=== PATIENT | male | born 1935 | race Caucasian/White ===

== ENCOUNTER → 2020-03-15 10:28 | Outpatient (BNVA) | payer MEDICARE, SELFPAY | PROVIDERS: Visit Provider Nurse Practitioner | DX: I10 Essential (primary) hypertension (principal); N40.1 Benign prostatic hyperplasia with lower urinary tract symptoms; R39.15 Urgency of urination | CPT/HCPCS: 80053; 80061; 81000; 84443; 85025 ==

== ENCOUNTER → 2020-06-25 11:50 | Outpatient (BNVA) | payer MEDICARE, SELFPAY | PROVIDERS: PCP Nurse Practitioner; Visit Provider Nurse Practitioner | DX: R13.10 Dysphagia, unspecified (principal); Z86.79 Personal history of other diseases of the circulatory system; F41.1 Generalized anxiety disorder; N39.41 Urge incontinence; N40.1 Benign prostatic hyperplasia with lower urinary tract symptoms; I10 Essential (primary) hypertension; R53.83 Other fatigue | CPT/HCPCS: 80053; 82607; 84443; 85025 ==

== ENCOUNTER → 2020-06-26 13:27 | Outpatient (BNVA) | payer MEDICARE, SELFPAY | PROVIDERS: PCP Nurse Practitioner; Visit Provider Nurse Practitioner | DX: R53.83 Other fatigue (principal); R13.10 Dysphagia, unspecified | CPT/HCPCS: 81000 ==

== ENCOUNTER 2020-07-06 15:25 | Observation (INO) | payer MEDICARE, SELFPAY ==
[2020-07-06] VITALS (7 sets, daily range): BP systolic 158–183; BP diastolic 100–113; PULSE 98–115; RESP 12–18; TEMP 36.4–36.7; O2SAT 96–99; BMI 23.6
[2020-07-06 15:45] LABS: Glucose Point of Care 96 mg/dL (70-110)
--- NOTE | 2020-07-06 15:45 | CT_ITS ---
WS: [id number] CT HEAD NONCONTRAST HISTORY: STROKE ALERT TECHNIQUE: Contiguous axial imaging performed through the brain in 2.5 mm imaging. Bone and soft tiss ue windows. Sagittal and coronal reformats reviewed. All CT scans at [facility] use at ast one of these dose optimization techniques: automated exposure control; mA and/or kV adjustment pe r patient size (includes targeted exams where dose is matched to clinical indication); or iterative r econstruction. DLP: 1070.47 mGy-cm. COMPARISON: None available. No acute intracranial hemorrhage, midline shift or mass effect. Moderate atrophy with severe chronic microvascular ischemic changes throughout the white matter. 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 Ventricles: Normal size with no hydrocephalus. Paranasal sinuses: Mucoperiosteal thickening in the ethmoid air cells, greater on the LEFT. No air-fl uid levels. Mastoid air cells: Well pneumatized. Calvarium and scalp: Skull is intact with no soft tissue edema or swelling. Mild atherosclerotic calcification through the cavernous sinuses. CT/CT head wo con* [id number] IMPRESSION: 1. No acute intracranial hemorrhage or edema. 2. Moderate to severe chronic microvascular ischemic disease. Notified Kelvin Campbell DO at 07/06/2020 3:50 PM.
--- NOTE | 2020-07-06 15:51 | XR_ITS ---
WS: [id number] PORTABLE CHEST HISTORY: dyspnea/cough COMPARISON: None available. Prior CABG. Lungs are clear and well expanded. No pleural effusion or pneumothorax. Cardiac size: Mildly enlarged cardiac silhouette. Mediastinum/Aorta: Moderate atherosclerosis aorta and ectasia. Osteopenia. XR/XR chest 1V portable [id number] IMPRESSION: Prior CABG and partially calcified aorta.
--- NOTE | 2020-07-06 15:52 | ED_ITS ---
Documented by User: eKlvin Campbell DO 07/09/20 06:38 HPI - Neuro Symptoms/Deficit General: Chief Complaint: Neuro Symptoms/Deficit Stated Complaint: Stroke alert Time Seen by Provider: 07/06/20 15:28 History of Present Illness: HPI Narrative: 84-year-old male brought in by EMS. Stroke alert was called. Patient arrival is awake alert and oriented and has a stroke score of 1. He had last been seen normal Around 1230 today he had gone to town and he [place] out to his [place] he was sitting at a gait when he was found he had a thick tongue with a difficult time speaking difficult time walking. EMS reported right-sided facial droop however he was seen here he has some dysarthria but no other significant findings. Onset (ago): minute(s) Timing confirmed by: spouse Location: speech Severity: mild Quality: weak and numb Relieving factors: none Exacerbating factors: none Context: sudden onset Associated symptoms: Deny chest pain, cough, diaphoresis, fevers/chills, headache(s), anorexia, malaise, nausea, seizures, short of breath, syncope, tingling, vomiting or weakness Review of Systems Const: Denies: malaise or diaphoresis ENMT: Denies: throat pain, ear or mastoid pain, nasal discharge or nasal congestion Card: Denies: chest pain or syncope Resp: Denies: dyspnea, productive cough or non-productive cough GI: Denies: nausea or vomiting : Denies: flank pain, dysuria, urinary frequency or urinary urgency Skin/Breast: Denies: rash or pruritus Neuro: Denies: headache(s) PFSH ED PFSH: Medical History Alcohol abuse, daily use Alcohol use disorder Ambulates with cane Benign prostatic hyperplasia (BPH) with urinary urgency Chronic constipation Essential (primary) hypertension Generalized anxiety disorder History of coronary artery disease History of TB (tuberculosis) Urge incontinence Surgical History History of cataract left History of cervical spinal surgery History of heart bypass surgery x4 History of hernia repair Right Family History Other Cancer Stroke Denies family history of Diabetes Dementia Bleeding disorder Hypertension Social History Smoking and tobacco status: smoker, details unknown Second hand smoke exposure: No Smoking risk assessment/counseling performed?: No Alcohol intake: current Alcohol intake frequency: 3 or more drinks per day Alcohol type: beer and hard liquor Desire information about alcohol rehabilitation?: No Counseling given: Yes (Verbal) Desire information about substance/drug rehabilitation?: No Counseling given: No Adopted: No Caregiver/support person: Yes Lives independently: Yes Household members: spouse Housing: House Marital status: / Number of children: 2 service: No Current occupational status: retired History of recent travel: Yes ([place]) Out of state: Yes Out of country: No Current gender identity: Male NIH stroke score NIHSS: Level Of Consciousness - 1a: 0 Level Of Consciousness Questions - 1b: Both Correct Level Of Consciousness Commands - 1c: Both Correct Best Gaze - 2: Normal Visual Baker - 3: No Visual Loss Facial Palsy - 4: Normal Motor Arm Right - 5: No Drift Motor Arm Left - 5: No Drift Motor Leg Right - 6: No Drift Motor Leg Left - 6: No Drift Limb Ataxia - 7: Absent Sensory - 8: Normal Best Language - 9: No Aphasia Dysarthia - 10: Mild/Moderate Dysarthia Extinction And Inattention - 11: 0 Score: Total Score: 1 Physical Exam Const: COMMON NORMALS: no acute distress GENERAL APPEARANCE: cooperative and comfortable ORIENTATION/CONSCIOUSNESS: Yes awake, Yes oriented to person, Yes oriented to place and Yes oriented to time HENMT: COMMON NORMALS: normocephalic, atraumatic and hearing grossly normal bilaterally HEAD & SCALP: normocephalic and atraumatic Neck/C-Spine: COMMON NORMALS: no JVD Resp: COMMON NORMALS: normal respiratory effort, No retractions, No use of accessory muscles and clear to auscultation bilaterally AUSCULTATION: clear to auscultation bilaterally Cardio: COMMON NORMALS: no JVD, regular rate, regular rhythm and No murmurs present (Cardio) RATE: regular rate RHYTHM: regular rhythm GI: COMMON NORMALS: Soft to palpation and No hepatosplenomegaly present AUSCULTATION: Yes normoactive bowel sounds PALPATION: Yes Soft to palpation, No Tenderness to palpation present (GI), No Guarding due to palpation present (GI) and Yes No hepatosplenomegaly present Extremity: COMMON NORMALS: normal to inspection, capillary refill normal, no clubbing, cyanosis or edema, no calf tenderness and no pedal edema Neuro: SENSORIUM/ORIENTATION: Yes oriented to person, Yes oriented to place and Yes oriented to time Skin: COMMON NORMALS: no rashes or lesions noted GENERAL SKIN EXAM: no rashes or lesions noted Course Vital Signs: Vital signs: Vital Signs Temperature 98.3 F 07/07/20 13:15 Pulse Rate 60 07/07/20 13:15 Respiratory Rate 18 07/07/20 13:15 Blood Pressure 108/66 07/07/20 13:15 Pulse Oximetry 98 07/07/20 13:15 MDM - Neuro Symptoms/Deficit MDM Narrative: Medical decision making narrative: Concerning for TIA versus CVA. At this point he is nearly completely resolved his stroke score is very low on the only [address] care turned over to Dr[address] Johns at change of shift see his note for final diagnosis and disposition Lab Data: Labs: Lab Results 07/06/20 07/06/20 07/06/20 Range/Units 15:41 15:45 15:45 WBC 6.1 (4.0-10.0) 10^3/ uL RBC 4.02 L (4.1-5.3) 10^6/u L Hgb 12.2 (11.7-16.6) g/dL Hct 38.2 L (42.0-52.0) % MCV 95.0 H (80-94) fL MCH 30.3 (28.0-34.0) pg MCHC 31.9 (30.0-36.0) g/dL RDW 13.1 (12.1-15.1) % Plt Count 182 (130-400) 10^3/c mm MPV 10.7 H (7.4-10.4) fL Neut % (Auto) 66.8 % Lymph % (Auto) 18.4 % [place] % (Auto) 8.6 % Eos % (Auto) 5.3 % Baso % (Auto) 0.7 % Neut # (Auto) 4.07 (1.8-7.7) 10^3/u L Lymph # (Auto) 1.1 (0.8-4.8) 10^3/u L [place] # (Auto) 0.5 (0.2-0.9) 10^3/u L Eos # (Auto) 0.3 (0.0-0.8) 10^3/u L Baso # (Auto) 0.0 (0.0-0.1) 10^3/u L Nucleated RBC % (a uto) 0 % Nucleated RBCs # 0.0 /100WBC Specimen Type Sample Site ABG pH (7.35-7.45) ABG pCO2 (35-45) mmHg ABG pO2 (80.0-100.0) mmH g ABG HCO3 (22-26) mmol/L ABG O2 Saturation ABG Base Excess (-2.0-2.0) mmol/ L Matheus Test A-a O2 Gradient (5-10) mmHg Hematocrit (42-52) % Hgb O2 Saturation (95-100) % Carboxyhemoglobin (0.4-20.1) %THgb Methemoglobin (0.4-1.5) % Total Hemoglobin (14-18) g/dL Ionized Calcium (1.1-1.4) mmol/L O2 Delivery Device Gas Station Supervisor ID Sodium 139 (136-145) mmol/L Potassium 4.1 (3.5-5.1) mmol/L Chloride 102 (98-107) mmol/L Carbon Dioxide 25 (22-29) mmol/L Anion Gap 16.1 (5-19) BUN 22 (8-23) mg/dL Creatinine 0.8 (0.7-1.2) mg/dL GFR Calculation Not Reportable Glucose 121 H (65-115) mg/dL POC Glucose 96 (70-110) mg/dL Calculated Osmolal ity 293 (285-295) mOsm/k g Lactic Acid (0.5-2.2) mmol/L Calcium 9.2 (8.5-10.5) mg/dL Total Bilirubin 0.4 (0.15-1.2) mg/dL AST 28 (0-40) U/L ALT 27 (0-41) U/L Alkaline Phosphata se 68 (40-130) IU/L Ammonia (16-60) umol/L Total Protein 7.1 (6.6-8.7) g/dL Albumin 4.4 (3.5-5.2) g/dL Globulin 2.7 (1.3-4.6) g/dL Urine Color (Yellow) Urine Appearance (CLEAR) Urine pH (5-7) Ur Specific Gravit y (1.005-1.030) Urine Protein (Negative) Urine Glucose (UA) (Normal) Urine Ketones (Negative) Urine Blood (Negative) Urine Nitrate (Negative) Urine Bilirubin (Negative) Urine Urobilinogen (Negative) mg/dL Ur Leukocyte Jena ase (Negative) Serum Ketones Negative (Negative) 07/06/20 07/06/20 07/06/20 Range/Units 16:05 16:05 16:15 WBC (4.0-10.0) 10^3/ uL RBC (4.1-5.3) 10^6/u L Hgb (11.7-16.6) g/dL Hct (42.0-52.0) % MCV (80-94) fL MCH (28.0-34.0) pg MCHC (30.0-36.0) g/dL RDW (12.1-15.1) % Plt Count (130-400) 10^3/c mm MPV (7.4-10.4) fL Neut % (Auto) % Lymph % (Auto) % Stonewall % (Auto) % Eos % (Auto) % Baso % (Auto) % Neut # (Auto) (1.8-7.7) 10^3/u L Lymph # (Auto) (0.8-4.8) 10^3/u L [place] # (Auto) (0.2-0.9) 10^3/u L Eos # (Auto) (0.0-0.8) 10^3/u L Baso # (Auto) (0.0-0.1) 10^3/u L Nucleated RBC % (a uto) % Nucleated RBCs # /100WBC Specimen Type Arterial Sample Site Radial, left ABG pH 7.39 (7.35-7.45) ABG pCO2 44.5 (35-45) mmHg ABG pO2 72.5 L (80.0-100.0) mmH g ABG HCO3 27.1 H (22-26) mmol/L ABG O2 Saturation 93.8 ABG Base Excess 1.7 (-2.0-2.0) mmol/ L Matheus Test Pos A-a O2 Gradient 3.1 L (5-10) mmHg Hematocrit 40.3 L (42-52) % Hgb O2 Saturation 92.2 L (95-100) % Carboxyhemoglobin 0.9 (0.4-20.1) %THgb Methemoglobin 0.7 (0.4-1.5) % Total Hemoglobin 13.2 L (14-18) g/dL Ionized Calcium 1.2 (1.1-1.4) mmol/L O2 Delivery Device Room air [employer] Supervisor ID [id number] Sodium 140.0 (136-145) mmol/L Potassium 4.1 (3.5-5.1) mmol/L Chloride (98-107) mmol/L Carbon Dioxide (22-29) mmol/L Anion Gap (5-19) BUN (8-23) mg/dL Creatinine (0.7-1.2) mg/dL GFR Calculation Glucose 103.0 (65-115) mg/dL POC Glucose (70-110) mg/dL Calculated Osmolal ity (285-295) mOsm/k g Lactic Acid 0.8 (0.5-2.2) mmol/L Calcium (8.5-10.5) mg/dL Total Bilirubin (0.15-1.2) mg/dL AST (0-40) U/L ALT (0-41) U/L Alkaline Phosphata se (40-130) IU/L Ammonia 20 (16-60) umol/L Total Protein (6.6-8.7) g/dL Albumin (3.5-5.2) g/dL Globulin (1.3-4.6) g/dL Urine Color (Yellow) Urine Appearance (CLEAR) Urine pH (5-7) Ur Specific Gravit y (1.005-1.030) Urine Protein (Negative) Urine Glucose (UA) (Normal) Urine Ketones (Negative) Urine Blood (Negative) Urine Nitrate (Negative) Urine Bilirubin (Negative) Urine Urobilinogen (Negative) mg/dL Ur Leukocyte Jena ase (Negative) Serum Ketones (Negative) 07/06/20 Range/Units 17:07 WBC (4.0-10.0) 10^3/ uL RBC (4.1-5.3) 10^6/u L Hgb (11.7-16.6) g/dL Hct (42.0-52.0) % MCV (80-94) fL MCH (28.0-34.0) pg MCHC (30.0-36.0) g/dL RDW (12.1-15.1) % Plt Count (130-400) 10^3/c mm MPV (7.4-10.4) fL Neut % (Auto) % Lymph % (Auto) % Stonewall % (Auto) % Eos % (Auto) % Baso % (Auto) % Neut # (Auto) (1.8-7.7) 10^3/u L Lymph # (Auto) (0.8-4.8) 10^3/u L [place] # (Auto) (0.2-0.9) 10^3/u L Eos # (Auto) (0.0-0.8) 10^3/u L Baso # (Auto) (0.0-0.1) 10^3/u L Nucleated RBC % (a uto) % Nucleated RBCs # /100WBC Specimen Type Sample Site ABG pH (7.35-7.45) ABG pCO2 (35-45) mmHg ABG pO2 (80.0-100.0) mmH g ABG HCO3 (22-26) mmol/L ABG O2 Saturation ABG Base Excess (-2.0-2.0) mmol/ L Matheus Test A-a O2 Gradient (5-10) mmHg Hematocrit (42-52) % Hgb O2 Saturation (95-100) % Carboxyhemoglobin (0.4-20.1) %THgb Methemoglobin (0.4-1.5) % Total Hemoglobin (14-18) g/dL Ionized Calcium (1.1-1.4) mmol/L O2 Delivery Device [employer] Station Supervisor ID Sodium (136-145) mmol/L Potassium (3.5-5.1) mmol/L Chloride (98-107) mmol/L Carbon Dioxide (22-29) mmol/L Anion Gap (5-19) BUN (8-23) mg/dL Creatinine (0.7-1.2) mg/dL GFR Calculation Glucose (65-115) mg/dL POC Glucose (70-110) mg/dL Calculated Osmolal ity (285-295) mOsm/k g Lactic Acid (0.5-2.2) mmol/L Calcium (8.5-10.5) mg/dL Total Bilirubin (0.15-1.2) mg/dL AST (0-40) U/L ALT (0-41) U/L Alkaline Phosphata se (40-130) IU/L Ammonia (16-60) umol/L Total Protein (6.6-8.7) g/dL Albumin (3.5-5.2) g/dL Globulin (1.3-4.6) g/dL Urine Color Yellow (Yellow) Urine Appearance Clear (CLEAR) Urine pH 6 (5-7) Ur Specific Gravit y 1.010 (1.005-1.030) Urine Protein Neg (Negative) Urine Glucose (UA) Norm (Normal) Urine Ketones Negative (Negative) Urine Blood Neg (Negative) Urine Nitrate Negative (Negative) Urine Bilirubin Neg (Negative) Urine Urobilinogen Neg (Negative) mg/dL Ur Leukocyte Jena ase Negative (Negative) Serum Ketones (Negative) Discharge Plan Discharge Patient Disposition: Placed in Observation Admit Provider: Mario Collins Clinical Impression: Transient cerebral ischemia Condition: Stable Referrals: Michelle Nguyen FNP-C [Primary Care Provider] - 4-7 days (Michelle Nguyen's office will call you Thursday with an appointment to follow up in 4-7 days. If you don't hear from them please call [phone]) Discharge Diet: Advance as tolerated Discharge Activity: Resume usual activity Patient Instructions: Alcohol Abuse, Pantoprazole (By mouth), TIA Additional Instructions: Please call your doctor or present to emergency department if your condition worsens or you develop diarrhea. Please stop oxybutynin as it is likely the cause of your urinary incontinence, constipation and severe dry mouth. Please discuss with your doctor if you require help to quit drinking. For now please decrease amount of alcohol you are drinking and make sure you drink plenty of fluids for self hydration. Discharge Date/Time: 07/06/20 18:53 Coding Level of Care Code ED Composite Worker for Chg Fwd Documented by User: Braulio Johns DO 07/06/20 17:33 HPI - Neuro Symptoms/Deficit General: Chief Complaint: Neuro Symptoms/Deficit Stated Complaint: Stroke alert Time Seen by Provider: 07/06/20 15:28 PFSH ED PFSH: Medical History Alcohol abuse, daily use Alcohol use disorder Ambulates with cane Benign prostatic hyperplasia (BPH) with urinary urgency Chronic constipation Essential (primary) hypertension Generalized anxiety disorder History of coronary artery disease History of TB (tuberculosis) Urge incontinence Surgical History History of cataract left History of cervical spinal surgery History of heart bypass surgery x4 History of hernia repair Right Family History Other Cancer Stroke Denies family history of Diabetes Dementia Bleeding disorder Hypertension Social History Smoking and tobacco status: smoker, details unknown Second hand smoke exposure: No Smoking risk assessment/counseling performed?: No Alcohol intake: current Alcohol intake frequency: 3 or more drinks per day Alcohol type: beer and hard liquor Desire information about alcohol rehabilitation?: No Counseling given: Yes (Verbal) Desire information about substance/drug rehabilitation?: No Counseling given: No Adopted: No Caregiver/support person: Yes Lives independently: Yes Household members: spouse Housing: House Marital status: / Number of children: 2 service: No Current occupational status: retired History of recent travel: Yes ([place]) Out of state: Yes Out of country: No Current gender identity: Male Course Consultations: Consultation #1: evelin Time: 17:32 Vital Signs: Vital signs: Vital Signs Temperature 98.3 F 07/07/20 13:15 Pulse Rate 60 07/07/20 13:15 Respiratory Rate 18 07/07/20 13:15 Blood Pressure 108/66 07/07/20 13:15 Pulse Oximetry 98 07/07/20 13:15 MDM - Neuro Symptoms/Deficit MDM Narrative: Medical decision making narrative: 84-year-old male brought to the hospital by EMS today. He was checked out to me at shift change by Dr. Bhakta. This cedric presented with symptoms of thickness feeling of the tongue, weakness to one side, and some amnesia. The amnesia persists, the other per symptoms are essentially resolved. He had a CABG in the distant past. He has not seen a senior internet sales consultant in several years. His symptoms are concerning for a TIA. His CT was negative, for anything acute, however, he does have some chronic microvascular ischemic changes. He will come in for carotids, ultrasound echo, etc. Lab Data: Labs: Lab Results 07/06/20 07/06/20 07/06/20 Range/Units 15:41 15:45 15:45 WBC 6.1 (4.0-10.0) 10^3/ uL RBC 4.02 L (4.1-5.3) 10^6/u L Hgb 12.2 (11.7-16.6) g/dL Hct 38.2 L (42.0-52.0) % MCV 95.0 H (80-94) fL MCH 30.3 (28.0-34.0) pg MCHC 31.9 (30.0-36.0) g/dL RDW 13.1 (12.1-15.1) % Plt Count 182 (130-400) 10^3/c mm MPV 10.7 H (7.4-10.4) fL Neut % (Auto) 66.8 % Lymph % (Auto) 18.4 % [place]wall % (Auto) 8.6 % Eos % (Auto) 5.3 % Baso % (Auto) 0.7 % Neut # (Auto) 4.07 (1.8-7.7) 10^3/u L Lymph # (Auto) 1.1 (0.8-4.8) 10^3/u L [place] # (Auto) 0.5 (0.2-0.9) 10^3/u L Eos # (Auto) 0.3 (0.0-0.8) 10^3/u L Baso # (Auto) 0.0 (0.0-0.1) 10^3/u L Nucleated RBC % (a uto) 0 % Nucleated RBCs # 0.0 /100WBC Specimen Type Sample Site ABG pH (7.35-7.45) ABG pCO2 (35-45) mmHg ABG pO2 (80.0-100.0) mmH g ABG HCO3 (22-26) mmol/L ABG O2 Saturation ABG Base Excess (-2.0-2.0) mmol/ L Matheus Test A-a O2 Gradient (5-10) mmHg Hematocrit (42-52) % Hgb O2 Saturation (95-100) % Carboxyhemoglobin (0.4-20.1) %THgb Methemoglobin (0.4-1.5) % Total Hemoglobin (14-18) g/dL Ionized Calcium (1.1-1.4) mmol/L O2 Delivery Device Gas Station Supervisor ID Sodium 139 (136-145) mmol/L Potassium 4.1 (3.5-5.1) mmol/L Chloride 102 (98-107) mmol/L Carbon Dioxide 25 (22-29) mmol/L Anion Gap 16.1 (5-19) BUN 22 (8-23) mg/dL Creatinine 0.8 (0.7-1.2) mg/dL GFR Calculation Not Reportable Glucose 121 H (65-115) mg/dL POC Glucose 96 (70-110) mg/dL Calculated Osmolal ity 293 (285-295) mOsm/k g Lactic Acid (0.5-2.2) mmol/L Calcium 9.2 (8.5-10.5) mg/dL Total Bilirubin 0.4 (0.15-1.2) mg/dL AST 28 (0-40) U/L ALT 27 (0-41) U/L Alkaline Phosphata se 68 (40-130) IU/L Ammonia (16-60) umol/L Total Protein 7.1 (6.6-8.7) g/dL Albumin 4.4 (3.5-5.2) g/dL Globulin 2.7 (1.3-4.6) g/dL Urine Color (Yellow) Urine Appearance (CLEAR) Urine pH (5-7) Ur Specific Gravit y (1.005-1.030) Urine Protein (Negative) Urine Glucose (UA) (Normal) Urine Ketones (Negative) Urine Blood (Negative) Urine Nitrate (Negative) Urine Bilirubin (Negative) Urine Urobilinogen (Negative) mg/dL Ur Leukocyte Jena ase (Negative) Serum Ketones Negative (Negative) 07/06/20 07/06/20 07/06/20 Range/Units 16:05 16:05 16:15 WBC (4.0-10.0) 10^3/ uL RBC (4.1-5.3) 10^6/u L Hgb (11.7-16.6) g/dL Hct (42.0-52.0) % MCV (80-94) fL MCH (28.0-34.0) pg MCHC (30.0-36.0) g/dL RDW (12.1-15.1) % Plt Count (130-400) 10^3/c mm MPV (7.4-10.4) fL Neut % (Auto) % Lymph % (Auto) % [place] % (Auto) % Eos % (Auto) % Baso % (Auto) % Neut # (Auto) (1.8-7.7) 10^3/u L Lymph # (Auto) (0.8-4.8) 10^3/u L [place] # (Auto) (0.2-0.9) 10^3/u L Eos # (Auto) (0.0-0.8) 10^3/u L Baso # (Auto) (0.0-0.1) 10^3/u L Nucleated RBC % (a uto) % Nucleated RBCs # /100WBC Specimen Type Arterial Sample Site Radial, left ABG pH 7.39 (7.35-7.45) ABG pCO2 44.5 (35-45) mmHg ABG pO2 72.5 L (80.0-100.0) mmH g ABG HCO3 27.1 H (22-26) mmol/L ABG O2 Saturation 93.8 ABG Base Excess 1.7 (-2.0-2.0) mmol/ L Matheus Test Pos A-a O2 Gradient 3.1 L (5-10) mmHg Hematocrit 40.3 L (42-52) % Hgb O2 Saturation 92.2 L (95-100) % Carboxyhemoglobin 0.9 (0.4-20.1) %THgb Methemoglobin 0.7 (0.4-1.5) % Total Hemoglobin 13.2 L (14-18) g/dL Ionized Calcium 1.2 (1.1-1.4) mmol/L O2 Delivery Device Room air [employer] Supervisor ID [id number] Sodium 140.0 (136-145) mmol/L Potassium 4.1 (3.5-5.1) mmol/L Chloride (98-107) mmol/L Carbon Dioxide (22-29) mmol/L Anion Gap (5-19) BUN (8-23) mg/dL Creatinine (0.7-1.2) mg/dL GFR Calculation Glucose 103.0 (65-115) mg/dL POC Glucose (70-110) mg/dL Calculated Osmolal ity (285-295) mOsm/k g Lactic Acid 0.8 (0.5-2.2) mmol/L Calcium (8.5-10.5) mg/dL Total Bilirubin (0.15-1.2) mg/dL AST (0-40) U/L ALT (0-41) U/L Alkaline Phosphata se (40-130) IU/L Ammonia 20 (16-60) umol/L Total Protein (6.6-8.7) g/dL Albumin (3.5-5.2) g/dL Globulin (1.3-4.6) g/dL Urine Color (Yellow) Urine Appearance (CLEAR) Urine pH (5-7) Ur Specific Gravit y (1.005-1.030) Urine Protein (Negative) Urine Glucose (UA) (Normal) Urine Ketones (Negative) Urine Blood (Negative) Urine Nitrate (Negative) Urine Bilirubin (Negative) Urine Urobilinogen (Negative) mg/dL Ur Leukocyte Jena ase (Negative) Serum Ketones (Negative) 07/06/20 Range/Units 17:07 WBC (4.0-10.0) 10^3/ uL RBC (4.1-5.3) 10^6/u L Hgb (11.7-16.6) g/dL Hct (42.0-52.0) % MCV (80-94) fL MCH (28.0-34.0) pg MCHC (30.0-36.0) g/dL RDW (12.1-15.1) % Plt Count (130-400) 10^3/c mm MPV (7.4-10.4) fL Neut % (Auto) % Lymph % (Auto) % [place] % (Auto) % Eos % (Auto) % Baso % (Auto) % Neut # (Auto) (1.8-7.7) 10^3/u L Lymph # (Auto) (0.8-4.8) 10^3/u L [place] # (Auto) (0.2-0.9) 10^3/u L Eos # (Auto) (0.0-0.8) 10^3/u L Baso # (Auto) (0.0-0.1) 10^3/u L Nucleated RBC % (a uto) % Nucleated RBCs # /100WBC Specimen Type Sample Site ABG pH (7.35-7.45) ABG pCO2 (35-45) mmHg ABG pO2 (80.0-100.0) mmH g ABG HCO3 (22-26) mmol/L ABG O2 Saturation ABG Base Excess (-2.0-2.0) mmol/ L Matheus Test A-a O2 Gradient (5-10) mmHg Hematocrit (42-52) % Hgb O2 Saturation (95-100) % Carboxyhemoglobin (0.4-20.1) %THgb Methemoglobin (0.4-1.5) % Total Hemoglobin (14-18) g/dL Ionized Calcium (1.1-1.4) mmol/L O2 Delivery Device Gas Station Supervisor ID Sodium (136-145) mmol/L Potassium (3.5-5.1) mmol/L Chloride (98-107) mmol/L Carbon Dioxide (22-29) mmol/L Anion Gap (5-19) BUN (8-23) mg/dL Creatinine (0.7-1.2) mg/dL GFR Calculation Glucose (65-115) mg/dL POC Glucose (70-110) mg/dL Calculated Osmolal ity (285-295) mOsm/k g Lactic Acid (0.5-2.2) mmol/L Calcium (8.5-10.5) mg/dL Total Bilirubin (0.15-1.2) mg/dL AST (0-40) U/L ALT (0-41) U/L Alkaline Phosphata se (40-130) IU/L Ammonia (16-60) umol/L Total Protein (6.6-8.7) g/dL Albumin (3.5-5.2) g/dL Globulin (1.3-4.6) g/dL Urine Color Yellow (Yellow) Urine Appearance Clear (CLEAR) Urine pH 6 (5-7) Ur Specific Gravit y 1.010 (1.005-1.030) Urine Protein Neg (Negative) Urine Glucose (UA) Norm (Normal) Urine Ketones Negative (Negative) Urine Blood Neg (Negative) Urine Nitrate Negative (Negative) Urine Bilirubin Neg (Negative) Urine Urobilinogen Neg (Negative) mg/dL Ur Leukocyte Jena ase Negative (Negative) Serum Ketones (Negative) Discharge Plan Discharge Patient Disposition: Placed in Observation Admit Provider: Mario Collins Clinical Impression: Transient cerebral ischemia Condition: Stable Referrals: Michelle Nguyen FNP-C [Primary Care Provider] - 4-7 days (Michelle Nguyen's office will call you Thursday with an appointment to follow up in 4-7 days. If you don't hear from them please call [phone]) Discharge Diet: Advance as tolerated Discharge Activity: Resume usual activity Patient Instructions: Alcohol Abuse, Pantoprazole (By mouth), TIA Additional Instructions: Please call your doctor or present to emergency department if your condition worsens or you develop diarrhea. Please stop oxybutynin as it is likely the cause of your urinary incontinence, constipation and severe dry mouth. Please discuss with your doctor if you require help to quit drinking. For now please decrease amount of alcohol you are drinking and make sure you drink plenty of fluids for self hydration. Discharge Date/Time: 07/06/20 18:53 Coding Level of Care Code ED Composite Worker for [place] Romero
[2020-07-06 16:06] LABS: Basophils % 0.7 %; Eosinophils # 0.3 10^3/uL (0.0-0.8); Eosinophils % 5.3 %; Hematocrit 38.2 % (42.0-52.0); Hemoglobin 12.2 g/dL (11.7-16.6); Lymphocytes # 1.1 10^3/uL (0.8-4.8); Lymphocytes % 18.4 %; Mean Corpuscular HGB Conc 31.9 g/dL (30.0-36.0); Mean Corpuscular Hemoglobin 30.3 pg (28.0-34.0); Mean Platelet Volume 10.7 fL (7.4-10.4); Monocytes # 0.5 10^3/uL (0.2-0.9); Monocytes % 8.6 %; Neutrophils # 4.07 10^3/uL (1.8-7.7); Neutrophils % 66.8 %; Nucleated Red Blood Cells % 0 %; Platelet Count 182 10^3/cmm (130-400); Red Blood Count 4.02 10^6/uL (4.1-5.3); Red Cell Distribution Width 13.1 % (12.1-15.1); White Blood Count 6.1 10^3/uL (4.0-10.0)
[2020-07-06 16:21] LABS: Ketone (Acetest) Serum Negative (Negative)
[2020-07-06 16:27] LABS: ABG PCO2 44.5 mmHg (35-45); ABG PH Result 7.39 (7.35-7.45); Alveolar-Arterial Oxygen Gradi 3.1 mmHg (5-10); Arterial Blood Gas Hematocrit 40.3 % (42-52); Base Excess ABG 1.7 mmol/L (-2.0-2.0); Blood Gas Allen Test Pos; Blood Gas Sample Site Radial, left; Blood Gas Sample Type Arterial; Carboxyhemoglobin 0.9 %THgb (0.4-20.1); HCO3 ABG 27.1 mmol/L (22-26); HGB O2 Sat 92.2 % (95-100); Ionized Calcium Level - ABG 1.2 mmol/L (1.1-1.4); Methemoglobin 0.7 % (0.4-1.5); Oxygen Device ROOM AIR; Oxygen Saturation ABG 93.8; PO2 ABG 72.5 mmHg (80.0-100.0); Potassium Level - ABG 4.1 mmol/L (3.5-5.0); Total Hemoglobin 13.2 g/dL (14-18)
[2020-07-06 16:31] LABS: Alanine Aminotransferase 27 U/L (0-41); Albumin Level 4.4 g/dL (3.5-5.2); Alkaline Phosphatase 68 IU/L (40-130); Aspartate Amino Transferase 28 U/L (0-40); Blood Urea Nitrogen 22 mg/dL (8-23); Calcium 9.2 mg/dL (8.5-10.5); Carbon Dioxide 25 mmol/L (22-29); Chloride 102 mmol/L (98-107); Globulin 2.7 g/dL (1.3-4.6); Glucose 121 mg/dL (65-115); Osmolality Calculated 293 mOsm/kg (285-295); Sodium 139 mmol/L (136-145); Total Bilirubin 0.4 mg/dL (0.15-1.2); Total Protein 7.1 g/dL (6.6-8.7)
[2020-07-06 16:48] LABS: Anion Gap 16.1 (5-19); Potassium 4.1 mmol/L (3.5-5.1)
[2020-07-06 16:56] LABS: Ammonia 20 umol/L (16-60); Lactic Sepsis W/Reflex 0.8 mmol/L (0.5-2.2)
[2020-07-06 17:21] LABS: Add Urine Microscopic? NO
[2020-07-06] MEDS: metoprolol tartrate 1 mg/1 mL SDV 5 mL 5 MG IV (17:35)
[2020-07-06 17:37] LABS: Blood Urine Neg (Negative); Glucose Urine UA Norm (Normal); Ketones Urine Negative (Negative); Nitrate Urine Negative (Negative); Protein Urine Neg (Negative); Urine Appearance Clear (CLEAR); Urine Color Yellow (Yellow); pH Urine 6 (5-7)
[2020-07-06 17:38] LABS: Bilirubin Urine Neg (Negative); Leukocyte Esterase Urine Negative (Negative); Urobilinogen Urine Neg (Negative)
--- NOTE | 2020-07-06 18:18 | P.HP_ITS ---
Providers/Chief Complaint Admitting Physician: Mario Collins MD Primary Care Provider: Michelle Nguyen, FILM SOUND COORDINATOR-C Chief Complaint: Stroke alert History of Present Illness Raúl Centeno is a 84 year old male presents to emergency department with altered mental status. Patient woke up this morning in his normal state of health. 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 He pressed an alert button on his wrist and EMS was summoned. EMS called home and notified patient's [id number] who was able to find patient not far from the gait who was sitting in the running car in the emergency detail driver's position with head extended back and mouth open. She was found him to have very slurred speech and he was confused. He was eventually ab le to follow her instructions and put car in the parking mode and get out of the car. When EMS arrived they appreciated right-sided facial droop and dysarthria. Patient did not lose consciousness and reports that he remembers everything that happened. Patient usually drinks beer ever since COVID-19 started but [id number] noticed large bottle of whiskey in his house with significant amount of drink missing. Patient admits drinking alcohol but denies previous history of withdrawal symptoms as I never stopped . He has been struggling with urinary incontinence but denies painful urination. Daughter in law reports that in the last 1 month she noticed him getting extremely tired with very minimal exertion which is not him as he is usually very active physically. EMS also noted patient being slightly hypoxic. Approximately 1 week ago patient was seen by primary care provider and [facility] [id number] reports that there was a concern for patient having urinary tract infection. Patient's UA checked in ER was not suggestive of UTI. Patient clinically appeared extremely dry. Patient reports that lately he has been having very dry mouth. Reports having constipation with bowel movements at times being once a week despite taking large amount of multiple laxative and prokinetic medications daily. Patient denies cough or shortness of breath. He denies abdominal pain or chest pain otherwise. Reports that his taste buds working normally and he denies any fever or chills. Patient's history is significant for four-vessel CABG approximately 15 years ago and he has been doing well since then. He denies any chest pain or shortness of breath even with exertion. He quit smoking in 1974. Review of Systems Const: Denies: fever(s) or chills Eyes: Denies: change in vision (Patient does report retinal detachment in the right eye) ENMT: Denies: throat pain or change in hearing Card: Denies: chest pain, edema or lightheadedness Resp: Denies: dyspnea or productive cough GI: Reports: nausea and constipation; Denies: abdominal pain, vomiting, dysphagia, diarrhea, hematochezia or melena : Reports: urinary frequency, urinary urgency and urinary incontinence Musc: Reports: joint pain (Chronic in his hands.); Denies: joint swelling Skin/Breast: Denies: rash or erythema Neuro: Denies: headache(s) or weakness in extremities Psych: Denies: depression or suicidal ideation Endo: Denies: excessive sweating [place]/Lymph: Denies: easy bleeding or tender lymph nodes All/Imm: Denies: throat swelling Medications/Allergies Home Medications Medication Instructions Recorded Confirmed Last Taken Type aspirin 81 mg tablet,delayed 81 mg PO DAILY 03/15/20 06/25/20 Unknown History release cholecalciferol (vitamin D3) 25 25 mcg PO DAILY 03/15/20 06/25/20 Unknown History mcg (1,000 unit) capsule docusate sodium 100 mg capsule 100 mg PO TID cap 03/15/20 06/25/20 Unknown History sennosides 8.6 mg capsule 8.6 mg PO BID PRN 03/15/20 06/25/20 Unknown History diphenhydramine HCl 50 mg tablet 50 mg PO DAILY PRN tab 04/17/20 06/25/20 Unkn own History atorvastatin 10 mg tablet 10 mg PO DAILY #90 tab 06/25/20 06/25/20 Unknown Rx duloxetine 60 mg capsule,delayed 60 mg PO DAILY #90 cap 06/25/20 06/25/20 Unknown Rx release oxybutynin chloride 15 mg 15 mg PO DAILY #90 tab 06/25/20 06/25/20 Unknown Rx tablet,extended release 24 hr sucralfate 100 mg/mL oral 10 ml PO BID #420 ml 06/25/20 06/25/20 Unknown Rx suspension tamsulosin 0.4 mg capsule 0.4 mg PO DAILY #90 cap 06/25/20 06/25/20 Unknown Rx Allergies Allergy/AdvReac Type Severity Reaction Status Date / Time No Known Allergies Allergy Unverified 04/02/20 16:02 PFSH Acute PFSH: Medical History Alcohol abuse, daily use Ambulates with cane Benign prostatic hyperplasia (BPH) with urinary urgency Chronic constipation Essential (primary) hypertension Generalized anxiety disorder History of coronary artery disease History of TB (tuberculosis) Urge incontinence Surgical History History of cataract left History of cervical spinal surgery History of heart bypass surgery x4 History of hernia repair Right Family History Other Cancer Stroke Denies family history of Diabetes Dementia Bleeding disorder Hypertension Social History Smoking and tobacco status: smoker, details unknown Second hand smoke exposure: No Smoking risk assessment/counseling performed?: No Alcohol intake: current Alcohol intake frequency: 3 or more drinks per day A lcohol type: beer and hard liquor Desire information about alcohol rehabilitation?: No Counseling given: Yes (Verbal) Desire information about substance/drug rehabilitation?: No Counseling given: No Adopted: No Caregiver/support person: Yes Lives independently: Yes Household members: spouse Housing: House Marital status: / Number of children: 2 service: No Current occupational status: retired History of recent travel: Yes ([place]) Out of state: Yes Out of country: No Current gender identity: Male Vitals/I&O/Wt Last Vital Signs Temp 98.1 F 07/06/20 15:27 Pulse 99 07/06/20 17:35 Resp 17 07/06/20 17:35 BP 158/110 07/06/20 17:35 Pulse Ox 97 07/06/20 17:35 Weight last 48 hrs Weight 78.97 kg Physical Exam Narrative: EXAM NARRATIVE: Mucous membranes are very dry. Skin is extremely dry and flaky. Const: COMMON NORMALS: no acute distress, patient oriented x3 and alert HENMT: COMMON NORMALS: normocephalic and atraumatic HEAD & SCALP: normocephalic and atraumatic Eye: COMMON NORMALS: EOMs intact bilaterally, conjunctivae normal and no scleral icterus CONJUNCTIVA: Yes conjunctivae normal Neck/C-Spine: COMMON NORMALS: no lymphadenopathy and no meningeal signs Lymph: LYMPHATIC: no lymphadenopathy noted Chest: COMMONS NORMALS: normal palpation of entire chest wall Resp: COMMON NORMALS: No use of accessory muscles and clear to auscultation bilaterally AUSCULTATION: clear to auscultation bilaterally Cardio: COMMON NORMALS: regular rate, regular rhythm and No murmurs present (Cardio) RATE: regular rate RHYTHM: regular rhythm OTHER: No lower extremity edema GI: COMMON NORMALS: Soft to palpation and non-tender PALPATION: Yes Soft to palpation RECTAL EXAM: Yes deferred : COMMON NORMALS: Yes no CVA tenderness BLADDER/KIDNEY EXAM: Yes no CVA tenderness Back/Pelvis: COMMON NORMALS: no CVA tenderness and thoracic and lumbar spine normal to inspection Extremity: COMMON NORMALS: normal to inspection and capillary refill normal Neuro: COMMON NORMALS: patient oriented x3 and no focal motor deficits SENSORIUM/ORIENTATION: Yes alert MENINGEAL SIGNS: Yes no meningeal signs OTHER: Mild bilateral tremors noted which patient reports being familial. He had normal [id number] test. He had normal peripheral vision. Normal shoulder shrug and no pronator drift. All of his muscles throughout were 5 out of 5. Face is symmetrical. Psych: COMMON NORMALS: mental status grossly normal, Normal thought process present and cooperative THOUGHT PROCESS: Normal thought process present Skin: COMMON NORMALS: no rashes or lesions noted GENERAL SKIN EXAM: no rashes or lesions noted Data : 07/06/20 15:45 07/06/20 15:45 A&P Assessment and plan (1) Stroke-like symptoms: I suspect that this is likely related to severe dehydration. Status: Acute (2) Benign prostatic hyperplasia (BPH) with urinary urgency: Status: Chronic (3) Severe dehydration: Status: Acute (4) Alcohol use disorder: Status: Acute (5) Essential (primary) hypertension: Status: Chronic (6) History of coronary artery disease: Status: Chronic Additional A&P Information PLAN: We will treat patient with IV hydration with LR at 100 mL/h for now. Place patient for observation and evaluate with carotid artery ultrasound and echocardiogram. Patient's B12 although in normal range but at the lower side therefore will give couple of doses of IM injections while he is hospitalized. Discontinue oxybutynin which is likely the main cause of patient's urinary incontinence, constipation and dry mouth. Start patient on senna and Colace. Monitor blood pressure and consider increasing Flomax to twice daily. Monitor for signs of withdrawal. PT/OT Patient reports dysphagia and related to severe dry mouth. Reports that he is swallowing well when his mouth is not dry. Discussed with patient regarding importance to decrease amount of alcohol he consumes. Patient voiced understanding. Attestations Medical Necessity Statement*: Patient with severe dehydration and strokelike symptoms requires observation for close monitoring, treatment and evaluation. I expect patient will require less than two midnights. Time Spent in Patient Care: Greater than 35 minutes Coding Level of Care Code Acute Women'S Activities Adviser for Chg Fwd Diagnoses Stroke-like symptoms R29.90 Benign prostatic hyperplasia (BPH) with urinary urgency N40.1; R39.15 Severe dehydration E86.0 Alcohol use disorder Essential (primary) hypertension I10 History of coronary artery disease Z86.79
[2020-07-06] MEDS: enoxaparin 40 mg/0.4 mL Syringe SUBCUT (22:05)
[2020-07-06] MEDS: lactated ringers 1,000 ML 100 ML IV (22:06)
[2020-07-07] VITALS: BP 151/83; PULSE 80; RESP 12; TEMP 36.5; O2SAT 95
[2020-07-07 00:29] VITALS: BP 120/82; BP 128/78; BP 151/83; PULSE 80; PULSE 96; PULSE 98
[2020-07-07 03:48] VITALS: BP 132/83; PULSE 113; RESP 20; TEMP 36.5; O2SAT 97
--- NOTE | 2020-07-07 07:00 | ECG_ITS ---
[facility] Test Date: 2020-07-07 Pat Name: Raúl Centeno Department: Room: 278 Gender: Male Reel Winder: : 1935 Requested By: Mario Collins Order Number: [id number] Ayden MD: Wilbert Doherty M.D. Measurements Intervals [place] Rate: 65 P: [place]: -1 QRS: 0 QRSD: 101 T: 52 QT: 435 QTc: 452 Interpretive Statements ATRIAL FLUTTER/TACHYCARDIA MODERATE ST DEPRESSION [0.05+ mV ST DEPRESSION] No previous ECG available for comparison Electronically Signed On 07-07-2020 18:35:20 CDT by Wilbert Doherty M.D. [id number]
[2020-07-07 07:01] LABS: Estmated Average Glucose 114; Hemoglobin A1C 5.6 % (4.0-6.0)
[2020-07-07] MEDS: lactated ringers 1,000 ML 100 ML IV (07:49)
[2020-07-07 07:56] VITALS: BP 121/64; PULSE 70; RESP 18; TEMP 36.6; O2SAT 95
[2020-07-07] MEDS: pantoprazole DR 40 mg Tablet PO (09:20)
[2020-07-07] MEDS: sennosides-docusate Tablet 2 TAB PO (09:20)
[2020-07-07] MEDS: duloxetine 60 mg Capsule PO (09:21)
[2020-07-07] MEDS: cyanocobalamin 1,000 mcg/mL SDV 1000 MCG IM (09:21)
[2020-07-07] MEDS: cholecalciferol (vitamin D3) 1,000 unit Tablet 1000 UNIT PO (09:21)
[2020-07-07] MEDS: tamsulosin 0.4 mg Capsule PO (09:21)
[2020-07-07] MEDS: aspirin 81 mg EC Tablet PO (09:21)
[2020-07-07] MEDS: atorvastatin 40 mg Tablet 20 MG PO (09:21)
--- NOTE | 2020-07-07 10:25 | P.DS_ITS ---
Discharge Providers Date of Admission: 07/06/20 17:34 Date of Discharge: July 07, 2020 Attending Provider at Admission: Mario Collins MD Attending Provider at Discharge: Mario Collins MD Primary Care Provider: EDD Jones Diagnoses at Discharge Discharge Diagnosis (1) Stroke-like symptoms: Status: Acute Problem details: Stroke/TIA felt unlikely. Patient symptoms appear to be related to severe dehydration (2) Benign prostatic hyperplasia (BPH) with urinary urgency: Status: Chronic (3) Severe dehydration: Status: Acute (4) Alcohol use disorder: Status: Acute (5) Essential (primary) hypertension: Status: Chronic (6) History of coronary artery disease: Status: Chronic Reason for Visit Reason for Visit: Stroke alert Hospital Course Discharge Summary: Patient presented with strokelike symptoms which felt to be secondary to severe dehydration. He was placed for an observation and hydrated with IV fluids. We are currently waiting for echocardiogram and carotid artery ultrasound to be performed and if shows no significant findings patient will be dismissed home. This morning patient reports feeling much better and strong enough to be dismissed home. He has adequate oral intake. He is ambulating with a walker in the hallway. Oxybutynin will be discontinued as it is likely the cause of patient's dry mouth, constipation and urinary incontinence. I will increase Flomax to twice daily as patient's blood pressure permits. Patient was told to slow down on drinking and discussed with his doctor If he needs help to completely quit. Patient was told to drink large amount of fluids to make sure he is well- hydrated. Physical Exam Const: COMMON NORMALS: no acute distress and patient oriented x3 Resp: COMMON NORMALS: normal respiratory effort and clear to auscultation bilaterally AUSCULTATION: clear to auscultation bilaterally Cardio: COMMON NORMALS: regular rate, regular rhythm and S2 normal heart sound present RATE: regular rate RHYTHM: regular rhythm HEART SOUNDS: S2 normal heart sound present OTHER: No lower extremity edema GI: COMMON NORMALS: Normal to inspection, nondistended, normoactive bowel s ounds present, Soft to palpation and non-tender PALPATION: Yes Soft to palpation Neuro: COMMON NORMALS: patient oriented x3 and no focal motor deficits Discharge Data Data Completed and Pending: Completed Studies During Hospitalization Category Date Time Status CT head wo con* [id number] Urgent Cat Scan 07/06/20 15:45 Completed XR chest 1V massimo ble [id number] Stat Exams 07/06/20 15:51 Completed Pending at discharge Category Date Time Status CV carotid duplex BI* [id number] Routine Ultrasound 07/07/20 18:33 Taken CV echo complete* [id number] Routine Ultrasound 07/07/20 18:33 Taken Labs from last 24 hours 07/07/20 07/06/20 07/06/20 05:42 17:07 16:15 WBC RBC Hgb Hct MCV MCH MCHC RDW Plt Count MPV Neut % (Auto) Lymph % (Auto) [place] % (Auto) Eos % (Auto) Baso % (Auto) Neut # (Auto) Lymph # (Auto) [place] # (Auto) Eos # (Auto) Baso # (Auto) Nucleated RBC % (a uto) Nucleated RBCs # Specimen Type Arterial Sample Site Radial, left ABG pH 7.39 ABG pCO2 44.5 ABG pO2 72.5 L ABG HCO3 27.1 H ABG O2 Saturation 93.8 ABG Base Excess 1.7 Matheus Test Pos A-a O2 Gradient 3.1 L Hematocrit 40.3 L Hgb O2 Saturation 92.2 L Carboxyhemoglobin 0.9 Methemoglobin 0.7 Total Hemoglobin 13.2 L Ionized Calcium 1.2 O2 Delivery Device Room air Chute Tapper ID jmn Sodium 140.0 Potassium 4.1 Chloride Carbon Dioxide Anion Gap BUN Creatinine GFR Calculation Glucose 103.0 POC Glucose Estimat Average Gl ucose 114 Hemoglobin A1c 5.6 Calculated Osmolal ity Lactic Acid Calcium Total Bilirubin AST ALT Alkaline Phosphata se Ammonia Total Protein Albumin Globulin Urine Color Yellow Urine Appearance Clear Urine pH 6 Ur Specific Gravit y 1.010 Urine Protein Neg Urine Glucose (UA) Norm Urine Ketones Negative Urine Blood Neg Urine Nitrate Negative Urine Bilirubin Neg Urine Urobilinogen Neg Ur Leukocyte Jena ase Negative Serum Ketones 07/06/20 07/06/20 07/06/20 16:05 16:05 15:45 WBC RBC Hgb Hct MCV MCH MCHC RDW Plt Count MPV Neut % (Auto) Lymph % (Auto) [place] % (Auto) Eos % (Auto) Baso % (Auto) Neut # (Auto) Lymph # (Auto) [place] # (Auto) Eos # (Auto) Baso # (Auto) Nucleated RBC % (a uto) Nucleated RBCs # Specimen Type Sample Site ABG pH ABG pCO2 ABG pO2 ABG HCO3 ABG O2 Saturation ABG Base Excess Matheus Test A-a O2 Gradient Hematocrit Hgb O2 Saturation Carboxyhemoglobin Methemoglobin Total Hemoglobin Ionized Calcium O2 Delivery Device Chute Tapper ID Sodium 139 Potassium 4.1 Chloride 102 Carbon Dioxide 25 Anion Gap 16.1 BUN 22 Creatinine 0.8 GFR Calculation Not Reportable Glucose 121 H POC Glucose Estimat Average Gl ucose Hemoglobin A1c Calculated Osmolal ity 293 Lactic Acid 0.8 Calcium 9.2 Total Bilirubin 0.4 AST 28 ALT 27 Alkaline Phosphata se 68 Ammonia 20 Total Protein 7.1 Albumin 4.4 Globulin 2.7 Urine Color Urine Appearance Urine pH Ur Specific Gravit y Urine Protein Urine Glucose (UA) Urine Ketones Urine Blood Urine Nitrate Urine Bilirubin Urine Urobilinogen Ur Leukocyte Jena ase Serum Ketones Negative 07/06/20 07/06/20 15:45 15:41 WBC 6.1 RBC 4.02 L Hgb 12.2 Hct 38.2 L MCV 95.0 H MCH 30.3 MCHC 31.9 RDW 13.1 Plt Count 182 MPV 10.7 H Neut % (Auto) 66.8 Lymph % (Auto) 18.4 [place] % (Auto) 8.6 Eos % (Auto) 5.3 Baso % (Auto) 0.7 Neut # (Auto) 4.07 Lymph # (Auto) 1.1 [place] # (Auto) 0.5 Eos # (Auto) 0.3 Baso # (Auto) 0.0 Nucleated RBC % (a uto) 0 Nucleated RBCs # 0.0 Specimen Type Sample Site ABG pH ABG pCO2 ABG pO2 ABG HCO3 ABG O2 Saturation ABG Base Excess Matheus Test A-a O2 Gradient Hematocrit Hgb O2 Saturation Carboxyhemoglobin Methemoglobin Total Hemoglobin Ionized Calcium O2 Delivery Device Chute Tapper ID Sodium Potassium Chloride Carbon Dioxide Anion Gap BUN Creatinine GFR Calculation Glucose POC Glucose 96 Estimat Average Gl ucose Hemoglobin A1c Calculated Osmolal ity Lactic Acid Calcium Total Bilirubin AST ALT Alkaline Phosphata se Ammonia Total Protein Albumin Globulin Urine Color Urine Appearance Urine pH Ur Specific Gravit y Urine Protein Urine Glucose (UA) Urine Ketones Urine Blood Urine Nitrate Urine Bilirubin Urine Urobilinogen Ur Leukocyte Jena ase Serum Ketones Vitals: Last Vital Signs Temp 97.9 F 07/07/20 07:56 Pulse 70 07/07/20 07:56 Resp 18 07/07/20 07:56 BP 121/64 07/07/20 07:56 Pulse Ox 95 07/07/20 07:56 Discharge Plan Discharge Patient Disposition: Home Condition: Stable Prescriptions: New pantoprazole 40 mg Tablet,Delayed Release (Dr/Ec) 40 mg PO DAILY Qty: 30 RF: 0 Continued senna 8.6 mg capsule 8.6 mg PO BID PRNRF: 0 docusate sodium [Stool Softener] 100 mg capsule 100 mg PO TID RF: 0 cholecalciferol (vitamin D3) 25 mcg (1,000 unit) capsule 25 mcg PO DAILY RF: 0 aspirin 81 mg tablet,delayed release (DR/EC) 81 mg PO DAILY RF: 0 atorvastatin 10 mg tablet 10 mg PO DAILY Qty: 90 RF: 1 duloxetine 60 mg capsule,delayed release(DR/EC) 60 mg PO DAILY Qty: 90 RF: 1 Changed tamsulosin 0.4 mg capsule 0.4 mg PO BID Qty: 90 RF: 1 Discontinued diphenhydramine HCl 50 mg tablet 50 mg PO DAILY PRNRF: 0 oxybutynin chloride 15 mg tablet extended release 24hr 15 mg PO DAILY Qty: 90 RF: 1 sucralfate [Carafate] 100 mg/mL suspension 10 ml PO BID Qty: 420 RF: 0 Discharge Orders: Discharge Order (Routine); Ordered 07/07/20 Ordered By: Mario Collins Referrals: Michelle Nguyen, DIANNEC [Primary Care Provider] - 4-7 days Discharge Diet: Advance as tolerated Discharge Activity: Resume usual activity Activity Restrictions/Additional Instructions: Please call your doctor or present to emergency department if your condition worsens or you develop diarrhea. Please stop oxybutynin as it is likely the cause of your urinary incontinence, constipation and severe dry mouth. Please discuss with your doctor if you require help to quit drinking. For now please decrease amount of alcohol you are drinking and make sure you drink plenty of fluids for self hydration. Discharge Attestations Time Spent in Discharge Care*: greater than 30 min Quality Metrics Clinical Quality Measures During this hospital stay, did patient experience: None Coding Level of Care Code Acute Professor Of Sociology for g Fwd Diagnoses Stroke-like symptoms R29.90 Benign prostatic hyperplasia (BPH) with urinary urgency N40.1; R39.15 Severe dehydration E86.0 Alcohol use disorder Essential (primary) hypertension I10 History of coronary artery disease Z86.79
[2020-07-07 11:40] VITALS: BP 108/66; PULSE 60; RESP 18; TEMP 36.8; O2SAT 98
[2020-07-07 13:15] VITALS: BP 108/66; PULSE 60; RESP 18; TEMP 36.8; O2SAT 98
--- NOTE | 2020-07-07 13:18 | PC.NURSE ---
DC instructions given, IV dc'd cath intact bleeding controlled with 2x2's and coban, patient to main entrance via wheelchair to personal vehicle with zero difficulties
--- NOTE | 2020-07-07 18:33 | USCV_ITS ---
Jacobo Raúl Age: 84 Gender: M : 1935 Exam Date: 07/07/2020 09:18 Ordering Phys: Mario Collins MD Technologist: Diane Gonzales Exam Location: [facility] [place] Indication: Strokelike symptoms BP: 121 / 64 HR: 72 Rhythm: Sinus Technical Quality: Technically difficult study MEASUREMENTS (Male / Female) Normal Values 2D ECHO LV Diastolic Diameter PLAX 3.8 cm 4.2 - 5.9 / 3.9 - 5.3 cm LV Systolic Diameter PLAX 3.2 cm LV Chamber Size 4.2 cm IVS Diastolic Thickness 1.9 cm 0.6 - 1.0 / 0.6 - 0.9 cm IVS Systolic Thickness 1.9 cm LVPW Diastolic Thickness 1.8 cm 0.6 - 1.0 / 0.6 - 0.9 cm LVPW Systolic Thickness 1.8 cm RV Chamber Size 2.7 cm LVOT Diameter 2.2 cm LV Ejection Fraction 2D Teich 36.7 % LV Ejection Fraction MOD 2C 51.7 % LV Ejection Fraction 2C AL 55.1 % LA Diameter 4.1 cm LA Width 3.0 cm LA Height 6.0 cm RA Width 2.8 cm RA Height 6.3 cm Aorta at Sinotubular Diameter 3.1 cm M-MODE LV Diastolic Diameter MM 4.6 cm 4.2 - 5.9 / 3.9 - 5.3 cm LV Systolic Diameter MM 3.0 cm LV Ejection Fraction MM Teich 62.1 % IVS Diastolic Thickness MM 1.6 cm 0.6 - 1.0 / 0.6 - 0.9 cm IVS Systolic Thickness MM 2.1 cm LVPW Diastolic Thickness MM 1.7 cm 0.6 - 1.0 / 0.6 - 0.9 cm LVPW Systolic Thickness MM 1.9 cm Aortic Annulus Diameter 3.3 cm LA Ao Ratio MM 1.4 MV E Point Septal Separation 0.6 cm DOPPLER AV Peak Velocity 132.3 cm/s LVOT Peak Velocity 59.0 cm/s AV Area Cont Eq vti 1.6 cm squared AV Area Cont Eq pk 1.7 cm squared MV Area PHT 5.0 cm squared Mitral E to A Ratio 1.9 MV E' Velocity 45.5 cm/s Mitral E to MV E' Ratio 6.6 Mitral E to LV E' Lateral Ratio 5.5 Mitral E to LV E' Septal Ratio 8.1 TR Peak Velocity 258.0 cm/s TR Peak Gradient 26.6 mmHg TV Peak E Velocity 55.0 cm/s Right Atrial Pressure 8.0 mmHg Pulmonary Artery Systolic Pressu 34.6 mmHg PV Peak Velocity 54.0 cm/s RV Acceleration Time 0.1 s RV Ejection Time 0.3 s RV AcT/ET 0.3 FINDINGS Left Ventricle Normal left ventricular size and systolic function, EF 50%. Moderate hypokinesia of the basal in the mid septum. Moderate constantly lifting with hypertrophy.Grade III/IV diastolic dysfunction (restrictive filling pattern), severely elevated filling pressures. Right Ventricle Normal right ventricular size and systolic function. Right Atrium Normal right atrial size. Left Atrium Mildly increased left atrial size. Mitral Valve Moderate mitral annular calcification. Aortic Valve Minimally thickened aortic valve Tricuspid Valve Mild tricuspid valve regurgitation. Pulmonic Valve Mild pulmonary valve regurgitation. Pericardium No pericardial effusion. Aorta Minimal dense in the ascending aorta CONCLUSIONS Normal left ventricular size and systolic function, EF 50% Moderate hypokinesia of the basal in the mid septum. Moderate concentric left ventricular hypertrophy. Grade III/IV diastolic dysfunction (restrictive filling pattern), severely elevated filling pressures. Mildly increased left atrial size. Moderate mitral annular calcification. Minimally thickened aortic valve. Mild tricuspid valve regurgitation. Mild pulmonary valve regurgitation. Estimated pulmonary artery peak systolic pressure 35 mmHg There is no pericardial effusion. There are no intracardiac masses. No previous study is available for comparison. Dr Wilbert Doherty MD FAC (Electronically Signed) Final Date: 07 July 2020 14:28 S
--- NOTE | 2020-07-07 18:33 | USCV_ITS ---
Raúl Centeno Age: 84 Gender: M : 1935 Exam Date: 07/07/2020 08:47 Ordering Phys: Mario Clolins MD Technologist: Diane Gonzales [place] [facility] [place]ication: Strokelike symptoms Risk Factors: Unknown Previous Vascular Surgery: None Right Brachial BP: / Left Brachial BP: / Right Left Velocity (cm/s) Spectral Plaque Velocity (cm/s) Spectral Plaque Syst/Diast Broadening Syst/Diast Broadening 44.90/ 8.60 Prox CCA 77.20 / 11.00 Hetro 55.50/ 12.80 Mid CCA 61.50 / 10.30 49.60/ 12.00 Hetro Distal CCA 59.00 / 11.10 Nas 53.60/ 14.80 Prox ICA 40.80 / 8.50 Nas 41.20/ 15.50 Mid ICA 46.00 / 13.80 55.20/ 20.20 Distal ICA 49.70 / 14.80 42.70 ECA 63.20 1.11 ICA/CCA 0.84 Vertebral Antegrade / cm/s 48.20/ 21.00 cm/s Tri Subclavian Tri 92.60 115.1 0 FINDINGS Comparison: none available. See measurements listed above. Mild to moderate heterogeneous plaques at the left bifurcation Minimal scattered plaques at the right bifurcation and proximal ICA Intimal thickening in the common carotid arteries bilaterally Antegrade flow in the left vertebral artery. Right vertebral artery was not visualized. Normal Doppler flow velocities in the external carotid arteries bilaterally CONCLUSIONS Mild to moderate heterogeneous plaques at the left bifurcation. Minimal scattered plaques at the right bifurcation and proximal internal carotid artery. Intimal thickening in the common carotid arteries bilaterally. Right vertebral artery was not visualized. Consider CTA, to better evaluate the right vertebral artery, if clinically indicated Dr Wilbert Doherty MD [facility] (Electronically Signed) Final Date: 08 July 2020 13:34 S
== END 2020-07-07 13:18 | disposition home or self-care (01) ==
LOC: ER 17:33 → MEDSURG 18:02
PROVIDERS: Family Medicine; Admitting Provider Internal Medicine; PCP Nurse Practitioner; Visit Provider Internal Medicine
DX: R41.82 Altered mental status, unspecified (principal); R47.81 Slurred speech; R41.0 Disorientation, unspecified; R29.810 Facial weakness; R29.90 Unspecified symptoms and signs involving the nervous system; N40.1 Benign prostatic hyperplasia with lower urinary tract symptoms; R39.15 Urgency of urination; E86.0 Dehydration; I10 Essential (primary) hypertension; Z86.79 Personal history of other diseases of the circulatory system; Z95.1 Presence of aortocoronary bypass graft; Z79.82 Long term (current) use of aspirin; F41.9 Anxiety disorder, unspecified; F17.210 Nicotine dependence, cigarettes, uncomplicated; I25.10 Atherosclerotic heart disease of native coronary artery without angina pectoris; F10.20 Alcohol dependence, uncomplicated; Y90.9 Presence of alcohol in blood, level not specified
CPT/HCPCS: 12345; 36415; 36416; 36600; 51798; 70450; 71045; 80051; 80053; 81003; 82009; 82140; 82810; 82962; 83036; 83605; 83986; 85025; 93005; 93306; 93880; 96360; 96361; 96372; 96374; 97116; 97161; 97165; 99283; 99285; G0378; J1650; J3420; J3490

== ENCOUNTER → 2020-07-31 16:11 | Outpatient (BNVA) | payer MEDICARE, SELFPAY | PROVIDERS: PCP Nurse Practitioner; Visit Provider Urology | DX: N39.41 Urge incontinence (principal); N40.1 Benign prostatic hyperplasia with lower urinary tract symptoms; R39.15 Urgency of urination; R97.20 Elevated prostate specific antigen [PSA]; Z12.5 Encounter for screening for malignant neoplasm of prostate | CPT/HCPCS: 81003; G0103 ==

== ENCOUNTER → 2020-08-10 13:58 | Outpatient (BNVA) | payer MEDICARE, SELFPAY | PROVIDERS: PCP Nurse Practitioner; Referring Provider Internal Medicine; Visit Provider Specialist | DX: R56.9 Unspecified convulsions (principal); I99.8 Other disorder of circulatory system; I48.91 Unspecified atrial fibrillation; I65.01 Occlusion and stenosis of right vertebral artery; F10.20 Alcohol dependence, uncomplicated; G31.2 Degeneration of nervous system due to alcohol | CPT/HCPCS: 99204 ==

== ENCOUNTER → 2020-08-24 12:51 | Outpatient (BNVA) | payer MEDICARE, SELFPAY | PROVIDERS: PCP Nurse Practitioner; Visit Provider Urology | DX: Z20.828 Contact with and (suspected) exposure to other viral communicable diseases (principal); N21.0 Calculus in bladder | CPT/HCPCS: 81003; 87635 ==

== ENCOUNTER 2020-08-30 19:40 | Observation (INO) | payer MEDICARE, SELFPAY ==
[2020-08-27 11:29] VITALS: BMI 24.4
--- NOTE | 2020-08-27 11:37 | ECG_ITS ---
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 Measurements Intervals [place] Rate: 93 P: [place]: QRS: 12 QRSD: 107 T: 74 QT: 376 QTc: 470 Interpretive Statements ATRIAL FLUTTER NONSPECIFIC T-WAVE ABNORMALITY Compared to ECG 07/07/2020 08:43:12 T-wave abnormality now present ST (T wave) deviation no longer present Electronically Signed On 08-28-2020 17:17:01 BEAD CUTTER by Iwona Garcia M.D. [id number]
--- NOTE | 2020-08-27 12:01 | ANES.PREANE2 ---
Pre-Anesthetic Assessment Pre-Anesthetic Assessment: Height/Weight: Height 1.83 m Weight 81.647 kg Preop Diagnosis: stones Proposed Procedure: Operation Date: 08/30/20 15:10 Proposed Procedures p Cystolitholapaxy 60102 N21.0(Not Applicable) - Jonah Gaytan MD s Cystoscopy(Not Applicable) - Jonah Gaytan MD Familial anesthetic complications: none Social: Social History: Alcohol (3 shots of whiskey a day (denies any hx of seizures)) and No tobacco Exam: Pre-Anes Outpt Exam: alert, oriented x 3, clear to auscultation bilaterally and regular rate & rhythm Airway: Cervical ROM: WNL MP: 4 Dentition: Other (no teeth) CV/HEM: CV/HEM: Afib, CAD and HTN Comments: CABG 10-15 years ago GI: Comments: dysphagia Metabolic: Metabolic: Hyperlipidemia Neuropsych: Neuropsych: Anxiety Comments: alcholic cerebellar degeneration Anesthetic Plan: ASA status: 3 Anesthesia: General Risk of > 500 ml blood loss (7ml/kg in children): No PFSH Anesthesia PFSH: Medical History (Updated 08/24/20 @ 13:51 by Jonah Gaytan MD) Alcohol abuse, daily use Alcohol use disorder Ambulates with cane Benign prostatic hyperplasia (BPH) with urinary urgency Bladder stone BPH loc w urin obs/LUTS Chronic constipation Elevated PSA Essential (primary) hypertension Generalized anxiety disorder History of coronary artery disease History of TB (tuberculosis) Urge incontinence Surgical History History of cataract left History of cervical spinal surgery History of heart bypass surgery x4 History of hernia repair Right Family History Other Cancer Stroke Denies family history of Diabetes Dementia Bleeding disorder Hypertension Social History Smoking and tobacco status: never smoked Household members: none Marital status: / Number of children: 2 service: No Current occupational status: retired History of recent travel: Yes ([place]) Out of state: Yes Out of country: No Current gender identity: Male Data Anesthesia Cardiac Studies: No Data to Display
[2020-08-30] VITALS (26 sets, daily range): BP systolic 131–181; BP diastolic 76–126; PULSE 97–125; RESP 16–20; TEMP 36.3–37; O2SAT 90–99
--- NOTE | 2020-08-30 13:46 | XR_ITS ---
WS: [id number] XR KUB [id number] REASON FOR EXAM: Cystolithiasis FINDINGS: Large amount of fecal material throughout the right and transverse colon. Moderate gaseous distention of redundant colon in the left abdomen. Large amount of fecal material within the rectal vault. There is a very well-defined ovoid density in the right mid pelvis which measures 2.5 cm in maximum d iameter. Presumably this is the bladder calculus referred to in the history. No other urinary tract calculi are identified. There is a calcification in the right upper quadrant w hich would appear to be within the gallbladder/biliary tract. XR/XR KUB [id number] IMPRESSION: Extensive fecal material in the colon. Bladder calculus as above.
[2020-08-30] MEDS: sodium chloride 0.9% 1,000 ML 30 ML IV ×2 (14:29→23:20)
--- NOTE | 2020-08-30 15:14 | P.ANESUD_ITS ---
Pre-Anesthetic Update Pre-Anesthetic Assessment: Date of Surgery/Procedure: 08/30/20 Preop Elissa gnosis: Cystolithiasis Proposed Procedure: Operation Date: 08/30/20 15:10 Proposed Procedures p Cystolitholapaxy 34757 N21.0(Not Applicable) - Jonah Gaytan MD s Cystoscopy(Not Applicable) - Jonah Gaytan MD Any changes to Pre-Anesthetic Assessment?: No Last Intake: Intake Last Liquid Date 08/30/20 Last Liquid Time 04:30 Last Solid Date 08/29/20 Last Solid Time 18:00 Vitals: Temperature 97.4 F L 08/30/20 14:23 Temperature Source Temporal Artery S can 08/30/20 14:23 Pulse Rate 101 H 08/30/20 14:23 Respiratory Rate 16 08/30/20 14:23 Blood Pressure 161/108 08/30/20 14:23 Blood Pressure Tamara n 125 08/30/20 14:23 Pulse Oximetry 96 08/30/20 14:23 Oxygen Delivery Me thod 08/30/20 14:23 Exam: Pre-Anes Outpt Exam: alert, oriented x 3 and clear to auscultation bilaterally Additional Exam Findings (including area of procedure): Irregular Cardiac Studies: No Data to Display
--- NOTE | 2020-08-30 17:17 | P.HPUD_ITS ---
Surgery/Procedure H&P Update DATE OF PROCEDURE: August 30, 2020 DATE H&P PERFORMED: 08/24/20 H&P UPDATE INFORMATION: I have reviewed H&P completed within last 30 days, I have examined patient prior to procedure, No changes to prior documentation and H&P is in [facility] [place]MR on date indicated PREOP DIAGNOSIS: Cystolithiasis >2.5 cm PLANNED PROCEDURE: Operation Date: 08/30/20 15:10 Proposed Procedures p Cystolitholapaxy 55955 N21.0(Not Applicable) - Jonah Gaytan MD s Cystoscopy(Not Applicable) - Jonah Gaytan MD
--- NOTE | 2020-08-30 17:18 | PM.OP ---
Operative Report Date of procedure: August 30, 2020 Pre-op Diagnosis: Cystolithiasis >2.5 cm Post-op diagnosis: same Procedure Done: 1. Cystolitholapaxy >2.5 cm Specimens removed/disposition: Bladder stone fragments Pathology: Bladder stone fragments Surgeon: Lukas Anesthesia: General Estimated blood loss: Minimal Urine output: Not measured Complications: None Findings: 3 stones identified and fragmented completely with laser. Fragments removed without difficulty Condition: stable Disposition: PACU Brief History: Mr. Centeno is a very pleasant 84-year-old white male with a progressive history of irritative voiding symptoms including urgency frequency urgency incontinence. He had a good flow rate and emptied his bladder well. Cystoscopy revealed multiple bladder stones and he was admitted today for outpatient cystolitholapaxy. Procedure: After routine preoperative evaluation examination and obtaining of informed consent he was taken to the operating suite on 08/30/2020 where general anesthesia was administered without difficulty after appropriate timeout was performed, SCDs confirmed to be functioning, preoperative antibiotics administered, beta-sangita protocol confirmed. Prepped and draped in usual sterile fashion in dorsal lithotomy position paying careful attention to avoiding pressure points. 21 Guamanian cystoscope with 30 degree lens was introduced into the urethral meatus and advanced into the bladder to videoscopy. Bladder was systematically examined with 30 and 70 degree lenses in the preoperative cystoscopy findings in clinic were confirmed. A 21 Guamanian cystoscope was utilized throughout the procedure until the very end where a 23 Guamanian scope sheath was utilized to remove the final fragments. A 365 ?m thulium laser fiber was utilized and the stones were sequentially fragmented into small enough pieces that were flushed through the resectoscope with an Ellik evacuator. On final inspection all the stones were removed and the mucosa of the bladder was in good shape. The stone diameter was greater than 5 cm total. There was some oozing that was felt to be a little bit too much to not leave a catheter in with CBI. For that reason a CBI was initiated and with rate running at moderate pace it cleared appropriately. Tolerated procedure well without complications and was awakened in the operating room and returned to the recovery room in stable condition. Plans: 1. Admit to observation status 2. CBI overnight 3. Voiding trial in the morning and hopefully discharge 4. Reviewed all the above with the patient's [id number] who is his primary caregiver.
--- NOTE | 2020-08-30 19:40 | ANE.PACU2 ---
Inpatient post-anesthesia follow up: Airway intact: Yes Vital signs: Temperature 97.4 F Pulse Rate 101 Respiratory Rate 16 Blood Pressure 161/108 Pulse Oximetry 96 Oxygen Delivery Me thod Room Air Oxygen Flow Rate Fraction of Inspir ed Oxygen Hydration adequate: Yes Nausea and vomiting: No Pain level: 2 Additional Comments: Sedated, but responds.
--- NOTE | 2020-08-30 19:53 | P.CONIM_ITS ---
Providers/Reason For Consult Consulting Physican/Specialty*: Hospitalist service Reason for Consult*: Autonomic dysfunction EtOH abuse Attending Physician: Jonah Gaytan MD Primary Care Provider: EDD Jones History of Present Illness History of Present Illness Raúl Centeno is a 84 year old male who carries significant past medical history of coronary disease status post CABG x3, alcohol abuse, suffered from slurred speech and was worked up for TIA, EKG showed atrial flutter considering high chads vascular score he was put on Eliquis 5 mg twice a day in June and was asked to follow-up with neurology, today hospitalist service is consulted for management of comorbid conditions after cystolitholapaxy. 5 cm stone was fragmented and retracted successfully, as per operative note bladder mucosa was in good shape. He will get CBI overnight. Postoperatively patient is doing well he is complaining of right shoulder pain which is not new. In the PACU he received 10 mg of hydralazine, 50 mg of labetalol for hypertensive urgency at the time of my evaluation blood pressure 150s/92, tachycardic heart rate 105. Patient is awake alert not complaining of acute distress. Blood-tinged urine noticed in the urine bag. Review of Systems Const: Denies: body aches or fatigue Eyes: Denies: change in vision ENMT: Denies: throat pain Card: Denies: chest pain Resp: Denies: dyspnea GI: Reports: constipation; Denies: abdominal pain : Denies: flank pain Musc: Reports: joint pain; Denies: neck pain Skin/Breast: Denies: rash Neuro: Denies: headache(s) Psych: Denies: anxiety Endo: Denies: polyuria Francisco/Lymph: Denies: easy bruising All/Imm: Denies: urticaria Meds/Allergies Home Medications and Allergies Home Medications Medication Instructions Recorded Confirmed Last Taken Type aspirin 81 mg tablet,delayed 81 mg PO DAILY 03/15/20 08/30/20 08/27/20 History release atorvastatin 10 mg tablet 10 mg PO DAILY #90 tab 06/25/20 08/30/20 08/29/20 Rx duloxetine 60 mg capsule,delayed 60 mg PO DAILY #90 cap 06/25/20 08/30/20 08/29/20 Rx release apixaban 5 mg tablet 5 mg PO BID #60 tab 1008/30/20 08/23/20 Rx cholecalciferol (vitamin D3) 25 50 mcg PO DAILY cap 07/12/20 08/30/20 08/29/20 History mcg (1,000 unit) capsule docusate sodium 100 mg capsule 300 mg PO DAILY cap 07/12/20 08/30/20 08/29/20 History sennosides 8.6 mg capsule 17.2 mg PO DAILY PRN cap 07/12/20 08/30/20 08/29/20 History diphenhydramine HCl 50 mg tablet 50 mg PO DAILY PRN tab 08/10/20 08/30/20 08/29/20 History tamsulosin 0.4 mg capsule 0.4 mg PO BID #180 cap 08/24/20 08/30/20 08/29/20 Rx Allergies Allergy/AdvReac Type Severity Reaction Status Date / Time No Known Allergies Allergy Verified 08/10/20 14:08 Current Medications Current Medications Generic Name Dose Route Start Last Admin Trade Name Freq PRN Reason Stop Dose Admin Sodium Chloride 1,000 mls @ 30 mls/hr 08/30/20 08:15 08/30/20 14:29 Sodium Chloride 0.9% IV 08/31/20 08:14 30 mls/hr .Q24H JOSE JUAN Administration PFSH Acute PFSH: Medical History Alcohol abuse, daily use Alcohol use disorder Ambulates with cane Benign prostatic hyperplasia (BPH) with urinary urgency Bladder stone BPH loc w urin obs/LUTS Chronic constipation Elevated PSA Essential (primary) hypertension Generalized anxiety disorder History of coronary artery disease History of TB (tuberculosis) Urge incontinence Surgical History History of cataract left History of cervical spinal surgery History of heart bypass surgery x4 History of hernia repair Right Family History Other Cancer Stroke Denies family history of Diabetes Dementia Bleeding disorder Hypertension Social History Smoking and tobacco status: never smoked Household members: none Marital status: / Number of children: 2 service: No Current occupational status: retired History of recent travel: Yes ([place]) Out of state: Yes Out of country: No Current gender identity: Male Vitals/I&O/Wt Last Vital Signs Temp 97.4 F L 08/30/20 14:23 Pulse 101 H 08/30/20 14:23 Resp 16 08/30/20 14:23 BP 161/108 08/30/20 14:23 Pulse Ox 96 08/30/20 14:23 08/30/20 08/30/20 08/30/20 06:59 14:59 22:59 Intake Total 30 / 30 Output Total 820 / 820 Balance -790 / -790 Physical Exam Narrative: EXAM NARRATIVE: Elderly male Clinically looks mildly dehydrated Tachycardic and hypertensive No visible signs of alcohol withdrawal Awake alert oriented x3 GCS 15 No active tremors S1, S2 sinus tachycardia systolic murmur grade 2/6 noted left second intercostal space No acute respiratory distress bilateral breath sounds without active rhonchi or crackles Abdomen soft, distended bowel sound present No STEMI no edema gangrene ulcer, he has SCDs Appropriate mood and affect No skin ulcers or gangrene Blood-tinged urine noticed in urine bag, CBI bag hanging at the bedside Urinary Catheter Management^: 3-way Urethral CBI: Cath Placed During This Visit: yes Urinary Catheter Date of Insertion: 08/30/20 Urinary Catheter Time of Insertion: 19:21 A&P Assessment and plan (1) BPH loc w urin obs/LUTS: Status: Acute (2) Bladder stone: Status: Acute (3) Alcohol abuse, daily use: Status: Acute (4) Hypertension: Status: Acute (5) Constipation: Status: Acute Additional A&P Information Tachycardia and hypertension Most likely secondary to alcohol related autonomic dysfunction Closely monitor for now use Ativan, I would prefer beta-sangita for his symptoms control if needed overnight Avoid hydralazine Would add thiamine and folic acid along CIWA protocol Check EtOH level along magnesium level in the morning Alcohol abuse: Patient drinks a pint of whiskey a day, last drink was yesterday night no active withdrawal however autonomic dysfunction noticed Constipation: Would add MiraLAX, glycerin suppository and senna S BPH with obstructive symptoms status post bladder stone removal cystolitholapaxy Blood-tinged urine noted in the urine bag CBI overnight Established coronary artery disease history: No acute decompensation not complain of active chest pain Patient did suffer from slurred speech few months ago for which he was referred to neurology, TIA was not entertained at that time however atrial flutter was detected on EKG for which he was put on Eliquis, I will keep Eliquis on hold until cleared by urology, at the time my evaluation I have not noticed any neurological deficit Full code DVT prophylaxis SCDs Regular diet Consult Attestations Medical Necessity Statement: As per urology Time Spent in Patient Care: 40mins Coding Level of Care Code Acute Fleet Administrative Assistant for g Fwd Diagnoses BPH loc w urin obs/LUTS N40.1 Bladder stone N21.0 Alcohol abuse, daily use F10.10 Hypertension I10 Constipation K59.00
[2020-08-30] MEDS: labetalol 5 mg/mL SDV 20mL IVP ×3 (20:00→20:18)
[2020-08-30] MEDS: fentaNYL 50 mcg/mL INJ 2mL IVP (20:05)
[2020-08-30] MEDS: morphine 4 mg/mL SDV 1 mL 2 MG IVP (20:23)
[2020-08-30] MEDS: hyDRALAzine 20 mg/mL INJ 1 mL 10 MG IVP (20:39)
[2020-08-30] MEDS: metoprolol tartrate 1 mg/1 mL SDV 5 mL 5 MG IV (20:45)
--- NOTE | 2020-08-30 21:32 | SUR.PHASEI ---
2004 PT REMAINS AWAKE RESTLESS, C/O OF BURNING TO PENIS AND NEEDS TO VOICE PT REORIENTED TO ANG AND CBI INFUSING URINE LT PINK NO CLOTS, CBI AT MOD RATE SEE PAIN MEDS GIVEN 2038 PT AWAKE ALERT
[2020-08-30 22:41] LABS: Alcohol Level < 10 mg/dL (0-10)
[2020-08-31] VITALS (8 sets, daily range): BP systolic 108–132; BP diastolic 67–78; PULSE 70–102; RESP 16–18; TEMP 36.8–37.2; O2SAT 95–100
[2020-08-31] MEDS: diphenhydrAMINE 25 mg Capsule PO (02:13)
[2020-08-31 04:06] LABS: Basophils % 0.5 %; Eosinophils # 0.2 10^3/uL (0.0-0.8); Hematocrit 35.7 % (42.0-52.0); Hemoglobin 11.5 g/dL (11.7-16.6); Lymphocytes # 1.3 10^3/uL (0.8-4.8); Lymphocytes % 16.7 %; Mean Corpuscular HGB Conc 32.2 g/dL (30.0-36.0); Mean Corpuscular Hemoglobin 30.4 pg (28.0-34.0); Mean Corpuscular Volume 94.4 fL (80-94); Mean Platelet Volume 10.9 fL (7.4-10.4); Monocytes # 0.6 10^3/uL (0.2-0.9); Monocytes % 8.1 %; Neutrophils # 5.46 10^3/uL (1.8-7.7); Neutrophils % 71.4 %; Nucleated Red Blood Cells % 0 %; Platelet Count 215 10^3/cmm (130-400); Red Blood Count 3.78 10^6/uL (4.1-5.3); Red Cell Distribution Width 14.2 % (12.1-15.1); White Blood Count 7.7 10^3/uL (4.0-10.0)
[2020-08-31 04:40] LABS: Anion Gap 12.6 (5-19); Blood Urea Nitrogen 15 mg/dL (8-23); Calcium 8.8 mg/dL (8.5-10.5); Carbon Dioxide 28 mmol/L (22-29); Chloride 102 mmol/L (98-107); Creatinine Clr Calc Pharmacy 79.7689; Glucose 97 mg/dL (65-115); Magnesium 1.8 mg/dL (1.7-2.3); Osmolality Calculated 289 mOsm/kg (285-295); Potassium 3.6 mmol/L (3.5-5.1); Sodium 139 mmol/L (136-145)
[2020-08-31] MEDS: docusate sodium 100 mg Capsule 300 MG PO (09:12)
[2020-08-31] MEDS: multivitamin therapeutic Tablet 1 TAB PO (09:13)
[2020-08-31] MEDS: folic acid 1 mg Tablet PO (09:13)
[2020-08-31] MEDS: polyethylene glycol 3350 Pkt 17 gm PO (09:14)
[2020-08-31] MEDS: thiamine 100 mg Tablet PO (09:14)
[2020-08-31] MEDS: sennosides-docusate Tablet 1 TAB PO (09:14)
--- NOTE | 2020-08-31 09:57 | P.PN_ITS ---
Subjective Subjective: Interval history: Patient admitted yesterday for cystolitholapaxy of more than 2.5 cm stone. Overnight patient was on CBI and Padilla catheter was removed earlier in the day after which patient has passed urine. Has remained hemodynamically stable and afebrile. Currently on my examination blood pressure is 116/70 with heart rate of 96 Vitals/I&O/Wt Last Vital Signs Temp 98.9 F 08/31/20 07:40 Pulse 90 08/31/20 09:22 Resp 18 08/31/20 07:40 BP 114/75 08/31/20 07:40 Pulse Ox 97 08/31/20 09:22 08/30/20 08/31/20 08/31/20 22:59 06:59 14:59 Intake Total 830 / 830 120 / 950 120 / 120 Output Total 1270 / 1270 2200 / 2200 Balance -440 / -440 120 / -320 -2080 / -2080 Physical Exam Narrative: EXAM NARRATIVE: Elderly male No visible signs of alcohol withdrawal Awake alert oriented x3 GCS 15 No active tremors S1, S2 sinus no tachycardia, systolic murmur grade 2/6 noted left second intercostal space No acute respiratory distress bilateral breath sounds without active rhonchi or crackles Abdomen soft, distended bowel sound present Appropriate mood and affect No skin ulcers or gangrene Urinary Catheter Management^: 3-way Urethral CBI: Cath Placed During This Visit: yes, but has since been removed by the nurse Reason for Continuing Indwelling Catheter: Decision to DC Catheter Urinary Catheter Date of Insertion: 08/30/20 Urinary Catheter Time of Insertion: 19:21 Date Urinary Catheter Removed: 08/31/20 Time Urinary Catheter Discontinued: 09:41 Data : 08/31/20 03:22 08/31/20 03:22 A&P Assessment and plan (1) BPH loc w urin obs/LUTS: Status: Acute (2) Bladder stone: Status: Acute (3) Alcohol abuse, daily use: Status: Acute (4) Hypertension: Status: Acute (5) Constipation: Status: Acute Additional A&P Information Post cystolitholopaxy: Padilla catheter removed earlier in the day. Continue to monitor for hematuria. Hemoglobin stable for now. 11.5. Hold off Eliquis for next 2 weeks. Hypertension: Goal blood pressure less than 140/90 mmHg. Blood pressure at goal. Continue to monitor. Atrial fibrillation: Heart rate under control. If required can start on low- dose beta-sangita. For now continue holding Eliquis because of recent procedure. Can restart as per Dr. Gaytan. Alcohol abuse: Patient drinks a pint of whiskey a day, last drink was yesterday night no active withdrawal however autonomic dysfunction noticed If needed can start patient on CIWA protocol. Constipation: Would add MiraLAX, glycerin suppository and senna S Established coronary artery disease history: No acute decompensation not complain of active chest pain Continue home dose of statin and aspirin. Full code DVT prophylaxis SCDs Regular diet Patient is stable to be discharged from medical point of view once cleared by Dr. Gaytan. Patient to continue to hold Eliquis for next 2 weeks. From medicine point of view he can continue the aspirin and statin along with other chronic medications including Flomax and Cymbalta. Patient should be discharged on bowel regimen. We will advise to follow-up with his primary care provider within next 2 weeks to monitor CBC. Attestations Medical Necessity Statement*: As per primary team. Time Spent in Patient Care: Greater than 35 minutes (>than 50% of time spent in counselling and/or direct pt care on unit) . Coding Level of Care Code Acute Assembler Clip On Sunglasses for Chg Fwd Diagnoses BPH loc w urin obs/LUTS N40.1 Bladder stone N21.0 Alcohol abuse, daily use F10.10 Hypertension I10 Constipation K59.00
--- NOTE | 2020-08-31 12:08 | PC.CHAP ---
Pastoral Care Encounter/Spiritual Assessment Type of Contact [] Declined exchange teller visit [] Patient/Family/Request visit [] Outpatient visit [] Follow-up visit [] Physician referral [] Code/Alert [xx] Routine visit [] Staff referral [] Actively dying [] Patient sleeping [] Family support [] [] Out of room [] Palliative care [] [] Receiving care in room [] Pre-surgical visit [] Trauma [] Long length of stay [] ICU visit [] Other: Relational/Emotional Strength [xx] Patient feels connected with others/family/visitors/staff [] Distress [] Loneliness/isolation [] Abandonment Spirituality of Patient [xx] Person of Rachel [xx] Attends Evangelical of their Rachel [xx] Believes in Prayer [xx] Reads Bible or Judaism materials [] There are Spiritual issues to be addressed Shell Shop Supervisor Interventions [xx] Prayer [xx] Active listening [xx] Non-anxious presence [] Spiritual/emotional support [] Crisis/trauma care [] Spiritual counseling [] Bereavement support [] Provided bereavement packet [] Provided Bible/devotional materials [] Provided toy/stuffed animal, coloring book to patient or family member [] Provided Communion [] Anointing/[place] [] Salvation [xx] Completed spiritual assessment [] Other: Impact on Illness or Injury [] Angry [] Fearful [] Anxious [] Often cries [] Exhaustion [] Unable to work [] Unable to attend anabaptism [] Unable to walk/stand [] Unable to read [] Unable to drive [] Unable to eat/drink [] Unable to sleep [xx] Unable to be with family [] Patient intubated [] Other: Summary Patient's summer 2018 in [place]. He just moved to this area to be near younger generations of his family. 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 Time spent with patient 7 minutes
--- NOTE | 2020-08-31 15:57 | PM.DCS ---
Discharge Providers Date of Admission: 08/30/20 19:40 Date of Discharge: August 31, 2020 Attending Provider at Admission: Jonah Gaytan MD Attending Provider at Discharge: Jonah Gaytan MD Primary Care Provider: EDD Jones Diagnoses at Discharge Discharge Diagnosis (1) BPH loc w urin obs/LUTS: Status: Acute Permanent problem details: Chronic bladder outlet obstructive symptoms. (2) Bladder stone: Status: Acute Permanent problem details: 3 large bladder stones treated with cystolitholapaxy 08/30/2020 (3) Alcohol abuse, daily use: Status: Acute (4) Hypertension: Status: Acute (5) Constipation: Status: Acute Reason for Visit Reason for Visit: Calculus in bladder Hospital Course Hospital Course Patient was originally evaluated for persistent frequency urgency urgency incontinence and cystoscopy revealed 3 large bladder stones and he was admitted for treatment of those. On 08/30/2020 he underwent cystolitholapaxy with laser lithotripsy. All stone fragments were removed. He did have some minor oozing post cystolitholapaxy and was decided to maintain catheter overnight and admit to observation status. Because of his multiple medical problems as well as a history of ongoing alcohol abuse it was decided to consult hospitalist for medical management overnight. Hospital course was otherwise unremarkable. His urine cleared overnight and the Padilla catheter was removed and he voided spontaneously with clearing urine. Discharge from the afternoon of postoperative day #1 in stable condition with plans for follow-up in roughly 4 to 6 weeks. Physical Exam Const: COMMON NORMALS: no acute distress, alert and well nourished GENERAL APPEARANCE: well kempt and well developed ORIENTATION/CONSCIOUSNESS: not confused HENMT: COMMON NORMALS: normocephalic and atraumatic HEAD & SCALP: normocephalic and atraumatic Eye: COMMON NORMALS: no scleral icterus Neck/C-Spine: COMMON NORMALS: full ROM GENERAL: Yes normal visual inspection Resp: COMMON NORMALS: normal respiratory effort EFFORT & INSPECTION: No labored and No Actively coughing Neuro: SENSORIUM/ORIENTATION: Yes alert Psych: COMMON NORMALS: mental status grossly normal APPEARANCE: Yes grossly normal and Yes well kempt ATTITUDE: Yes calm and Yes engaged Skin: COMMON NORMALS: no rashes or lesions noted and no jaundice GENERAL SKIN EXAM: no rashes or lesions noted Urinary Catheter Management^: 3-way Urethral CBI: Cath Placed During This Visit: yes, but has since been removed by the nurse Reason for Continuing Indwelling Catheter: Decision to DC Catheter Urinary Catheter Date of Insertion: 08/30/20 Urinary Catheter Time of Insertion: 19:21 Date Urinary Catheter Removed: 08/31/20 Time Urinary Catheter Discontinued: 09:41 Discharge Data Data Completed and Pending: Completed Studies During Hospitalization Category Date Time Status XR KUB [id number] Rout ine Exams 08/30/20 13:46 Completed Pending at discharge Category Date Time Status Stone Analysis Ro utine Lab 08/31/20 14:37 Received Pathology: Surgic al [PTH] Routine Pth 08/30/20 19:35 Received Labs from last 24 hours 08/31/20 08/31/20 08/31/20 14:37 03:22 03:22 WBC 7.7 RBC 3.78 L Hgb 11.5 L Hct 35.7 L MCV 94.4 H MCH 30.4 MCHC 32.2 RDW 14.2 Plt Count 215 MPV 10.9 H Neut % (Auto) 71.4 Lymph % (Auto) 16.7 [place] % (Auto) 8.1 Eos % (Auto) 3.0 Baso % (Auto) 0.5 Neut # (Auto) 5.46 Lymph # (Auto) 1.3 [place] # (Auto) 0.6 Eos # (Auto) 0.2 Baso # (Auto) 0.0 Nucleated RBC % (a uto) 0 Nucleated RBCs # 0.0 Sodium 139 Potassium 3.6 Chloride 102 Carbon Dioxide 28 Anion Gap 12.6 BUN 15 Creatinine 0.8 GFR Calculation Not Reportable Glucose 97 Calculated Osmolal ity 289 Calcium 8.8 Magnesium 1.8 Stone Source Pending Stone Weight Pending Stone Nidus Pending Ethyl Alcohol 08/30/20 21:48 WBC RBC Hgb Hct MCV MCH MCHC RDW Plt Count MPV Neut % (Auto) Lymph % (Auto) [place] % (Auto) Eos % (Auto) Baso % (Auto) Neut # (Auto) Lymph # (Auto) [place] # (Auto) Eos # (Auto) Baso # (Auto) Nucleated RBC % (a uto) Nucleated RBCs # Sodium Potassium Chloride Carbon Dioxide Anion Gap BUN Creatinine GFR Calculation Glucose Calculated Osmolal ity Calcium Magnesium Stone Source Stone Weight Stone Nidus Ethyl Alcohol < 10 Vitals: Last Vital Signs Temp 98.2 F 08/31/20 15:42 Pulse 102 H 08/31/20 15:42 Resp 18 08/31/20 15:42 BP 108/70 08/31/20 15:42 Pulse Ox 95 08/31/20 15:42 Discharge Plan Discharge Patient Disposition: Home Condition: Stable Prescriptions: Continued aspirin 81 mg tablet,delayed release (DR/EC) 81 mg PO DAILY RF: 0 cholecalciferol (vitamin D3) 25 mcg (1,000 unit) capsule 50 mcg PO DAILY RF: 0 docusate sodium [Stool Softener] 100 mg capsule 300 mg PO DAILY RF: 0 senna 8.6 mg capsule 17.2 mg PO DAILY PRN (Reason: Constipation) RF: 0 atorvastatin 10 mg tablet 10 mg PO DAILY Qty: 90 RF: 1 duloxetine 60 mg capsule,delayed release(DR/EC) 60 mg PO DAILY Qty: 90 RF: 1 diphenhydramine HCl 50 mg tablet 50 mg PO DAILY PRN (Reason: Insomnia) RF: 0 tamsulosin 0.4 mg capsule 0.4 mg PO BID Qty: 180 RF: 0 Held Eliquis 5 mg tablet 5 mg PO BID Qty: 60 RF: 3 Hold Instructions: Resume on 09/03/20. Discharge Orders: Discharge Order (Routine); Ordered 08/31/20 Ordered By: Jonah Gaytan Referrals: Michelle Nguyen FNP-C [Primary Care Provider] - 1 month Jonah Gaytan MD [Physician] - 10/03/20 11:00 am (Flow rate, PVR, AUA symptom score.) Discharge Diet: Advance as tolerated Discharge Activity: Increase activity as tolerated Patient Instructions: Alcohol Withdrawal, Constipation - Adult, Hypertension, Lithotripsy for Removal of Kidney Stones (DC), At-Risk Alcohol Use (DC), Post Anesthesia Care Activity Restrictions/Additional Instructions: Avoid heavy lifting and straining. Recheck in 4 to 6 weeks with flow rate, PVR, AUA symptom score. 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 Please follow-up with your primary care provider within next 2 to 3 weeks and repeat a CBC. Discharge Attestations Time Spent in Discharge Care*: less than 30 min Quality Metrics Clinical Quality Measures During this hospital stay, did patient experience: None Coding Level of Care Code Acute Hole Digger for Chg Fwd Exam Detailed Diagnoses BPH loc w urin obs/LUTS N40.1 Bladder stone N21.0 Alcohol abuse, daily use F10.10 Hypertension I10 Constipation K59.00
[2020-09-06 03:23] LABS: Stone Source BLADDER STONE
== END 2020-08-31 15:40 | disposition home or self-care (01) ==
LOC: MEDSURG 19:41
PROVIDERS: Internal Medicine; Admitting Provider Urology; PCP Nurse Practitioner; Visit Provider Urology
PROC: 0TCB8ZZ Extirpation of Matter from Bladder, Via Natural or Artificial Opening Endoscopic (ICD-10-PCS; CPT 52318; principal; 2020-08-30 15:10)
PROC: 0TJB8ZZ Inspection of Bladder, Via Natural or Artificial Opening Endoscopic (ICD-10-PCS; CPT 52000; 2020-08-30 15:10)
DX: N21.0 Calculus in bladder (principal); Z79.82 Long term (current) use of aspirin; F10.10 Alcohol abuse, uncomplicated; N40.1 Benign prostatic hyperplasia with lower urinary tract symptoms; N39.498 Other specified urinary incontinence; R35.1 Nocturia; R39.15 Urgency of urination; R35.0 Frequency of micturition; K59.09 Other constipation; R97.20 Elevated prostate specific antigen [PSA]; I10 Essential (primary) hypertension; Z95.1 Presence of aortocoronary bypass graft; Z80.9 Family history of malignant neoplasm, unspecified; Z82.3 Family history of stroke; I25.810 Atherosclerosis of coronary artery bypass graft(s) without angina pectoris; I48.91 Unspecified atrial fibrillation; Z79.01 Long term (current) use of anticoagulants; Z86.11 Personal history of tuberculosis; I16.0 Hypertensive urgency
CPT/HCPCS: 52318; 12345; 36415; 74018; 80048; 80307; 82365; 83735; 85025; 88300; 93005; 96372; G0378; J0360; J2270; J2405; J2704; J3010; J3411; J3490; J7030

== ENCOUNTER → 2020-10-03 11:28 | Outpatient (BNVA) | payer MEDICARE, SELFPAY | PROVIDERS: PCP Nurse Practitioner; Visit Provider Urology | DX: N40.1 Benign prostatic hyperplasia with lower urinary tract symptoms (principal); N39.41 Urge incontinence | CPT/HCPCS: 81003; 87077; 87086; 87184 ==

== ENCOUNTER → 2020-10-22 14:56 | Outpatient (BNVA) | payer MEDICARE, SELFPAY | PROVIDERS: PCP Nurse Practitioner; Visit Provider Urology | DX: N40.1 Benign prostatic hyperplasia with lower urinary tract symptoms (principal) | CPT/HCPCS: 87086 ==

== ENCOUNTER 2020-11-12 13:44 | Outpatient (CLI) | payer MEDICARE, SELFPAY ==
--- NOTE | 2020-11-12 12:30 | USCV_ITS ---
Centeno Raúl Age: 85 Gender: M : 1935 Exam Date: 11/12/2020 14:00 Ordering Phys: Michelle Nguyen Technologist: Vitor Liriano Exam Location: [facility] Indication: RT LEG PAIN AND EDEMA HISTORY: Lower extremity swelling. PROCEDURES: Venous duplex imaging was performed in only the right lower extremity. The following venous structures were evaluated: common femoral vein, profunda vein, proximal portion of the greater saphenous vein, superficial femoral vein, and the popliteal vein. In addition, the posterior tibial and peroneal trunk were evaluated. FINDINGS: Normal 2-D Doppler and augmentation and compressibility throughout the lower extremity venous structures. Additional imaging through the proximal calf veins also reveals no thrombus. Limited evaluation of the greater saphenous vein is patent with no thrombus.. CONCLUSIONS No evidence of right lower extremity DVT. Popliteal cyst measuring 3.1 x 2.9cm Ji Jones MD (Electronically Signed) Final Date: 12 November 2020 16:48 S
== END 2020-11-12 13:45 | disposition home or self-care (01) ==
LOC: RAD 13:47
PROVIDERS: PCP Nurse Practitioner; Visit Provider Nurse Practitioner
DX: R60.0 Localized edema (principal); M79.604 Pain in right leg; M71.21 Synovial cyst of popliteal space [Baker], right knee
CPT/HCPCS: 93971

== ENCOUNTER 2020-11-13 14:38 | Outpatient (CLI) | payer MEDICARE, SELFPAY ==
--- NOTE | 2020-11-13 15:00 | USCV_ITS ---
Raúl Centeno Age: 85 Gender: M : 1935 Exam Date: 11/13/2020 14:59 Ordering Phys: Michelle Nguyen Technologist: Vitor Liriano [place] [facility] [place]: OTHER SPECIFIED SIGNS AND SYMPTOMS INVOLVING THE CI Risk Factors: Previous Vascular Surgery: RIGHT LEFT BP: 130.0 / 65.00 BP: 135.0/ 70.00 0 0 Waveform Velocity (cm/s) Velocity (cm/s) Waveform Triphasic 73.2 Iliac Prox Triphasic 83.0 Iliac Mid Triphasic 72.0 Iliac Distal Triphasic 72.1 INSECTICIDE MAKER Triphasic 78.6 SFA Prox Triphasic 59.0 SFA Mid Triphasic 75.4 SFA Dist Triphasic 53.5 POP Triphasic 52.4 [employer] Triphasic 45.2 DPA 1.0 CADEN FINDINGS Normal resting CADEN on the right side. Normal arterial Doppler waveforms on the right side. CONCLUSIONS No significant arterial obstruction, based on the above findings Dr Wilbert Doherty MD [facility] (Electronically Signed) Final Date: 13 November 2020 19:18 S
== END 2020-11-13 14:39 | disposition home or self-care (01) ==
PROVIDERS: PCP Nurse Practitioner; Visit Provider Nurse Practitioner
DX: R09.89 Other specified symptoms and signs involving the circulatory and respiratory systems (principal)
CPT/HCPCS: 93926

== ENCOUNTER 2021-01-18 16:45 | Emergency (ER) | payer MEDICARE, SELFPAY ==
[2021-01-18] VITALS (8 sets, daily range): BP systolic 105–162; BP diastolic 67–107; PULSE 81–115; RESP 15–20; TEMP 37; O2SAT 92–97; BMI 25.7
--- NOTE | 2021-01-18 17:52 | XRR_ITS ---
PROCEDURE INFORMATION: Exam: XR Chest Exam date and time: 01/18/2021 5:59 PM Age: 85 years old Clinical indication: Shortness of breath; Prior surgery; Surgery type: Open heart; Additional info: Tachycardia, SOB, dizzy TECHNIQUE: Imaging protocol: XR of the chest. Views: 1 view. COMPARISON: CR XR chest 1V portable [id number] 07/06/2020 3:51 PM FINDINGS: Lungs: Mild chronic increased interstitial lung markings. No consolidative pulmonary infiltrates. Pleural spaces: Unremarkable. No pleural effusion. No pneumothorax. 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 Mild cardiomegaly is noted. Vasculature: Thoracic aorta is atherosclerotic and ectatic. Bones/joints: Median sternotomy noted. Postop change of the lower cervical spine noted. XR/XR chest 1V portable [id number] IMPRESSION: 1. Mild cardiomegaly is noted. 2. No acute abnormality demonstrated. 3. There is no interval change from the prior examination.
--- NOTE | 2021-01-18 17:57 | ECG_ITS ---
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 Measurements Intervals [place] Rate: 106 P: [place]: QRS: 11 QRSD: 101 T: 233 QT: 334 QTc: 444 Interpretive Statements ATRIAL FLUTTER/TACHYCARDIA WITH RAPID VENTRICULAR RESPONSE ST DEVIATION AND MODERATE T-WAVE ABNORMALITY, CONSIDER LATERAL ISCHEMIA [-0.1+ mV T WAVE IN I/aVL/V5/V6] Compared to ECG 08/27/2020 11:57:08 Possible ischemia now present T-wave abnormality still present Electronically Signed On 01-18-2021 19:13:14 CDT by Wilton Fry M.D. [email or web address]
--- NOTE | 2021-01-18 18:29 | USR_ITS ---
PROCEDURE INFORMATION: Exam: US Duplex Right Lower Extremity Veins, Limited Exam date and time: 01/18/2021 7:20 PM Age: 85 years old Clinical indication: Edema, localized; Lower extremity, right; Additional info: Rle swelling TECHNIQUE: Imaging protocol: Real-time Duplex ultrasound of the Right Lower Extremity with 2-D alcantara scale, color Doppler flow and spectral waveform analysis with image documentation. Limited exam was focused on the right lower extremity veins. COMPARISON: No relevant prior studies available. FINDINGS: Right deep veins: Unremarkable. The common femoral, femoral, proximal profunda femoral and popliteal veins are patent without thrombus. Normal Doppler waveforms. Normal compressibility and/or augmentation response. Right superficial veins: Unremarkable. Saphenofemoral junction is patent without thrombus. Soft tissues: Unremarkable. US/[place] [id number] IMPRESSION: No evidence of deep vein thrombosis, right lower extremity.
--- NOTE | 2021-01-18 18:32 | CTR_ITS ---
PROCEDURE INFORMATION: Exam: CTA Chest With Contrast Exam date and time: 01/18/2021 7:05 PM Age: 85 years old Clinical indication: Shortness of breath; Prior surgery; Surgery date: 6+ months; Surgery type: Cabg, c-sp; Patient HX: C/O a-fib w rle swelling and SOB; Additional info: Dyspnea. H/o a fib. Rle swelling TECHNIQUE: Imaging protocol: Computed tomographic angiography of the chest with contrast. 3D rendering (Not supervised by radiologist): MIP and/or 3D reconstructed images were created by the technologist. Radiation optimization: All CT scans at this facility use at least one of these dose optimization techniques: automated exposure control; mA and/or kV adjustment per patient size (includes targeted exams where dose is matched to clinical indication); or iterative reconstruction. Contrast material: OMNI 350; Contrast volume: 81 ml; Contrast route: INTRAVENOUS (IV); COMPARISON: CR XR chest 1V portable [id number] 01/18/2021 6:17 PM RADIATION DOSE METRICS: Total DLP (mGy-cm): 603.29 FINDINGS: Tubes, catheters and devices: Permanent pacemaker/AICD noted. Pulmonary arteries: Pulmonary arteries are well opacified. Pulmonary arteries are normal in caliber. No filling defects are demonstrated. No evidence of pulmonary embolism. Aorta: Aorta is unopacified. Atherosclerotic calcifications are noted throughout the aorta. 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 Lungs: Mild fibrosis at the lung apices. Subsolid nodules at the right lung base measuring up to 13 mm. Pleural spaces: No pleural effusion or pneumothorax noted. Heart: Cardiomegaly is present. There is no significant pericardial effusion present. Lymph nodes: Unremarkable. No enlarged lymph nodes. Bones/joints: Median sternotomy noted. Degenerative thoracic spine changes. No acute osseous abnormality. Soft tissues: Unremarkable. CT/CT angio chest PE protcl [id number] IMPRESSION: 1. No evidence of pulmonary embolism. 2. Aorta is unopacified. Atherosclerotic calcifications are noted throughout the aorta. 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 Recommend clinical assessment and follow-up. 3. Subsolid nodules at the right lung base measuring up to [address] Chest at 3-6 months. Subsequent management based on the most suspicious nodule(s). (Reference: Afia) 4. Cardiomegaly is present. REFERENCES: Afia Loyd, et al. Guidelines for Management of Incidental Pulmonary Nodules Detected on CT Images: From the Fleischner Society 2017. Radiology. 2017;284(1):228-243. Radiation Dose CTDIVOL = (mGy): DLP = 603.29 (mGy-cm)
--- NOTE | 2021-01-18 18:59 | PC.NURSE ---
ultrasound in room
--- NOTE | 2021-01-18 19:03 | PC.NURSE ---
report received from ELIAS Ruelas and care transferred to ELIAS Vora
[2021-01-18 19:05] LABS: Lactate (Lactic Acid level) 1.5 mmol/L (0.5-2.2)
[2021-01-18 19:07] LABS: Troponin(5th) Baseline 20 ng/L (0-15)
[2021-01-18] MEDS: sodium chloride 0.9% 1,000 ML 999 ML IV (19:09)
[2021-01-18 19:15] LABS: Alanine Aminotransferase 27 U/L (0-41); Albumin Level 4.2 g/dL (3.5-5.2); Alcohol Level < 10 mg/dL (0-10); Alkaline Phosphatase 92 IU/L (40-130); Anion Gap 12.1 (5-19); Aspartate Amino Transferase 20 U/L (0-40); Blood Urea Nitrogen 22 mg/dL (8-23); Carbon Dioxide 27 mmol/L (22-29); Chloride 104 mmol/L (98-107); Globulin 2.9 g/dL (1.3-4.6); Glucose 106 mg/dL (65-115); Lipase 32 U/L (13-60); NT Pro B Type Natriuretic Pept 873 pg/mL (0-450); Osmolality Calculated 292 mOsm/kg (285-295); Potassium 4.1 mmol/L (3.5-5.1); Sodium 139 mmol/L (136-145); Total Bilirubin 0.3 mg/dL (0.15-1.2); Total Protein 7.1 g/dL (6.6-8.7)
--- NOTE | 2021-01-18 19:21 | PC.NURSE ---
patient to CT
[2021-01-18] MEDS: iohexol 350 mg/mL 100 mL Btl IV (19:33)
[2021-01-18 19:49] LABS: Basophils # 0.1 10^3/uL (0.0-0.1); Basophils % 1.1 %; Eosinophils # 0.4 10^3/uL (0.0-0.8); Eosinophils % 6.5 %; Hematocrit 43.1 % (42.0-52.0); Hemoglobin 13.1 g/dL (11.7-16.6); Lymphocytes # 1.5 10^3/uL (0.8-4.8); Lymphocytes % 25.2 %; Mean Corpuscular HGB Conc 30.4 g/dL (30.0-36.0); Mean Corpuscular Hemoglobin 30.6 pg (28.0-34.0); Mean Corpuscular Volume 100.7 fL (80-94); Mean Platelet Volume 10.7 fL (7.4-10.4); Monocytes # 0.7 10^3/uL (0.2-0.9); Monocytes % 11.4 %; Neutrophils % 55.6 %; Nucleated Red Blood Cells % 0 %; Platelet Count 186 10^3/cmm (130-400); Red Blood Count 4.28 10^6/uL (4.1-5.3); Red Cell Distribution Width 13.1 % (12.1-15.1); White Blood Count 6.1 10^3/uL (4.0-10.0)
--- NOTE | 2021-01-18 19:57 | ECG_ITS ---
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
[2021-01-18] MEDS: metoprolol tartrate 1 mg/1 mL SDV 5 mL 5 MG IV (20:53)
[2021-01-18 21:27] LABS: Troponin 5 2HR 23.33 ng/L (0-15); Troponin 5 2HR Delta 3.33 ABS# (0-10)
--- NOTE | 2021-01-18 22:00 | ED_ITS ---
HPI - General Adult General: Chief complaint: General Medical Stated complaint: Dizziness, SOB, high Heart Rate Time Seen by Provider: 01/18/21 18:03 History of Present Illness: HPI narrative: Patient is an 85-year-old male with past medical history atrial fibrillation on baby aspirin, coronary artery disease, CABG, alcoholism. He comes to the ER wearing a Holter monitor and he is asymptomatic but he was told his heart is beating fast. In triage it was be ating in the 120s with A. fib. After he arrived in the room it went down to the upper 80s and low 90s. He has been asymptomatic of this during his time in the ER as well. He offers no complaints. 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 Earlier in the week he had been giving a prescription for metoprolol 25 mg twice daily but was told not to take it because his heart rate bottomed out. Without further description. Associated symptoms: Deny chest pain, confusion, dyspnea, headache(s), rash or palpitations Review of Systems General: Reports: 10 or more systems reviewed and unremarkable except in HPI and below Const: Denies: fatigue Eyes: Denies: change in vision, blurry vision or eye redness ENMT: Denies: throat pain, swelling of lips/tongue, ear or mastoid pain or nasal congestion Card: Denies: chest pain, palpitations, irregular heart rhythm, edema, dyspnea on exertion or orthopnea Resp: Denies: dyspnea, productive cough or non-productive cough GI: Denies: abdominal pain, diarrhea or GI cramping : Denies: flank pain, urinary frequency or urinary urgency Musc: Denies: neck pain, back pain, extremity pain, joint pain, joint redness, limited range of motion or muscle weakness Skin/Breast: Denies: rash, pruritus, erythema, skin pain or skin tenderness Neuro: Denies: headache(s), numbness in extremities, weakness in extremities, sensory changes, difficulty walking, dizziness, confusion or Slurred speech present Psych: Denies: anxiety or depression Endo: Denies: polyuria All/Imm: Denies: urticaria, throat swelling or tongue swelling PFSH ED PFSH: Medical History Alcohol abuse, daily use Alcohol use disorder Ambulates with cane Benign prostatic hyperplasia (BPH) with urinary urgency Bladder stone 3 large bladder stones treated with cystolitholapaxy 08/30/2020 BPH loc w urin obs/LUTS Chronic bladder outlet obstructive symptoms. Chronic constipation Elevated PSA Essential (primary) hypertension Generalized anxiety disorder History of coronary artery disease History of TB (tuberculosis) Urge incontinence Surgical History History of cataract left History of cervical spinal surgery History of heart bypass surgery x4 History of hernia repair Right Family History Other Cancer Stroke Denies family history of Diabetes Dementia Bleeding disorder Hypertension Social History Smoking and tobacco status: never smoked Household members: none Marital status: / Number of children: 2 service: No Current occupational status: retired History of recent travel: Yes ([place]) Out of state: Yes Out of country: No Current gender identity: Male Physical Exam Const: COMMON NORMALS: no acute distress, average body habitus, patient oriented x3, no limitations, healthy appearing, alert and well nourished GENERAL APPEARANCE: cooperative, comfortable, well kempt and well developed ORIENTATION/CONSCIOUSNESS: Yes awake, Yes oriented to person, Yes oriented to place and Yes oriented to time HENMT: COMMON NORMALS: normocephalic, external ears normal and Normal external nose present HEAD & SCALP: normal to inspection and normocephalic NOSE: Normal external nose present EXTERNAL EAR: Yes external ears normal MOUTH: Normal oral and palatal mucosa present THROAT: posterior oropharynx normal Eye: COMMON NORMALS: Equal, round and reactive pupils present and EOMs intact bilaterally GENERAL EYE: appearance normal, both eyes and all related structures PUPIL: Yes Equal, round and reactive pupils present Neck/C-Spine: COMMON NORMALS: full ROM, no lymphadenopathy, no meningeal signs and no JVD GENERAL: Yes normal visual inspection Lymph: LYMPHATIC: no lymphadenopathy noted Chest: COMMONS NORMALS: normal inspection of the chest and normal palpation of entire chest wall Resp: COMMON NORMALS: normal respiratory effort, No retractions, No use of accessory muscles, clear to auscultation bilaterally and percussion normal EFFORT & INSPECTION: Yes able to speak in complete sentences AUSCULTATION: clear to auscultation bilaterally PERCUSSION: percussion normal Cardio: COMMON NORMALS: no JVD, regular rate, S1 normal heart sound present, S2 normal heart sound present and Peripheral pulses 2+ throughout RATE: regular rate RHYTHM: abnormal rhythm irregularly irregular HEART SOUNDS: S1 normal heart sound present and S2 normal heart sound present PERIPHERAL PULSES: Peripheral pulses 2+ throughout GI: COMMON NORMALS: Normal to inspection, nondistended, normoactive bowel sounds present, Soft to palpation, non-tender and no masses INSPECTION: Yes normal to inspection PALPATION: Yes Soft to palpation : COMMON NORMALS: Yes no CVA tenderness BLADDER/KIDNEY EXAM: Yes no CVA tenderness Back/Pelvis: COMMON NORMALS: no CVA tenderness, thoracic and lumbar spine normal to inspection, no thoracic nor lumbar tenderness and thoraco-lumbar ROM normal Extremity: COMMON NORMALS: normal to inspection, full ROM, capillary refill normal, no joint enlargement and no pedal edema NARRATIVE EXTREMITY EXAM: Mild right lower extremity edema. GENERAL: Yes normal exam except as noted Neuro: COMMON NORMALS: patient oriented x3, CN's II-XII intact bilaterally, moves all extremities, no focal motor deficits, no sensory deficits noted and gait normal SENSORIUM/ORIENTATION: Yes alert, Yes oriented to person, Yes oriented to place and Yes oriented to time MENINGEAL SIGNS: Yes no meningeal signs Psych: COMMON NORMALS: mental status grossly normal, Normal thought process present, cooperative, normal affect and speech normal APPEARANCE: Yes well kempt ATTITUDE: Yes calm SPEECH: Yes normal speech THOUGHT PROCESS: Normal thought process present Skin: COMMON NORMALS: no rashes or lesions noted GENERAL SKIN EXAM: no rashes or lesions noted Course Vital Signs: Vital signs: Vital Signs Temperature 98.6 F 01/18/21 17:39 Pulse Rate 81 01/18/21 21:16 Respiratory Rate 16 01/18/21 21:16 Blood Pressure 137/97 01/18/21 21:16 Pulse Oximetry 94 01/18/21 21:16 MDM - General Adult MDM Narrative: Medical decision making narrative: The patient came to the ER with no symptoms but he was having tachycardia noted on his Holter monitor and told to come to the ER with rates in the 120s. When he got in the bed his rate was in the upper 80s low 90s and noted A. fib. After a few hours it did increase to 110, 220 A. fib rate and he was again asymptomatic. I gave him 5 mg of metoprolol with conversion back down to his apparent baseline in the upper 80s to low 90s. I discussed with Dr. Mota who recommended increasing his aspiri n to 325 mg a day and taking the metoprolol 25 mg twice daily as scheduled. I however recommended he take it as needed and check his heart rate frequently because he was told not to take it earlier in the week. They will take it with heart rates above 110 or with any symptoms and come to the ER with any symptoms of palpitations, chest pain, shortness of breath. They have an appointment with Dr. Fry Thursday and will follow up. ER with worsening symptoms at any time Lab Data: Labs: Lab Results 01/18/21 01/18/21 01/18/21 Range/Units 18:22 18:22 18:22 WBC Cancelled Corrected WBC Cancelled RBC Cancelled Hgb Cancelled Hct Cancelled MCV Cancelled MCH Cancelled MCHC Cancelled RDW Cancelled Plt Count Cancelled MPV Cancelled Gran % Cancelled Neut % (Auto) Cancelled Lymph % (Auto) Cancelled [place] % (Auto) Cancelled Eos % (Auto) Cancelled Baso % (Auto) Cancelled Neut # (Auto) Cancelled Lymph # (Auto) Cancelled [place] # (Auto) Cancelled Eos # (Auto) Cancelled Baso # (Auto) Cancelled Absolute Gran (aut o) Cancelled Nucleated RBC % (a uto) Cancelled Nucleated RBCs # Cancelled Sodium 139 (136-145) mmol/L Potassium 4.1 (3.5-5.1) mmol/L Chloride 104 (98-107) mmol/L Carbon Dioxide 27 (22-29) mmol/L Anion Gap 12.1 (5-19) BUN 22 (8-23) mg/dL Creatinine 0.8 (0.7-1.2) mg/dL GFR Calculation Not Reportable Glucose 106 (65-115) mg/dL Calculated Osmolal ity 292 (285-295) mOsm/k g Lactate 1.5 (0.5-2.2) mmol/L Calcium 9.0 (8.5-10.5) mg/dL Total Bilirubin 0.3 (0.15-1.2) mg/dL AST 20 (0-40) U/L ALT 27 (0-41) U/L Alkaline Phosphata se 92 (40-130) IU/L Troponin T Baselin e (0-15) ng/L Troponin T 120 Min [place] (0-15) ng/L Delta Troponin T (0-10) ABS# NT-Pro-B Natriuret Pep 873 H (0-450) pg/mL Total Protein 7.1 (6.6-8.7) g/dL Albumin 4.2 (3.5-5.2) g/dL Globulin 2.9 (1.3-4.6) g/dL Lipase 32 (13-60) U/L Ethyl Alcohol < 10 (0-10) mg/dL 01/18/21 01/18/21 01/18/21 Range/Units 18:22 19:45 20:38 WBC 6.1 Corrected WBC RBC 4.28 Hgb 13.1 Hct 43.1 MCV 100.7 H MCH 30.6 MCHC 30.4 RDW 13.1 Plt Count 186 MPV 10.7 H Gran % Neut % (Auto) 55.6 Lymph % (Auto) 25.2 [place] % (Auto) 11.4 Eos % (Auto) 6.5 Baso % (Auto) 1.1 Neut # (Auto) 3.40 Lymph # (Auto) 1.5 [place] # (Auto) 0.7 Eos # (Auto) 0.4 Baso # (Auto) 0.1 Absolute Gran (aut o) Nucleated RBC % (a uto) 0 Nucleated RBCs # 0.0 Sodium (136-145) mmol/L Potassium (3.5-5.1) mmol/L Chloride (98-107) mmol/L Carbon Dioxide (22-29) mmol/L Anion Gap (5-19) BUN (8-23) mg/dL Creatinine (0.7-1.2) mg/dL GFR Calculation Glucose (65-115) mg/dL Calculated Osmolal ity (285-295) mOsm/k g Lactate (0.5-2.2) mmol/L Calcium (8.5-10.5) mg/dL Total Bilirubin (0.15-1.2) mg/dL AST (0-40) U/L ALT (0-41) U/L Alkaline Phosphata se (40-130) IU/L Troponin T Baselin e 20 H (0-15) ng/L Troponin T 120 Min [place] 23.33 H (0-15) ng/L Delta Troponin T 3.33 (0-10) ABS# NT-Pro-B Natriuret Pep (0-450) pg/mL Total Protein (6.6-8.7) g/dL Albumin (3.5-5.2) g/dL Globulin (1.3-4.6) g/dL Lipase (13-60) U/L Ethyl Alcohol (0-10) mg/dL Discharge Plan Discharge Patient Disposition: Home Clinical Impression: Atrial fibrillation, Aortic aneurysm, Incidental pulmonary nodule Condition: Stable Prescriptions: New aspirin 325 mg tablet,delayed release (DR/EC) 325 mg PO DAILY Qty: 30 RF: 0 Discontinued aspirin 81 mg tablet,delayed release (DR/EC) 81 mg PO DAILY@0700 RF: 0 No Action cholecalciferol (vitamin D3) 25 mcg (1,000 unit) capsule 50 mcg PO DAILY@0700 RF: 0 docusate sodium [Stool Softener] 100 mg capsule 300 mg PO DAILY RF: 0 senna 8.6 mg capsule 17.2 mg PO DAILY PRN (Reason: Constipation) RF: 0 Benadryl 50 mg Capsule 50 mg PO DAILY PRN (Reason: Sleep) RF: 0 atorvastatin 10 mg tablet 10 mg PO DAILY@2000 RF: 0 tamsulosin 0.4 mg capsule 0.4 mg PO BID@0700,1900 RF: 0 duloxetine 60 mg capsule,delayed release(DR/EC) 60 mg PO DAILY@0700 RF: 0 Discharge Orders: Discharge ED (Routine); Ordered 01/18/21 Ordered By: Orlando Sanz Referrals: Michelle Nguyen, TACO MAKER-C [Primary Care Provider] - Discharge Diet: Advance as tolerated Discharge Activity: Resume usual activity Patient Instructions: Atrial Fibrillation (ED), Opioid Safety Activity Restrictions/Additional Instructions: 1. Atrial fibrillation. It appears he has some tachycardia that he is asymptomatic of. Please use the pulse oximeter or blood pressure cuff to tell his heart rate and if it is around 100 or greater please give him a 25 mg tablet of metoprolol tartrate. After 1 hour recheck his heart rate. If it is greater than 120 or he is symptomatic with chest pain, shortness of breath, or palpitations please come to the ER immediately. Also I have discussed with Dr. Mota our other radio repair teacher who recommended that because he cannot be started on a blood thinner that he increase his aspirin dose to 325 mg daily. I have provi ded a prescription for this and you have the metoprolol at home. 2. Incidentally we have found an aortic aneurysm measuring 4.1 cm in diameter. There is no immediate cause for concern but I have placed a case management referral to help you get an appointment with a vascular surgeon here in town. If he has chest pain that is radiating down to his back or a tearing sensation please come to the ER immediately. 3. Incidentally we have also found lung nodules. It is recommended that he get a repeat CAT scan of his chest in 3 to 6 months to check on the size of them and make sure they are not growing. Rarely these can grow into a cancer however they do not appear this way at the moment. Follow-up with Dr. Fry Thursday as you have already scheduled and bring this paperwork to him to discuss further. Also write down and keep a log of your blood pressure and heart rates when you check it and bring that to him. Return to the ER with worsening symptoms at any time Coding Level of Care Code ED Fire Officer for [place] Romero
--- NOTE | 2021-01-19 17:03 | P.PN_ITS ---
Subjective Subjective: Interval history: Spoke to patient's daughter Archana at [phone] as I was informed by event nuclear monitoring technician regarding episodes of sustained ventricular tachycardia for 45 minutes. Called patient's house he is doing fine but was dizzy advised to come to the ER and he will be get admitted for further investigation and treatment. Patient [id number] Archana says that they will be coming to the ER. Vitals/I&O/Wt Last Vital Signs Temp 98.6 F 01/18/21 17:39 Pulse 88 01/18/21 22:24 Resp 16 01/18/21 22:24 BP 135/86 01/18/21 22:24 Pulse Ox 96 01/18/21 22:24 Weight last 48 hrs Weight 190 lb Data : 01/18/21 19:45 01/18/21 18:22 Attestations Medical Necessity Statement*: Patient will be coming to the ER Coding Level of Care Code Acute Chrome Polisher for [place] Romero
--- NOTE | 2021-01-21 15:02 | DCPLANNER ---
network contract manager had message to schedule a follow up appointment for patient with heart care. network contract manager called heart care, spoke with Maricel, gave clinic patients information. Patient had been admitted to the hospital. network contract manager was told that was consulted to see patient while he was in the hospital.
== END 2021-01-18 22:25 | disposition home or self-care (01) ==
PROVIDERS: Emergency Provider Family Medicine; PCP Nurse Practitioner
DX: I48.91 Unspecified atrial fibrillation (principal); I71.9 Aortic aneurysm of unspecified site, without rupture; R91.1 Solitary pulmonary nodule; I10 Essential (primary) hypertension; I25.10 Atherosclerotic heart disease of native coronary artery without angina pectoris; Z95.1 Presence of aortocoronary bypass graft
CPT/HCPCS: 36415; 71045; 71275; 80053; 80307; 83605; 83690; 83880; 84484; 85025; 93005; 93971; 96361; 96374; 99284; J3490; J7030; Q9967

== ENCOUNTER 2021-01-19 18:18 | Inpatient (IN) | payer MEDICARE, SELFPAY ==
[2021-01-19 18:31] VITALS: BP 117/75; PULSE 111; RESP 18; TEMP 36.3; O2SAT 95; BMI 25.7
[2021-01-19 18:50] VITALS: BP 132/91; PULSE 79; RESP 25; O2SAT 93
--- NOTE | 2021-01-19 19:09 | ECG_ITS ---
[facility] Test Date: 2021-01-19 Pat Name: Raúl Centeno Department: Room: Gender: Male Quality Worker: : 1935 Requested By: Braulio Cohen Order Number: [id number] Reading MD: ELOY JOHANSEN Measurements Intervals [place] Rate: 75 P: NE: QRS: -19 QRSD: 111 T: 93 QT: 400 QTc: 449 Interpretive Statements ATRIAL FLUTTER/TACHYCARDIA MODERATE INTRAVENTRICULAR CONDUCTION DELAY [110+ ms QRS DURATION] NONSPECIFIC ST & T-WAVE ABNORMALITY Compared to ECG 01/18/2021 20:34:08 Intraventricular conduction delay now present T-wave abnormality still present Electronically Signed On 01-20-2021 22:24:32 CDT by ELOY JOHANSEN [id number]
[2021-01-19 19:32] LABS: Basophils # 0.1 10^3/uL (0.0-0.1); Basophils % 1.1 %; Eosinophils # 0.3 10^3/uL (0.0-0.8); Eosinophils % 5.4 %; Hematocrit 37.2 % (42.0-52.0); Hemoglobin 12.1 g/dL (11.7-16.6); Lymphocytes # 1.5 10^3/uL (0.8-4.8); Lymphocytes % 23.7 %; Mean Corpuscular HGB Conc 32.5 g/dL (30.0-36.0); Mean Corpuscular Hemoglobin 30.5 pg (28.0-34.0); Mean Corpuscular Volume 93.7 fL (80-94); Mean Platelet Volume 10.7 fL (7.4-10.4); Monocytes # 0.7 10^3/uL (0.2-0.9); Monocytes % 10.6 %; Neutrophils # 3.63 10^3/uL (1.8-7.7); Nucleated Red Blood Cells % 0 %; Platelet Count 197 10^3/cmm (130-400); Red Blood Count 3.97 10^6/uL (4.1-5.3); White Blood Count 6.2 10^3/uL (4.0-10.0)
[2021-01-19 19:53] LABS: Troponin(5th) Baseline 25 ng/L (0-15)
--- NOTE | 2021-01-19 19:56 | PC.NURSE ---
EKG taken and given to Dr. Johns
[2021-01-19 20:01] LABS: Alanine Aminotransferase 32 U/L (0-41); Albumin Level 4.3 g/dL (3.5-5.2); Alkaline Phosphatase 89 IU/L (40-130); Anion Gap 12.2 (5-19); Aspartate Amino Transferase 24 U/L (0-40); Blood Urea Nitrogen 22 mg/dL (8-23); Calcium 9.1 mg/dL (8.5-10.5); Carbon Dioxide 27 mmol/L (22-29); Chloride 106 mmol/L (98-107); Creatine Phosphokinase 143 U/L (39-308); Globulin 2.8 g/dL (1.3-4.6); Glucose 111 mg/dL (65-115); NT Pro B Type Natriuretic Pept 1070 pg/mL (0-450); Osmolality Calculated 296 mOsm/kg (285-295); Potassium 4.2 mmol/L (3.5-5.1); Sodium 141 mmol/L (136-145); Total Bilirubin 0.3 mg/dL (0.15-1.2); Total Protein 7.1 g/dL (6.6-8.7)
--- NOTE | 2021-01-19 20:12 | W.ED.GENADLT ---
HPI - General Adult General: Chief complaint: General Medical Stated complaint: phy ref/heart issues Time Seen by Provider: 01/19/21 18:43 History of Present Illness: HPI narrative: 85-year-old male with a history of atrial fibrillation. He was seen last night. The patient's been wearing a Holter monitor, and had some tacky?bradycardia type episodes that have been symptomatic. He was placed on metoprolol after consultation with a consolidation accountant. Today he had an episode that woke sounds presyncopal while he was outside. He did not fall or injure himself. He denies any chest pain. Currently he feels decently well. He states he can walk short distances without getting too short of breath currently. He was called by the consolidation accountant pharmacy technician infusion and asked to come to the hospital due to a critical finding of the Holter monitor that had been transmitted. Onset (ago): hour(s) Radiation: non-radiation Pain Consistency: other Relieving factors: other Exacerbating factors: other (Exertion) Associated symptoms: Reports diaphoresis, dyspnea, short of breath and syncope (More of a near syncope); Deny chest pain, headache(s), nausea or vomiting Review of Systems Const: Reports: diaphoresis; Denies: fever(s) Card: Reports: syncope (More of a near syncope); Denies: chest pain Resp: Reports: dyspnea; Denies: productive cough or non-productive cough GI: Denies: nausea or vomiting Neuro: Reports: weakness in extremities (Both, deconditioned) and dizziness; Denies: headache(s) [facility] ED PFSH: Medical History Alcohol abuse, daily use Alcohol use disorder Ambulates with cane Benign prostatic hyperplasia (BPH) with urinary urgency Bladder stone 3 large bladder stones treated with cystolitholapaxy 08/30/2020 BPH loc w urin obs/LUTS Chronic bladder outlet obstructive symptoms. Chronic constipation Elevated PSA Essential (primary) hypertension Generalized anxiety disorder History of coronary artery disease History of TB (tuberculosis) Urge incontinence Surgical History History of cataract left History of cervical spinal surgery History of heart bypass surgery x4 History of hernia repair Right Family History Other Cancer Stroke Denies family history of Diabetes Dementia Bleeding disorder Hypertension Social History Smoking and tobacco status: never smoked Household members: none Marital status: / Number of children: 2 service: No Current occupational status: retired History of recent travel: Yes ([place]) Out of state: Yes Out of country: No Current gender identity: Male Physical Exam Const: GENERAL APPEARANCE: well developed ORIENTATION/CONSCIOUSNESS: Yes oriented to person, Yes oriented to place and Yes oriented to time HENMT: COMMON NORMALS: normocephalic HEAD & SCALP: normocephalic Eye: COMMON NORMALS: Equal, round and reactive pupils present, EOMs intact bilaterally and conjunctivae normal EYELID: eyelids normal CONJUNCTIVA: Yes conjunctivae normal PUPIL: Yes Equal, round and reactive pupils present Neck/C-Spine: GENERAL: No tracheal deviation Chest: COMMONS NORMALS: normal inspection of the chest CHEST: No tenderness Resp: COMMON NORMALS: clear to auscultation bilaterally EFFORT & INSPECTION: No tachypneic, No respiratory distress, No retractions, No uses accessory muscles and No tracheal deviation AUSCULTATION: clear to auscultation bilaterally, no rhonchi, no wheezes and lung sounds not diminished Cardio: COMMON NORMALS: regular rate RATE: regular rate RHYTHM: abnormal rhythm irregularly irregular HEART SOUNDS: no murmurs PERIPHERAL PULSES: radial pulses present GI: INSPECTION: No abdominal distension AUSCULTATION: No Hyperactive bowel sounds present and No Hypoactive bowel sounds present PALPATION: No Guarding due to palpation present (GI) and No Rigid due to palpation PERCUSSION: no dullness to percussion and no tympanic to percussion Neuro: SENSORIUM/ORIENTATION: Yes oriented to person, Yes oriented to place and Yes oriented to time Psych: COMMON NORMALS: mental status grossly normal Skin: COMMON NORMALS: no rashes or lesions noted GENERAL SKIN EXAM: no rashes or lesions noted Course Consultations: Consultation #1: ranulfo, cardiology Consultation #2: eleno Vital Signs: Vital signs: Vital Signs Temperature 98.1 F 01/20/21 04:00 Pulse Rate 77 01/20/21 04:00 Respiratory Rate 16 01/20/21 04:00 Blood Pressure 115/81 01/20/21 04:00 Pulse Oximetry 97 01/20/21 04:00 MDM - General Adult MDM Narrative: Medical decision making narrative: 85-year-old male who had what appears to be a 45 beat run of V. tach on the Holter monitor, and was sent in by cardiology. Laboratory is benign. He will go to the [facility] for monitoring. Cardiology will consult. Hospitalist is aware and will admit. Lab Data: Labs: Lab Results 01/19/21 01/19/21 01/19/21 Range/Units 19:30 19:30 19:30 WBC 6.2 (4.0-10.0) 10^3/ uL RBC 3.97 L (4.1-5.3) 10^6/u L Hgb 12.1 (11.7-16.6) g/dL Hct 37.2 L (42.0-52.0) % MCV 93.7 D (80-94) fL MCH 30.5 (28.0-34.0) pg MCHC 32.5 D (30.0-36.0) g/dL RDW 13.0 (12.1-15.1) % Plt Count 197 (130-400) 10^3/c mm MPV 10.7 H (7.4-10.4) fL Neut % (Auto) 59.0 % Lymph % (Auto) 23.7 % [place] % (Auto) 10.6 % Eos % (Auto) 5.4 % Baso % (Auto) 1.1 % Neut # (Auto) 3.63 (1.8-7.7) 10^3/u L Lymph # (Auto) 1.5 (0.8-4.8) 10^3/u L [place] # (Auto) 0.7 (0.2-0.9) 10^3/u L Eos # (Auto) 0.3 (0.0-0.8) 10^3/u L Baso # (Auto) 0.1 (0.0-0.1) 10^3/u L Nucleated RBC % (a uto) 0 % Nucleated RBCs # 0.0 /100WBC Sodium 141 (136-145) mmol/L Potassium 4.2 (3.5-5.1) mmol/L Chloride 106 (98-107) mmol/L Carbon Dioxide 27 (22-29) mmol/L Anion Gap 12.2 (5-19) BUN 22 (8-23) mg/dL Creatinine 0.7 (0.7-1.2) mg/dL GFR Calculation Not Reportable Glucose 111 (65-115) mg/dL Calculated Osmolal ity 296 H (285-295) mOsm/k g Calcium 9.1 (8.5-10.5) mg/dL Total Bilirubin 0.3 (0.15-1.2) mg/dL AST 24 (0-40) U/L ALT 32 (0-41) U/L Alkaline Phosphata se 89 (40-130) IU/L Creatine Kinase 143 (39-308) U/L Troponin T Baselin e 25 H (0-15) ng/L NT-Pro-B Natriuret Pep 1070 H (0-450) pg/mL Total Protein 7.1 (6.6-8.7) g/dL Albumin 4.3 (3.5-5.2) g/dL Globulin 2.8 (1.3-4.6) g/dL Discharge Plan Discharge Patient Disposition: Admitted As Inpatient Admit Provider: Abdiel Alvarez Clinical Impression: Sick sinus syndrome with tachycardia, Wide QRS ventricular tachycardia Condition: Stable Coding Level of Care Code ED Bullet Assembly Press Operator for Chg 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
--- NOTE | 2021-01-19 20:26 | P.HP_ITS ---
Providers/Chief Complaint Primary Care Provider: DIANNE JonesC Chief Complaint: phy ref/heart issues History of Present Illness Raúl Centeno is a 85 year old male Who has established history of grade 2 diastolic dysfunction preserved ejection fraction, coronary disease status post CABG x3, alcohol abuse, ascending aortic aneurysm 4.1 cm,, right lung base nodule, TIA in the past, atrial flutter (metoprolol was held secondary to bradycardia, Eliquis was stopped due to heavy alcohol abuse and one syncopal event), was called by Dr. Mota today after 45 mins of wide QRS complexes seen on Holter monitoring. Patient was seen in the ER yesterday for atrial flutter/A. fib RVR in 120s, he was given 5 mg of IV metoprolol which converted him to sinus rhythm, Dr. Mota recommended increasing aspirin to 325 mg daily , PE was ruled out no electrolyte abnormality. Patient is stating that he has been feeling dizzy for last few weeks and he has figured out a way to avoid falling which is describing as laying on the ground and counting up to 30. He stating that today he was holding onto the fence to avoid falling on the ground as his dizziness was worse today he did not experience any chest pain, fever, vomiting, diaphoresis but endorsing shortness of breath with presyncopal event. His last alcoholic drink was yesterday he drinks 3 beers every day. Today energy crop farmer Dr. Guillen was notified about Holter monitoring readings of 45 minutes of wide QRS rhythm, [id number] was called and patient was sent to the ER for further evaluation. At the time my evaluation he is not complaining of any active chest pain shortness of breath or pain. Hypertensive pulse 82 EKG showing incomplete right bundle branch block with atrial flutter 2-1 rhythm heart rate 80s he is afebrile TSH is normal I requested magnesium level and alcohol level. Review of Systems Const: Denies: fever(s) Eyes: Denies: change in vision ENMT: Denies: throat pain Card: Reports: palpitations, irregular heart rhythm, pre-syncope and dyspnea on exertion Resp: Reports: dyspnea and non-productive cough GI: Denies: abdominal pain : Denies: flank pain Musc: Denies: neck pain Skin/Breast: Denies: rash Neuro: Denies: headache(s) Psych: Denies: anxiety Endo: Denies: polyuria Francisco/Lymph: Denies: easy bruising All/Imm: Denies: urticaria Medications/Allergies Home Medications Medication Instructions Recorded Confirmed Last Taken Type cholecalciferol (vitamin D3) 25 50 mcg PO DAILY@0700 cap 07/12/20 01/18/21 01/18/21 History mcg (1,000 unit) capsule docusate sodium 100 mg capsule 300 mg PO DAILY cap 07/12/20 01/18/21 08/29/20 History sennosides 8.6 mg capsule 17.2 mg PO DAILY PRN cap 07/12/20 01/18/21 08/29/20 History aspirin 325 mg PO DAILY #30 tab 01/18/21 Unknown Rx atorvastatin 10 mg PO DAILY@199901/18/21 01/18/21 01/17/21 History diphenhydramine HCl [Benadryl] 50 mg PO DAILY PRN 01/18/21 01/18/21 01/17/21 History duloxetine 60 mg PO DAILY@0700 01/18/21 01/18/21 01/18/21 History tamsulosin 0.4 mg PO BID@0700,1900 01/18/21 01/18/21 01/18/21 History Allergies Allergy/AdvReac Type Severity Reaction Status Date / Time No Known Allergies Allergy Verified 01/08/21 16:12 PFSH Acute PFSH: Medical History Alcohol abuse, daily use Alcohol use disorder Ambulates with cane Benign prostatic hyperplasia (BPH) with urinary urgency Bladder stone 3 large bladder stones treated with cystolitholapaxy 08/30/2020 BPH loc w urin obs/LUTS Chronic bladder outlet obstructive symptoms. Chronic constipation Elevated PSA Essential (primary) hypertension Generalized anxiety disorder History of coronary artery disease History of TB (tuberculosis) Urge incontinence Surgical History History of cataract left History of cervical spinal surgery History of heart bypass surgery x4 History of hernia repair Right Family History Other Cancer Stroke Denies family history of Diabetes Dementia Bleeding disorder Hypertension Social History Smoking and tobacco status: never smoked Household members: none Marital status: / Number of children: 2 service: No Current occupational status: retired History of recent travel: Yes ([place]) Out of state: Yes Out of country: No Current gender identity: Male Vitals/I&O/Wt Last Vital Signs Temp 97.4 F L 01/19/21 18:31 Pulse 79 01/19/21 18:50 Resp 25 H 01/19/21 18:50 BP 132/91 01/19/21 18:50 Pulse Ox 93 01/19/21 18:50 Weight last 48 hrs Weight 86.183 kg Physical Exam Narrative: EXAM NARRATIVE: elderly male pleasant and cooperative during my evaluation Was laying supine without any shortness of breath chest pain or abdominal pain Variable S1-S2 hypertensive no active sign of heart failure Soft systolic right second intercostal space murmur appreciated Abdomen soft nontender bowel sound present Lower extremity no edema gangrene ulcer EOMI, PERRLA Awake alert oriented x3 GCS 15 No neurological deficit No joint swelling No skin changes of gangrene or ulcer Appropriate mood and affect Data : 01/19/21 19:30 01/19/21 19:30 A&P Assessment and plan (1) Wide QRS ventricular tachycardia: Status: Acute (2) Aortic aneurysm: Status: Acute (3) Incidental pulmonary nodule: Status: Acute (4) Alcohol abuse, daily use: Status: Acute (5) BPH loc w urin obs/LUTS: Status: Acute Additional A&P Information Wide QRS rhythm Cardiology was notified for 45 minutes of wide QRS rhythm, concern for V. 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 Regalado, in case of recurrence of symptoms or hemodynamic instability overnight, will start amiodarone and update Dr. Mota who is on-call over the weekend Atrial flutter/fibrillation Not a candidate for anticoagulation secondary to high risk of fall due to heavy alcohol abuse improving neuropathy, would use high-dose aspirin, his Suleiman Vascor is 4, Metoprolol was recently held secondary to bradycardic episodes and pauses on Holter monitoring, monitor on cardiac stepdown unit overnight Ascending aortic aneurysm: 4 cm, continue metoprolol at a lower dose 12.5 mg twice a day, statin Alcohol abuse: Patient is currently drinking beer 2 to 3 cans a day Start CIMA protocol check alcohol level Full code Cardiac diet DVT prophylaxis Lovenox Attestations Medical Necessity Statement*: Anticipating discharge in less than 48 hours currently need monitoring because of wide-complex rhythm atrial flutter aberrant conduction Time Spent in Patient Care: (>than 50% of time spent in counselling and/or direct pt care on unit) . 35mins Coding Level of Care Code Acute Sheriffs Detective for g Fwd Diagnoses Wide QRS ventricular tachycardia I47.2 Aortic aneurysm I71.9 Incidental pulmonary nodule R91.1 Alcohol abuse, daily use F10.10 BPH loc w urin obs/LUTS N40.1
[2021-01-19 20:48] VITALS: BP 131/92; PULSE 83; RESP 14; O2SAT 97
[2021-01-19 20:56] VITALS: BP 131/92; PULSE 83; RESP 14; O2SAT 97
[2021-01-19 21:04] VITALS: BP 142/106; PULSE 82; RESP 14; TEMP 36.4; O2SAT 97
--- NOTE | 2021-01-19 21:09 | ECG_ITS ---
[facility] Test Date: 2021-01-19 Pat Name: Raúl Centeno Department: Room: 112 Gender: Male Wiener Packer: radha WHITTEN: 1935 Requested By: Braulio Cohen Order Number: [id number] Reading MD: ELOY JOHANSEN Measurements Intervals [place] Rate: 78 P: [place]: QRS: -5 QRSD: 114 T: 75 QT: 426 QTc: 488 Interpretive Statements ATRIAL FLUTTER/TACHYCARDIA MODERATE INTRAVENTRICULAR CONDUCTION DELAY [110+ ms QRS DURATION] NONSPECIFIC ST & T-WAVE ABNORMALITY ABNORMAL RHYTHM ECG Compared to ECG 01/19/2021 19:45:20 No significant changes Electronically Signed On 01-20-2021 22:27:08 CDT by ELOY JOHANSEN [id number]
[2021-01-19 21:25] LABS: Troponin 5 2HR 23.26 ng/L (0-15)
[2021-01-19 21:27] LABS: Troponin 5 2HR Delta -1.74 ABS# (0-10)
[2021-01-19] MEDS: metoprolol tartrate 25 mg Tablet PO (21:28)
[2021-01-19 22:00] VITALS: PULSE 81
[2021-01-19 22:05] LABS: Alcohol Level < 10 mg/dL (0-10)
--- NOTE | 2021-01-19 22:11 | P.CONIM_ITS ---
Providers/Reason For Consult Consulting Physican/Specialty*: Cardiology Reason for Consult*: Tachybradycardia syndrome, wide-complex tachycardia Attending Physician: Abdiel Alvarez MD Primary Care Provider: EDD Jones History of Present Illness History of Present Illness Raúl Centeno is a 85 year old male who himself is not a good historian and patient of Dr. Castanon, for tachy bradycardia syndrome underwent event monitor. Due to underlying rhythm of atrial fibrillation and multiple long more than 5-second pauses metoprolol was discontinued patient did fine for a while after that patient started having episodes of short bursts of rapid ventricle response. Last night I was informed by event monitoring company that patient may had episodes of sustained and nonsustained VT. I personally examined the strips it appeared to me that patient has episode of possible ventricular tachycardia as it is wide-complex with interpolated beat. Patient was feeling lightheaded with chest pressure therefore decided to observe him on the telemetry. I spoke to patient's [id number] Archana she told me that she is recently complaining of chest pressure and shortness of breath upon walking. Occasionally feel dizzy upon exerting and can keep up with us. Review of Systems Const: Reports: diaphoresis; Denies: fever(s) Eyes: Denies: change in vision or photophobia ENMT: Denies: throat pain or enlarged tonsils Card: Reports: palpitations, irregular heart rhythm, syncope (More of a near syncope), pre-syncope and dyspnea on exertion; Denies: chest pain Resp: Reports: dyspnea and non-productive cough; Denies: productive cough GI: Denies: abdominal pain, nausea or vomiting : Denies: flank pain Musc: Denies: neck pain Skin/Breast: Denies: rash Neuro: Reports: weakness in extremities (Both, deconditioned) and dizziness; Denies: headache(s) Psych: Denies: anxiety Endo: Denies: polyuria Francisco/Lymph: Denies: easy bruising All/Imm: Denies: urticaria or acute wheezing Meds/Allergies Home Medications and Allergies Home Medications Medication Instructions Recorded Confirmed Last Taken Type cholecalciferol (vitamin D3) 25 50 mcg PO DAILY@0700 cap 07/12/20 01/20/21 01/19/21 History mcg (1,000 unit) capsule docusate sodium 100 mg capsule 300 mg PO DAILY cap 07/12/20 01/20/21 01/19/21 History sennosides 8.6 mg capsule 17.2 mg PO DAILY PRN cap 07/12/20 01/20/21 08/29/20 History atorvastatin 10 mg PO DAILY@199901/18/21 01/20/21 01/18/21 History diphenhydramine HCl [Benadryl] 50 mg PO DAILY PRN 01/18/21 01/20/21 01/18/21 History duloxetine 60 mg PO DAILY@0700 01/18/21 01/20/21 01/19/21 History tamsulosin 0.4 mg PO BID@0700,1900 01/18/21 01/20/21 01/19/21 History aspirin 325 mg PO DAILY 01/20/21 01/20/21 01/19/21 History Allergies Allergy/AdvReac Type Severity Reaction Status Date / Time No Known Allergies Allergy Verified 01/08/21 16:12 PFSH Acute PFSH: Medical History Alcohol abuse, daily use Alcohol use disorder Ambulates with cane Benign prostatic hyperplasia (BPH) with urinary urgency Bladder stone 3 large bladder stones treated with cystolitholapaxy 08/30/2020 BPH loc w urin obs/LUTS Chronic bladder outlet obstructive symptoms. Chronic constipation Elevated PSA Essential (primary) hypertension Generalized anxiety disorder History of coronary artery disease History of TB (tuberculosis) Urge incontinence Surgical History History of cataract left History of cervical spinal surgery History of heart bypass surgery x4 History of hernia repair Right Family History Other Cancer Stroke Denies family history of Diabetes Dementia Bleeding disorder Hypertension Social History Smoking and tobacco status: never smoked Household members: none Marital status: / Number of children: 2 service: No Current occupational status: retired History of recent travel: Yes ([place]) Out of state: Yes Out of country: No Current gender identity: Male Dietary Habits: Current diet type/program: regular Caffeine: Yes Safety: Seatbelt use: always Helmet use: No Drive intoxicated or ride with intoxicated carrier driver?: never Vitals/I&O/Wt Last Vital Signs Temp 97.5 F L 01/19/21 21:04 Pulse 82 01/19/21 21:04 Resp 14 01/19/21 21:04 BP 142/106 01/19/21 21:04 Pulse Ox 97 01/19/21 21:04 Weight last 48 hrs Weight 190 lb Physical Exam Narrative: EXAM NARRATIVE: GENERAL: Patient is alert, awake and oriented x3. NECK: No jugular vein distension. HEENT: No cyanosis. No icterus. No pallor. HEART: Regular S1 and S2. No murmur, rub or gallop. LUNGS: Clear to auscultate bilaterally. ABDOMEN: Soft, nontender and nondistended. Positive bowel sounds. No guarding, rebound or tenderness. CENTRAL NERVOUS SYSTEM: Grossly nonfocal. EXTREMITIES: Lower extremities without edema bilaterally. A&P Assessment and plan (1) Atrial fibrillation: Patient has underlying rhythm of atrial fibrillation with possible tachybradycardia syndrome may need a permanent pacemaker placement for therapeutic purposes. Status: Acute Qualifiers: Atrial fibrillation type: persistent (not longstanding) Qualified Code(s): I48.19 - Other persistent atrial fibrillation (2) Coronary artery disease: Patient denies any complaint but wide-complex tachycardia in a patient with history of CABG May need to be ruled out for ischemia I will leave it to Dr. Fry to decide between stress test versus left heart cath Status: Chronic Qualifiers: Associated angina: without angina Coronary Disease-Associated Artery/Lesion type: bypass graft [place] vs. transplanted heart: [place] heart Qualified Code(s): I25.810 - Atherosclerosis of coronary artery bypass graft(s) without angina pectoris (3) Wide-complex tachycardia: We will monitor him on the telemetry tonight. Status: Acute (4) Hypertension: Well-controlled continue medicine Status: Acute Qualifiers: Hypertension type: essential hypertension Qualified Code(s): I10 - Essential (primary) hypertension Consult Attestations Medical Necessity Statement: Require continuation hospitalization for above defined care. I am expecting his stay to cross more than 2 midnights. Coding Level of Care Code New Pt Acute Sole Edge Inker Machine for [place] Romero Patient Type New History Detailed Exam Detailed Medical Decision Making Moderate Complexity Diagnoses Atrial fibrillation I48.19 Atrial fibrillation type: persistent (not longstanding) Coronary artery disease I25.810 Associated angina: without angina Coronary Disease-Associated Artery/Lesion type: bypass graft [place] vs. transplanted heart: [place] heart Wide-complex tachycardia I47.2 Hypertension I10 Hypertension type: essential hypertension
[2021-01-19] MEDS: enoxaparin 40 mg/0.4 mL Syringe SUBCUT (22:14)
[2021-01-20] VITALS (9 sets, daily range): BP systolic 115–140; BP diastolic 69–89; PULSE 61–86; RESP 10–19; TEMP 36.6–36.7; O2SAT 95–99
--- NOTE | 2021-01-20 01:09 | ECG_ITS ---
[facility] Test Date: 2021-01-20 Pat Name: Raúl Centeno Department: Room: 112 Gender: Male Pathology Laboratory Director: : 1935 Requested By: Braulio Cohen Order Number: [id number] Reading MD: ELOY JOHANSEN Measurements Intervals [place] Rate: 75 P: [place]: QRS: 17 QRSD: 124 T: 110 QT: 395 QTc: 443 Interpretive Statements ATRIAL FLUTTER/TACHYCARDIA MODERATE INTRAVENTRICULAR CONDUCTION DELAY [110+ ms QRS DURATION] NONSPECIFIC T-WAVE ABNORMALITY Compared to ECG 01/19/2021 21:38:37 No significant changes Electronically Signed On 01-20-2021 22:27:02 CDT by ELOY JOHANSEN [id number]
[2021-01-20 05:52] LABS: Troponin 5 6HR 24.14 ng/L (0-15)
[2021-01-20] MEDS: duloxetine 60 mg Capsule PO (06:05)
[2021-01-20] MEDS: tamsulosin 0.4 mg Capsule PO ×2 (06:05→19:02)
[2021-01-20] MEDS: multivitamin therapeutic Tablet 1 TAB PO (08:07)
[2021-01-20] MEDS: folic acid 1 mg Tablet PO (08:07)
[2021-01-20] MEDS: aspirin 325 mg EC Tablet PO (08:07)
[2021-01-20] MEDS: thiamine 100 mg Tablet PO (08:07)
[2021-01-20] MEDS: metoprolol tartrate 25 mg Tablet 12.5 MG PO ×2 (08:07→20:27)
--- NOTE | 2021-01-20 11:27 | PM.PN ---
Subjective Subjective: Interval history: no acute interim events, telemetry monitoring with A flutter, HR ranging between 50-70 after morning dose of metoprolol. 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 Telemetry with one episode of non sustained Vtach Metoprolol currently at 12.5mg po BID , next due at 9pm , monitoring closely on tele Wide complex tachycardia noted on holter monitor report- given past h/o CABG and CAD, need to exclude ischemia- planned for cardiac cath tomorrow followed likely by PPM placement. Appreciate cardiology recommendations Atrial flutter/fibrillation Not a candidate for anticoagulation secondary to high risk of fall due to heavy alcohol abuse improving neuropathy, would use high-dose aspirin, his Suleiman Vasc score is 4, Alcohol abuse: Patient is currently drinking beer 2 to 3 cans a day [place] CIWA protocol to monitor for alcohol withdrawal Full code Cardiac diet DVT prophylaxis Lovenox Attestations Medical Necessity Statement*: planned for LHC and PPM placement, needs close monitoring on telemetry with resumption of beta blockers, change to inapatient, above defined care expected to cross 2 midnights Coding Level of Care Code Acute Abseiling Instructor for Chg Fwd Diagnoses Wide QRS ventricular tachycardia I47.2 Aortic aneurysm I71.9 Incidental pulmonary nodule R91.1 Alcohol abuse, daily use F10.10 BPH loc w urin obs/LUTS N40.1
--- NOTE | 2021-01-20 18:32 | PM.PN ---
Subjective Subjective: Interval history: Patient had been dropping his heart rate into 30s to 40s occasionally otherwise no wide-complex tachycardia seen denies any chest pain PND orthopnea Medications: Reviewed: Yes Vitals/I&O/Wt Last Vital Signs Temp 98.0 F 01/20/21 12:00 Pulse 77 01/20/21 16:00 Resp 18 01/20/21 16:00 BP 129/82 01/20/21 16:00 Pulse Ox 95 01/20/21 16:00 01/20/21 01/20/21 01/20/21 06:59 14:59 22:59 Intake Total 360 / 360 240 / 600 Balance 360 / 360 240 / 600 Weight last 48 hrs Weight 190 lb Physical Exam Narrative: EXAM NARRATIVE: GENERAL: Patient is alert, awake and oriented x3. NECK: No jugular vein distension. HEENT: No cyanosis. No icterus. No pallor. HEART: Regular S1 and S2. No murmur, rub or gallop. LUNGS: Clear to auscultate bilaterally. ABDOMEN: Soft, nontender and nondistended. Positive bowel sounds. No guarding, rebound or tenderness. CENTRAL NERVOUS SYSTEM: Grossly nonfocal. EXTREMITIES: Lower extremities without edema bilaterally. Data : 01/19/21 19:30 01/19/21 19:30 A&P Assessment and plan (1) Atrial fibrillation: Patient has tachybradycardia syndrome cannot take medicine for rapid ventricle response controlled as in the past metoprolol was initiated resulted in multiple long 5 to 6-second pauses and he was symptomatic. We therefore recommend permanent pacemaker for therapeutic use Status: Acute Qualifiers: Atrial fibrillation type: persistent (not longstanding) Qualified Code(s): I48.19 - Other persistent atrial fibrillation (2) Coronary artery disease: History of wide-complex tachycardia occasional chest pressure in a patient with history of CABG need to be ruled out for ischemia we will be scheduling him for left heart cath with Dr. Watts tomorrow morning at 830. Status: Chronic Qualifiers: Coronary Disease-Associated Artery/Lesion type: bypass graft [place] vs. transplanted heart: [place] heart Associated angina: without angina Qualified Code(s): I25.810 - Atherosclerosis of coronary artery bypass graft(s) without angina pectoris (3) Wide-complex tachycardia: No more tachycardia has been seen he is being monitored on telemetry Status: Acute (4) Hypertension: Well-controlled continue medicine Status: Acute Qualifiers: Hypertension type: essential hypertension Qualified Code(s): I10 - Essential (primary) hypertension Attestations Medical Necessity Statement*: Patient require continuation of hospitalization for above defined care Coding Level of Care Code Established Pt Acute Sawyer Helper for Chg Fwd Patient Type Established History Detailed Exam Detailed Medical Decision Making Moderate Complexity Diagnoses Atrial fibrillation I48.19 Atrial fibrillation type: persistent (not longstanding) Coronary artery disease I25.810 Coronary Disease-Associated Artery/Lesion type: bypass graft [place] vs. transplanted heart: [place] heart Associated angina: without angina Wide-complex tachycardia I47.2 Hypertension I10 Hypertension type: essential hypertension
--- NOTE | 2021-01-20 18:57 | PC.NURSE ---
Per Dr. Mota, please hold this evening's dose of lovenox.
[2021-01-20] MEDS: atorvastatin 40 mg Tablet 10 MG PO (20:32)
[2021-01-20] MEDS: zolpidem 5 mg Tablet PO (20:32)
[2021-01-21] VITALS (55 sets, daily range): BP systolic 120–164; BP diastolic 62–117; PULSE 65–120; RESP 7–26; TEMP 36.6; O2SAT 94–100
[2021-01-21 03:53] LABS: Basophils # 0.1 10^3/uL (0.0-0.1); Basophils % 1.2 %; Eosinophils # 0.4 10^3/uL (0.0-0.8); Eosinophils % 5.9 %; Hematocrit 40.1 % (42.0-52.0); Hemoglobin 12.5 g/dL (11.7-16.6); Lymphocytes # 2.1 10^3/uL (0.8-4.8); Lymphocytes % 36.1 %; Mean Corpuscular HGB Conc 31.2 g/dL (30.0-36.0); Mean Corpuscular Hemoglobin 29.8 pg (28.0-34.0); Mean Corpuscular Volume 95.7 fL (80-94); Mean Platelet Volume 10.9 fL (7.4-10.4); Monocytes # 0.6 10^3/uL (0.2-0.9); Monocytes % 10.8 %; Neutrophils # 2.72 10^3/uL (1.8-7.7); Neutrophils % 45.8 %; Nucleated Red Blood Cells % 0 %; Platelet Count 194 10^3/cmm (130-400); Red Blood Count 4.19 10^6/uL (4.1-5.3); Red Cell Distribution Width 12.8 % (12.1-15.1); White Blood Count 5.9 10^3/uL (4.0-10.0)
[2021-01-21 04:25] LABS: Alanine Aminotransferase 25 U/L (0-41); Albumin Level 3.8 g/dL (3.5-5.2); Alkaline Phosphatase 81 IU/L (40-130); Anion Gap 13.1 (5-19); Blood Urea Nitrogen 22 mg/dL (8-23); Carbon Dioxide 26 mmol/L (22-29); Chloride 105 mmol/L (98-107); Glucose 116 mg/dL (65-115); Osmolality Calculated 294 mOsm/kg (285-295); Potassium 4.1 mmol/L (3.5-5.1); Sodium 140 mmol/L (136-145); Thyroid Stimulating Hormone 2.98 uIU/mL (0.27-4.20); Total Bilirubin 0.4 mg/dL (0.15-1.2); Total Protein 6.8 g/dL (6.6-8.7)
[2021-01-21 04:45] LABS: Aspartate Amino Transferase 18 U/L (0-40)
[2021-01-21] MEDS: sodium chloride 0.9% 1,000 ML 50 ML IV (06:41)
[2021-01-21] MEDS: diphenhydrAMINE 50 mg Capsule PO (06:45)
[2021-01-21] MEDS: duloxetine 60 mg Capsule PO (06:46)
[2021-01-21] MEDS: tamsulosin 0.4 mg Capsule PO (06:46)
--- NOTE | 2021-01-21 07:50 | W.PM.OPSUD ---
Surgery/Procedure H&P Update DATE OF PROCEDURE: January 21, 2021 DATE H&P PERFORMED: 01/19/21 H&P UPDATE INFORMATION: I have reviewed H&P completed within last 30 days, I have examined patient prior to procedure and No changes to prior documentation CHANGES TO PREVIOUS DOCUMENTATION: Patient seen by Dr Mota on consult service. He had ventricular tachycardia runs and has recent episodes of chest pain/shortness of breath. He has an underlying rhythm of afib and has developed tachy-cl syndrome. Patient is planned to undergo left heart cath with possible percutaneous coronary intervention. PREOP DIAGNOSIS: Ventricular tachycardia/chest pain PRIMARY INDICATION FOR PROCEDURE: Ventricular tachycardia/chest pain PATIENT REASSESSED PRIOR TO SEDATION, WITH NO CHANGE NOTED: Yes PHYSICAL EXAM: alert, oriented x 3 and clear to auscultation bilaterally AIRWAY EVAL/ANESTHESIA PLAN: ASA III, Monitored Anesthesia, Local Anesthesia, Risks, benefits & alternatives of sedation and/or procedure discussed and Patient agrees to continue as planned
--- NOTE | 2021-01-21 08:30 | XACV_ITS ---
Exam Room: [facility] Ht: 183 cm Wt: 86 kg BSA: 2.10 m2 Gender: Male : 1935 Exam Priority: Routine Procedure(s): Procedure Description: Diagnostic procedure Procedure Description: Left Heart Catheterization Procedure Description: Left ventriculography Procedure Description: Venous Graft Catheterization Procedure Description: CADE Graft Catheterization Procedure Description: Coronary Angiography Diagnostic Cath Status: Urgent Diagnostic Findings * Left Main has no disease. * Proximal Left Anterior Descending: severe 90% stenosis, TRINIDAD: 3 flow. * Left Internal Mammary Artery to Distal Left Anterior Descending graft: patent. * Mid Right Coronary Artery: significant 80% stenosis, [place]: 3 flow. * Proximal Circumflex: obstructive 70% stenosis, [place]: 3 flow. * Ascending Aorta to Posterior Descending Right graft: patent. * Ascending Aorta to Lateral First Obtuse Marginal Branch Segment graft: patent. * Three grafts visualized. * Coronary angiography shows right dominance. Conclusions 1. Tachy-cl syndrome. 2. There is severe coronary artery disease with three vessel disease. 3. Three coronary grafts visualized: all grafts patent. 4. Patient has prior CABG. 5. Mild left ventricular systolic dysfunction. Ejection fraction of 40%. Recommendations * Will consult Dr Herrera for placement of permanent pacemaker. Diagnostic RX Recommendation: medical therapy and/or counseling Ventriculography Ejection Fraction: 40.0 % Pressures Phase:Rest AO : 244 / 164 ( 176 ) @ 7:31:00 AM 205 / 136 ( 156 ) @ 7:48:00 AM LV : 130 / 3 / 8 @ 7:52:00 AM 192 / 77 / 154 @ 7:53:00 AM Clinical Evaluation EBL: 5mL-10mL Procedural Details Pre-Procedure Time Out. Identified patient by full name and date of as verbalized by the patient/guarantor. Does the consent match the physician's order: No. Accurate & Complete Informed Consent: Yes. Inpatient/Outpatient History & Physical on Chart: Yes. If H&P is completed, is and addenduem needed: Yes; If yes, is the addendum complete: N/A. Visualize and Verify Site with Patient/Guarantor: N/A. Relevant Radiology Images available: Yes. Pre-op teaching completed and patient verbalized understanding. The risks, benefits, and alternatives of sedation and/or procedure were discussed by physician. The patient agrees to continue. Procedure started. [facility] Clinical Fraility Score: 4: Vulnerable. Technical Sourcing Recruiter Indications: Cardiac Arrhythmia. Chest Pain Symptom Assessment: Atypical Angina. Cardiovascular Instability: No,. Correct patient, site and procedure confirmed by cath team. Current diagnosis: VT. PERRLA. Strong, equal hand housing relocation bilaterally. Lungs clear x 5 lobes. IV Site on Arrival: 20 gauge in the right forearm. IV Fluids: 0.9% NaCl at KVO. 0 mL infused prior to research laboratory manager. Pre Procedural Pulses: bilateral dorsalis pedis was 3+. Pre Procedural Pulses: bilateral posterior tibial was 3+. Pre Procedural Pulses: right radial was 3+. Oxygen started at 2liters/min via nasal canula. right groin was prepped with chloroprep then draped in the usual sterile fashion. right radial was prepped with chloroprep then draped in the usual sterile fashion. Physician notified. Baseline sample Acquired. HR: 113 BPM. Equipment: 6F - Femoral. Physician arrived. Physician scrubbed in. Immediate Pre-Procedure Time Out. Correct Patient: Yes; Correct Procedure: Yes; Correct Site: Yes; Correct Patient Position: Yes; Correct Supplies: Yes; Dried Flammable Prep: Yes; Blood Products Available: No;. Lidocaine 1% infiltrated to the right groin. Arterial access obtained with micropuncture set. Cardiac Cath Pack. ACIST Manifold Kit Model BT 2000. Heparinized Saline (2 units/mL), 1000 mL bag. Kit, Micropuncture. A 5 bahamian JL4 catheter in over wire. catheter and wire out. A 5 bahamian JR4 catheter in over wire. hand injection. glidewire inserted. Inventory is TR Glidewire Angled Stiff Shaft .035 260cm. Multiple views taken of right coronary artery. SVG's to RCA visualized and patent. SVG's to OM visualized and patent. exchange wire inserted. A 5 bahamian IM catheter in over wire. Catheter out. A 5 bahamian JR4 catheter in over wire. CADE to LAD visualized. Catheter removed over the exchange wire. A 5 bahamian JL4 catheter in over wire. Multiple views taken of left coronary artery. Catheter out. A 5 bahamian Angled Pig catheter in over wire. EDP Sample taken: LV 130/3,8; HR: 91 BPM; SpO2: Off%. LV gram performed in DAUGHERTY @ 10 mL/second for a total of 30 mL. EDP Sample taken: LV 192/77,154; HR: 80 BPM; SpO2: Off%. Pullback taken: LV Off; AO Off; Mean: , Peak to Peak: , SEP: ; HR: 84 BPM; SpO2: Off%. Catheter out. A Manual Compression was successful obtaining hemostatsis at the Right Femoral artery insertion site. Post Procedure: Pulses reassessed and unchanged. PERRLA. Strong, equal hand housing relocation bilaterally. No VTE prophylaxis required. Medication's Wasted: Heparin = 4000 units. Total IV fluids: 100 mL. Fluoro: 13:20. Contrast type used: Omnipaque 300 mgI/mL, 500 mL bottle. [id number]. Post-op diagnosis: severe multivessel CAD patient graph. Complications: none. Estimated blood loss: 5mL-10mL. Procedure completed. Patient transferred by bed to 1st floor. Vital chart was stopped. Access Site Site: Right Femoral artery Sheath Size: 6 Fr Hemostasis Method: Manual Compression Hemostasis Success: Successful Procedure Medications Start: 8:22 AM Stop: 8:22 AM Medication: Fentanyl Amount: 50 mcg Route: I.V. Start: 8:30 AM Stop: 8:30 AM Medication: Versed Amount: 1 mg Route: I.V. Start: 8:30 AM Stop: 8:30 AM Medication: Fentanyl Amount: 50 mcg Route: I.V. Start: 8:37 AM Stop: 8:37 AM Medication: Heparin Amount: 2000 units Route: I.V. I, the attending physician, have reviewed and verified all procedure medications. Yes, all medications given per verbal order History/Risk Factors Hypertension: Yes Dyslipidemia: Yes Prior Interventions CABG: Yes Report Signatures Finalized by Wilton Fry MD on 02/02/2021 09:59 AM
--- NOTE | 2021-01-21 11:28 | PM.CONSULT ---
Providers/Reason For Consult Consulting Physican/Specialty*: Dr. Herrera/cardiothoracic surgery Reason for Consult*: Tachybradycardia syndrome Requesting Physcian: Dr. Fry Attending Physician: Lina Beach MD Primary Care Provider: AVA Jones-Rubin History of Present Illness History of Present Illness Raúl Centeno is an 85 year old male whom I been consulted on by Dr. Fry to consider pacemaker implantation due to tachybradycardia syndrome and the need to increase beta-sangita in order for better control of his tachycardia. Was presented to the emergency room with what was felt to be atrial flutter/A. fib with RVR with a heart rate in the 120s. He was initiated with metoprolol converted back to sinus rhythm. Patient reports intermittent episodes of dizziness and presyncope with heart rates being quite low below 60. Substantial history of alcohol use and currently drinks around 3 beers per day. He has had a prior CABG approximate 15 years ago. Cardiac catheterization was completed earlier by Dr. Fry and report reveals patent grafts. He has had heart rate drops into the 30s during this hospitalization. Heart rate is currently 80 during my exam. I have reviewed the most recent chest CTA during this hospitalization which was negative for pulmonary embolism and notes up to a 13 mm pulmonary nodules, most prominent in the right lower lobe posteriorly. Venous duplex of the right lower extremity was negative for DVT. Review of Systems Const: Denies: fever(s), chills or malaise Eyes: Denies: change in vision ENMT: Denies: throat pain Card: Reports: palpitations, irregular heart rhythm, lightheadedness, pre-syncope and dyspnea on exertion; Denies: leg pain with exertion Resp: Denies: productive cough or hemoptysis GI: Denies: abdominal pain, nausea or vomiting Skin/Breast: Denies: rash Neuro: Reports: numbness in extremities, frequent falls and dizziness Meds/Allergies Home Medications and Allergies Home Medications Medication Instructions Recorded Confirmed Last Taken Type cholecalciferol (vitamin D3) 25 50 mcg PO DAILY@0700 cap 07/12/20 01/20/21 01/19/21 History mcg (1,000 unit) capsule docusate sodium 100 mg capsule 300 mg PO DAILY cap 07/12/20 01/20/21 01/19/21 History sennosides 8.6 mg capsule 17.2 mg PO DAILY PRN cap 07/12/20 01/20/21 08/29/20 History atorvastatin 10 mg PO DAILY@199901/18/21 01/20/21 01/18/21 History diphenhydramine HCl [Benadryl] 50 mg PO DAILY PRN 01/18/21 01/20/21 01/18/21 History duloxetine 60 mg PO DAILY@0700 01/18/21 01/20/21 01/19/21 History tamsulosin 0.4 mg PO BID@0700,1900 01/18/21 01/20/21 01/19/21 History aspirin 325 mg PO DAILY 01/20/21 01/20/21 01/19/21 History Allergies Allergy/AdvReac Type Severity Reaction Status Date / Time No Known Allergies Allergy Verified 01/08/21 16:12 Current Medications Current Medications Generic Name Dose Route Start Last Admin Trade Name Freq PRN Reason Stop Dose Admin Aspirin 325 mg 01/20/21 09:00 01/20/21 08:07 Aspirin 325 Mg Ec Tablet PO 325 mg DAILY JOSE JUAN Administration Atorvastatin Calcium 10 mg 01/20/21 20:00 01/20/21 20:32 Atorvastatin 40 Mg Tablet PO 10 mg DAILY@1999 JOSE JUAN Administration Docusate Sodium 300 mg 01/20/21 09:00 01/20/21 08:07 Docusate Sodium 100 Mg Capsule PO Not Given DAILY JOSE JUAN Duloxetine HCl 60 mg 01/20/21 07:00 01/21/21 06:46 Duloxetine 60 Mg Capsule PO 60 mg DAILY@0700 JOSE JUAN Administration Enoxaparin Sodium 40 mg 01/19/21 21:15 01/20/21 18:56 Enoxaparin 40 Mg/0.4 Ml Syringe SUBCUT Not Given Q24H JOSE JUAN Folic Acid 1 mg 01/20/21 09:00 01/20/21 08:07 Folic Acid 1 Mg Tablet PO 1 mg DAILY JOSE JUAN Administration Sodium Chloride 1,000 mls @ 50 mls/hr 01/21/21 07:30 01/21/21 06:41 Sodium Chloride 0.9% IV 50 mls/hr .Q20H JOSE JUAN Administration Metoprolol Tartrate 12.5 mg 01/20/21 09:00 01/20/21 20:27 Metoprolol Tartrate 25 Mg Tablet PO 12.5 mg BID@0900,2100 JOSE JUAN Administration Multivitamins Therapeutic 1 tab 01/20/21 09:00 01/20/21 08:07 Multivitamin Therapeutic Tablet PO 1 tab DAILY JOSE JUAN Administration Tamsulosin HCl 0.4 mg 01/20/21 07:00 01/21/21 06:46 Tamsulosin 0.4 Mg Capsule PO 0.4 mg BID@0700,1900 JOSE JUAN Administration Thiamine Mononitrate 100 mg 01/20/21 09:00 01/20/21 08:07 Thiamine 100 Mg Tablet PO 100 mg DAILY JOSE JUAN Administration PFSH Acute PFSH: Medical History Alcohol abuse, daily use Alcohol use disorder Ambulates with cane Benign prostatic hyperplasia (BPH) with urinary urgency Bladder stone 3 large bladder stones treated with cystolitholapaxy 08/30/2020 BPH loc w urin obs/LUTS Chronic bladder outlet obstructive symptoms. Chronic constipation Elevated PSA Essential (primary) hypertension Generalized anxiety disorder History of coronary artery disease History of TB (tuberculosis) Urge incontinence Surgical History History of cataract left History of cervical spinal surgery History of heart bypass surgery x4 History of hernia repair Right Family History Other Cancer Stroke Denies family history of Diabetes Dementia Bleeding disorder Hypertension Social History Smoking and tobacco status: never smoked Household members: none Marital status: / Number of children: 2 service: No Current occupational status: retired History of recent travel: Yes ([place]) Out of state: Yes Out of country: No Current gender identity: Male Vitals/I&O/Wt Last Vital Signs Temp 98 F 01/21/21 04:00 Pulse 65 01/21/21 05:54 Resp 15 01/21/21 04:00 BP 120/62 01/21/21 04:00 Pulse Ox 94 01/21/21 04:00 01/20/21 01/21/21 01/21/21 22:59 06:59 14:59 Intake Total 240 / 600 150 / 750 Output Total 200 / 200 Balance 240 / 600 150 / 750 -200 / -200 Weight last 48 hrs Weight 190 lb Physical Exam Const: COMMON NORMALS: patient oriented x3 HENMT: COMMON NORMALS: normocephalic, atraumatic and external ears normal HEAD & SCALP: normocephalic and atraumatic EXTERNAL EAR: Yes external ears normal Neck/C-Spine: COMMON NORMALS: no lymphadenopathy, no JVD and No carotid bruits; negative for full ROM Chest: COMMONS NORMALS: normal inspection of the chest and normal palpation of entire chest wall Resp: COMMON NORMALS: normal respiratory effort, No use of accessory muscles, clear to auscultation bilaterally and percussion normal EFFORT & INSPECTION: Yes able to speak in complete sentences and Yes symmetric chest movement AUSCULTATION: clear to auscultation bilaterally PERCUSSION: percussion normal Cardio: COMMON NORMALS: no JVD, regular rate, regular rhythm, S1 normal heart sound present and No rub (Cardio) PALPATION: normal PMI RATE: regular rate RHYTHM: regular rhythm HEART SOUNDS: S1 normal heart sound present BRUITS: no abdominal aortic bruits and no carotid bruits PERIPHERAL PULSES: radial pulses present positive bilateral 2+ Extremity: COMMON NORMALS: no clubbing, cyanosis or edema Neuro: COMMON NORMALS: patient oriented x3, moves all extremities, no focal motor deficits and no sensory deficits noted A&P Assessment and plan (1) Sick sinus syndrome with tachycardia: I reviewed the recommendation to consider pacemaker implantation to allow for more aggressive medical management of his tachycardia. His daughter was present during my interview and exam. All questions were answered. They are eager to proceed with plans for pacemaker implantation. Details and risks of the procedure were carefully and frankly discussed. Risks reviewed include the possibility of , stroke, heart attack, major bleeding, injury to the heart lung or major vascular structures, infection, pneumonia, pneumothorax requiring chest tube, organ failure, failure to benefit, prolonged hospital stay, pain after the procedure, need for further procedures, inability to complete the procedure, and possible need for long-term followup. All questions were answered. Appropriate consents will be provided for review and signature. With coordination of our surgical department, and [employer] sales representative public utilities, we will tentatively plan for pacemaker implantation tomorrow, 05/25/2021, at 1 PM. Status: Acute Consult Attestations Medical Necessity Statement: Tachybradycardia syndrome Time Spent in Patient Care: Greater than 35 minutes Coding Level of Care Code Acute National Sales Director for Chg Fwd Diagnoses Sick sinus syndrome with tachycardia I49.5
--- NOTE | 2021-01-21 14:35 | PM.PN ---
Subjective Subjective: Interval history: Patient underwent coronary angiogram this AM that showed patent CADE to LAD, SVG to RCA and SVG to OM. LVEF is around 40%. His heart rate has dropped down into the 30s at times. Vitals/I&O/Wt Last Vital Signs Temp 98 F 01/21/21 04:00 Pulse 65 01/21/21 05:54 Resp 15 01/21/21 04:00 BP 120/62 01/21/21 04:00 Pulse Ox 94 01/21/21 04:00 01/20/21 01/21/21 01/21/21 22:59 06:59 14:59 Intake Total 240 / 600 150 / 750 Output Total 200 / 200 Balance 240 / 600 150 / 750 -200 / -200 Weight last 48 hrs Weight 190 lb Physical Exam Narrative: EXAM NARRATIVE: GENERAL: Patient is alert, awake and oriented x3. NECK: No jugular vein distension. HEENT: No cyanosis. No icterus. No pallor. HEART: Regular S1 and S2. No murmur, rub or gallop. LUNGS: Clear to auscultate bilaterally. ABDOMEN: Soft, nontender and nondistended. Positive bowel sounds. No guarding, rebound or tenderness. CENTRAL NERVOUS SYSTEM: Grossly nonfocal. EXTREMITIES: Lower extremities without edema bilaterally. Data : 01/21/21 03:00 01/21/21 03:00 A&P Assessment and plan (1) Atrial fibrillation: Patient has tachybradycardia syndrome, does not tolerate rate lowering medications for rapid ventriclar response. In the past metoprolol was initiated resulted in multiple long pauses (longest pause of about 10 seconds)and he was symptomatic with presyncopal episode. We therefore recommend permanent pacemaker. Dr Herrera consulted and plan for placement of permanent pacemaker tomorrow at 1 PM Status: Acute Qualifiers: Atrial fibrillation type: persistent (not longstanding) Qualified Code(s): I48.19 - Other persistent atrial fibrillation (2) Coronary artery disease: History of wide-complex tachycardia occasional chest pressure in a patient with history of CABG. left heart cath performed today showed patent grafts including CADE to LAD, SVG to OM and SVG to RCA. Status: Chronic Qualifiers: Coronary Disease-Associated Artery/Lesion type: bypass graft [place] vs. transplanted heart: [place] heart Associated angina: without angina Qualified Code(s): I25.810 - Atherosclerosis of coronary artery bypass graft(s) without angina pectoris (3) Wide-complex tachycardia: No more tachycardia has been seen he is being monitored on telemetry Status: Acute (4) Hypertension: Well-controlled continue medicine Status: Acute Qualifiers: Hypertension type: essential hypertension Qualified Code(s): I10 - Essential (primary) hypertension Attestations Medical Necessity Statement*: Care expected to cross 2 midnights. Coding Level of Care Code Acute Valuation Consultant for [place] [employer] Diagnoses Atrial fibrillation I48.19 Atrial fibrillation type: persistent (not longstanding) Coronary artery disease I25.810 Coronary Disease-Associated Artery/Lesion type: bypass graft [place] vs. transplanted heart: [place] heart Associated angina: without angina Wide-complex tachycardia I47.2 Hypertension I10 Hypertension type: essential hypertension
--- NOTE | 2021-01-21 15:45 | P.PN_ITS ---
Subjective Subjective: Interval history: underwent cardiac cath this morning which revealed patent grafts from previous CABG. Plan for pacemaker implantation tomorrow. Tolerated procedure well, no immediate complications Medications: Reviewed: Yes Vitals/I&O/Wt Last Vital Signs Temp 98 F 01/21/21 04:00 Pulse 65 01/21/21 05:54 Resp 15 01/21/21 04:00 BP 120/62 01/21/21 04:00 Pulse Ox 94 01/21/21 04:00 01/21/21 01/21/21 01/21/21 06:59 14:59 22:59 Intake Total 150 / 750 Output Total 200 / 200 Balance 150 / 750 -200 / -200 Weight last 48 hrs Weight 86.183 kg Physical Exam Narrative: EXAM NARRATIVE: GEN: Awake, alert and oriented, no acute distress CVS: S1S2 N RS: CTA B/L Abd: Soft, nt/nd , bs+ MANAGER PROGRAMS: no focal neuro deficits ext: no edema, cyanosis or clubbing Data : 01/21/21 03:00 01/21/21 03:00 A&P Assessment and plan (1) Wide QRS ventricular tachycardia: Status: Acute (2) Aortic aneurysm: Status: Acute (3) Incidental pulmonary nodule: Status: Acute (4) Alcohol abuse, daily use: Status: Acute (5) BPH loc w urin obs/LUTS: Status: Acute Additional A&P Information telemetry monitoring with A flutter , rate better controlled after metoprolol however intermittent bradycardia with HR 50s. Telemetry with one episode of non sustained Vtach Metoprolol currently at 12.5mg po BID , next due at 9pm , monitoring closely on tele Wide complex tachycardia noted on holter monitor report- given past h/o CABG and CAD, need to exclude ischemia- s/p cardiac cath today, clean grafts, PPM tomorrow Appreciate cardiology recommendations Atrial flutter/fibrillation Not a candidate for anticoagulation secondary to high risk of fall due to heavy alcohol abuse improving neuropathy, would use high-dose aspirin, his Suleiman Vasc score is 4, Alcohol abuse: Patient is currently drinking beer 2 to 3 cans a day Conitnue CIWA protocol to monitor for alcohol withdrawal Full code Cardiac diet DVT prophylaxis Lovenox Attestations Medical Necessity Statement*: s/p cardiac cath, PPM placement tomorrow Coding Level of Care Code Acute Property Management Specialist for Chg Fwd Diagnoses Wide QRS ventricular tachycardia I47.2 Aortic aneurysm I71.9 Incidental pulmonary nodule R91.1 Alcohol abuse, daily use F10.10 BPH loc w urin obs/LUTS N40.1
[2021-01-21] MEDS: chlorhexidine gluconate 4% Btl 118 mL 1 APPLIC TOPICAL (16:09)
[2021-01-21] MEDS: temazepam 15 mg Capsule PO (21:18)
[2021-01-22] VITALS (65 sets, daily range): BP systolic 122–161; BP diastolic 76–110; PULSE 71–113; RESP 8–25; TEMP 36.2–36.8; O2SAT 94–100
--- NOTE | 2021-01-22 | SCC_ITS ---
Procedure Done: Dual-chamber pacemaker implantation 95.9 seconds of fluoroscopic guidance, for a cumulative dose of 22.32 mGy, was provided to Dr. Herrera by the radiology department. C-arm images of the chest were saved for the patient's permanent record. [facility]
--- NOTE | 2021-01-22 06:49 | P.PN_ITS ---
Subjective Subjective: Interval history: No events reported by nursing service last night. Vital signs are stable. Sleeping on rounds this morning. Still with intermittent episodes of heart rate dropping to the 30s and 40s. Vitals/I&O/Wt Last Vital Signs Temp 98.2 F 01/22/21 06:05 Pulse 80 01/22/21 06:05 Resp 12 01/22/21 06:05 BP 123/82 01/22/21 06:05 Pulse Ox 97 01/22/21 06:05 01/21/21 01/21/21 01/22/21 14:59 22:59 06:59 Intake Total 250 / 250 342 / 592 Output Total 300 / 300 Balance -300 / -300 250 / -50 342 / 292 Physical Exam Resp: COMMON NORMALS: normal respiratory effort, No retractions, No use of accessory muscles and clear to auscultation bilaterally EFFORT & INSPECTION: Yes symmetric chest movement AUSCULTATION: clear to auscultation bilaterally Cardio: COMMON NORMALS: regular rate, regular rhythm and S1 normal heart sound present RATE: regular rate RHYTHM: regular rhythm HEART SOUNDS: S1 normal heart sound present Extremity: COMMON NORMALS: no clubbing, cyanosis or edema Data : 01/21/21 03:00 01/21/21 03:00 A&P Assessment and plan (1) Sick sinus syndrome with tachycardia: 85-year-old gentleman with him and episodes of tachycardia requiring further beta-blockade though there are episodes of sick sinus syndrome with heart rates into the 30s. We will plan for pacemaker implantation today at approximately 1 PM. Mr. Centeno and his daughter are in agreement with our current plans. Details risks of procedure have been carefully reviewed with him yesterday. Status: Acute Attestations Medical Necessity Statement*: Tachybradycardia syndrome Time Spent in Patient Care: less than 15 minutes Coding Level of Care Code Acute Environmental Studies Professor for [facility] Nick Diagnoses Sick sinus syndrome with tachycardia I49.5
--- NOTE | 2021-01-22 07:22 | PC.NURSE ---
Pt presents lying in bed resting and talking to staff. Pt resp even and non-labored no distress noted. Pt had no c/o pain or discomfort at the present time. No needs voiced. Call light in reach.
[2021-01-22] MEDS: mupirocin oint 22 gm 1 APPLIC NOSTRIL-B (09:54)
[2021-01-22] MEDS: chlorhexidine gluconate 4% Btl 118 mL 1 APPLIC TOPICAL (10:15)
--- NOTE | 2021-01-22 12:27 | P.PN_ITS ---
Subjective Subjective: Interval history: Patient is doing well. He did have afib with slow heart rate during the last 24 hours. He becomes symptomatic with these bradycardic episodes. Plan for permanent pacemaker placement today at [address] Herrera Vitals/I&O/Wt Last Vital Signs Temp 97.8 F 01/22/21 10:34 Pulse 78 01/22/21 10:34 Resp 11 L 01/22/21 10:34 BP 126/96 01/22/21 10:34 Pulse Ox 98 01/22/21 10:34 01/21/21 01/22/21 01/22/21 22:59 06:59 14:59 Intake Total 250 / 250 342 / 592 Balance 250 / -50 342 / 292 Physical Exam Narrative: EXAM NARRATIVE: GENERAL: Patient is alert, awake and oriented x3. NECK: No jugular vein distension. HEENT: No cyanosis. No icterus. No pallor. HEART: Regular S1 and S2. No murmur, rub or gallop. LUNGS: Clear to auscultate bilaterally. ABDOMEN: Soft, nontender and nondistended. Positive bowel sounds. No guarding, rebound or tenderness. CENTRAL NERVOUS SYSTEM: Grossly nonfocal. EXTREMITIES: Lower extremities without edema bilaterally. Data : 01/21/21 03:00 01/21/21 03:00 A&P Assessment and plan (1) Atrial fibrillation: Patient has tachybradycardia syndrome, does not tolerate rate lowering medications for rapid ventriclar response. In the past metoprolol was initiated resulted in multiple long pauses (longest pause of about 10 seconds)and he was symptomatic with presyncopal episode. We therefore recommend permanent pacemaker. Dr Herrera consulted and plan for placement of permanent pacemaker today at 1 PM Status: Acute Qualifiers: Atrial fibrillation type: persistent (not longstanding) Qualified Code(s): I48.19 - Other persistent atrial fibrillation (2) Coronary artery disease: History of wide-complex tachycardia occasional chest pressure in a patient with history of CABG. left heart cath performed today showed patent grafts including CADE to LAD, SVG to OM and SVG to RCA. Medical therapy for that Status: Chronic Qualifiers: Coronary Disease-Associated Artery/Lesion type: bypass graft [place] vs. transplanted heart: [place] heart Associated angina: without angina Qualified Code(s): I25.810 - Atherosclerosis of coronary artery bypass graft(s) without angina pectoris (3) Wide-complex tachycardia: No more wide complex tachycardia Status: Acute (4) Hypertension: Well-controlled continue medicine Status: Acute Qualifiers: Hypertension type: essential hypertension Qualified Code(s): I10 - Essential (primary) hypertension Attestations Medical Necessity Statement*: Care expected to cross 2 midnights. 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 transplanted heart: [place] heart Associated angina: without angina Wide-complex tachycardia I47.2 Hypertension I10 Hypertension type: essential hypertension
--- NOTE | 2021-01-22 12:28 | SC_ITS ---
WS: [id number] INTRAOPERATIVE TECHNIQUE: 2 Spot fluoroscopic images for intraoperative purposes. FLUOROSCOPY TIME: 95.9 seconds CLINICAL INFORMATION: PACEMAKER COMPARISON: None. FINDINGS: Dual-lead cardiac pacer SC/C-arm FL for Pacemaker IMPRESSION: Images obtained for intraoperative purposes.
[2021-01-22] MEDS: sodium chloride 0.9% 1,000 ML 30 ML IV (12:54)
--- NOTE | 2021-01-22 13:08 | P.ANESASSM_ITS ---
Pre-Anesthetic Assessment Pre-Anesthetic Assessment: Height/Weight: Height 1.83 m Weight 86.183 kg Temp Pulse Resp BP Pulse Ox 97.8 F 78 11 L 126/96 98 01/22/21 10:34 01/22/21 10:34 01/22/21 10:34 01/22/21 10:34 01/22/21 10:34 Preop Diagnosis: Ventricular tachycardia/chest pain Proposed Procedure: Operation Date: 01/21/21 08:00 Proposed Procedures p Cardiac Catheterization(Not Applicable) - Wilton Fry M.D Operation Date: 01/22/21 13:00 Proposed Procedures p Pacemaker Insertion(Not Applicable) - Freedom Herrera MD Operation Date: 01/22/21 13:00 Proposed Procedures p Pacemaker Insertion(Not Applicable) - Freedom Herrera MD Was Beta Lynette taken within 24 hours: N/A Was Clonidine taken within 24 hours: N/A Last intake: Intake Last Liquid Date 01/21/21 Last Solid Date 01/21/21 Social: Social History: Alcohol and No tobacco Exam: Pre-Anes Outpt Exam: alert, oriented x 3, clear to auscultation bilaterally and regular rate & rhythm Airway: Submandibular: WNL Cervical ROM: WNL MP: 2 Dentition: False CV/HEM: CV/HEM: Arrythmia, CAD, HTN and PVD (Aop aneurysm) Neuropsych: Neuropsych: Anxiety Anesthetic Plan: ASA status: 3 Anesthesia: MAC Risk of > 500 ml blood loss (7ml/kg in children): No Meds/Allergies Current Medications: Current Medications Generic Name Dose Route Start Last Admin Trade Name Fernandoq PRN Reason Stop Dose Admin Aspirin 325 mg 01/20/21 09:00 01/20/21 08:07 Aspirin 325 Mg E c Tablet PO 325 mg DAILY JOSE JUAN Administration Atorvastatin Calci um 10 mg 01/20/21 20:00 01/20/21 20:32 Atorvastatin 40 Mg Tablet PO 10 mg DAILY@1999 JOSE JUAN Administration Chlorhexidine Gluc jose 1 applic 01/21/21 11:15 01/22/21 10:15 Chlorhexidine Gl uconate 4% Btl 118 Ml TOPICAL 1 applic DAILY JOSE JUAN Administration Docusate Sodium 300 mg 01/20/21 09:00 01/20/21 08:07 Docusate Sodium 100 Mg Capsule PO Not Given DAILY JOSE JUAN Duloxetine HCl 60 mg 01/20/21 07:00 01/21/21 06:46 Duloxetine 60 Mg Capsule PO 60 mg DAILY@0700 JOSE JUAN Administration Enoxaparin Sodium 40 mg 01/19/21 21:15 01/20/21 18:56 Enoxaparin 40 Mg /0.4 Ml Syringe SUBCUT Not Given Q24H JOSE JUAN Folic Acid 1 mg 01/20/21 09:00 01/20/21 08:07 Folic Acid 1 Mg Tablet PO 1 mg DAILY JOSE JUAN Administration Sodium Chloride 1,000 mls @ 50 ml s/hr 01/21/21 07:30 01/21/21 06:41 Sodium Chloride 0.9% IV 50 mls/hr .Q20H JOSE JUAN Administration Sodium Chloride 1,000 mls @ 30 ml s/hr 01/22/21 12:45 01/22/21 12:54 Sodium Chloride 0.9% IV 01/23/21 12:44 30 mls/hr .Q24H JOSE JUAN Administration Metoprolol Tartrat e 12.5 mg 01/20/21 09:00 01/20/21 20:27 Metoprolol Tartr ate 25 Mg Tablet PO 12.5 mg BID@0900,2100 JOSE JUAN Administration Multivitamins Ther apeutic 1 tab 01/20/21 09:00 01/20/21 08:07 Multivitamin The rapeutic Tablet PO 1 tab DAILY JOSE JUAN Administration Tamsulosin HCl 0.4 mg 01/20/21 07:00 01/21/21 06:46 Tamsulosin 0.4 M g Capsule PO 0.4 mg BID@0700,1900 JOSE JUAN Administration Temazepam 15 mg 01/21/21 10:12 01/21/21 21:18 Temazepam 15 Mg Capsule PO 15 mg BEDTIME PRN Administration INSOMNIA Thiamine Mononitra te 100 mg 01/20/21 09:00 01/20/21 08:07 Thiamine 100 Mg Tablet PO 100 mg DAILY JOSE JUAN Administration PFSH Anesthesia PFSH: Medical History Alcohol abuse, daily use Alcohol use disorder Ambulates with cane Benign prostatic hyperplasia (BPH) with urinary urgency Bladder stone 3 large bladder stones treated with cystolitholapaxy 08/30/2020 BPH loc w urin obs/LUTS Chronic bladder outlet obstructive symptoms. Chronic constipation Elevated PSA Essential (primary) hypertension Generalized anxiety disorder History of coronary artery disease History of TB (tuberculosis) Urge incontinence Surgical History History of cataract left History of cervical spinal surgery History of heart bypass surgery x4 History of hernia repair Right Family History Other Cancer Stroke Denies family history of Diabetes Dementia Bleeding disorder Hypertension Social History Smoking and tobacco status: never smoked Household members: none Marital status: / Number of children: 2 service: No Current occupational status: retired History of recent travel: Yes ([place]) Out of state: Yes Out of country: No Current gender identity: Male Data Anesthesia CBC & Chem 7: 01/21/21 03:00 01/21/21 03:00 Other Labs: Laboratory Results - last 48 hr 01/21/21 01/21/21 03:00 03:00 WBC 5.9 RBC 4.19 Hgb 12.5 Hct 40.1 L MCV 95.7 H MCH 29.8 MCHC 31.2 RDW 12.8 Plt Count 194 MPV 10.9 H Neut % (Auto) 45.8 Lymph % (Auto) 36.1 [place] % (Auto) 10.8 Eos % (Auto) 5.9 Baso % (Auto) 1.2 Neut # (Auto) 2.72 Lymph # (Auto) 2.1 [place] # (Auto) 0.6 Eos # (Auto) 0.4 Baso # (Auto) 0.1 Nucleated RBC % (auto) 0 Nucleated RBCs # 0.0 Sodium 140 Potassium 4.1 Chloride 105 Carbon Dioxide 26 Anion Gap 13.1 BUN 22 Creatinine 0.8 GFR Calculation Not Reportable Glucose 116 H Calculated Osmolality 294 Calcium 8.0 L Total Bilirubin 0.4 AST 18 ALT 25 Alkaline Phosphatase 81 Total Protein 6.8 Albumin 3.8 Globulin 3.0 TSH 2.98 Cardiac Studies: No Data to Display
[2021-01-22] MEDS: ceFAZolin 1,000 mg SDV 1000 MG IRRIGATION (13:29)
[2021-01-22] MEDS: lidocaine 1% INJ 20 mL SUBCUT (13:29)
--- NOTE | 2021-01-22 14:46 | XRR_ITS ---
PROCEDURE INFORMATION: Exam: XR Chest Exam date and time: 01/22/2021 2:52 PM Age: 85 years old Clinical indication: Device placement; Cardiac pacemaker placement or adjustment; Prior surgery; Surgery date: Post-operative (0-2 days); Additional info: Post pace maker insertion TECHNIQUE: Imaging protocol: XR of the chest. Views: 1 view. COMPARISON: CR XR chest 1V portable [id number] 01/18/2021 6:17 PM FINDINGS: Tubes, catheters and devices: Placement of left chest ICD. Position grossly unremarkable. Lungs: Unremarkable. No consolidation. Pleural spaces: Unremarkable. No pleural effusion. No pneumothorax. Heart/Mediastinum: Mild cardiac enlargement. Prior CABG. Bones/joints: Unremarkable. XR/XR chest 1V portable [id number] IMPRESSION: Status post left chest ICD without acute pulmonary complication.
--- NOTE | 2021-01-22 14:56 | ANE.PACU2 ---
Inpatient post-anesthesia follow up: Airway intact: Yes Vital signs: Temperature 97.8 F Pulse Rate [Monito r] 111 Pulse Rate 78 Respiratory Rate 11 Blood Pressure [Ri ght Arm] 117/75 Blood Pressure 126/96 Pulse Oximetry 98 Oxygen Delivery Me thod Room Air Oxygen Flow Rate Fraction of Inspir ed Oxygen Hydration adequate: Yes Nausea and vomiting: No Pain level: 1 Mental status: Baseline
--- NOTE | 2021-01-22 15:01 | PM.OP ---
Operative Report Date of procedure: January 22, 2021 Pre-op Diagnosis: Ventricular tachycardia/chest pain Post-op diagnosis: other Post-op Diagnosis: Tachybradycardia syndrome Procedure Done: Dual-chamber pacemaker implantation Implants: Atrial lead, ventricular lead, pacing generator Pathology: none sent Surgeon: Freedom Herrera Anesthesia: MAC and Local Complications: None Findings: Atrial flutter at time of implantation did not allow for any threshold of atrial lead capture Condition: stable Disposition: floor Brief History: Mr. Centeno is an 85-year-old gentleman who presented with a history of near syncope and after evaluation was determined to have tachybradycardia syndrome with heart rates dipping down into the 30s acutely. To allow for appropriate beta-blockade to control his intermittent tachycardia pacemaker implantation is been recommended by our cardiology colleagues. Details the risk of the procedure were carefully and frankly discussed. Proper consents have been reviewed and signed. Patient rhythm and was atrial flutter with approximate 4:1 conduction at the time of implantation. Echocardiogram has not been performed this admission therefore we did not attempt to rapidly pace back to sinus rhythm. Atrial flutter did not allow for appropriate determination of right atrial lead threshold. Procedure: Procedure: Mr. Centeno was taken to the OR suite and placed in the supine position over a shoulder roll. He received conscious sedation with continuous anesthesia monitoring by. His entire chest was sterilely prepped and draped. 1% lidocaine was infiltrated in the left subclavicular region. While in Trendelenburg position, utilizing modified seldinger technique, 2 guidewires were placed in the left subclavian vein. This was confirmed in position by fluoroscopy. Next, after infiltration with lidocaine, a subcutaneous pocket was created beginning from the exit point of the guidewire and extending laterally and inferiorly. Cautery was utilized to create the pocket just above the pectoralis musculature. Hemostasis was confirmed. An antibiotic-soaked sponge was placed in the wound. A dilator and tear-away sheath was placed over the first guidewire and advanced under fluoroscopy. Guidewire and dilator were removed. Next using a combination of curved and straight stylettes, the right ventricular lead was placed in position by fluoroscopy. The distal screw was extended. Interrogation was then performed confirming appropriate parameters. The tear-away sheath was then removed and the ventricular lead was sewn to the floor of the subcutaneous pocket. In a similar fashion dilator and tear-away sheath was placed over the 2nd guide wire and advanced under fluoroscopy. Guidewire and dilator were removed. Straight and curved stylettes were used to position the right atrial lead with fluoroscopy. Distal screw was extended. Interrogation was then performed. Tear-away sheath was then removed. Atrial lead was secured to the floor of the subcutaneous pocket. Pocket was irrigated with antibiotic solution and hemostasis again confirmed. Pacing generator was brought into the field, and after confirmation of hemostasis in the subcutaneous pocket, the leads were connected to the generator with appropriate capture. The entire system was interrogated by fluoroscopy. Leads and generator were secured in the pocket. Sponge and needle count was correct. The wound was then closed in 2 layers of 3-0 Vicryl suture. Skin was reapproximated in a subcuticular manner with 4-0 Monocryl suture. A pressure dressing was applied. The left arm was placed in a sling. Mr. Centeno had equal breath sounds bilaterally. He was then transferred to the PACU, where chest x-ray is currently pending. Family was notified of completion of the procedure. Following are the specifics of this system: Right ventricular lead is 58 cm and model 5076. Serial number [id number] Right atrial lead is 52 cm and is model 5076. Serial number [id number]. Ventricular lead had sensing of 14 mV with an impedance of 716 ohms. Threshold was 0.7 V Atrial lead had sensing of 1.1 mV with an impedance of 568 ohms. Threshold was not obtained due to atrial flutter at time of implantation. myinfoQ generator: Model # [id number] Serial # [id number]
--- NOTE | 2021-01-22 16:23 | PM.PN ---
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 Telemetry with one episode of non sustained Vtach Metoprolol currently at 12.5mg po BID , next due at 9pm , monitoring closely on tele Wide complex tachycardia noted on holter monitor report- given past h/o CABG and CAD, planned for PPM implantation today Appreciate cardiology recommendations Atrial flutter/fibrillation Not a candidate for anticoagulation secondary to high risk of fall due to heavy alcohol abuse improving neuropathy, would use high-dose aspirin, his Suleiman Vasc score is 4, Alcohol abuse: Patient is currently drinking beer 2 to 3 cans a day Conitnue CIWA protocol to monitor for alcohol withdrawal Full code Cardiac diet DVT prophylaxis Lovenox Attestations Medical Necessity Statement*: PPM placement today Coding Level of Care Code Acute 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
--- NOTE | 2021-01-22 19:43 | PC.NURSE ---
Pt returned to room 112-2 from surgery at approximately 1530. Pt drsg to left chest dry and intact. Pt had left arm in sling. Pt education was given on keeping left arm stabilized in sling. Pt verbalized understanding. Pt had no c/o pain or discomfort at the present time. No needs voiced. Call light in reach.
[2021-01-22] MEDS: tamsulosin 0.4 mg Capsule PO (20:21)
[2021-01-22] MEDS: atorvastatin 40 mg Tablet 10 MG PO (20:21)
[2021-01-22] MEDS: temazepam 15 mg Capsule PO (20:22)
[2021-01-22] MEDS: ceFAZolin 1,000 MG in sodium chloride 0.9% (plus) 50 ML 100 MG IV (20:23)
[2021-01-22] MEDS: metoprolol tartrate 25 mg Tablet 75 MG PO (20:54)
[2021-01-22] MEDS: diphenhydrAMINE 25 mg Capsule PO (23:56)
[2021-01-22] MEDS: ALPRAZolam 0.25 mg Tablet PO (23:56)
[2021-01-23] VITALS (10 sets, daily range): BP systolic 97–165; BP diastolic 63–92; PULSE 70–95; RESP 13–24; TEMP 36.4–36.8; O2SAT 95–97
--- NOTE | 2021-01-23 00:45 | PC.NURSE ---
pt very restless tonight. pt continued to remove pulse oximeter and telemetry wires. this nurse continued to educate pt that it is important that pt stays connected to his monitor. pt was argumentative that he wanted to go outside, stating, It is time for me to get up. I normally get up about this time, 6:00-6:30 at home. pt was educated that it was 12:45 in the morning and pt reminded that pt had surgery, a pacemaker placed, today and was in the hospital. the pt was looking out the window and kept saying he was see people outside and seeing a dog run by. this nurse looked out the window and reassured pt that no one was outside and there was not a dog out there currently. pt stated, You're just trying to make me think I'm crazy. pt scored a 12 on CIWA protocol.
[2021-01-23] MEDS: ceFAZolin 1,000 MG in sodium chloride 0.9% (plus) 50 ML 100 MG IV (05:53)
[2021-01-23] MEDS: duloxetine 60 mg Capsule PO (06:01)
[2021-01-23] MEDS: tamsulosin 0.4 mg Capsule PO (06:01)
--- NOTE | 2021-01-23 06:37 | P.PN_ITS ---
Subjective Subjective: Interval history: POD #1 status post dual-chamber pacemaker implantation yesterday afternoon. No concerns reported by nursing service overnight. Mr. Centeno is up on the side of the bed this morning speaking with his nurse. Outer compressive dressing removed. Mild ecchymosis but no evidence for fluid collection. I did remove his shoulder immobilizer. Postop chest x-ray yesterday is clear without evidence for pneumothorax Vitals/I&O/Wt Last Vital Signs Temp 98.3 F 01/23/21 04:00 Pulse 72 01/23/21 05:29 Resp 24 H 01/23/21 04:00 BP 165/92 01/23/21 04:00 Pulse Ox 96 01/23/21 04:00 01/22/21 01/22/21 01/23/21 14:59 22:59 06:59 Intake Total 0 / 0 1620 / 1620 100 / 1720 Output Total 10 / 10 Balance -10 / -10 1620 / 1610 100 / 1710 Physical Exam Chest: OTHER: Mild ecchymosis at pacemaker insertion site. No evidence for fluid collection. Outer, compressive dressing removed. Shoulder immobilizer re moved. Resp: COMMON NORMALS: normal respiratory effort, No retractions, No use of accessory muscles and clear to auscultation bilaterally EFFORT & INSPECTION: Yes able to speak in complete sentences and Yes symmetric chest movement AUSCULTATION: clear to auscultation bilaterally Cardio: COMMON NORMALS: regular rate, regular rhythm, S1 normal heart sound present and No murmurs present (Cardio) RATE: regular rate RHYTHM: regular rhythm HEART SOUNDS: S1 normal heart sound present Extremity: COMMON NORMALS: no clubbing, cyanosis or edema Data : 01/21/21 03:00 01/21/21 03:00 A&P Assessment and plan (1) Status post cardiac pacemaker procedure: POD #1 status post dual-chamber pacemaker implantation Plan: Limit weightbearing or extension of left arm above head for 1 week. Leave the current dressing in place for two more days and then may remove. May begin showers in 2 days. No swimming or tub baths x2 weeks. 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
--- NOTE | 2021-01-23 09:38 | P.PN_ITS ---
Subjective Subjective: Interval history: Patient underwent successful placement of permanent pacemaker yesterday with Dr Herrera. He is overall feeling well. Says could not sleep well overnight. Vitals/I&O/Wt Last Vital Signs Temp 97.6 F 01/23/21 07:58 Pulse 79 01/23/21 09:34 Resp 17 01/23/21 09:34 BP 126/84 01/23/21 07:58 Pulse Ox 95 01/23/21 09:34 01/22/21 01/23/21 01/23/21 22:59 06:59 14:59 Intake Total 1620 / 1620 150 / 1770 240 / 240 Balance 1620 / 1610 150 / 1760 240 / 240 Physical Exam Narrative: EXAM NARRATIVE: GENERAL: Patient is alert, awake and oriented x3. NECK: No jugular vein distension. HEENT: No cyanosis. No icterus. No pallor. HEART: Regular S1 and S2. No murmur, rub or gallop. LUNGS: Clear to auscultate bilaterally. ABDOMEN: Soft, nontender and nondistended. Positive bowel sounds. No guarding, rebound or tenderness. CENTRAL NERVOUS SYSTEM: Grossly nonfocal. EXTREMITIES: Lower extremities without edema bilaterally. Data : 01/21/21 03:00 01/21/21 03:00 A&P Assessment and plan (1) Atrial fibrillation: Patient has tachybradycardia syndrome and had successful placement of permanent pacemaker yesterday. His Metoprolol has been uptitrated to 100mg BID. Patient will need long-term anticoagulation. He can be put on Eliquis 5 mg twice daily starting tomorrow. Patient is stable to be discharged from cardiol ogy standpoint with outpatient follow up Status: Acute Qualifiers: Atrial fibrillation type: persistent (not longstanding) Qualified Code(s): I48.19 - Other persistent atrial fibrillation (2) Coronary artery disease: History of wide-complex tachycardia occasional chest pressure in a patient with history of CABG. left heart cath performed on 01/21 showed patent grafts including CADE to LAD, SVG to OM and SVG to RCA. Medical therapy for that Status: Chronic Qualifiers: Coronary Disease-Associated Artery/Lesion type: bypass graft [place] vs. transplanted heart: [place] heart Associated angina: without angina Qualified Code(s): I25.810 - Atherosclerosis of coronary artery bypass graft(s) without angina pectoris (3) Wide-complex tachycardia: No more wide complex tachycardia Status: Acute (4) Hypertension: Well-controlled continue medicine Status: Acute Qualifiers: Hypertension type: essential hypertension Qualified Code(s): I10 - Essential (primary) hypertension Attestations Medical Necessity Statement*: Care expected to cross 2 midnights. Coding Level of Care Code Acute Drug Abuse Program Coordinator for [facility] Fwd Diagnoses Atrial fibrillation I48.19 Atrial fibrillation type: persistent (not longstanding) Coronary artery disease I25.810 Coronary Disease-Associated Artery/Lesion type: bypass graft [place] vs. transplanted heart: [place] heart Associated angina: without angina Wide-complex tachycardia I47.2 Hypertension I10 Hypertension type: essential hypertension
--- NOTE | 2021-01-23 09:48 | PC.SOCIAL ---
Pg 2 IMM Explained to pt Pg 2 IMM. No questions voiced. Provided pt a copy. Signed, dated, & timed a copy & placed in chart.
[2021-01-23] MEDS: metoprolol tartrate 50 mg Tablet 100 MG PO (10:13)
[2021-01-23] MEDS: folic acid 1 mg Tablet PO (10:14)
[2021-01-23] MEDS: pantoprazole DR 40 mg Tablet PO (10:14)
[2021-01-23] MEDS: thiamine 100 mg Tablet PO (10:14)
[2021-01-23] MEDS: aspirin 325 mg EC Tablet PO (10:15)
[2021-01-23] MEDS: docusate sodium 100 mg Capsule 300 MG PO (10:15)
[2021-01-23] MEDS: multivitamin therapeutic Tablet 1 TAB PO (10:16)
--- NOTE | 2021-01-23 12:04 | P.DS_ITS ---
Discharge Providers Date of Admission: 01/20/21 11:57 Date of Discharge: January 23, 2021 Attending Provider at Admission: Abdiel Alvarez MD Attending Provider at Discharge: Lina Beach MD Primary Care Provider: EDD Jones Diagnoses at Discharge Discharge Diagnosis (1) Atrial fibrillation: Status: Acute Qualifiers: Atrial fibrillation type: persistent (not longstanding) Qualified Code(s): I48.19 - Other persistent atrial fibrillation (2) Coronary artery disease: Status: Chronic Qualifiers: Coronary Disease-Associated Artery/Lesion type: bypass graft [place] vs. transplanted heart: [place] heart Associated angina: without angina Qualified Code(s): I25.810 - Atherosclerosis of coronary artery bypass graft(s) without angina pectoris (3) Wide-complex tachycardia: Status: Acute (4) Hypertension: Status: Acute Qualifiers: Hypertension type: essential hypertension Qualified Code(s): I10 - Essential (primary) hypertension Reason for Visit Reason for Visit: phy ref/heart issues Hospital Course Hospital Course Raúl Centeno is a 85 year old male, follows with Dr. 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 On 01/19, event monitoring identified episode of possible ventricular tachycardia as it is wide- complex with interpolated beat. Patient was feeling lightheaded with chest pressure so was admitted for further evaluation. tropnin series without significant delta .History of wide-complex tachycardia occasional chest pressure in a patient with history of CABG. left heart cath performed on 01/21 showed patent grafts including CADE to LAD, SVG to OM and SVG to RCA. Currently on Medical therapy for this. Therefater on 01/22 he underwent successful placement of permanent pacemaker. His Metoprolol has been uptitrated to 100mg BID. Patient will need long-term anticoagulation. He can be put on Eliquis 5 mg twice daily starting tomorrow. Patient is stable to be discharged in stable condition today. He in instructed to Limit weightbearing or extension of left arm above head for 1 week. Leave the current dressing in place for two more days and then may remove. May begin showers in 2 days. No swimming or tub baths x2 weeks. Follow up with [facility] in one week. 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 deficits Discharge Data Data Completed and Pending: Completed Studies During Hospitalization Category Date Time Status CXRP [XR chest 1V portable 83900] R outine Exams 01/22/21 14:46 Completed Pending at discharge Category Date Time Status DRIVER TRAINER request for service Routin e Exams 01/21/21 08:30 Taken Vitals: Last Vital Signs Temp 97.6 F 01/23/21 07:58 Pulse 79 01/23/21 09:34 Resp 17 01/23/21 09:34 BP 126/84 01/23/21 07:58 Pulse Ox 95 01/23/21 09:34 Discharge Plan Discharge Patient Disposition: Home Condition: Stable Prescriptions: New aspirin 81 mg tablet,delayed release (DR/EC) 81 mg PO DAILY 30 Days Qty: 30 RF: 0 hydrocodone-acetaminophen 5-325 mg Tablet 1 tab PO Q8H PRN (Reason: Moderate Pain) 5 Days Qty: 15 RF: 0 pantoprazole 40 mg Tablet,Delayed Release (Dr/Ec) 40 mg PO DAILY 30 Days Qty: 30 RF: 0 metoprolol tartrate 50 mg Tablet 100 mg PO BID@0900,2100 30 Days Qty: 60 RF: 0 Eliquis 5 mg tablet 5 mg PO BID 30 Days Qty: 60 RF: 0 multivitamin with folic acid [Thera] 400 mcg Tablet 1 tab PO DAILY Qty: 0 RF: 0 Continued cholecalciferol (vitamin D3) 25 mcg (1,000 unit) capsule 50 mcg PO DAILY@0700 RF: 0 docusate sodium [Stool Softener] 100 mg capsule 300 mg PO DAILY RF: 0 senna 8.6 mg capsule 17.2 mg PO DAILY PRN (Reason: Constipation) RF: 0 diphenhydramine HCl [Benadryl] 50 mg Capsule 50 mg PO DAILY PRN (Reason: Sleep) RF: 0 atorvastatin 10 mg tablet 10 mg PO DAILY@2000 RF: 0 tamsulosin 0.4 mg capsule 0.4 mg PO BID@0700,1900 RF: 0 duloxetine 60 mg capsule,delayed release(DR/EC) 60 mg PO DAILY@0700 RF: 0 Discontinued aspirin 325 mg Tablet 325 mg PO DAILY RF: 0 Discharge Orders: Discharge Order (Routine); Ordered 01/23/21 Ordered By: Lina Beach Referrals: Michelle Nguyen, AVA-C [Primary Care Provider] - 2 weeks (follow up pulmonary nodule ) Wilton Fry M.D [Physician] - 1 week Freedom Herrera MD [Physician] - 1 week Discharge Diet: Cardiac Discharge Activity: Resume usual activity Patient Instructions: Opioid Safety Activity Restrictions/Additional Instructions: Limit weightbearing or extension of left arm above head for 1 week. Leave the current dressing in place for two more days and then may remove. May begin showers in 2 days. No swimming or tub baths x2 weeks. Discharge Attestations Time Spent in Discharge Care*: greater than 30 min Quality Metrics Clinical Quality Measures During this hospital stay, did patient experience: None Coding Level of Care Code Acute g FW [place] note Diagnoses Atrial fibrillation I48.19 Atrial fibrillation type: persistent (not longstanding) Coronary artery disease I25.810 Coronary Disease-Associated Artery/Lesion type: bypass graft [place] vs. transplanted heart: [place] heart Associated angina: without angina Wide-complex tachycardia I47.2 Hypertension I10 Hypertension type: essential hypertension
--- NOTE | 2021-01-23 15:06 | CT_ITS ---
WS: [id number] CT scan of the head, 01/23/2021 Clinical Data: sudden onset of confusion Comparison: CT head, 07/06/2020. DLP: 1110.[address] scans at [facility] use at least one of these dose optimization techniques: automat ed exposure control; mA and/or kV adjustment per patient size (includes targeted exams where dose is matched to clinical indication); or iterative reconstruction. Findings: The ventricular system is modestly dilated without shift. No recent infarct or hemorrhage is seen. Th ere are no abnormal intracerebral masses. The cerebellum and brainstem are not remarkable. Bony windows of the skull and skull base show no fractures or erosions. The mastoid air cells, athletic training internship al auditory canals, sella turcica, intraorbital contents, and paranasal sinuses are unremarkable. CT/CT head wo con* [id number] Impression: 1. Negative for acute intracranial change. 2. Moderate cerebral atrophy.
[2021-01-23 15:51] LABS: ABG PCO2 39.5 mmHg (35-45); ABG PH Result 7.42 (7.35-7.45); Alveolar-Arterial Oxygen Gradi 3.3 mmHg (5-10); Arterial Blood Gas Hematocrit 39.6 % (42-52); Base Excess ABG 1.4 mmol/L (-2.0-2.0); Blood Gas Allen Test Pos; Blood Gas Operator Identificat MONRO; Blood Gas Sample Site Radial, left; Blood Gas Sample Type Arterial; Carboxyhemoglobin 0.9 %THgb (0.4-20.1); HCO3 ABG 25.8 mmol/L (22-26); HGB O2 Sat 94.3 % (95-100); Ionized Calcium Level - ABG 1.2 mmol/L (1.1-1.4); Methemoglobin 0.8 % (0.4-1.5); Oxygen Device ROOM AIR; PO2 ABG 76.1 mmHg (80.0-100.0); Total Hemoglobin 12.9 g/dL (14-18)
--- NOTE | 2021-01-23 18:03 | PC.NURSE ---
As this nurse was completing Pts discharge Pts daughter in law came to desk and said Dad is very confused. I cant take him home like this. Pt assessment was performed. Pt could not answer assessment questions appropriately. Pt was confused of place and time. When pt was ask what state he was in Pt stated I am in a state of confusion. MD was notified and orders were given to stop discharge and stat CT of the head was ordered, along with stat abg, cbc, and cmp. Pt transferred to CT via wheelchair. ABGs were jb. Pt then refused to get labs drawn. Pt stated This is a joke i am not letting you people draw anymore damn labs and I am going home right now. Attempted to redirect Pt. Pt teaching was given on the importance of completing labs and continuing care in hospital. Pt refused redirection and refused to stay and continue care. Pt was ask to sign AMA paper. Pt refused to sign AMA paper and continue to walk out of hospital. Attempted to redirect pt multiple times Pt continued to refused redirection. Attempted to assist pt safely in family vehicle Pt refused to get in vehicle. Pt stated I am not getting in the vehicle with her she drives crazy. I will call a bus or a cab. Attempted to continually redirect pt. Pt continually refused redirection. Pt stated This was just one big damn joke that went bad. Pt signed AMA paper and allow staff to assist pt in family vehicle.
== END 2021-01-23 21:43 | disposition home or self-care (01) | DRG 243 ==
LOC: ER 19:22 → CSU 20:43
PROVIDERS: Internal Medicine; Thoracic Surgery (Cardiothoracic Vascular Surgery); Admitting Provider Internal Medicine; Emergency Provider Emergency Medicine; PCP Nurse Practitioner; Visit Provider Student in an Organized Health Care Education/Training Program
PROC: B2151ZZ Fluoroscopy of Left Heart using Low Osmolar Contrast (ICD-10-PCS; principal; 2021-01-21 08:00)
PROC: 0JH606Z Insertion of Pacemaker, Dual Chamber into Chest Subcutaneous Tissue and Fascia, Open Approach (ICD-10-PCS; principal; 2021-01-22 13:00)
DX: I49.5 Sick sinus syndrome (principal); I48.19 Other persistent atrial fibrillation; I25.10 Atherosclerotic heart disease of native coronary artery without angina pectoris; I10 Essential (primary) hypertension; Z95.1 Presence of aortocoronary bypass graft; F10.10 Alcohol abuse, uncomplicated; I71.4 Abdominal aortic aneurysm, without rupture; R91.8 Other nonspecific abnormal finding of lung field; Z86.73 Personal history of transient ischemic attack (TIA), and cerebral infarction without residual deficits; N40.1 Benign prostatic hyperplasia with lower urinary tract symptoms; R39.15 Urgency of urination; Z87.442 Personal history of urinary calculi; K59.09 Other constipation; R97.20 Elevated prostate specific antigen [PSA]; F41.1 Generalized anxiety disorder; Z86.11 Personal history of tuberculosis
CPT/HCPCS: 36415; 36600; 70450; 71045; 71275; 76000; 80051; 80053; 80307; 82330; 82550; 82805; 83605; 83690; 83735; 83880; 84443; 84484; 85025; 93005; 93459; 93971; 96361; 96374; 99284; 99291; C1769; C1779; C1786; C1887; C1894; C1898; G0378; J0690; J1644; J1650; J2250; J2704; J3010; J3490; J7030; J7050; Q0163; Q9967

== ENCOUNTER → 2021-04-02 10:30 | Outpatient (BNVA) | payer MEDICARE, SELFPAY | PROVIDERS: PCP Nurse Practitioner; Visit Provider Nurse Practitioner | DX: E78.5 Hyperlipidemia, unspecified (principal); F41.1 Generalized anxiety disorder; I10 Essential (primary) hypertension | CPT/HCPCS: 80053; 80061; 82607; 85025 ==

== ENCOUNTER 2021-04-03 08:51 | Outpatient (CLI) | payer MEDICARE, SELFPAY ==
--- NOTE | 2021-04-03 09:06 | XR_ITS ---
WS: [id number] Right femur and thigh, AP and lateral views, 04/03/2021 Clinical Data: I10 - Essential (primary) hypertension Comparison: None. Findings: No fractures or dislocations are seen. The soft tissues are normal. The visualized knee shows no abno rmalities. There are vascular calcifications present. XR/XR femur RT min 2V* [id number] Impression: Negative right femur and thigh.
--- NOTE | 2021-04-03 09:06 | XR_ITS ---
WS: [id number] Lumbar spine, 3 views, 04/03/2021 Clinical Data: I10 - Essential (primary) hypertension Comparison: None. Findings: No compression fractures or subluxation is seen. There is degenerative disease narrowing at L2-L3, L3 -L4 and L5-S1. Osteoarthritic spurring is present at all lumbar levels. The transverse processes and SI joints are normal. There is a minimal dextroscoliosis of the upper lumbar spine. There is a large amount of air and fecal material in the colon. XR/XR lumbar spine 2-3V* [id number] Impression: 1. Multiple level degenerative disc narrowing. 2. Osteoarthritis of all lumbar vertebral bodies.
--- NOTE | 2021-04-03 09:06 | XR_ITS ---
WS: [id number] Left hip, AP and frog-leg views, 04/03/2021 Clinical Data: I10 - Essential (primary) hypertension Comparison: None. Findings: No fractures or dislocations are seen. There is acetabular lipping. No erosion, sclerosis or narrowin g of the left hip joint is seen. There is minimal vascular calcification. The adjacent pelvis is norm al. There are small surgical clips inferior to the left ischiopubic ramus.
--- NOTE | 2021-04-03 09:06 | XR_ITS ---
WS: [id number] Right knee, 3 views, 04/03/2021 Clinical Data: I10 - Essential (primary) hypertension Comparison: None. Findings: No fractures or dislocations are seen. The joint spaces are normal. The patella is intact. The soft t issues are unremarkable. There is vascular calcification. XR/XR knee RT 3V* 53500 Impression: Negative right knee. Kellgren-Martin Classification: grade 0 (none): definite absence of x-ray garrett nges of osteoarthritis
--- NOTE | 2021-04-03 09:06 | XR_ITS ---
WS: [id number] Right leg including the tibia and fibula, AP and lateral views, 04/03/2021 Clinical Data: I10 - Essential (primary) hypertension Comparison: None. Findings: No fractures or dislocations are seen. The tibia and fibula are intact. The soft tissues are normal. Vascular calcification is present. XR/XR tibia fibula RT 2V [id number] Impression: Negative right leg.
--- NOTE | 2021-04-03 09:06 | XR_ITS ---
NOTE: Report was unsigned for reason: Order was edited. Original Signature date and time was: 04/03/21 @ 0941 WS: [id number] Right hip, AP and frog leg views, 04/03/2021 Clinical Data: I10 - Essential (primary) hypertension Comparison: None. Findings: No fractures or dislocations are seen. There is right acetabular lip.. The soft tissues are not remarkable. The adjacent pelvis is normal. Left hip, AP and frog-leg views, 04/03/2021 Clinical Data: I10 - Essential (primary) hypertension Comparison: None. Findings: No fractures or dislocations are seen. There is acetabular lipping. No erosion, sclerosis or narrowing of the left hip joint is seen. There is minimal vascular calcification. The adjacent pelvis is normal. There are small surgical clips inferior to the left ischiopubic ramus. Dictated By: Joi Nieto MD Signed By: Signed Date/Time: MTDD XR/XR hip RT 2-3V wo/w pel* [id number] Impression: Mild osteoarthritis of the right hip. Tonnis classification: grade 1: sclerosis of femoral head and acetabulum or sli ght joint space narrowing or slight lipping at joint margins
--- NOTE | 2021-04-03 09:30 | XR_ITS ---
WS: [id number] KUB, AP view, 04/03/2021 Clinical Data: BLADDER STONE Comparison: None. Findings: No abnormal intraabdominal masses are seen. Vascular calcifications are present. There is no dilatat ed small bowel or evidence of obstruction. The colon is moderately dilated with a large amount of fecal material in the descending colon. There are clips in the medial proximal left thigh from surgery. XR/XR KUB [id number] Impression: Colonic ileus.
== END 2021-04-03 08:52 | disposition home or self-care (01) ==
PROVIDERS: PCP Nurse Practitioner; Visit Provider Urology
DX: N21.0 Calculus in bladder (principal); I10 Essential (primary) hypertension; M47.816 Spondylosis without myelopathy or radiculopathy, lumbar region; M16.11 Unilateral primary osteoarthritis, right hip
CPT/HCPCS: 72100; 73502; 73522; 73552; 73562; 73590; 74018; 81003

== ENCOUNTER → 2021-04-23 11:24 | Outpatient (BNVA) | payer MEDICARE, SELFPAY | PROVIDERS: PCP Nurse Practitioner; Referring Provider Nurse Practitioner; Visit Provider Orthopaedic Surgery | DX: M54.5 Low back pain (principal); M48.062 Spinal stenosis, lumbar region with neurogenic claudication | CPT/HCPCS: 72120 ==

== ENCOUNTER 2021-05-02 06:00 | Outpatient (RCR) | payer MEDICARE, SELFPAY | END 2021-05-21 23:59 | disposition home or self-care (01) | LOC: TPT 06:00 | PROVIDERS: PCP Nurse Practitioner; Referring Provider Orthopaedic Surgery; Visit Provider Orthopaedic Surgery | DX: M54.5 Low back pain (principal) | CPT/HCPCS: 97110; 97162 ==

== ENCOUNTER 2021-05-22 06:00 | Outpatient (RCR) | payer MEDICARE, SELFPAY | END 2021-06-20 23:59 | disposition home or self-care (01) | LOC: TPT 06:00 | PROVIDERS: PCP Nurse Practitioner; Referring Provider Orthopaedic Surgery; Visit Provider Orthopaedic Surgery | DX: M54.5 Low back pain (principal) | CPT/HCPCS: 97110; 97164 ==

== ENCOUNTER 2021-06-18 04:04 | Emergency (ER) | payer MEDICARE, SELFPAY ==
[2021-06-18 04:06] VITALS: BP 170/100; PULSE 89; RESP 18; TEMP 36.7; O2SAT 97; BMI 24.9
--- NOTE | 2021-06-18 04:14 | ED_ITS ---
HPI - General Adult General: Chief complaint: Head Injury Stated complaint: FALL Time Seen by Provider: 06/18/21 04:05 History of Present Illness: HPI narrative: Patient is an 85-year-old male on Eliquis who presents the emergency room after mechanical fall with bleeding from the scalp. Patient tells me that he was walking today when he tripped over his dinner table. Since then, patient has no significant bleeding from the scalp. Patient denies LOC, associated chest pain, shortness breath, palpitation, focal weakness, abdominal complaints or complaints. No other focal area of pain. Onset:30 minutes ago Duration:30 minutes Location:home Severity:severe Review of Systems Narrative: Constitutional: No fever, no chills. HEENT: No vision changes CV: No chest pain, no palpitations PULM: no cough, no dyspnea. GI: No abdominal pain, no N/V/D. : No dysuria MSKEL: No muscle pain SKIN: No new rashes, no lesions. NEURO: No headache, no focal weakness. +scalp bleeding HEME: No visible bruises PSYCH: Normal mood PFSH ED PFSH: Medical History Alcohol abuse, daily use Alcohol use disorder Ambulates with cane Benign prostatic hyperplasia (BPH) with urinary urgency Bladder stone 3 large bladder stones treated with cystolitholapaxy 08/30/2020 BPH loc w urin obs/LUTS Chronic bladder outlet obstructive symptoms. Chronic constipation Elevated PSA Essential (primary) hypertension Generalized anxiety disorder History of coronary artery disease History of TB (tuberculosis) Urge incontinence Urolithiasis Surgical History History of cataract left History of cervical spinal surgery History of heart bypass surgery x4 History of hernia repair Right Family History Other Cancer Stroke Denies family history of Diabetes Dementia Bleeding disorder Hypertension Social History Alcohol intake: current Alcohol intake frequency: 0-2 Drinks per Day Adopted: No Marital status: / Number of children: 2 Current occupational status: retired History of recent travel: Yes ([place]) Out of state: Yes Out of country: No Physical Exam Narrative: EXAM NARRATIVE: Head: +bruise and hematoma over the parietal scalp midline Eyes: PERRL, conjunctiva withoutinjection, no anosocoria. ENT: Mucous membrane moist NECK: Supple, ROM intact LUNGS: LCTAB, no crackles/rhonchi CV: RRR ABDOMEN: Soft, nontender in all quadrants EXTREMITY: Normal ROM SKIN: No rash or erythema NEURO: Awake and alert, no focal motor deficits. GCS 15, AAOx3 PSYCH: Normal mood and affect Course Vital Signs: Vital signs: Vital Signs Temperature 98.1 F 06/18/21 04:06 Pulse Rate 66 06/18/21 06:39 Respiratory Rate 20 H 06/18/21 05:59 Blood Pressure 163/91 06/18/21 06:39 Pulse Oximetry 95 06/18/21 06:39 MDM - General Adult MDM Narrative: Medical decision making narrative: 85-year-old male presents emergency room after an episode of fall. Patient is noted to have dried blood over the parietal scalp. No other areas of focal tenderness. Workup: CT brain and basic blood work Intervention: TDAP and pain control On reassessment the patient did not have any signs of brain bleed on CT scan. Scalp bruise and dried blood was cleaned and irrigated. Patient does not appear to have any visible laceration. S/p Tdap. Concerns for recurrent falls and high HASBLED score, decision was made to withhold the apixaban. Have discussed this with patient who agrees with plan to withhold medine. Patient is AAO x3, GCS 15 Padilla conversant. I have offered patient long term and/or home health however at this time, patient declined both options. Patient reassures me that he has physical therapy appointment in 4 days and will follow up. Disposition: Discharge. I have given patient follow up with our rehabilitation caseworker to be seen by our outpatient PT/OT. Patient aware of a call from our rehabilitation caseworker to schedule for appointment(s) and verbalizes understanding of the importance of following up. Patient is aware to come back to the emergency room should he have any new or concerning issues. Lab Data: Labs: Lab Results 06/18/21 06/18/21 06/18/21 04:16 04:16 04:16 WBC 5.8 10^3/uL 10^3/ uL (4.0-10.0) RBC 3.44 10^6/uL L 10 ^6/uL (4.1-5.3) Hgb 10.8 g/dL L g/dL (11.7-16.6) Hct 33.3 % L % (42.0-52.0) MCV 96.8 fl H fl (80-94) MCH 31.4 pg pg (28.0-34.0) MCHC 32.4 g/dL g/dL (30.0-36.0) RDW 14.6 % % (12.1-15.1) Plt Count 123 10^3/cmm L 10 ^3/cmm (130-400) MPV 11.8 fL H fL (7.4-10.4) Neut % (Auto) 49.9 % % Lymph % (Auto) 28.1 % % [place] % (Auto) 12.7 % % Eos % (Auto) 8.4 % % Baso % (Auto) 0.7 % % Neut # (Auto) 2.91 10^3/uL 10^3 /uL (1.8-7.7) Lymph # (Auto) 1.6 10^3/uL 10^3/ uL (0.8-4.8) [place] # (Auto) 0.7 10^3/uL 10^3/ uL (0.2-0.9) Eos # (Auto) 0.5 10^3/uL 10^3/ uL (0.0-0.8) Baso # (Auto) 0.0 10^3/uL 10^3/ uL (0.0-0.1) Nucleated RBC % (a uto) 0 % % Nucleated RBCs # 0.0 /100WBC /100W BC PT 16.60 SECONDS H S ECONDS (12.1-14.9) INR 1.30 H (0.8-1.2) APTT 38.8 SECONDS H SE CONDS (23.9-36.7) Sodium 138 mmol/L mmol/L (136-145) Potassium 3.5 mmol/L mmol/L (3.5-5.1) Chloride 101 mmol/L mmol/L (98-107) Carbon Dioxide 25 mmol/L mmol/L (22-29) Anion Gap 15.5 (5-19) BUN 23 mg/dL mg/dL (8-23) Creatinine 0.6 mg/dL L mg/dL (0.7-1.2) GFR Calculation Not Reportable Glucose 89 mg/dL mg/dL (65-115) Calculated Osmolal ity 289 mOsm/kg mOsm/ kg (285-295) Calcium 9.1 mg/dL mg/dL (8.5-10.5) Imaging Data^: Other Imaging: Radiologist's impression: [place] [id number] Scan ReportSigned Patient: Jossy Centeno #: [id number]: 1935cct#:[id number]/Sex: 85 / MADM Date: 06/18/21Loc: ERRoom/Bed:Attending Dr: Ordering Provider/Ordering MD: Basia Turner MD Date of Service: 06/18/21 Procedure(s): CT cervical spin wo con* [id number] Accession Number(s): [id number] Report Number: [id number] PROCEDURE INFORMATION: Exam: CT Cervical Spine Without Contrast Exam date and time: 06/18/2021 4:15 AM Age: 85 years old Clinical indication: Injury or trauma; Blunt trauma; Prior surgery; Surgery date: 6+ months; Patient HX: Fall CO neck pain TECHNIQUE: Imaging protocol: Computed tomography images of the cervical spine without contrast. Radiation optimization: All CT scans at this facility use at least one of these dose optimization techniques: automated exposure control; mA and/or kV adjustment per patient size (includes targeted exams where dose is matched to clinical indication); or iterative reconstruction. COMPARISON: CT head wo con* [id number] 06/18/2021 4:23 AM RADIATION DOSE METRICS: Total DLP (mGy-cm): 950.6 FINDINGS: Tubes, catheters and devices: Left bipolar pacemaker. Bones/joints: Fixation structures related to prior anterior fusion at C5-C6; slightly angular mildly increased kyphosis and mild spondylolisthesis at this level. No apparent acute fracture. Slight spondylolisthesis at C4-C5. Discs/Spinal canal/Neural foramina: Fusion of the C6-C7 disc and gas in the at least mildly narrowed C7-T1 disc. Prominent degeneration of numerous facet joints and the midline atlantoaxial joint. Ankylosis of the right C4-C5 facet joint and developing ankylosis of other joints. Shallow central focal disc protrusion at C2-C3. Posterior spurring along the C5-C6 disc causing mild canal stenosis. Oropharynx: Calcifications in the nonenlarged tonsils. Thyroid: Small area of calcification in the left lobe of the thyroid. Lungs: At least 1 calcified granuloma in part of the slight stranding suggestive of scar in the left lung apex. Soft tissues: No acute finding. CT/CT cervical spin wo con* [id number] IMPRESSION: No acute fracture. Anterior fusion at C5-C6. Posterior spurring along this disc causing mild canal stenosis. Other degenerative disease and other findings detailed above. Radiation Dose CTDIVOL = (mGy): DLP = 950.6 (mGy-cm) Dictated By:Leticia Fitch MDSigned By:Leticia Fitch MDSigned Date/Time:06/18/21625DD/ [address] [id number] Scan ReportSigned Patient: Jossy Centeno #: [id number]: 1935cct#:[id number]/Sex: 85 / MADM Date: 06/18/21Loc: ERRoom/Bed:Attending Dr: Ordering Provider/Ordering MD: Basia Turner MD Date of Service: 06/18/21 Procedure(s): CT head wo con* [id number] Accession Number(s): [id number] Report Number: [id number] PROCEDURE INFORMATION: Exam: CT Head Without Contrast Exam date and time: 06/18/2021 4:12 AM Age: 85 years old Clinical indication: Injury or trauma; Blunt trauma (contusions or hematomas); Without loss of consciousness; Patient HX: Fall, laceration to back of head, on blood thinners; Additional info: Rule out brain bleed TECHNIQUE: Imaging protocol: Computed tomography of the head without contrast. Radiation optimization: All CT scans at this facility use at least one of these dose optimization techniques: automated exposure control; mA and/or kV adjustment per patient size (includes targeted exams where dose is matched to clinical indication); or iterative reconstruction. COMPARISON: CT head wo con* [id number] 01/23/2021 3:43 PM RADIATION DOSE METRICS: Total DLP (mGy-cm): 1129.84 FINDINGS: Limitations: Slight motion on multiple images. Brain: Continued extensive patchy low density in the cerebral white matter bilaterally consistent with chronic ischemic changes. No interval large area of edema in the brain. Possible interval old lacunar infarct in or near the body of the left caudate nucleus. Still no intracranial hemorrhage. Cerebral ventricles: Third and 4th ventricles still within normal limits for age. Lateral ventricles still slightly prominent. Paranasal sinuses: Continued prominent mucosal thickening in the left frontoethmoidal recess and chronic disease in the adjacent sinuses. Interval minimal mucosal thickening in a few other paranasal sinuses. Still no air-fluid levels. Mastoid air cells: Slight left posterior mastoid disease again evident. No interval right mastoid disease. Orbital cavity: Interval appearance of the synthetic lens in the left eye. Continued synthetic lens in the right eye. Vasculature: Continued arterial calcifications. Bones/joints: Unremarkable. No acute fracture. Soft tissues: Interval left superior parietal scalp hematoma and a few small gas bubbles. Continued slight haziness and a possible minimal hematoma in the right parietal scalp. CT/CT head wo con* [id number] IMPRESSION: 1. No acute intracranial findings. Interval scalp injury detailed above. 2. Chronic ischemic changes and other findings detailed above. Radiation Dose CTDIVOL = (mGy): DLP = 1129.84 (mGy-cm) Dictated By:Leticia Fitch MDSigned By:Leticia Fitch MDSigned Date/Time:06/18/21612DD/ 06 Discharge Plan Discharge Patient Disposition: Home Clinical Impression: Fall Condition: Stable Prescriptions: No Action cholecalciferol (vitamin D3) 25 mcg (1,000 unit) capsule 50 mcg PO DAILY@0700 RF: 0 docusate sodium [Stool Softener] 100 mg capsule 300 mg PO DAILY RF: 0 senna 8.6 mg capsule 17.2 mg PO DAILY PRN (Reason: Constipation) RF: 0 atorvastatin 10 mg tablet 10 mg PO DAILY@1999 Qty: 90 RF: 1 duloxetine 60 mg capsule,delayed release(DR/EC) 60 mg PO DAILY@0700 Qty: 90 RF: 0 metoprolol tartrate 100 mg tablet 100 mg PO BID@0900,2100 Qty: 60 RF: 3 pantoprazole 40 mg tablet,delayed release (DR/EC) 40 mg PO DAILY Qty: 30 RF: 3 Eliquis 5 mg tablet 5 mg PO BID Qty: 180 RF: 3 tamsulosin 0.4 mg capsule 0.4 mg PO BID@0700,1900 Qty: 180 RF: 1 diphenhydramine HCl [Benadryl] 50 mg Capsule 50 mg PO DAILY PRN (Reason: Sleep) RF: 0 Discharge Orders: Discharge ED (Routine); Ordered 06/18/21 Ordered By: Basia Turner Referrals: Michelle Nguyen, RN [facility] [Primary Care Provider] - Discharge Diet: Advance as tolerated Discharge Activity: Resume usual activity Patient Instructions: Fall Prevention (ED) Activity Restrictions/Additional Instructions: Our rehabilitation caseworker will have you follow-up with physical therapy and occupational therapy in the next few days. You would be expected to have a phone call with our rehabilitation caseworker who will put you on the schedule. Come back to the ED if you have any new or concerning issues. Coding Level of Care Code ED Special Education Classroom Aide for [place]
[2021-06-18 04:23] LABS: Basophils % 0.7 %; Eosinophils # 0.5 10^3/uL (0.0-0.8); Eosinophils % 8.4 %; Hematocrit 33.3 % (42.0-52.0); Hemoglobin 10.8 g/dL (11.7-16.6); Lymphocytes # 1.6 10^3/uL (0.8-4.8); Lymphocytes % 28.1 %; Mean Corpuscular HGB Conc 32.4 g/dL (30.0-36.0); Mean Corpuscular Hemoglobin 31.4 pg (28.0-34.0); Mean Corpuscular Volume 96.8 fl (80-94); Mean Platelet Volume 11.8 fL (7.4-10.4); Monocytes # 0.7 10^3/uL (0.2-0.9); Monocytes % 12.7 %; Neutrophils # 2.91 10^3/uL (1.8-7.7); Neutrophils % 49.9 %; Nucleated Red Blood Cells % 0 %; Platelet Count 123 10^3/cmm (130-400); Red Blood Count 3.44 10^6/uL (4.1-5.3); Red Cell Distribution Width 14.6 % (12.1-15.1); White Blood Count 5.8 10^3/uL (4.0-10.0)
[2021-06-18 04:35] LABS: Partial Thromboplastin Time 38.8 SECONDS (23.9-36.7)
[2021-06-18 04:43] LABS: Anion Gap 15.5 (5-19); Blood Urea Nitrogen 23 mg/dL (8-23); Calcium 9.1 mg/dL (8.5-10.5); Carbon Dioxide 25 mmol/L (22-29); Chloride 101 mmol/L (98-107); Glucose 89 mg/dL (65-115); Osmolality Calculated 289 mOsm/kg (285-295); Potassium 3.5 mmol/L (3.5-5.1); Sodium 138 mmol/L (136-145)
[2021-06-18] MEDS: acetaminophen 500 mg Tablet PO (04:47)
[2021-06-18] MEDS: tetanus-dipt-pertussis 0.5 mL SDV IM (04:48)
--- NOTE | 2021-06-18 05:53 | PC.NURSE ---
Head wound cleaned to assess for lacerations; no laceration visualized after blood cleaned away; abrasions noted. Abd pad placed over the wounds and head wrapped with Kerlix. Pt tolerated well.
[2021-06-18 05:59] VITALS: BP 177/102; PULSE 69; RESP 20; O2SAT 95
--- NOTE | 2021-06-18 06:36 | PC.NURSE ---
0615 Spoke to CRUZ Centeno for transport home. She states she can be here in approx 1 hour.
[2021-06-18 06:39] VITALS: BP 163/91; PULSE 66; O2SAT 95
--- NOTE | 2021-06-19 12:45 | DCPLANNER ---
meat and seafood manager had message to order some PT and OT for patient. meat and seafood manager spoke with a family member of patient, who informed case monitor that patient has been going to PT, and that patient has 4 more sessions approved by insurance. When patient has completed these sessions that family will speak with primary care or ortho for more sessions.
== END 2021-06-18 07:42 | disposition home or self-care (01) ==
PROVIDERS: Emergency Provider Emergency Medicine; PCP Nurse Practitioner
DX: S00.03XA Contusion of scalp, initial encounter (principal); Z79.01 Long term (current) use of anticoagulants; W19.XXXA Unspecified fall, initial encounter; I10 Essential (primary) hypertension; I25.10 Atherosclerotic heart disease of native coronary artery without angina pectoris; Z23 Encounter for immunization
CPT/HCPCS: 70450; 72125; 80048; 85025; 85610; 85730; 90471; 90715; 99283

== ENCOUNTER 2021-06-21 06:00 | Outpatient (RCR) | payer MEDICARE, SELFPAY | END 2021-07-21 23:59 | disposition home or self-care (01) | LOC: TPT 06:00 | PROVIDERS: PCP Nurse Practitioner; Referring Provider Orthopaedic Surgery; Visit Provider Orthopaedic Surgery | DX: M54.50 Low back pain, unspecified (principal) | CPT/HCPCS: 97110 ==

== ENCOUNTER 2021-07-22 06:00 | Outpatient (RCR) | payer MEDICARE, SELFPAY | END 2021-08-20 23:59 | disposition home or self-care (01) | LOC: TPT 06:00 | PROVIDERS: PCP Nurse Practitioner; Referring Provider Orthopaedic Surgery; Visit Provider Orthopaedic Surgery | DX: M54.50 Low back pain, unspecified (principal) | CPT/HCPCS: 97110 ==

== ENCOUNTER 2021-08-20 10:06 | Outpatient (CLI) | payer MEDICARE, SELFPAY ==
--- NOTE | 2021-08-20 10:15 | XR_ITS ---
WS: [id number] K[facility], AP view, 08/20/2021 Clinical Data: UROLITHIASIS Comparison: KUB, 04/03/2021. Findings: No abnormal intraabdominal masses or calcifications are seen. There is no dilatated small bowel or ev idence of obstruction. Bladder is filled. There are vascular calcifications. There is degenerative change of the lumbar vert ebral bodies. Pacemaker wires are seen in the heart. There is a large amount of air in the small danae l and colon. XR/XR KUB [id number] Impression: Generalized ileus.
== END 2021-08-20 10:07 | disposition home or self-care (01) ==
LOC: RAD 10:11
PROVIDERS: PCP Nurse Practitioner; Visit Provider Nurse Practitioner Family
DX: N20.9 Urinary calculus, unspecified (principal); K56.7 Ileus, unspecified
CPT/HCPCS: 74018; 81003

== ENCOUNTER → 2021-09-04 14:26 | Outpatient (BNVA) | payer MEDICARE, SELFPAY | PROVIDERS: PCP Nurse Practitioner; Visit Provider Urology | DX: R33.9 Retention of urine, unspecified (principal) | CPT/HCPCS: 87077; 87086; 87184 ==

== ENCOUNTER 2021-10-31 23:41 | Emergency (ER) | payer MEDICARE, SELFPAY ==
[2021-10-31 23:42] VITALS: BP 169/100; PULSE 114; RESP 18; TEMP 36.8; O2SAT 95; BMI 26.3
--- NOTE | 2021-10-31 23:44 | W.ED.ABDPA2 ---
HPI - Abdominal Pain General: Chief Complaint: Urogenital-Male Stated Complaint: adb pain Time Seen by Provider: 10/31/21 23:43 Source: patient and EMS Mode of arrival: EMS Limitations: no limitations History of Present Illness: 86-year-old male who has had a Padilla for the last 2 months has been following Dr. Gaytan. He states that he has not been able to void over the last 4 to 5 hours and feels like his bladder is distended and he is having lower abdominal pain. He states he has had this Padilla in for 2 months has not had it changed. Denies any bleeding denies any fever denies any worsening improving factors. Associated Symptoms: Denies chills, dysuria and fever(s) Review of Systems Const: Denies: fever(s), chills, body aches or change in appetite Eyes: Denies: blurry vision or eye discomfort ENMT: Denies: throat pain or dental pain Card: Denies: chest pain Resp: Denies: dyspnea GI: Reports: abdominal pain : Denies: dysuria Musc: Denies: neck pain or back pain Skin/Breast: Denies: rash Neuro: Denies: headache(s) Psych: Denies: depression Francisco/Lymph: Denies: easy bruising All/Imm: Denies: urticaria PFSH ED PFSH: Medical History Alcohol abuse, daily use Alcohol use disorder Ambulates with cane Atrial fibrillation Benign prostatic hyperplasia (BPH) with urinary urgency Bladder stone 3 large bladder stones treated with cystolitholapaxy 08/30/2020 BPH loc w urin obs/LUTS Chronic bladder outlet obstructive symptoms. Chronic constipation Elevated PSA Essential (primary) hypertension Generalized anxiety disorder History of coronary artery disease History of TB (tuberculosis) Insomnia Urge incontinence Urinary retention Urolithiasis Surgical History History of cataract left History of cervical spinal surgery History of heart bypass surgery x4 History of hernia repair Right Family History Mother , at age 84 Bleeding disorder Father , at age 94 Stroke Other Cancer Denies family history of Diabetes Dementia Hypertension Social History Second hand smoke exposure: No Smoking risk assessment/counseling performed?: No Alcohol intake: current Desire information about alcohol rehabilitation?: No Counseling given: Yes Desire information about substance/drug rehabilitation?: No Counseling given: No Adopted: No Caregiver/support person: Yes Lives independently: No Household members: family Housing: House Marital status: / Number of children: 2 Current occupational status: retired History of recent travel: No ([place]) Current gender identity: Male Physical Exam Const: COMMON NORMALS: no acute distress, patient oriented x3 and healthy appearing HENMT: COMMON NORMALS: normocephalic and atraumatic HEAD & SCALP: normocephalic and atraumatic Eye: COMMON NORMALS: Equal, round and reactive pupils present and EOMs intact bilaterally PUPIL: Yes Equal, round and reactive pupils present Neck/C-Spine: COMMON NORMALS: full ROM and supple Chest: COMMONS NORMALS: normal inspection of the chest and normal palpation of entire chest wall Resp: COMMON NORMALS: normal respiratory effort, No retractions, No use of accessory muscles and clear to auscultation bilaterally AUSCULTATION: clear to auscultation bilaterally Cardio: COMMON NORMALS: regular rate, regular rhythm and No murmurs present (Cardio) RATE: regular rate RHYTHM: regular rhythm GI: COMMON NORMALS: Soft to palpation and no masses PALPATION: Yes Soft to palpation OTHER: Tenderness over bladder with distention Extremity: COMMON NORMALS: normal to inspection and full ROM Neuro: COMMON NORMALS: patient oriented x3, moves all extremities and no focal motor deficits Psych: COMMON NORMALS: mental status grossly normal, Normal thought process present and cooperative THOUGHT PROCESS: Normal thought process present Skin: COMMON NORMALS: no rashes or lesions noted and no wounds GENERAL SKIN EXAM: no rashes or lesions noted Course Vital Signs: Vital signs: Vital Signs Temperature 98.3 F 10/31/21 23:42 Pulse Rate 114 H 10/31/21 23:42 Respiratory Rate 18 10/31/21 23:42 Blood Pressure 169/100 10/31/21 23:42 Pulse Oximetry 95 10/31/21 23:42 MDM - Abdominal Pain Medical Decision Making Patient presents here with clogged Padilla causing urinary retention and new Padilla was placed large amount of urine out urinalysis does show a possible UTI will start on antibiotics he is to follow-up with Dr. Gaytan later today and is to follow-up as scheduled Lab Data Labs/Radiology: Laboratory Results Urine Color Brown (Yellow) 11/01/21 00:36 Urine Appearance Cloudy (CLEAR) 11/01/21 00:36 Urine pH 8 (5-7) H 11/01/21 00:36 Ur Specific [place] 1.010 (1.005-1.030) 11/01/21 00:36 Urine Protein 2+ (Negative) H 11/01/21 00:36 Urine Glucose (UA) Norm (Normal) 11/01/21 00:36 Urine Ketones Negative (Negative) 11/01/21 00:36 Urine Blood 3+ (Negative) H 11/01/21 00:36 Urine Nitrate Negative (Negative) 11/01/21 00:36 Urine Bilirubin Neg (Negative) 11/01/21 00:36 Prot Sulfosalicylic Acd Positive (Negative) 11/01/21 00:36 Urine Urobilinogen Norm mg/dL (Negative) 11/01/21 00:36 Ur Leukocyte Esterase 2+ (Negative) H 11/01/21 00:36 Urine RBC >100 /hpf (0-2) H 11/01/21 00:36 Urine WBC >100 /hpf (0-5) H 11/01/21 00:36 Ur Squamous Epith Cells 0-4 /hpf (0-5) H 11/01/21 00:36 Amorphous Sediment Not Reportable 11/01/21 00:36 Urine Bacteria 4+ /hpf (NONE) H 11/01/21 00:36 Discharge Plan Discharge Patient Disposition: Home Clinical Impression: Urinary retention, Complication, blocked Padilla catheter Condition: Stable Prescriptions: No Action aspirin [Adult Aspirin Regimen] 81 mg tablet,delayed release (DR/EC) 81 mg PO DAILY 0RF metoprolol tartrate 50 mg tablet 50 mg PO BID@0900,2100 Qty: 180 2RF methenamine hippurate 1 gram tablet 1 g PO BID Qty: 60 12RF Rx Instructions: 1 pill twice a day with 500 mg vitamin C each dose ascorbic acid (vitamin C) 1,000 mg tablet 1 g PO BID 0RF cholecalciferol (vitamin D3) 25 mcg (1,000 unit) capsule 50 mcg PO DAILY@0700 0RF senna 8.6 mg capsule 17.2 mg PO DAILY PRN (Reason: Constipation) 0RF docusate sodium [Stool Softener] 100 mg capsule 300 mg PO DAILY PRN0RF hydrochlorothiazide 25 mg tablet 25 mg PO QAM Qty: 90 3RF diltiazem HCl 240 mg capsule,extended release 24 hr 240 mg PO DAILY Qty: 90 3RF atorvastatin 10 mg tablet 10 mg PO DAILY@2000 Qty: 90 1RF duloxetine 60 mg capsule,delayed release(DR/EC) 60 mg PO DAILY@0700 Qty: 90 1RF tamsulosin 0.4 mg capsule 0.4 mg PO BID@0700,1900 Qty: 180 1RF trazodone 50 mg tablet 50 mg PO .at bedtime Qty: 90 1RF nystatin-triamcinolone 100,000-0.1 unit/g-% cream 1 applic topical BID Qty: 60 1RF Rx Instructions: wash and dry area before applying cream Eliquis 5 mg tablet 5 mg PO BID Qty: 180 3RF pantoprazole 40 mg tablet,delayed release (DR/EC) 40 mg PO DAILY Qty: 90 3RF Discharge Orders: Discharge ED (Routine); Ordered 11/01/21 Ordered By: Jigar Sumner Referrals: Michelle Nguyen, DISTRIBUTION OPERATIONS MANAGER-C [Primary Care Provider] - Discharge Diet: Advance as tolerated Discharge Activity: Resume usual activity Patient Instructions: Urinary Retention in Men (ED) Coding Level of Care Code ED Press Setup Operator for [place] Fwstephany Exam Comprehensive
--- NOTE | 2021-11-01 00:15 | PC.NURSE ---
Tried to flush morales with normal saline but it would not flush. The order to replace morales was given. Morales placed using aseptic technique. 900ml of dark urine was returned. Pt tolerated well.
[2021-11-01 00:54] LABS: Add Urine Culture? Yes; Add Urine Microscopic? YES; Bacteria Urine 4+ /hpf; Bilirubin Urine Neg (Negative); Blood Urine 3+ (Negative); Glucose Urine UA Norm (Normal); Ketones Urine Negative (Negative); Leukocyte Esterase Urine 2+ (Negative); Nitrate Urine Negative (Negative); Protein Urine 2+ (Negative); RBC Urine >100 /hpf (0-2); Squamous Epithelial Cell Urine 0-4 /hpf (0-5); Sulfosalicylic Acid Urine Positive (Negative); Urine Appearance Cloudy (CLEAR); Urine Color Brown (Yellow); Urobilinogen Urine Norm (Negative); WBC Urine >100 /hpf (0-5); pH Urine 8 (5-7)
[2021-11-01] MEDS: cefTRIAXone 1,000 MG in lidocaine 1% 2.1 ML 2.1 MG IM (01:22)
[2021-11-01 01:36] VITALS: BP 133/70; PULSE 97; RESP 18; TEMP 36.8; O2SAT 95
== END 2021-11-01 03:27 | disposition home or self-care (01) ==
PROVIDERS: Emergency Provider Emergency Medicine; PCP Nurse Practitioner
DX: T83.098A Other mechanical complication of other urinary catheter, initial encounter (principal); R33.9 Retention of urine, unspecified; Z79.01 Long term (current) use of anticoagulants; Z79.82 Long term (current) use of aspirin; I10 Essential (primary) hypertension; I25.10 Atherosclerotic heart disease of native coronary artery without angina pectoris
CPT/HCPCS: 81001; 87077; 87086; 87186; 96372; 99283; J0696

== ENCOUNTER 2021-12-06 23:04 | Emergency (ER) | payer MEDICARE, SELFPAY ==
[2021-12-06 23:05] VITALS: BP 131/81; PULSE 105; RESP 20; TEMP 36.6; O2SAT 94; BMI 26.7
--- NOTE | 2021-12-06 23:11 | ECG_ITS ---
[facility] Test Date: 2021-12-06 Pat Name: Raúl Centeno Department: Room: Gender: Male Senior Systems Programmer: : 1935 Requested By: Jigar Sumner Order Number: [id number] Ayden MD: Wilbert Doherty M.D. Measurements Intervals [place] Rate: 107 P: 267 AK: 105 QRS: -7 QRSD: 112 T: 204 QT: 352 QTc: 471 Interpretive Statements Possible atrial flutter with 2-1 block MODERATE INTRAVENTRICULAR CONDUCTION DELAY [110+ ms QRS DURATION] ST DEVIATION AND MODERATE T-WAVE ABNORMALITY, CONSIDER LATERAL ISCHEMIA [-0.1+ mV T-WAVE IN I/aVL/V5/V6] Compared to ECG 01/20/2021 01:06:21 Possible ischemia now present T-wave abnormality still present Electronically Signed On 12-08-2021 17:19:01 CDT by Wilbert Doherty M.D. [id number]
--- NOTE | 2021-12-06 23:11 | XRR_ITS ---
PROCEDURE INFORMATION: Exam: XR Chest Exam date and time: 12/06/2021 10:16 PM Age: 86 years old Clinical indication: Chest pressure; Prior surgery; Surgery type: Cabg; Patient HX: C/O chest pain. ; Additional info: Cp TECHNIQUE: Imaging protocol: XR of the chest. Views: 1 view. COMPARISON: CR XR chest 1V portable [id number] 01/22/2021 2:51 PM FINDINGS: Tubes, catheters and devices: Chronic left chest multi lead pacemaker. Lungs: The lungs are clear. Pleural spaces: Unremarkable. No pleural effusion. No pneumothorax. Heart/Mediastinum: Chronic mediastinal postop changes. Bones/joints: Unremarkable. XR/XR chest 1V portable [id number] IMPRESSION: No acute findings
--- NOTE | 2021-12-06 23:14 | ED_ITS ---
HPI - Chest Pain General: Chief Complaint: Weakness Stated Complaint: NECK/JAW PAIN WEAKNESS Time Seen by Provider: 12/06/21 23:06 Source: patient and EMS Mode of arrival: EMS Limitations: no limitations History of Present Illness: 86-year-old male who states that he was sent in his couch roughly at 8 PM had an episode of left-sided neck and jaw pain that lasted a few minutes and then resolved. 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 States his pain was sharp pain lasted only minutes at worst was a 4-10 denies any radiation of his pain denies any dyspnea denies any nausea denies any worsening improving factors he is completely pain-free here. No complaints at this time. Associated symptoms: Deny abdominal pain, dyspnea, fever(s), nausea or vomiting Review of Systems Const: Denies: fever(s), chills, body aches or change in appetite Eyes: Denies: blurry vision or eye discomfort ENMT: Denies: throat pain or dental pain Card: Reports: chest pain Resp: Denies: dyspnea GI: Denies: abdominal pain, nausea, vomiting or diarrhea : Denies: dysuria Musc: Denies: neck pain or back pain Skin/Breast: Denies: rash Neuro: Denies: headache(s) Psych: Denies: depression Francisco/Lymph: Denies: easy bruising All/Imm: Denies: urticaria PFSH ED PFSH: Medical History Alcohol abuse, daily use Alcohol use disorder Ambulates with cane Atrial fibrillation Benign prostatic hyperplasia (BPH) with urinary urgency Bladder stone 3 large bladder stones treated with cystolitholapaxy 08/30/2020 BPH loc w urin obs/LUTS Chronic bladder outlet obstructive symptoms. Chronic constipation Elevated PSA Essential (primary) hypertension Generalized anxiety disorder History of coronary artery disease History of TB (tuberculosis) Insomnia Urge incontinence Urinary retention Urolithiasis Surgical History History of cataract left History of cervical spinal surgery History of heart bypass surgery x4 History of hernia repair Right Family History Mother , at age 84 Bleeding disorder Father , at age 94 Stroke Other Cancer Denies family history of Diabetes Dementia Hypertension Social History Second hand smoke exposure: No Smoking risk assessment/counseling performed?: No Alcohol intake: current Desire information about alcohol rehabilitation?: No Counseling given: Yes Desire information about substance/drug rehabilitation?: No Counseling given: No Adopted: No Caregiver/support person: Yes Lives independently: No Household members: family Housing: House Marital status: / Number of children: 2 Current occupational status: retired History of recent travel: No ([place]) Current gender identity: Male Physical Exam Const: COMMON NORMALS: no acute distress, patient oriented x3 and healthy appearing HENMT: COMMON NORMALS: normocephalic and atraumatic HEAD & SCALP: normocephalic and atraumatic Eye: COMMON NORMALS: Equal, round and reactive pupils present and EOMs intact bilaterally PUPIL: Yes Equal, round and reactive pupils present Neck/C-Spine: COMMON NORMALS: full ROM and supple Chest: COMMONS NORMALS: normal inspection of the chest and normal palpation of entire chest wall Resp: COMMON NORMALS: normal respiratory effort, No retractions, No use of accessory muscles and clear to auscultation bilaterally AUSCULTATION: clear to auscultation bilaterally Cardio: COMMON NORMALS: regular rate, regular rhythm and No murmurs present (Cardio) RATE: regular rate RHYTHM: regular rhythm GI: COMMON NORMALS: Normal to inspection, nondistended, normoactive bowel sounds present, Soft to palpation, non-tender and no masses PALPATION: Yes Soft to palpation Extremity: COMMON NORMALS: normal to inspection and full ROM Neuro: COMMON NORMALS: patient oriented x3, moves all extremities and no focal motor deficits Psych: COMMON NORMALS: mental status grossly normal, Normal thought process present and cooperative THOUGHT PROCESS: Normal thought process present Skin: COMMON NORMALS: no rashes or lesions noted and no wounds GENERAL SKIN EXAM: no rashes or lesions noted Course Vital Signs: Vital signs: Vital Signs Temperature 97.8 F 12/06/21 23:05 Pulse Rate 111 H 12/07/21 02:02 Respiratory Rate 20 H 12/07/21 02:02 Blood Pressure 160/89 12/07/21 02:02 Pulse Oximetry 99 12/07/21 02:02 MDM - Chest Pain Medical Decision Making Patient presents here with jaw pain initial repeat troponin here normal he has no signs of acute coronary syndrome. He is requesting discharge here after labs. EKG shows no changes from previous. He is stable for discharge he is to follow-up his telecommunication operator return if worsening. Lab Data : 12/06/21 23:15 12/06/21 23:15 Radiology Impressions Chest X-Ray 12/06/21 23:11 IMPRESSION: No acute findings Laboratory Results WBC 9.2 10^3/uL (4.0-10.0) 12/06/21 23:15 RBC 3.51 10^6/uL (4.1-5.3) L 12/06/21 23:15 Hgb 10.4 g/dL (11.7-16.6) L 12/06/21 23:15 Hct 32.0 % (42.0-52.0) L 12/06/21 23:15 MCV 91.2 fl (80-94) 12/06/21 23:15 MCH 29.6 pg (28.0-34.0) 12/06/21 23:15 MCHC 32.5 g/dL (30.0-36.0) 12/06/21 23:15 RDW 15.4 % (12.1-15.1) H 12/06/21 23:15 Plt Count 210 10^3/cmm (130-400) 12/06/21 23:15 MPV 10.9 fL (7.4-10.4) H 12/06/21 23:15 Neut % (Auto) 64.2 % 12/06/21 23:15 Lymph % (Auto) 18.3 % 12/06/21 23:15 [place] % (Auto) 12.5 % 12/06/21 23:15 Eos % (Auto) 3.9 % 12/06/21 23:15 Baso % (Auto) 0.8 % 12/06/21 23:15 Neut # (Auto) 5.91 10^3/uL (1.8-7.7) 12/06/21 23:15 Lymph # (Auto) 1.7 10^3/uL (0.8-4.8) 12/06/21 23:15 [place] # (Auto) 1.2 10^3/uL (0.2-0.9) H 12/06/21 23:15 Eos # (Auto) 0.4 10^3/uL (0.0-0.8) 12/06/21 23:15 Baso # (Auto) 0.1 10^3/uL (0.0-0.1) 12/06/21 23:15 Nucleated RBC % (auto) 0 % 12/06/21 23:15 Nucleated RBCs # 0.0 /100WBC 12/06/21 23:15 Sodium 138 mmol/L (136-145) 12/06/21 23:15 Potassium 3.5 mmol/L (3.5-5.1) 12/06/21 23:15 Chloride 100 mmol/L (98-107) 12/06/21 23:15 Carbon Dioxide 23 mmol/L (22-29) 12/06/21 23:15 Anion Gap 18.5 (5-19) 12/06/21 23:15 BUN 32 mg/dL (8-23) H 12/06/21 23:15 Creatinine 0.9 mg/dL (0.7-1.2) 12/06/21 23:15 GFR Calculation Not Reportable 12/06/21 23:15 Glucose 101 mg/dL (65-115) 12/06/21 23:15 Calculated Osmolality 293 mOsm/kg (285-295) 12/06/21 23:15 Calcium 9.8 mg/dL (8.5-10.5) 12/06/21 23:15 Total Bilirubin 0.3 mg/dL (0.15-1.2) 12/06/21 23:15 AST 19 U/L (0-40) 12/06/21 23:15 ALT 14 U/L (0-41) 12/06/21 23:15 Alkaline Phosphatase 111 IU/L (40-130) 12/06/21 23:15 Troponin T Baseline 19 ng/L (0-15) H 12/06/21 23:15 Troponin T 120 Minute 18.48 ng/L (0-15) H 12/07/21 01:16 Delta Troponin T -0.52 ABS# (0-10) L 12/07/21 01:16 Total Protein 7.9 g/dL (6.6-8.7) 12/06/21 23:15 Albumin 4.5 g/dL (3.5-5.2) 12/06/21 23:15 Globulin 3.4 g/dL (1.3-4.6) 12/06/21 23:15 EKG Data EKG 1: I personally reviewed and interpreted this EKG as follows: EKG interpretation date: 12/06/21 EKG interpretation time: 23:11 Interpretation: junctional tach hr [address] elevation qrs 112 qtc 415 Discharge Plan Discharge Patient Disposition: Home Clinical Impression: Chest pain Qualifiers: Chest pain type: unspecified Qualified Code(s): R07.9 - Chest pain, unspecified Condition: Stable Prescriptions: No Action aspirin [Adult Aspirin Regimen] 81 mg tablet,delayed release (DR/EC) 81 mg PO DAILY 0RF metoprolol tartrate 50 mg tablet 50 mg PO BID@0900,2100 Qty: 180 2RF methenamine hippurate 1 gram tablet 1 g PO BID Qty: 60 12RF Rx Instructions: 1 pill twice a day with 500 mg vitamin C each dose ascorbic acid (vitamin C) 1,000 mg tablet 1 g PO BID 0RF cholecalciferol (vitamin D3) 25 mcg (1,000 unit) capsule 50 mcg PO DAILY@0700 0RF senna 8.6 mg capsule 17.2 mg PO DAILY PRN (Reason: Constipation) 0RF docusate sodium [Stool Softener] 100 mg capsule 300 mg PO DAILY PRN0RF hydrochlorothiazide 25 mg tablet 25 mg PO QAM Qty: 90 3RF diltiazem HCl 240 mg capsule,extended release 24 hr 240 mg PO DAILY Qty: 90 3RF atorvastatin 10 mg tablet 10 mg PO DAILY@2000 Qty: 90 1RF duloxetine 60 mg capsule,delayed release(DR/EC) 60 mg PO DAILY@0700 Qty: 90 1RF tamsulosin 0.4 mg capsule 0.4 mg PO BID@0700,1900 Qty: 180 1RF trazodone 50 mg tablet 50 mg PO .at bedtime Qty: 90 1RF nystatin-triamcinolone 100,000-0.1 unit/g-% cream 1 applic topical BID Qty: 60 1RF Rx Instructions: wash and dry area before applying cream Eliquis 5 mg tablet 5 mg PO BID Qty: 180 3RF pantoprazole 40 mg tablet,delayed release (DR/EC) 40 mg PO DAILY Qty: 90 3RF Discharge Orders: Discharge ED (Routine); Ordered 12/07/21 Ordered By: Jigar Sumner Referrals: Michelle Nguyen, PHYSICAL SCIENCE PROFESSOR-C [Primary Care Provider] - Discharge Diet: Advance as tolerated Discharge Activity: Resume usual activity Patient Instructions: Chest Pain (ED) Coding Level of Care Code ED Truck Sales Representative for Chg 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
[2021-12-06 23:34] LABS: Basophils # 0.1 10^3/uL (0.0-0.1); Basophils % 0.8 %; Eosinophils # 0.4 10^3/uL (0.0-0.8); Eosinophils % 3.9 %; Hemoglobin 10.4 g/dL (11.7-16.6); Lymphocytes # 1.7 10^3/uL (0.8-4.8); Lymphocytes % 18.3 %; Mean Corpuscular HGB Conc 32.5 g/dL (30.0-36.0); Mean Corpuscular Hemoglobin 29.6 pg (28.0-34.0); Mean Corpuscular Volume 91.2 fl (80-94); Mean Platelet Volume 10.9 fL (7.4-10.4); Monocytes # 1.2 10^3/uL (0.2-0.9); Monocytes % 12.5 %; Neutrophils # 5.91 10^3/uL (1.8-7.7); Neutrophils % 64.2 %; Nucleated Red Blood Cells % 0 %; Platelet Count 210 10^3/cmm (130-400); Red Blood Count 3.51 10^6/uL (4.1-5.3); Red Cell Distribution Width 15.4 % (12.1-15.1); White Blood Count 9.2 10^3/uL (4.0-10.0)
[2021-12-07 00:04] LABS: Troponin(5th) Baseline 19 ng/L (0-15)
[2021-12-07 00:05] LABS: Alanine Aminotransferase 14 U/L (0-41); Albumin Level 4.5 g/dL (3.5-5.2); Alkaline Phosphatase 111 IU/L (40-130); Anion Gap 18.5 (5-19); Aspartate Amino Transferase 19 U/L (0-40); Blood Urea Nitrogen 32 mg/dL (8-23); Calcium 9.8 mg/dL (8.5-10.5); Carbon Dioxide 23 mmol/L (22-29); Chloride 100 mmol/L (98-107); Globulin 3.4 g/dL (1.3-4.6); Glucose 101 mg/dL (65-115); Osmolality Calculated 293 mOsm/kg (285-295); Potassium 3.5 mmol/L (3.5-5.1); Sodium 138 mmol/L (136-145); Total Bilirubin 0.3 mg/dL (0.15-1.2); Total Protein 7.9 g/dL (6.6-8.7)
[2021-12-07 00:54] VITALS: BP 122/86; PULSE 106; RESP 22; O2SAT 93
--- NOTE | 2021-12-07 01:11 | ECG_ITS ---
[facility] Test Date: 2021-12-07 Pat Name: Raúl Centeno Department: Room: Gender: Male Business Office Associate: : 1935 Requested By: Jigar Sumner Order Number: [id number] Ayden MD: Wilbert Doherty M.D. Measurements Intervals [place] Rate: 108 P: 136 NC: 111 QRS: 23 QRSD: 113 T: 204 QT: 325 QTc: 437 Interpretive Statements Atrial flutter with 2:1 block MODERATE INTRAVENTRICULAR CONDUCTION DELAY [110+ ms QRS DURATION] ST DEVIATION AND MODERATE T-WAVE ABNORMALITY, CONSIDER LATERAL ISCHEMIA [-0.1+ mV T-WAVE IN I/aVL/V5/V6] ST DEVIATION AND MODERATE T-WAVE ABNORMALITY, CONSIDER INFERIOR ISCHEMIA [-0.1+ mV T-WAVE IN II/aVF] Compared to ECG 12/06/2021 23:11:45 Short NC interval now present Junctional tachycardia no longer present T-wave abnormality still present Possible ischemia still present Electronically Signed On 12-08-2021 17:38:03 CDT by Wilbert Doherty M.D. [id number]
[2021-12-07 01:21] VITALS: BP 126/86; PULSE 108; RESP 22; O2SAT 95
[2021-12-07 01:56] VITALS: BP 150/85; PULSE 100; RESP 20; O2SAT 98
[2021-12-07 01:56] LABS: Troponin 5 2HR 18.48 ng/L (0-15)
[2021-12-07 02:02] VITALS: BP 160/89; PULSE 111; RESP 20; O2SAT 99
[2021-12-07 02:06] LABS: Troponin 5 2HR Delta -0.52 ABS# (0-10)
[2021-12-07 02:54] VITALS: BP 139/87; PULSE 102; RESP 20
== END 2021-12-07 02:49 | disposition home or self-care (01) ==
PROVIDERS: Emergency Provider Emergency Medicine; PCP Nurse Practitioner
DX: R07.9 Chest pain, unspecified (principal); Z79.82 Long term (current) use of aspirin; Z79.01 Long term (current) use of anticoagulants; I10 Essential (primary) hypertension; I25.10 Atherosclerotic heart disease of native coronary artery without angina pectoris
CPT/HCPCS: 71045; 80053; 84484; 85025; 93005; 99284

== ENCOUNTER 2021-12-09 12:37 | Emergency (ER) | payer MEDICARE, SELFPAY ==
[2021-12-09 12:47] VITALS: BP 126/89; PULSE 115; RESP 21; TEMP 36.6; O2SAT 94; BMI 26.7
--- NOTE | 2021-12-09 12:51 | W.ED.FALL ---
HPI - Fall General: Chief Complaint: Fall Stated Complaint: FALL/ GENERAL WEAKNESS Time Seen by Provider: 12/09/21 12:44 Source: patient Mode of arrival: EMS History of Present Illness: 86-year-old male presents to the emergency room stating he is unable to get up he fell this morning and can get up with family and called to try to get a hold of him they could not reach him so they went over and found him on the floor. Pried on the floor about 3 to 4 hours he denies any injury feels very weak. He does admit he drinks very heavily but states he has no intention to stop. MD complaint: fall Onset (ago): hour(s) Fall from: standing Fall witnessed: no Place fall occurred: home Loss of consciousness: None Prolonged down time: hour(s) (3-4) Symptoms prior to fall: lightheadedness Context: alcohol use Associated symptoms-after fall: Reports difficulty walking; Denies abdominal pain, chest pain, confusion, headache(s), hematuria, lightheadedness, neck pain, numbness, short of breath, vertigo or weakness Review of Systems Const: Reports: body aches, fatigue and malaise; Denies: fever(s), chills or change in appetite ENMT: Denies: throat pain, ear or mastoid pain, nasal discharge or nasal congestion Card: Denies: chest pain or lightheadedness Resp: Denies: dyspnea, productive cough or non-productive cough GI: Denies: abdominal pain : Denies: hematuria Musc: Denies: neck pain Neuro: Reports: difficulty walking; Denies: headache(s), vertigo or confusion PFS ED PFSH: Medical History Alcohol abuse, daily use Alcohol use disorder Ambulates with cane Atrial fibrillation Benign prostatic hyperplasia (BPH) with urinary urgency Bladder stone 3 large bladder stones treated with cystolitholapaxy 08/30/2020 BPH loc w urin obs/LUTS Chronic bladder outlet obstructive symptoms. Chronic constipation Elevated PSA Essential (primary) hypertension Generalized anxiety disorder History of coronary artery disease History of TB (tuberculosis) Insomnia Urge incontinence Urinary retention Urolithiasis Surgical History History of cataract left History of cervical spinal surgery History of heart bypass surgery x4 History of hernia repair Right Family History Mother , at age 84 Bleeding disorder Father , at age 94 Stroke Other Cancer Denies family history of Diabetes Dementia Hypertension Social History Second hand smoke exposure: No Smoking risk assessment/counseling performed?: No Alcohol intake: current Desire information about alcohol rehabilitation?: No Counseling given: Yes Desire information about substance/drug rehabilitation?: No Counseling given: No Adopted: No Caregiver/support person: Yes Lives independently: No Household members: family Housing: House Marital status: / Number of children: 2 Current occupational status: retired History of recent travel: No ([place]) Current gender identity: Male Physical Exam Const: GENERAL APPEARANCE: cooperative and comfortable ORIENTATION/CONSCIOUSNESS: Yes awake HENMT: COMMON NORMALS: normocephalic, atraumatic and hearing grossly normal bilaterally HEAD & SCALP: normocephalic and atraumatic Eye: COMMON NORMALS: Equal, round and reactive pupils present, EOMs intact bilaterally, conjunctivae normal and no scleral icterus CONJUNCTIVA: Yes conjunctivae normal PUPIL: Yes Equal, round and reactive pupils present Neck/C-Spine: COMMON NORMALS: full ROM, no lymphadenopathy, supple and no JVD Resp: COMMON NORMALS: normal respiratory effort, No retractions, No use of accessory muscles and clear to auscultation bilaterally AUSCULTATION: clear to auscultation bilaterally Cardio: COMMON NORMALS: no JVD, regular rate, regular rhythm and No murmurs present (Cardio) RATE: regular rate RHYTHM: regular rhythm GI: COMMON NORMALS: Soft to palpation and No hepatosplenomegaly present AUSCULTATION: Yes normoactive bowel sounds PALPATION: Yes Soft to palpation, No Tenderness to palpation present (GI), No Guarding due to palpation present (GI) and Yes No hepatosplenomegaly present Extremity: COMMON NORMALS: normal to inspection, capillary refill normal, no clubbing, cyanosis or edema, no calf tenderness and no pedal edema Skin: COMMON NORMALS: no rashes or lesions noted GENERAL SKIN EXAM: no rashes or lesions noted Course Vital Signs: Vital signs: Vital Signs Temperature 97.9 F 12/09/21 12:47 Pulse Rate 110 H 12/09/21 17:38 Respiratory Rate 22 H 12/09/21 17:38 Blood Pressure 129/86 12/09/21 17:38 Pulse Oximetry 96 12/09/21 17:38 MDM - Fall Medical Decision Making Patient appears to have a UTI and is mildly dehydrated. I think he would benefit from admission. He is anemic and hypoxic slightly hyponatremic. He has a pattern consistent with heavy alcohol use I asked him specifically about it he admitted yes he does drink heavily and probably contributes to his falls. Talk to him about stopping and/or looking at a different level of care such as assisted living or even detention care. He adamantly refused and said he does not want to be admitted he wishes to go home. Family had called expressing concerns however no one arrived here to meet with me or with the patient. Unfortunately do not have any reason to require him to stay is no real indication for hospital admission he wishes to go. I do think he would benefit from some participation in alcohol abstinence as well as detention level of care but he is refusing can pursue this through his primary care physician. For now we will discharge him with Cipro. Discharge home with Padilla leg bag and referral to urology for follow-up continue tamsulosin increased 2.8 nightly Medical Records I reviewed the patient's medical records. Lab Data I reviewed the patient's lab results. : 12/09/21 13:51 12/09/21 13:[address] 12/09/21 13:10 IMPRESSION: 1. No evidence of intracranial hemorrhage or mass effect. 2. Moderate to advanced small vessel changes with moderate parenchymal volume loss. 3. Dense intracranial vascular calcification. 4. No acute intracranial findings. Pelvis X-Ray 12/09/21 14:30 IMPRESSION: No acute findings. Laboratory Results WBC 12.6 10^3/uL (4.0-10.0) H 12/09/21 13:51 RBC 3.66 10^6/uL (4.1-5.3) L 12/09/21 13:51 Hgb 10.9 g/dL (11.7-16.6) L 12/09/21 13:51 Hct 33.8 % (42.0-52.0) L 12/09/21 13:51 MCV 92.3 fl (80-94) 12/09/21 13:51 MCH 29.8 pg (28.0-34.0) 12/09/21 13:51 MCHC 32.2 g/dL (30.0-36.0) 12/09/21 13:51 RDW 15.2 % (12.1-15.1) H 12/09/21 13:51 Plt Count 217 10^3/cmm (130-400) 12/09/21 13:51 MPV 10.5 fL (7.4-10.4) H 12/09/21 13:51 Neut % (Auto) 87.1 % 12/09/21 13:51 Lymph % (Auto) 5.2 % 12/09/21 13:51 [place] % (Auto) 6.8 % 12/09/21 13:51 Eos % (Auto) 0.2 % 12/09/21 13:51 Baso % (Auto) 0.3 % 12/09/21 13:51 Neut # (Auto) 11.00 10^3/uL (1.8-7.7) H 12/09/21 13:51 Lymph # (Auto) 0.7 10^3/uL (0.8-4.8) L 12/09/21 13:51 [place] # (Auto) 0.9 10^3/uL (0.2-0.9) 12/09/21 13:51 Eos # (Auto) 0.0 10^3/uL (0.0-0.8) 12/09/21 13:51 Baso # (Auto) 0.0 10^3/uL (0.0-0.1) 12/09/21 13:51 Nucleated RBC % (auto) 0 % 12/09/21 13:51 Nucleated RBCs # 0.0 /100WBC 12/09/21 13:51 Sodium 133 mmol/L (136-145) L 12/09/21 13:51 Potassium 3.6 mmol/L (3.5-5.1) 12/09/21 13:51 Chloride 94 mmol/L (98-107) L 12/09/21 13:51 Carbon Dioxide 22 mmol/L (22-29) 12/09/21 13:51 Anion Gap 20.6 (5-19) H 12/09/21 13:51 BUN 45 mg/dL (8-23) H 12/09/21 13:51 Creatinine 1.5 mg/dL (0.7-1.2) H 12/09/21 13:51 GFR Calculation Not Reportable 12/09/21 13:51 Glucose 121 mg/dL (65-115) H 12/09/21 13:51 Calculated Osmolality 289 mOsm/kg (285-295) 12/09/21 13:51 Calcium 9.4 mg/dL (8.5-10.5) 12/09/21 13:51 Total Bilirubin 1.6 mg/dL (0.15-1.2) H 12/09/21 13:51 AST 30 U/L (0-40) 12/09/21 13:51 ALT 18 U/L (0-41) 12/09/21 13:51 Alkaline Phosphatase 87 IU/L (40-130) 12/09/21 13:51 Creatine Kinase 402 U/L (39-308) H* 12/09/21 13:51 CK-MB (CK-2) 7.1 ng/mL (0-10.4) 12/09/21 13:51 CK-MB (CK-2) Rel Index 1.7 % (0.0-5.3) 12/09/21 13:51 Total Protein 7.5 g/dL (6.6-8.7) 12/09/21 13:51 Albumin 4.3 g/dL (3.5-5.2) 12/09/21 13:51 Globulin 3.2 g/dL (1.3-4.6) 12/09/21 13:51 Urine Color Dark yellow (Yellow) 12/09/21 14:18 Urine Appearance Cloudy (CLEAR) 12/09/21 14:18 Urine pH 5 (5-7) 12/09/21 14:18 Ur Specific [place] 1.015 (1.005-1.030) 12/09/21 14:18 Urine Protein 1+ (Negative) H 12/09/21 14:18 Urine Glucose (UA) Norm (Normal) 12/09/21 14:18 Urine Ketones Negative (Negative) 12/09/21 14:18 Urine Blood 3+ (Negative) H 12/09/21 14:18 Urine Nitrate Negative (Negative) 12/09/21 14:18 Urine Bilirubin Neg (Negative) 12/09/21 14:18 Urine Urobilinogen Norm mg/dL (Negative) 12/09/21 14:18 Ur Leukocyte Esterase 2+ (Negative) H 12/09/21 14:18 Urine RBC 25-40 /hpf (0-2) H 12/09/21 14:18 Urine WBC Too numerous to cnt /hpf (0-5) H 12/09/21 14:18 Ur Squamous Epith Cells None /hpf (0-5) 12/09/21 14:18 Amorphous Sediment Not Reportable 12/09/21 14:18 Urine Bacteria 2+ /hpf (NONE) H 12/09/21 14:18 Discharge Plan Discharge Patient Disposition: Home Clinical Impression: Acute urinary retention, Cystitis Condition: Stable Prescriptions: New Cipro 500 mg tablet 500 mg PO BID Qty: 14 0RF No Action aspirin [Adult Aspirin Regimen] 81 mg tablet,delayed release (DR/EC) 81 mg PO QAM 0RF methenamine hippurate 1 gram tablet 1 g PO BID Qty: 60 12RF Rx Instructions: with 500 mg vitamin C each dose senna 8.6 mg capsule 17.2 mg PO DAILY PRN (Reason: Constipation) 0RF docusate sodium [Stool Softener] 100 mg capsule 300 mg PO DAILY PRN (Reason: Constipation) 0RF hydrochlorothiazide 25 mg tablet 25 mg PO QAM Qty: 90 3RF Eliquis 5 mg tablet 5 mg PO BID Qty: 180 3RF Vitamin C 500 mg Tablet 500 mg PO BID 0RF Vitamin D3 50 mcg (2,000 unit) Capsule 50 mcg PO QAM 0RF trazodone 50 mg tablet 50 mg PO BEDTIME 0RF atorvastatin 10 mg tablet 10 mg PO QPM 0RF diltiazem HCl 240 mg capsule,extended release 24 hr 240 mg PO QPM 0RF tamsulosin 0.4 mg capsule 0.4 mg PO BID 0RF pantoprazole 40 mg tablet,delayed release (DR/EC) 40 mg PO QPM 0RF metoprolol tartrate 50 mg tablet 50 mg PO BID 0RF duloxetine 60 mg capsule,delayed release(DR/EC) 60 mg PO QAM 0RF Discharge Orders: Discharge ED (Routine); Ordered 12/09/21 Ordered By: Kelvin Campbell Referrals: Michelle Nguyen, SUPERVISOR [facility] [Primary Care Provider] - Discharge Diet: Usual diet Discharge Activity: Resume usual activity Patient Instructions: Opioid Safety Activity Restrictions/Additional Instructions: Padilla leg bag for urinary retention continue tamsulosin. Start Cipro 500 twice daily for bladder infection. Follow-up with your primary care doctor within the week to reevaluate. Follow-up with Dr. Gaytan within the next 7 to 10 days to evaluate for removal of catheter. Coding Level of Care Code ED Community Music Therapist for [place] 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
--- NOTE | 2021-12-09 13:10 | CT_ITS ---
WS: [id number] CT HEAD TECHNIQUE: Noncontrast CT of the head obtained from the skullbase to the vertex. CLINICAL INFORMATION: fall, closed injury COMPARISON: June 18, 2021 DLP: 1217.[address] scans at [facility] use at least one of these dose optimization techniques: automated e xposure control; mA and/or kV adjustment per patient size (includes targeted exams where dose is matc hed to clinical indication); or iterative reconstruction. FINDINGS: No evidence of intracranial hemorrhage or mass effect. Ventricular system and basal cisterns are morocho nt. Moderate to advanced small vessel changes with moderate parenchymal volume loss. Intracranial vas cular calcification. No extra-axial fluid collections. No evidence of mass or mass effect. Paranasal sinuses and mastoid air cells are well aerated. .Normal visualized soft tissues. CT/CT head wo con* [id number] IMPRESSION: 1. No evidence of intracranial hemorrhage or mass effect. 2. Moderate to advanced small vessel changes with moderate parenchymal volume loss. 3. Dense intracranial vascular calcification. 4. No acute intracranial findings.
--- NOTE | 2021-12-09 13:10 | ECG_ITS ---
[facility] Test Date: 2021-12-09 Pat Name: Rúal Centeno Department: Room: Gender: Male Move Coordinator: : 1935 Requested By: Kelvin Rios Order Number: [id number] Ayden MD: Wilbert Doherty M.D. Measurements Intervals [place] Rate: P: IA: QRS: QRSD: T: QT: QTc: Interpretive Statements Possible atrial flutter with a fixed block ATYPICAL ECG Nonspecific ST-T changes WARNING: DATA QUALITY MAY AFFECT INTERPRETATION INTERPRETATION BASED ON A DEFAULT AGE OF 40 YEARS Compared to ECG 12/07/2021 01:50:45 There may not be a significant change Electronically Signed On 12-09-2021 20:24:54 CDT by Wilbert Doherty M.D. [email or web address] [email or web address] [facility] hospitalMiniBrakeglen[email or web address].[email or web address]/store/[id number] foote
--- NOTE | 2021-12-09 13:53 | PC.NURSE ---
PT PLACED ON CONTINUOUS SPO2, NIBP, AND CM.
[2021-12-09 14:00] VITALS: BP 144/77; PULSE 113; RESP 23; O2SAT 96
[2021-12-09 14:01] LABS: Basophils % 0.3 %; Eosinophils % 0.2 %; Hematocrit 33.8 % (42.0-52.0); Hemoglobin 10.9 g/dL (11.7-16.6); Lymphocytes # 0.7 10^3/uL (0.8-4.8); Lymphocytes % 5.2 %; Mean Corpuscular HGB Conc 32.2 g/dL (30.0-36.0); Mean Corpuscular Hemoglobin 29.8 pg (28.0-34.0); Mean Corpuscular Volume 92.3 fl (80-94); Mean Platelet Volume 10.5 fL (7.4-10.4); Monocytes # 0.9 10^3/uL (0.2-0.9); Monocytes % 6.8 %; Neutrophils % 87.1 %; Nucleated Red Blood Cells % 0 %; Platelet Count 217 10^3/cmm (130-400); Red Blood Count 3.66 10^6/uL (4.1-5.3); Red Cell Distribution Width 15.2 % (12.1-15.1); White Blood Count 12.6 10^3/uL (4.0-10.0)
[2021-12-09 14:23] LABS: Alanine Aminotransferase 18 U/L (0-41); Albumin Level 4.3 g/dL (3.5-5.2); Alkaline Phosphatase 87 IU/L (40-130); Aspartate Amino Transferase 30 U/L (0-40); Blood Urea Nitrogen 45 mg/dL (8-23); Calcium 9.4 mg/dL (8.5-10.5); Carbon Dioxide 22 mmol/L (22-29); Chloride 94 mmol/L (98-107); Globulin 3.2 g/dL (1.3-4.6); Glucose 121 mg/dL (65-115); Osmolality Calculated 289 mOsm/kg (285-295); Sodium 133 mmol/L (136-145); Total Bilirubin 1.6 mg/dL (0.15-1.2); Total Protein 7.5 g/dL (6.6-8.7)
--- NOTE | 2021-12-09 14:30 | XRR_ITS ---
PROCEDURE INFORMATION: Exam: XR Pelvis Exam date and time: 12/09/2021 1:52 PM Age: 86 years old Clinical indication: Pain and injury or trauma; Fall; Blunt trauma (contusions or hematomas); Bilateral; Pelvic region; Pelvic pain; Patient HX: AMS. Best images possible with PT constantly moving; Additional info: Pain/fall TECHNIQUE: Imaging protocol: XR pelvis. Views: 1 or 2 view. COMPARISON: CR XR hip BI 3-4V wo/w pel [id number] 04/03/2021 9:34 AM FINDINGS: Bones/joints: Osseous structures are intact. No acute fracture. Soft tissues: Unremarkable. XR/XR pelvis 1-2V* [id number] IMPRESSION: No acute findings.
[2021-12-09 14:48] LABS: Anion Gap 20.6 (5-19); Creatine Phosphokinase 402 U/L (39-308); Potassium 3.6 mmol/L (3.5-5.1)
--- NOTE | 2021-12-09 14:53 | PC.NURSE ---
CK of 402. physician notified. No new orders given at this time
[2021-12-09 15:00] VITALS: BP 116/69; PULSE 114; RESP 21; O2SAT 96
[2021-12-09 15:04] LABS: Bilirubin Urine Neg (Negative); Blood Urine 3+ (Negative); Glucose Urine UA Norm (Normal); Ketones Urine Negative (Negative); Nitrate Urine Negative (Negative); Protein Urine 1+ (Negative); Specific Gravity, Urine 1.015 (1.005-1.030); Urine Appearance Cloudy (CLEAR); Urine Color Dark Yellow (Yellow); Urobilinogen Urine Norm (Negative); pH Urine 5 (5-7)
[2021-12-09 15:05] LABS: Add Urine Microscopic? YES; Leukocyte Esterase Urine 2+ (Negative)
[2021-12-09 15:06] LABS: Add Urine Culture? Yes; Bacteria Urine 2+ /hpf; RBC Urine 25-40 /hpf (0-2); WBC Urine TOO NUMEROUS TO CNT /hpf (0-5)
[2021-12-09 15:11] LABS: CKMB 7.1 ng/mL (0-10.4); CKMB Relative Index 1.7 % (0.0-5.3)
--- NOTE | 2021-12-09 15:34 | PC.PHAR ---
pts daughter in law memo verified the pts medications
[2021-12-09 16:00] VITALS: BP 136/94; PULSE 112; O2SAT 96
--- NOTE | 2021-12-09 16:12 | PC.NURSE ---
PC TO TO DAUGHTER IN LAW. SHE VERBALIZED THAT HER WOULD COME SEMICONDUCTOR WAFERS ETCH OPERATOR PT.
--- NOTE | 2021-12-09 16:38 | PC.NURSE ---
after speaking with daughter in law dr. nolasco informed of pt condition per daughter inlaw while at bedside dr nolasco spoke with pt about long-term, etoh use, and retaining urine. vo from dr. nolasco to continue with dc.
[2021-12-09] MEDS: cefTRIAXone 1,000 MG in sodium chloride 0.9% (plus) 50 ML 100 MG IV (17:02)
[2021-12-09 17:38] VITALS: BP 129/86; PULSE 110; RESP 22; O2SAT 96
--- NOTE | 2021-12-10 09:59 | DCPLANNER ---
Addendum entered by Elzbieta Chang 01/14/22 21:54: Patient had a follow up appointment scheduled with Dr. Gaytan - patient did attend appointment. Addendum entered by Elzbieta Chang 12/11/21 11:18: Patient has a follow up appointment scheduled for Thursday, January 01, 2022 at 1:[address] Gaytan. Clinic will call patient with appointment information. Original Note: hotel office manager had message to schedule a follow up appointment for patient with Dr. Gaytan. hotel office manager emailed patients information to Esha Tello in the office of Dr. Gaytan. Patients information will be printed and reviewed. Clinic will call patient with appointment information.
== END 2021-12-09 17:45 | disposition home or self-care (01) ==
PROVIDERS: Emergency Provider Family Medicine; PCP Nurse Practitioner
DX: N30.90 Cystitis, unspecified without hematuria (principal); R33.9 Retention of urine, unspecified; Z79.82 Long term (current) use of aspirin; Z79.01 Long term (current) use of anticoagulants; I10 Essential (primary) hypertension; I25.10 Atherosclerotic heart disease of native coronary artery without angina pectoris; Z87.442 Personal history of urinary calculi
CPT/HCPCS: 51702; 70450; 72170; 80053; 81001; 82550; 82553; 85025; 87077; 87086; 87186; 93005; 96365; 99284; J0696

== ENCOUNTER → 2021-12-20 10:35 | Outpatient (BNVA) | payer MEDICARE, SELFPAY | PROVIDERS: PCP Nurse Practitioner; Visit Provider Internal Medicine | DX: I47.2 Ventricular tachycardia (principal); Z95.0 Presence of cardiac pacemaker ==

== ENCOUNTER 2022-01-28 04:46 | Emergency (ER) | payer MEDICARE, SELFPAY ==
[2022-01-28 04:47] VITALS: BP 133/106; PULSE 93; RESP 16; TEMP 36.7; O2SAT 96; BMI 25.0
--- NOTE | 2022-01-28 04:49 | ED_ITS ---
HPI - General Adult General: Chief complaint: General Medical Stated complaint: Padilla pulled out Time Seen by Provider: 01/28/22 04:49 Source: patient and EMS Mode of arrival: EMS Limitations: no limitations History of Present Illness: 86-year-old male has a history of chronic urinary retention he has a chronic indwelling Padilla that he states gets changed every month. He states when he woke up this morning he noticed that his Padilla became dislodged and was out. Patient called EMS because he states he is going to have to have that Padilla replaced denies any pain currently has no bleeding Associated symptoms: Deny chest pain, dyspnea, headache(s), nausea, rash or vomiting Review of Systems Const: Denies: fever(s), chills, body aches or change in appetite Eyes: Denies: blurry vision or eye discomfort ENMT: Denies: throat pain or dental pain Card: Denies: chest pain Resp: Denies: dyspnea GI: Denies: abdominal pain, nausea, vomiting or diarrhea : Denies: dysuria Musc: Denies: neck pain or back pain Skin/Breast: Denies: rash Neuro: Denies: headache(s) Psych: Denies: depression [place]/Lymph: Denies: easy bruising All/Imm: Denies: urticaria PFSH ED PFSH: Medical History Alcohol abuse, daily use Alcohol use disorder Ambulates with cane Atrial fibrillation Benign prostatic hyperplasia (BPH) with urinary urgency Bladder stone 3 large bladder stones treated with cystolitholapaxy 08/30/2020 BPH loc w urin obs/LUTS Chronic bladder outlet obstructive symptoms. Chronic constipation Elevated PSA Essential (primary) hypertension Generalized anxiety disorder History of coronary artery disease History of TB (tuberculosis) Insomnia Urge incontinence Urinary retention Urolithiasis Surgical History History of cataract left History of cervical spinal surgery History of heart bypass surgery x4 History of hernia repair Right Family History Mother , at age 84 Bleeding disorder Father , at age 94 Stroke Other Cancer Denies family history of Diabetes Dementia Hypertension Social History Smoking and tobacco status: never smoked Second hand smoke exposure: No Smoking risk assessment/counseling performed?: No Alcohol intake: current Desire information about alcohol rehabilitation?: No Counseling given: Yes Desire information about substance/drug rehabilitation?: No Counseling given: No Adopted: No Caregiver/support person: Yes Lives independently: No Household members: family Housing: House Marital status: / Number of children: 2 Current occupational status: retired History of recent travel: No ([place]) Current gender identity: Male Physical Exam Const: COMMON NORMALS: no acute distress, patient oriented x3 and healthy appearing HENMT: COMMON NORMALS: normocephalic and atraumatic HEAD & SCALP: normocephalic and atraumatic Eye: COMMON NORMALS: Equal, round and reactive pupils present and EOMs intact bilaterally PUPIL: Yes Equal, round and reactive pupils present Neck/C-Spine: COMMON NORMALS: full ROM and supple Chest: COMMONS NORMALS: normal inspection of the chest and normal palpation of entire chest wall Resp: COMMON NORMALS: normal respiratory effort, No retractions, No use of accessory muscles and clear to auscultation bilaterally AUSCULTATION: clear to auscultation bilaterally Cardio: COMMON NORMALS: regular rate, regular rhythm and No murmurs present (Cardio) RATE: regular rate RHYTHM: regular rhythm GI: COMMON NORMALS: Normal to inspection, nondistended, normoactive bowel sounds present, Soft to palpation, non-tender and no masses PALPATION: Yes Soft to palpation Extremity: COMMON NORMALS: normal to inspection and full ROM Neuro: COMMON NORMALS: patient oriented x3, moves all extremities and no focal motor deficits Psych: COMMON NORMALS: mental status grossly normal, Normal thought process present and cooperative THOUGHT PROCESS: Normal thought process present Skin: COMMON NORMALS: no rashes or lesions noted and no wounds GENERAL SKIN EXAM: no rashes or lesions noted Course Vital Signs: Vital signs: Vital Signs Temperature 98.0 F 01/28/22 04:47 Pulse Rate 93 01/28/22 04:47 Respiratory Rate 16 01/28/22 04:47 Blood Pressure 133/106 01/28/22 04:47 Pulse Oximetry 96 01/28/22 04:47 [facility] - General Adult Medical Decision Making Patient presents here with a dislodged Padilla catheter we did replace his catheter here with no difficulties he is stable for discharge follow-up with PCP and return if worsening Discharge Plan Discharge Patient Disposition: Home Clinical Impression: Dislodged Padilla catheter Condition: Stable Prescriptions: No Action aspirin [Adult Aspirin Regimen] 81 mg tablet,delayed release (DR/EC) 81 mg PO QAM 0RF methenamine hippurate 1 gram tablet 1 g PO BID Qty: 60 12RF Rx Instructions: with 500 mg vitamin C each dose senna 8.6 mg capsule 17.2 mg PO DAILY PRN (Reason: Constipation) 0RF docusate sodium [Stool Softener] 100 mg capsule 300 mg PO DAILY PRN (Reason: Constipation) 0RF hydrochlorothiazide 25 mg tablet 25 mg PO QAM Qty: 90 3RF Hold Instructions: Low Blood Pressure metoprolol tartrate 50 mg tablet 50 mg PO BID Qty: 60 2RF Eliquis 5 mg tablet 5 mg PO BID Qty: 180 3RF Vitamin C 500 mg Tablet 500 mg PO BID 0RF Vitamin D3 50 mcg (2,000 unit) Capsule 50 mcg PO QAM 0RF trazodone 50 mg tablet 50 mg PO BEDTIME 0RF atorvastatin 10 mg tablet 10 mg PO QPM 0RF diltiazem HCl 240 mg capsule,extended release 24 hr 240 mg PO QPM 0RF pantoprazole 40 mg tablet,delayed release (DR/EC) 40 mg PO QPM 0RF duloxetine 60 mg capsule,delayed release(DR/EC) 60 mg PO QAM 0RF Discharge Orders: Discharge ED (Routine); Ordered 01/28/22 Ordered By: Jigar Sumner Referrals: Michelle Nguyen, CHROMOSOMAL DISORDERS COUNSELOR-C [Primary Care Provider] - 1-3 days Discharge Diet: Advance as tolerated Discharge Activity: Resume usual activity Patient Instructions: Padilla Catheter Placement and Care (ED) Coding Level of Care Code ED Parts Clerk Plant Maintenance for [place] 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
[2022-01-28 04:52] VITALS: BP 140/81; PULSE 67; RESP 18; O2SAT 94
[2022-01-28 05:31] VITALS: BP 135/80; PULSE 64; O2SAT 98
== END 2022-01-28 05:34 | disposition home or self-care (01) ==
PROVIDERS: Emergency Provider Emergency Medicine; PCP Nurse Practitioner
DX: T83.021A Displacement of indwelling urethral catheter, initial encounter (principal); Z79.82 Long term (current) use of aspirin; Z79.01 Long term (current) use of anticoagulants; Z79.891 Long term (current) use of opiate analgesic
CPT/HCPCS: 51702; 99283

== ENCOUNTER → 2022-01-29 11:59 | Outpatient (BNVA) | payer MEDICARE, SELFPAY | PROVIDERS: PCP Nurse Practitioner; Visit Provider Nurse Practitioner | DX: N39.41 Urge incontinence (principal); N39.0 Urinary tract infection, site not specified | CPT/HCPCS: 81000; 87077; 87086; 87184 ==

== ENCOUNTER → 2022-02-05 15:33 | Outpatient (BNVA) | payer MEDICARE, SELFPAY | PROVIDERS: PCP Nurse Practitioner; Visit Provider Nurse Practitioner Family | DX: R33.9 Retention of urine, unspecified (principal) | CPT/HCPCS: G0463 ==

== ENCOUNTER → 2022-02-06 15:45 | Outpatient (BNVA) | payer MEDICARE, SELFPAY | PROVIDERS: PCP Nurse Practitioner; Visit Provider Nurse Practitioner | DX: I10 Essential (primary) hypertension (principal) | CPT/HCPCS: 80048 ==

== ENCOUNTER → 2022-02-26 15:12 | Outpatient (BNVA) | payer MEDICARE, SELFPAY | PROVIDERS: PCP Nurse Practitioner; Visit Provider Nurse Practitioner Family | DX: R33.9 Retention of urine, unspecified (principal); N39.9 Disorder of urinary system, unspecified | CPT/HCPCS: 51702 ==

== ENCOUNTER → 2022-03-21 10:27 | Outpatient (BNVA) | payer MEDICARE, SELFPAY | PROVIDERS: PCP Nurse Practitioner; Visit Provider Internal Medicine | DX: Z45.010 Encounter for checking and testing of cardiac pacemaker pulse generator [battery] (principal) | CPT/HCPCS: 93280 ==

== ENCOUNTER 2022-03-26 14:39 | Outpatient (CLI) | payer MEDICARE, SELFPAY ==
--- NOTE | 2022-03-26 15:15 | XR_ITS ---
WS: [id number] KUB, AP view, 03/26/2022 Clinical Data: UROLITHIASIS Comparison: KUB, 08/20/2021. Findings: No abnormal intraabdominal masses are seen. There is a round calcification lateral to the T11-T12 dis c level unchanged. There is no dilatated small bowel or evidence of obstruction. Fecal material and bowel gas obscure detail over both kidneys. Vascular calcification is seen. There is a large amount of fecal material throughout the colon. 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 XR/XR KUB [id number] Impression: Large amount of fecal material in the colon.
== END 2022-03-26 14:40 | disposition home or self-care (01) ==
PROVIDERS: PCP Nurse Practitioner; Visit Provider Urology
DX: N20.9 Urinary calculus, unspecified (principal)
CPT/HCPCS: 74018

== ENCOUNTER → 2022-03-26 15:12 | Outpatient (BNVA) | payer MEDICARE, SELFPAY | PROVIDERS: PCP Nurse Practitioner; Visit Provider Nurse Practitioner Family | DX: R33.9 Retention of urine, unspecified (principal) | CPT/HCPCS: 51702 ==

== ENCOUNTER 2022-03-28 16:12 | Emergency (ER) | payer MEDICARE, SELFPAY ==
[2022-03-28 16:57] VITALS: BP 102/69; PULSE 95; RESP 16; TEMP 37; O2SAT 96
--- NOTE | 2022-03-28 18:48 | ED_ITS ---
HPI - Male Genitourinary General: Chief complaint: Urogenital-Male Stated complaint: catheter not draining Time Seen by Provider: 03/28/22 18:32 Source: patient Mode of arrival: ambulatory Limitations: no limitations History of Present Illness: Patient is an 86-year-old male who presents to ED today along with his son for complaints that his Morales catheter is not draining. Patient has a chronic catheter due to chronic urinary retention. He states he gets this changed monthly at the [facility] urology clinic. He states that was changed approximately 2 days ago. He states normally he will have some bleeding following a catheter change secondary to him being on apixaban. Son states yesterday they began noticing the catheter not draining appropriately. They state his leg bag currently is full of bloody urine. He is not complaining of any flank pain or abdominal pain at this time. No fevers. Onset (ago): hour(s) Context: indwelling catheter Associated symptoms: Deny nausea or vomiting Review of Systems Const: Denies: fever(s), chills, body aches, fatigue or malaise Card: Denies: chest pain Resp: Denies: dyspnea GI: Denies: abdominal pain, nausea, vomiting or diarrhea : Reports: other (morales not draining, hematuria); Denies: flank pain Musc: Denies: back pain Skin/Breast: Denies: rash Neuro: Denies: headache(s) [facility] PFSH: Medical History Alcohol abuse, daily use Alcohol use disorder Ambulates with cane Atrial fibrillation Benign prostatic hyperplasia (BPH) with urinary urgency Bladder stone 3 large bladder stones treated with cystolitholapaxy 08/30/2020 BPH loc w urin obs/LUTS Chronic bladder outlet obstructive symptoms. Chronic constipation Elevated PSA Essential (primary) hypertension Generalized anxiety disorder History of coronary artery disease History of TB (tuberculosis) Insomnia Urge incontinence Urinary retention Urolithiasis Surgical History History of cataract left History of cervical spinal surgery History of heart bypass surgery x4 History of hernia repair Right Family History Mother , at age 84 Bleeding disorder Father , at age 94 Stroke Other Cancer Denies family history of Diabetes Dementia Hypertension Social History Smoking and tobacco status: never smoked Second hand smoke exposure: No Smoking risk assessment/counseling performed?: No Alcohol intake: current Desire information about alcohol rehabilitation?: No Counseling given: Yes Desire information about substance/drug rehabilitation?: No Counseling given: No Adopted: No Caregiver/support person: Yes Lives independently: No Household members: family Housing: House Marital status: / Number of children: 2 Current occupational status: retired History of recent travel: No ([place]) Current gender identity: Male Physical Exam Const: COMMON NORMALS: no acute distress, no limitations and alert GENERAL APPEARANCE: cooperative ORIENTATION/CONSCIOUSNESS: Yes awake, Yes oriented to person, Yes oriented to place and Yes oriented to time OTHER: hard of hearing Resp: COMMON NORMALS: normal respiratory effort and clear to auscultation bilaterally AUSCULTATION: clear to auscultation bilaterally Cardio: COMMON NORMALS: regular rate and regular rhythm RATE: regular rate RHYTHM: regular rhythm GI: COMMON NORMALS: Normal to inspection, nondistended, normoactive bowel sounds present, Soft to palpation, No hepatosplenomegaly present and no masses INSPECTION: Yes normal to inspection AUSCULTATION: Yes normoactive bowel sounds PALPATION: Yes Soft to palpation, Yes Tenderness to palpation present (GI) (suprapubic ) and Yes No hepatosplenomegaly present OTHER: morales cath with leg bag present; bag is full of blood colored urine; urethral meatus appears normal : COMMON NORMALS: Yes no CVA tenderness BLADDER/KIDNEY EXAM: Yes no CVA tenderness Back/Pelvis: COMMON NORMALS: no CVA tenderness Extremity: COMMON NORMALS: normal to inspection GENERAL: Yes normal exam except as noted Neuro: ERIN COMA SCALE: document GCS findings Erin coma scale eye opening: Spontaneous [place] coma scale verbal response: Orientated [place] coma scale motor response: Obey commands [place] coma scale total score: 15 SENSORIUM/ORIENTATION: Yes alert, Yes oriented to person, Yes oriented to place and Yes oriented to time Skin: COMMON NORMALS: no rashes or lesions noted GENERAL SKIN EXAM: no rashes or lesions noted Course Vital Signs: Vital signs: Vital Signs Temperature 98.6 F 03/28/22 16:57 Pulse Rate 95 03/28/22 16:57 Respiratory Rate 16 03/28/22 16:57 Blood Pressure 102/69 03/28/22 16:57 Pulse Oximetry 96 03/28/22 16:57 MDM - Male Medical Decision Making Catheter was irrigated until clear and is now draining well. basic labs/UA were ordered however patient does not want to stay for these and wants to go home. His vital signs are stable. He will leave AMA. Discharge Plan Discharge Patient Disposition: Left Against Medical Advice Clinical Impression: Obstructed Morales catheter, Chronic indwelling Morales catheter Condition: Stable Prescriptions: No Action aspirin [Adult Aspirin Regimen] 81 mg tablet,delayed release (DR/EC) 81 mg PO QAM 0RF methenamine hippurate 1 gram tablet 1 g PO BID Qty: 60 12RF Rx Instructions: with 500 mg vitamin C each dose furosemide [Lasix] 40 mg tablet 40 mg PO DAILY PRN (Reason: edema) Qty: 90 1RF senna 8.6 mg capsule 17.2 mg PO DAILY PRN (Reason: Constipation) 0RF docusate sodium [Stool Softener] 100 mg capsule 300 mg PO DAILY PRN (Reason: Constipation) 0RF hydrochlorothiazide 25 mg tablet 25 mg PO QAM Qty: 90 3RF Hold Instructions: Low Blood Pressure atorvastatin 10 mg tablet 10 mg PO .COMPLEX Qty: 90 1RF Rx Instructions: 10 mg PO daily in AM; diltiazem HCl 240 mg capsule,extended release 24 hr 240 mg PO DAILY Qty: 90 1RF metoprolol succinate 50 mg tablet extended release 24 hr 50 mg PO DAILY Qty: 90 1RF pantoprazole 40 mg tablet,delayed release (DR/EC) 40 mg PO DAILY Qty: 90 1RF Eliquis 5 mg tablet 5 mg PO BID Qty: 180 3RF duloxetine 60 mg capsule,delayed release(DR/EC) 60 mg PO QAM Qty: 30 2RF trazodone 50 mg tablet 50 mg PO BEDTIME Qty: 90 1RF Vitamin C 500 mg Tablet 500 mg PO BID 0RF Vitamin D3 50 mcg (2,000 unit) Capsule 50 mcg PO QAM 0RF Referrals: Michelle Nguyen, CULTURAL HISTORIAN-C [Primary Care Provider] - Coding Level of Care Code 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
[2022-03-28 20:20] LABS: Add Urine Microscopic? YES; Bilirubin Urine Neg (Negative); Blood Urine 3+ (Negative); Glucose Urine UA Norm (Normal); Ketones Urine 1+ (Negative); Leukocyte Esterase Urine 1+ (Negative); Nitrate Urine Negative (Negative); Protein Urine 3+ (Negative); Specific Gravity, Urine 1.015 (1.005-1.030); Urine Appearance Cloudy (CLEAR); Urine Color Red (Yellow); Urobilinogen Urine 1 mg/dL (Negative); pH Urine 5 (5-7)
[2022-03-28 20:39] LABS: Add Urine Culture? Yes; Bacteria Urine 2+ /hpf; Mucus Urine TRACE /hpf; RBC Urine TOO NUMEROUS TO CNT /hpf (0-2); Squamous Epithelial Cell Urine 0-4 /hpf (0-5); WBC Urine 15-25 /hpf (0-5)
== END 2022-03-28 19:59 | disposition left against medical advice (07) ==
PROVIDERS: Emergency Provider Physician Assistant; PCP Nurse Practitioner
DX: T83.098A Other mechanical complication of other urinary catheter, initial encounter (principal); Z53.21 Procedure and treatment not carried out due to patient leaving prior to being seen by health care provider; Z79.82 Long term (current) use of aspirin; Z79.01 Long term (current) use of anticoagulants; I10 Essential (primary) hypertension; I25.10 Atherosclerotic heart disease of native coronary artery without angina pectoris
CPT/HCPCS: 81001; 87077; 87086; 87186; 99282

== ENCOUNTER 2022-04-05 13:36 | Emergency (ER) | payer MEDICARE, SELFPAY ==
[2022-04-05 13:46] VITALS: BP 148/90; PULSE 103; RESP 18; O2SAT 95
--- NOTE | 2022-04-05 14:00 | W.ED.MALEGU ---
HPI - Male Genitourinary General: Chief complaint: Urogenital-Male Stated complaint: abdomen pain Time Seen by Provider: 04/05/22 13:48 Source: patient Mode of arrival: EMS Limitations: no limitations History of Present Illness: This patient is in the emergency department via EMS from his home because his Padilla catheter stopped draining. He states that he has had increasing abdominal pain and distention since last night. He denies any fevers or chills. He states he has a Padilla catheter due to the urologist placing it because of bladder stones. He denies any trauma or pulling on the catheter that he is aware. Duration: progressively worsening Associated symptoms: Deny nausea or vomiting Review of Systems Const: Denies: fever(s) or chills Eyes: Denies: change in vision ENMT: Denies: odynophagia or nasal congestion Card: Denies: chest pain, palpitations, irregular heart rhythm, edema or syncope Resp: Denies: dyspnea, productive cough or non-productive cough GI: Denies: nausea, vomiting or diarrhea : Reports: difficulty urinating and oliguria Musc: Denies: neck pain, back pain or extremity pain Skin/Breast: Denies: rash, pruritus or erythema Neuro: Denies: headache(s), numbness in extremities or weakness in extremities Francisco/Lymph: Reports: easy bruising PFSH ED PFSH: Medical History Alcohol abuse, daily use Alcohol use disorder Ambulates with cane Atrial fibrillation Benign prostatic hyperplasia (BPH) with urinary urgency Bladder stone 3 large bladder stones treated with cystolitholapaxy 08/30/2020 BPH loc w urin obs/LUTS Chronic bladder outlet obstructive symptoms. Chronic constipation Elevated PSA Essential (primary) hypertension Generalized anxiety disorder History of coronary artery disease History of TB (tuberculosis) Insomnia Urge incontinence Urinary retention Urolithiasis Surgical History History of cataract left History of cervical spinal surgery History of heart bypass surgery x4 History of hernia repair Right Family History Mother , at age 84 Bleeding disorder Father , at age 94 Stroke Other Cancer Denies family history of Diabetes Dementia Hypertension Social History Smoking and tobacco status: never smoked Second hand smoke exposure: No Smoking risk assessment/counseling performed?: No Alcohol intake: current Desire information about alcohol rehabilitation?: No Counseling given: Yes Desire information about substance/drug rehabilitation?: No Counseling given: No Adopted: No Caregiver/support person: Yes Lives independently: No Household members: family Housing: House Marital status: / Number of children: 2 Current occupational status: retired History of recent travel: No ([place]) Current gender identity: Male Physical Exam Narrative: EXAM NARRATIVE: The patient is alert makes good eye contact. He is uncomfortable and complains of pain in his lower abdomen. Const: COMMON NORMALS: patient oriented x3, healthy appearing and alert HENMT: COMMON NORMALS: normocephalic, atraumatic and moist oral mucous membranes HEAD & SCALP: normocephalic and atraumatic Eye: COMMON NORMALS: Equal, round and reactive pupils present, EOMs intact bilaterally and conjunctivae normal CONJUNCTIVA: Yes conjunctivae normal PUPIL: Yes Equal, round and reactive pupils present Neck/C-Spine: COMMON NORMALS: full ROM, supple and no JVD Chest: COMMONS NORMALS: normal inspection of the chest Resp: COMMON NORMALS: normal respiratory effort, No retractions and clear to auscultation bilaterally AUSCULTATION: clear to auscultation bilaterally Cardio: COMMON NORMALS: no JVD, regular rhythm, No murmurs present (Cardio) and Peripheral pulses 2+ throughout RHYTHM: regular rhythm PERIPHERAL PULSES: Peripheral pulses 2+ throughout GI: COMMON NORMALS: Soft to palpation, No hepatosplenomegaly present and no bruits PALPATION: Yes Soft to palpation, Yes No hepatosplenomegaly present and Yes Bladder palpation abnormal (Distended bladder noted) : COMMON NORMALS: Yes no CVA tenderness BLADDER/KIDNEY EXAM: Yes catheter in place, Yes no CVA tenderness and Yes Bladder palpation abnormal (Distended bladder noted) PENIS: normal penis and circumcised MEATUS: meatus normal and No Blood at meatus present Back/Pelvis: COMMON NORMALS: no CVA tenderness, no thoracic nor lumbar tenderness and thoraco-lumbar ROM normal Extremity: COMMON NORMALS: normal to inspection, capillary refill normal, no calf tenderness and no pedal edema Neuro: COMMON NORMALS: patient oriented x3, moves all extremities and no focal motor deficits SENSORIUM/ORIENTATION: Yes alert Skin: COMMON NORMALS: no rashes or lesions noted, no wounds, turgor normal and no jaundice GENERAL SKIN EXAM: no rashes or lesions noted and turgor normal Course Reevaluation(s): Reevaluation #1: Bedside ultrasound was used to visualize the urinary bladder. It was markedly distended and I was unable to visualize the Padilla balloon within the lumen. Syringe was used to remove water from the Padilla balloon and the Padilla was advanced approximately 5 cm without difficulty producing somewhat tea colored urine in the catheter. The balloon was then reinflated and a drainage bag was attached to the catheter. The patient subjectively stated he felt much better already. Time: 14:02 Reevaluation #2: Patient is noted to have some few minute clots in his Padilla and therefore his catheter was irrigated. No significant clots were returned after irrigation although urine still remains slightly pink-tinged. I feel that this is likely due to his Padilla being obstructed which was probably due to it being displaced or into the neck of the bladder or possibly into the prostate. Also because of the distention of the bladder is certainly not unusual to get some transient hematuria. Does not appear to be an ongoing process. This patient certainly has had his acute process resolved I think is stable to be discharged. I will have him hold his apixaban this evening. Time: 15:21 Vital Signs: Vital signs: Vital Signs Pulse Rate 103 H 04/05/22 13:46 Respiratory Rate 18 04/05/22 13:46 Blood Pressure 148/90 04/05/22 13:46 Pulse Oximetry 95 04/05/22 13:46 MDM - Male Medical Decision Making This patient presented to the emergency department with a Padilla catheter obstruction likely due to being displaced into the neck of the bladder into the prostate. After the catheter was balloon was deflated and the catheter was advanced without difficulty and the balloon removed inflated he drained urine to completely empty his bladder. He was noted to have some transient hematuria which cleared to pink each tinge after irrigation. Patient currently clinically stable at this time. No evidence of any other ongoing emergency medical condition at this time. Discharge Plan Discharge Patient Disposition: Home Clinical Impression: Urinary retention, Displacement of Padilla catheter Condition: Stable Prescriptions: No Action aspirin [Adult Aspirin Regimen] 81 mg tablet,delayed release (DR/EC) 81 mg PO QAM 0RF methenamine hippurate 1 gram tablet 1 g PO BID Qty: 60 12RF Rx Instructions: with 500 mg vitamin C each dose furosemide [Lasix] 40 mg tablet 40 mg PO DAILY PRN (Reason: edema) Qty: 90 1RF senna 8.6 mg capsule 17.2 mg PO DAILY PRN (Reason: Constipation) 0RF docusate sodium [Stool Softener] 100 mg capsule 300 mg PO DAILY PRN (Reason: Constipation) 0RF hydrochlorothiazide 25 mg tablet 25 mg PO QAM Qty: 90 3RF Hold Instructions: Low Blood Pressure atorvastatin 10 mg tablet 10 mg PO .COMPLEX Qty: 90 1RF Rx Instructions: 10 mg PO daily in AM; diltiazem HCl 240 mg capsule,extended release 24 hr 240 mg PO DAILY Qty: 90 1RF metoprolol succinate 50 mg tablet extended release 24 hr 50 mg PO DAILY Qty: 90 1RF pantoprazole 40 mg tablet,delayed release (DR/EC) 40 mg PO DAILY Qty: 90 1RF Eliquis 5 mg tablet 5 mg PO BID Qty: 180 3RF duloxetine 60 mg capsule,delayed release(DR/EC) 60 mg PO QAM Qty: 30 2RF trazodone 50 mg tablet 50 mg PO BEDTIME Qty: 90 1RF Vitamin C 500 mg Tablet 500 mg PO BID 0RF Vitamin D3 50 mcg (2,000 unit) Capsule 50 mcg PO QAM 0RF Discharge Orders: Discharge ED (Routine); Ordered 04/05/22 Ordered By: Ace Corey Referrals: Michelle Nguyen, ONLINE MERCHANDISING SPECIALIST-C [Primary Care Provider] - Discharge Diet: Usual diet Discharge Activity: Increase activity as tolerated Patient Instructions: Opioid Safety Activity Restrictions/Additional Instructions: Do not take your apixaban tonight. You may take all your other usual medications this evening. You may resume your apixaban tomorrow on his regular dosing schedule. If you do develop recurrent or continuing problems with your Padilla catheter return to this or the nearest emergency department. If you develop fevers or other concerns return to this or the nearest emergency department. 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
--- NOTE | 2022-04-05 15:21 | PC.NURSE ---
irrigated morales with 1000ml of ns per dr. navarrete vo.
[2022-04-05 15:35] VITALS: BP 133/76; PULSE 80; RESP 19; O2SAT 96
--- NOTE | 2022-04-05 16:02 | PC.NURSE ---
PC TO ANTHONY OLIVER SON PER PT REQUEST. HE VERBALIZED HE WAS ON HIS WAY TO PICK PT UP.
== END 2022-04-05 17:24 | disposition home or self-care (01) ==
PROVIDERS: Emergency Provider Emergency Medicine; PCP Nurse Practitioner
DX: R33.9 Retention of urine, unspecified (principal); T83.028A Displacement of other urinary catheter, initial encounter; Z79.82 Long term (current) use of aspirin; Z79.01 Long term (current) use of anticoagulants; I10 Essential (primary) hypertension; I25.10 Atherosclerotic heart disease of native coronary artery without angina pectoris
CPT/HCPCS: 99282

== ENCOUNTER 2022-05-01 08:34 | Emergency (ER) | payer MEDICARE, SELFPAY ==
[2022-05-01 08:37] VITALS: BMI 24.9
--- NOTE | 2022-05-01 08:40 | XR_ITS ---
WS: [id number] XR KUB portable [id number] REASON FOR EXAM: abd pain FINDINGS: The abdomen is unchanged compared to the previous examination of 03/26/2022. No free air or evidence of obstruction. Large amount of fecal material in the rectal vault, descending colon, and transverse colon. Large calculus again noted in the right upper quadrant. XR/XR KUB portable [id number] IMPRESSION: No acute abdominal abnormality.
[2022-05-01 08:45] VITALS: BP 156/91; PULSE 97; RESP 20; TEMP 36.8; O2SAT 99
--- NOTE | 2022-05-01 08:55 | W.ED.MALEGU ---
HPI - Male Genitourinary General: Chief complaint: Urogenital-Male Stated complaint: LOWER ABD PAIN, URINARY RETENTION Time Seen by Provider: 05/01/22 08:36 Source: patient Mode of arrival: EMS Limitations: no limitations History of Present Illness: 86-year-old male who has had a Padilla in place for months he states that he believes it is clogged as he has had no output since benign he states he is having some lower abdominal pain as well and feels like he is having urinary retention he states he is also had constipation for a few days he rates his pain a 4 out of 10 denies any vomiting denies any fever denies any worsening improving factors. Review of Systems Const: Denies: fever(s), chills, body aches or change in appetite Eyes: Denies: blurry vision or eye discomfort ENMT: Denies: throat pain or dental pain Card: Denies: chest pain Resp: Denies: dyspnea GI: Reports: abdominal pain and constipation : Reports: difficulty urinating Musc: Denies: neck pain or back pain Skin/Breast: Denies: rash Neuro: Denies: headache(s) Psych: Denies: depression Francisco/Lymph: Denies: easy bruising All/Imm: Denies: urticaria PFSH ED PFSH: Medical History Alcohol abuse, daily use Alcohol use disorder Ambulates with cane Atrial fibrillation Benign prostatic hyperplasia (BPH) with urinary urgency Bladder stone 3 large bladder stones treated with cystolitholapaxy 08/30/2020 BPH loc w urin obs/LUTS Chronic bladder outlet obstructive symptoms. Chronic constipation Elevated PSA Essential (primary) hypertension Generalized anxiety disorder History of coronary artery disease History of TB (tuberculosis) Insomnia Urge incontinence Urinary retention Urolithiasis Surgical History History of cataract left History of cervical spinal surgery History of heart bypass surgery x4 History of hernia repair Right Family History Mother , at age 84 Bleeding disorder Father , at age 94 Stroke Other Cancer Denies family history of Diabetes Dementia Hypertension Social History Smoking and tobacco status: never smoked Second hand smoke exposure: No Smoking risk assessment/counseling performed?: No Alcohol intake: current Desire information about alcohol rehabilitation?: No Counseling given: Yes Desire information about substance/drug rehabilitation?: No Counseling given: No Adopted: No Caregiver/support person: Yes Lives independently: No Household members: family Housing: House Marital status: / Number of children: 2 Current occupational status: retired History of recent travel: No ([place]) Current gender identity: Male Physical Exam Const: COMMON NORMALS: no acute distress, patient oriented x3 and healthy appearing HENMT: COMMON NORMALS: normocephalic and atraumatic HEAD & SCALP: normocephalic and atraumatic Eye: COMMON NORMALS: Equal, round and reactive pupils present and EOMs intact bilaterally PUPIL: Yes Equal, round and reactive pupils present Neck/C-Spine: COMMON NORMALS: full ROM and supple Chest: COMMONS NORMALS: normal inspection of the chest and normal palpation of entire chest wall Resp: COMMON NORMALS: normal respiratory effort, No retractions, No use of accessory muscles and clear to auscultation bilaterally AUSCULTATION: clear to auscultation bilaterally Cardio: COMMON NORMALS: regular rate, regular rhythm and No murmurs present (Cardio) RATE: regular rate RHYTHM: regular rhythm GI: COMMON NORMALS: Normal to inspection, nondistended, normoactive bowel sounds present, Soft to palpation, non-tender and no masses PALPATION: Yes Soft to palpation Extremity: COMMON NORMALS: normal to inspection and full ROM Neuro: COMMON NORMALS: patient oriented x3, moves all extremities and no focal motor deficits Psych: COMMON NORMALS: mental status grossly normal, Normal thought process present and cooperative THOUGHT PROCESS: Normal thought process present Skin: COMMON NORMALS: no rashes or lesions noted and no wounds GENERAL SKIN EXAM: no rashes or lesions noted Course Vital Signs: Vital signs: Vital Signs Temperature 98.3 F 05/01/22 08:45 Pulse Rate 81 05/01/22 10:33 Respiratory Rate 18 05/01/22 10:33 Blood Pressure 150/89 05/01/22 10:33 Pulse Oximetry 100 05/01/22 10:33 Oxygen Delivery Me thod 05/01/22 10:33 [facility] - Male Medical Decision Making Patient presents here with urinary retention urinary retention. Did change his Padilla out he had 1100 out and feels much improved. His exam at discharge is benign he is stable for discharge he is to follow-up with Dr. Gaytan and return if worsening he understands agrees to plan. Lab Data : 05/01/22 09:39 05/01/22 09:39 Radiology Impressions KUB X-Ray 05/01/22 08:40 IMPRESSION: No acute abdominal abnormality. Laboratory Results WBC 9.1 10^3/uL (4.0-10.0) 05/01/22 09:39 RBC 3.86 10^6/uL (4.1-5.3) L 05/01/22 09:39 Hgb 10.7 g/dL (11.7-16.6) L 05/01/22 09:39 Hct 34.6 % (42.0-52.0) L 05/01/22 09:39 MCV 89.6 fl (80-94) 05/01/22 09:39 MCH 27.7 pg (28.0-34.0) L 05/01/22 09:39 MCHC 30.9 g/dL (30.0-36.0) 05/01/22 09:39 RDW 15.4 % (12.1-15.1) H 05/01/22 09:39 Plt Count 262 10^3/cmm (130-400) 05/01/22 09:39 MPV 10.3 fL (7.4-10.4) 05/01/22 09:39 Neut % (Auto) 75.2 % 05/01/22 09:39 Lymph % (Auto) 14.3 % 05/01/22 09:39 [place] % (Auto) 7.1 % 05/01/22 09:39 Eos % (Auto) 2.4 % 05/01/22 09:39 Baso % (Auto) 0.7 % 05/01/22 09:39 Neut # (Auto) 6.85 10^3/uL (1.8-7.7) 05/01/22 09:39 Lymph # (Auto) 1.3 10^3/uL (0.8-4.8) 05/01/22 09:39 [place] # (Auto) 0.7 10^3/uL (0.2-0.9) 05/01/22 09:39 Eos # (Auto) 0.2 10^3/uL (0.0-0.8) 05/01/22 09:39 Baso # (Auto) 0.1 10^3/uL (0.0-0.1) 05/01/22 09:39 Nucleated RBC % (auto) 0 % 05/01/22 09:39 Nucleated RBCs # 0.0 /100WBC 05/01/22 09:39 Sodium 140 mmol/L (136-145) 05/01/22 09:39 Potassium 4.0 mmol/L (3.5-5.1) 05/01/22 09:39 Chloride 102 mmol/L (98-107) 05/01/22 09:39 Carbon Dioxide 20 mmol/L (22-29) L 05/01/22 09:39 Anion Gap 22.0 (5-19) H 05/01/22 09:39 BUN 30 mg/dL (8-23) H 05/01/22 09:39 Creatinine 0.8 mg/dL (0.7-1.2) 05/01/22 09:39 GFR Calculation Not Reportable 05/01/22 09:39 Glucose 102 mg/dL (65-115) 05/01/22 09:39 Calculated Osmolality 296 mOsm/kg (285-295) H 05/01/22 09:39 Calcium 9.2 mg/dL (8.5-10.5) 05/01/22 09:39 Total Bilirubin 0.4 mg/dL (0.15-1.2) 05/01/22 09:39 AST 20 U/L (0-40) 05/01/22 09:39 ALT 13 U/L (0-41) 05/01/22 09:39 Alkaline Phosphatase 112 IU/L (40-130) 05/01/22 09:39 Total Protein 8.2 g/dL (6.6-8.7) 05/01/22 09:39 Albumin 4.3 g/dL (3.5-5.2) 05/01/22 09:39 Globulin 3.9 g/dL (1.3-4.6) 05/01/22 09:39 Lipase 39 U/L (13-60) 05/01/22 09:39 Discharge Plan Discharge Patient Disposition: Home Clinical Impression: Acute retention of urine, Constipation Condition: Stable Prescriptions: No Action aspirin [Adult Aspirin Regimen] 81 mg tablet,delayed release (DR/EC) 81 mg PO QAM methenamine hippurate 1 gram tablet 1 g PO BID Qty: 60 12RF Rx Instructions: with 500 mg vitamin C each dose furosemide [Lasix] 40 mg tablet 40 mg PO DAILY PRN (Reason: edema) Qty: 90 1RF senna 8.6 mg capsule 17.2 mg PO DAILY PRN (Reason: Constipation) docusate sodium [Stool Softener] 100 mg capsule 300 mg PO DAILY PRN (Reason: Constipation) hydrochlorothiazide 25 mg tablet 25 mg PO QAM Qty: 90 3RF Hold Instructions: Low Blood Pressure atorvastatin 10 mg tablet 10 mg PO .COMPLEX Qty: 90 1RF Rx Instructions: 10 mg PO daily in AM; diltiazem HCl 240 mg capsule,extended release 24 hr 240 mg PO DAILY Qty: 90 1RF metoprolol succinate 50 mg tablet extended release 24 hr 50 mg PO DAILY Qty: 90 1RF pantoprazole 40 mg tablet,delayed release (DR/EC) 40 mg PO DAILY Qty: 90 1RF Eliquis 5 mg tablet 5 mg PO BID Qty: 180 3RF duloxetine 60 mg capsule,delayed release(DR/EC) 60 mg PO QAM Qty: 30 2RF trazodone 50 mg tablet 50 mg PO BEDTIME Qty: 90 1RF Vitamin C 500 mg Tablet 500 mg PO BID Vitamin D3 50 mcg (2,000 unit) Capsule 50 mcg PO QAM Discharge Orders: Discharge ED (Routine); Ordered 05/01/22 Ordered By: Jigar Sumner Referrals: Michelle Nguyen FNP-C [Primary Care Provider] - Jonah Gaytan MD [Physician] - 1-3 days Discharge Diet: Advance as tolerated Discharge Activity: Resume usual activity Patient Instructions: Urinary Retention in Men (ED) Coding Level of Care Code ED Mail Sorter And Delivery for [place] [facility] Exam Comprehensive
[2022-05-01 09:44] VITALS: BP 153/98; PULSE 105; O2SAT 96
[2022-05-01 09:53] LABS: Basophils # 0.1 10^3/uL (0.0-0.1); Basophils % 0.7 %; Eosinophils # 0.2 10^3/uL (0.0-0.8); Eosinophils % 2.4 %; Hematocrit 34.6 % (42.0-52.0); Hemoglobin 10.7 g/dL (11.7-16.6); Lymphocytes # 1.3 10^3/uL (0.8-4.8); Lymphocytes % 14.3 %; Mean Corpuscular HGB Conc 30.9 g/dL (30.0-36.0); Mean Corpuscular Hemoglobin 27.7 pg (28.0-34.0); Mean Corpuscular Volume 89.6 fl (80-94); Mean Platelet Volume 10.3 fL (7.4-10.4); Monocytes # 0.7 10^3/uL (0.2-0.9); Monocytes % 7.1 %; Neutrophils # 6.85 10^3/uL (1.8-7.7); Neutrophils % 75.2 %; Nucleated Red Blood Cells % 0 %; Platelet Count 262 10^3/cmm (130-400); Red Blood Count 3.86 10^6/uL (4.1-5.3); Red Cell Distribution Width 15.4 % (12.1-15.1); White Blood Count 9.1 10^3/uL (4.0-10.0)
[2022-05-01 10:30] VITALS: O2SAT 98
[2022-05-01 10:33] VITALS: BP 150/89; PULSE 81; RESP 18; O2SAT 100
[2022-05-01 10:36] LABS: Alanine Aminotransferase 13 U/L (0-41); Albumin Level 4.3 g/dL (3.5-5.2); Alkaline Phosphatase 112 IU/L (40-130); Aspartate Amino Transferase 20 U/L (0-40); Blood Urea Nitrogen 30 mg/dL (8-23); Calcium 9.2 mg/dL (8.5-10.5); Carbon Dioxide 20 mmol/L (22-29); Chloride 102 mmol/L (98-107); Globulin 3.9 g/dL (1.3-4.6); Glucose 102 mg/dL (65-115); Lipase 39 U/L (13-60); Osmolality Calculated 296 mOsm/kg (285-295); Sodium 140 mmol/L (136-145); Total Bilirubin 0.4 mg/dL (0.15-1.2); Total Protein 8.2 g/dL (6.6-8.7)
[2022-05-01] MEDS: lactulose oral liq 20 gm/30 mL UDC 30 GM PO (10:39)
[2022-05-01 10:47] LABS: Add Urine Microscopic? YES; Bilirubin Urine Neg (Negative); Blood Urine 3+ (Negative); Glucose Urine UA Norm (Normal); Ketones Urine Negative (Negative); Leukocyte Esterase Urine 2+ (Negative); Nitrate Urine Positive (Negative); Protein Urine 2+ (Negative); Specific Gravity, Urine 1.015 (1.005-1.030); Urine Appearance Hazy (CLEAR); Urine Color Yellow (Yellow); Urobilinogen Urine Norm (Negative); pH Urine 5 (5-7)
[2022-05-01 11:00] VITALS: BP 150/89; O2SAT 97
[2022-05-01 11:01] LABS: Add Urine Culture? Yes; Bacteria Urine 3+ /hpf; RBC Urine TOO NUMEROUS TO CNT /hpf (0-2); Squamous Epithelial Cell Urine 0-4 /hpf (0-5); WBC Urine TOO NUMEROUS TO CNT /hpf (0-5)
--- NOTE | 2022-05-01 11:03 | PC.NURSE ---
Spoke with daughter in law, Ivon who will be coming to pick patient. Discussed follow up plan, education given on morales catheter care.
[2022-05-01 12:27] VITALS: BP 143/99; PULSE 94; RESP 18; O2SAT 96
== END 2022-05-01 12:30 | disposition home or self-care (01) ==
PROVIDERS: Emergency Provider Emergency Medicine; PCP Nurse Practitioner
DX: K59.00 Constipation, unspecified (principal); R33.9 Retention of urine, unspecified; Z79.82 Long term (current) use of aspirin; Z79.01 Long term (current) use of anticoagulants; I10 Essential (primary) hypertension; I25.10 Atherosclerotic heart disease of native coronary artery without angina pectoris
CPT/HCPCS: 51702; 74018; 80053; 81001; 83690; 85025; 87077; 87086; 87186; 99284

== ENCOUNTER → 2022-05-12 13:14 | Outpatient (BNVA) | payer MEDICARE, SELFPAY | PROVIDERS: PCP Nurse Practitioner; Visit Provider Urology | DX: N45.1 Epididymitis (principal); R33.9 Retention of urine, unspecified; N30.01 Acute cystitis with hematuria; N20.9 Urinary calculus, unspecified | CPT/HCPCS: 99213 ==

== ENCOUNTER → 2022-05-28 10:21 | Outpatient (BNVA) | payer MEDICARE, SELFPAY | PROVIDERS: PCP Nurse Practitioner; Visit Provider Nurse Practitioner Family | DX: R33.9 Retention of urine, unspecified (principal); N45.1 Epididymitis | CPT/HCPCS: 51702; 99212 ==

== ENCOUNTER 2022-06-17 08:42 | Emergency (ER) | payer MEDICARE, SELFPAY ==
[2022-06-17 08:56] VITALS: BP 140/76; PULSE 88; RESP 18; TEMP 36.4; O2SAT 96
[2022-06-17 09:07] VITALS: BP 140/76; PULSE 78; RESP 16; O2SAT 98
--- NOTE | 2022-06-17 09:18 | ED_ITS ---
HPI - Male Genitourinary General: Chief complaint: Urogenital-Male Stated complaint: Abd pain, blood urine Time Seen by Provider: 06/17/22 08:51 Source: patient Mode of arrival: ambulatory History of Present Illness: 86-year-old male with history of chronic urinary retention with indwelling Padilla. Over the last 12 hours he has had little to no output and has been somewhat bloody he has had problems in the past with clots and having to have a urine flash. He usually gets that catheter changed to the beginning of every month he had a change done May 28 last. He is currently on apixaban 5 mg twice daily. He denies any dysuria urgency or frequency or flank pain did have a lot of abdominal pain and cramping when he first arrived today. Onset (ago): hour(s) Duration: constant Location: abdomen Severity: moderate Quality: aching Relieving factors: none Exacerbating factors: none Associated symptoms: Reports hematuria; Deny discharge, dysuria, fevers/chills, nausea, rash, swelling, urinary incontinence, urinary retention, mass or vomiting Review of Systems Const: Denies: fever(s), chills, body aches, change in appetite, fatigue or malaise ENMT: Denies: throat pain, ear or mastoid pain, nasal discharge or nasal congestion Card: Denies: chest pain, edema, dyspnea on exertion or orthopnea Resp: Denies: dyspnea, productive cough or non-productive cough GI: Denies: nausea or vomiting : Reports: difficulty urinating and hematuria; Denies: flank pain, dysuria, urinary frequency, urinary urgency or urinary incontinence Skin/Breast: Denies: rash or pruritus [facility] ED PFSH: Medical History Alcohol abuse, daily use Alcohol use disorder Ambulates with cane Atrial fibrillation Benign prostatic hyperplasia (BPH) with urinary urgency Bladder stone 3 large bladder stones treated with cystolitholapaxy 08/30/2020 BPH loc w urin obs/LUTS Chronic bladder outlet obstructive symptoms. Chronic constipation Elevated PSA Essential (primary) hypertension Generalized anxiety disorder History of coronary artery disease History of TB (tuberculosis) Insomnia Urge incontinence Urinary retention Urolithiasis Surgical History History of cataract left History of cervical spinal surgery History of heart bypass surgery x4 History of hernia repair Right Family History Mother , at age 84 Bleeding disorder Father , at age 94 Stroke Other Cancer Denies family history of Diabetes Dementia Hypertension Social History Smoking and tobacco status: never smoked Second hand smoke exposure: No Smoking risk assessment/counseling performed?: No Alcohol intake: current Desire information about alcohol rehabilitation?: No Counseling given: Yes Desire information about substance/drug rehabilitation?: No Counseling given: No Adopted: No Caregiver/support person: Yes Lives independently: No Household members: family Housing: House Marital status: / Number of children: 2 Current occupational status: retired History of recent travel: No ([place]) Current gender identity: Male Physical Exam Const: COMMON NORMALS: no acute distress GENERAL APPEARANCE: cooperative and comfortable ORIENTATION/CONSCIOUSNESS: Yes awake, Yes oriented to person, Yes oriented to place and Yes oriented to time HENMT: COMMON NORMALS: normocephalic and atraumatic HEAD & SCALP: normocephalic and atraumatic Resp: COMMON NORMALS: normal respiratory effort, No retractions, No use of accessory muscles and clear to auscultation bilaterally AUSCULTATION: clear to auscultation bilaterally Cardio: COMMON NORMALS: regular rate, regular rhythm and No murmurs present (Cardio) RATE: regular rate RHYTHM: regular rhythm GI: COMMON NORMALS: No hepatosplenomegaly present AUSCULTATION: Yes normoactive bowel sounds PALPATION: Yes Tenderness to palpation present (GI) (Suprapubic bladder palpable nearly to the level of the umbilicus), No Guarding due to palpation present (GI) and Yes No hepatosplenomegaly present Extremity: COMMON NORMALS: normal to inspection, capillary refill normal, no clubbing, cyanosis or edema, no calf tenderness and no pedal edema Neuro: SENSORIUM/ORIENTATION: Yes oriented to person, Yes oriented to place and Yes oriented to time Skin: COMMON NORMALS: no rashes or lesions noted GENERAL SKIN EXAM: no rashes or lesions noted Course Vital Signs: Vital signs: Vital Signs Temperature 97.6 F 06/17/22 08:56 Pulse Rate 68 06/17/22 13:02 Respiratory Rate 16 06/17/22 09:07 Blood Pressure 148/74 06/17/22 13:02 Pulse Oximetry 96 06/17/22 12:07 Oxygen Delivery Me thod 06/17/22 08:56 MDM - Male Medical Decision Making Catheter irrigated and is no longer able to flush out some clots he is able to drain his bladder. We will discharge patient home discussed with Dr. Gaytan does not need to have any sooner follow-up unless he has further problems or further issues the catheter draining return to the emergency room or follow-up with Dr. Gaytan. Medical Records I reviewed the patient's medical records. Lab Data I reviewed the patient's lab results. : 06/17/22 10:19 06/17/22 10:19 Laboratory Results WBC 9.6 10^3/uL (4.0-10.0) 06/17/22 10:19 RBC 3.83 10^6/uL (4.1-5.3) L 06/17/22 10:19 Hgb 10.4 g/dL (11.7-16.6) L 06/17/22 10:19 Hct 33.4 % (42.0-52.0) L 06/17/22 10:19 MCV 87.2 fl (80-94) 06/17/22 10:19 MCH 27.2 pg (28.0-34.0) L 06/17/22 10:19 MCHC 31.1 g/dL (30.0-36.0) 06/17/22 10:19 RDW 16.9 % (12.1-15.1) H 06/17/22 10:19 Plt Count 223 10^3/cmm (130-400) 06/17/22 10:19 MPV 11.2 fL (7.4-10.4) H 06/17/22 10:19 Neut % (Auto) 77.1 % 06/17/22 10:19 Lymph % (Auto) 11.1 % 06/17/22 10:19 [place] % (Auto) 9.3 % 06/17/22 10:19 Eos % (Auto) 1.8 % 06/17/22 10:19 Baso % (Auto) 0.5 % 06/17/22 10:19 Neut # (Auto) 7.39 10^3/uL (1.8-7.7) 06/17/22 10:19 Lymph # (Auto) 1.1 10^3/uL (0.8-4.8) 06/17/22 10:19 [place] # (Auto) 0.9 10^3/uL (0.2-0.9) 06/17/22 10:19 Eos # (Auto) 0.2 10^3/uL (0.0-0.8) 06/17/22 10:19 Baso # (Auto) 0.1 10^3/uL (0.0-0.1) 06/17/22 10:19 Nucleated RBC % (auto) 0 % 06/17/22 10:19 Nucleated RBCs # 0.0 /100WBC 06/17/22 10:19 Sodium 140 mmol/L (136-145) 06/17/22 10:19 Potassium 3.4 mmol/L (3.5-5.1) L 06/17/22 10:19 Chloride 99 mmol/L (98-107) 06/17/22 10:19 Carbon Dioxide 26 mmol/L (22-29) 06/17/22 10:19 Anion Gap 18.4 (5-19) 06/17/22 10:19 BUN 26 mg/dL (8-23) H 06/17/22 10:19 Creatinine 1.2 mg/dL (0.7-1.2) 06/17/22 10:19 GFR Calculation Not Reportable 06/17/22 10:19 Glucose 120 mg/dL (65-115) H 06/17/22 10:19 Calculated Osmolality 296 mOsm/kg (285-295) H 06/17/22 10:19 Calcium 9.6 mg/dL (8.5-10.5) 06/17/22 10:19 Urine Color Yellow (Yellow) 06/17/22 09:47 Urine Appearance Sl hazy (CLEAR) 06/17/22 09:47 Urine pH 5 (5-7) 06/17/22 09:47 Ur Specific [place] 1.015 (1.005-1.030) 06/17/22 09:47 Urine Protein 1+ (Negative) H 06/17/22 09:47 Urine Glucose (UA) Norm (Normal) 06/17/22 09:47 Urine Ketones Negative (Negative) 06/17/22 09:47 Urine Blood 3+ (Negative) H 06/17/22 09:47 Urine Nitrate Positive (Negative) H 06/17/22 09:47 Urine Bilirubin Neg (Negative) 06/17/22 09:47 Urine Urobilinogen Norm mg/dL (Negative) 06/17/22 09:47 Ur Leukocyte Esterase 1+ (Negative) H 06/17/22 09:47 Urine RBC >100 /hpf (0-2) H 06/17/22 09:47 Urine WBC >100 /hpf (0-5) H 06/17/22 09:47 Ur Squamous Epith Cells 0-4 /hpf (0-5) H 06/17/22 09:47 Amorphous Sediment Not Reportable 06/17/22 09:47 Urine Bacteria 2+ /hpf (NONE) H 06/17/22 09:47 Discharge Plan Discharge Patient Disposition: Home Clinical Impression: Acute urinary retention, Hematuria, Chronic anticoagulation, Cystitis Condition: Stable Prescriptions: New Cipro 500 mg tablet 500 mg PO BID Qty: 20 0RF No Action aspirin [Adult Aspirin Regimen] 81 mg tablet,delayed release (DR/EC) 81 mg PO QAM methenamine hippurate 1 gram tablet 1 g PO BID Qty: 60 12RF Rx Instructions: with 500 mg vitamin C each dose docusate sodium [Stool Softener] 100 mg capsule 300 mg PO DAILY PRN (Reason: Constipation) diltiazem HCl 240 mg capsule,extended release 24 hr 240 mg PO DAILY Qty: 90 1RF metoprolol succinate 50 mg tablet extended release 24 hr 50 mg PO DAILY Qty: 90 1RF pantoprazole 40 mg tablet,delayed release (DR/EC) 40 mg PO DAILY Qty: 90 1RF (DME) DME: Walker Unit See Rx Instructions .ROUTE .MEDSUPPLY Qty: 1 0RF Rx Instructions: Code E0143 and E0156 walker 4 wheels and seat Eliquis 5 mg tablet 5 mg PO BID Qty: 180 3RF trazodone 50 mg tablet 50 mg PO BEDTIME Qty: 90 1RF duloxetine 60 mg capsule,delayed release(DR/EC) 60 mg PO QAM Qty: 30 2RF Lasix 40 mg tablet 40 mg PO DAILY atorvastatin 10 mg tablet 10 mg PO QPM ascorbic acid (vitamin C) [Vitamin C] 500 mg Tablet 500 mg PO BID Discharge Orders: Discharge ED (Routine); Ordered 06/17/22 Ordered By: Kelvin Campbell Referrals: Michelle Nguyen FNP-C [Primary Care Provider] - Discharge Diet: Usual diet Discharge Activity: Increase activity as tolerated Patient Instructions: Opioid Safety, Pain Management Activity Restrictions/Additional Instructions: Follow-up with Dr. Gaytan at the next scheduled visit. Start the oral antibiotics today. If you have any worsening symptoms or develop significant mount of blood in the catheter bag recheck earlier. If catheter begins to fail to drain again return to the emergency room. Coding Level of Care Code ED Material Control Supervisor for [place] [facility]
[2022-06-17 10:28] LABS: Basophils # 0.1 10^3/uL (0.0-0.1); Basophils % 0.5 %; Eosinophils # 0.2 10^3/uL (0.0-0.8); Eosinophils % 1.8 %; Hematocrit 33.4 % (42.0-52.0); Hemoglobin 10.4 g/dL (11.7-16.6); Lymphocytes # 1.1 10^3/uL (0.8-4.8); Lymphocytes % 11.1 %; Mean Corpuscular HGB Conc 31.1 g/dL (30.0-36.0); Mean Corpuscular Hemoglobin 27.2 pg (28.0-34.0); Mean Corpuscular Volume 87.2 fl (80-94); Mean Platelet Volume 11.2 fL (7.4-10.4); Monocytes # 0.9 10^3/uL (0.2-0.9); Monocytes % 9.3 %; Neutrophils # 7.39 10^3/uL (1.8-7.7); Neutrophils % 77.1 %; Nucleated Red Blood Cells % 0 %; Platelet Count 223 10^3/cmm (130-400); Red Blood Count 3.83 10^6/uL (4.1-5.3); Red Cell Distribution Width 16.9 % (12.1-15.1); White Blood Count 9.6 10^3/uL (4.0-10.0)
--- NOTE | 2022-06-17 10:44 | PC.NURSE ---
Irragated bladder with 3000ml, it was flushing clear when we was finished
[2022-06-17 10:45] LABS: Add Urine Culture? Yes; Add Urine Microscopic? YES; Bacteria Urine 2+ /hpf; Bilirubin Urine Neg (Negative); Blood Urine 3+ (Negative); Glucose Urine UA Norm (Normal); Ketones Urine Negative (Negative); Leukocyte Esterase Urine 1+ (Negative); Nitrate Urine Positive (Negative); Protein Urine 1+ (Negative); RBC Urine >100 /hpf (0-2); Specific Gravity, Urine 1.015 (1.005-1.030); Squamous Epithelial Cell Urine 0-4 /hpf (0-5); Urine Appearance SL Hazy (CLEAR); Urine Color Yellow (Yellow); Urobilinogen Urine Norm (Negative); WBC Urine >100 /hpf (0-5); pH Urine 5 (5-7)
[2022-06-17 10:53] LABS: Anion Gap 18.4 (5-19); Blood Urea Nitrogen 26 mg/dL (8-23); Calcium 9.6 mg/dL (8.5-10.5); Carbon Dioxide 26 mmol/L (22-29); Chloride 99 mmol/L (98-107); Glucose 120 mg/dL (65-115); Osmolality Calculated 296 mOsm/kg (285-295); Potassium 3.4 mmol/L (3.5-5.1); Sodium 140 mmol/L (136-145)
[2022-06-17 12:07] VITALS: BP 140/87; O2SAT 96
[2022-06-17 13:02] VITALS: BP 148/74; PULSE 68
== END 2022-06-17 13:07 | disposition home or self-care (01) ==
PROVIDERS: Emergency Provider Family Medicine; PCP Nurse Practitioner
DX: N30.91 Cystitis, unspecified with hematuria (principal); R33.9 Retention of urine, unspecified; Z79.01 Long term (current) use of anticoagulants; Z79.82 Long term (current) use of aspirin; Z96.0 Presence of urogenital implants
CPT/HCPCS: 36415; 80048; 81001; 85025; 87077; 87086; 87186; 99283

== ENCOUNTER → 2022-06-27 09:49 | Outpatient (BNVA) | payer MEDICARE, SELFPAY | PROVIDERS: PCP Nurse Practitioner; Visit Provider Urology | DX: N30.01 Acute cystitis with hematuria (principal) | CPT/HCPCS: 52000; 99213 ==

== ENCOUNTER → 2022-07-11 10:12 | Outpatient (BNVA) | payer MEDICARE, SELFPAY | PROVIDERS: PCP Nurse Practitioner; Visit Provider Internal Medicine | DX: Z45.010 Encounter for checking and testing of cardiac pacemaker pulse generator [battery] (principal) | CPT/HCPCS: 93280 ==

== ENCOUNTER → 2022-07-28 13:42 | Outpatient (BNVA) | payer MEDICARE, SELFPAY | PROVIDERS: PCP Nurse Practitioner; Visit Provider Urology | DX: R33.9 Retention of urine, unspecified (principal); R31.0 Gross hematuria | CPT/HCPCS: 51702; 99212 ==

== ENCOUNTER → 2022-08-26 14:42 | Outpatient (BNVA) | payer MEDICARE, SELFPAY | PROVIDERS: PCP Nurse Practitioner; Visit Provider Nurse Practitioner | DX: I10 Essential (primary) hypertension (principal) | CPT/HCPCS: 80053; 85025 ==

== ENCOUNTER 2022-09-25 10:14 | Outpatient (CLI) | payer MEDICARE, SELFPAY ==
[2022-09-25 11:32] LABS: Iron 24 ug/dL (59-158); Percent Saturation 4.8 % (20-50); Total Iron Binding Capacity 495 mcg/dl; Unsaturated Iron Binding 471 ug/dL (112-347)
[2022-09-25 11:47] LABS: Vitamin B12 410 pg/mL (232-1245)
== END 2022-09-25 10:15 | disposition home or self-care (01) ==
LOC: LAB 10:18
PROVIDERS: PCP Nurse Practitioner; Visit Provider Nurse Practitioner
DX: D64.9 Anemia, unspecified (principal)
CPT/HCPCS: 36415; 51702; 82607; 83540; 83550

== ENCOUNTER → 2022-09-26 10:33 | Outpatient (BNVA) | payer MEDICARE, SELFPAY | PROVIDERS: PCP Nurse Practitioner; Visit Provider Internal Medicine | DX: Z45.010 Encounter for checking and testing of cardiac pacemaker pulse generator [battery] (principal) | CPT/HCPCS: 93280 ==

== ENCOUNTER → 2022-11-05 14:46 | Outpatient (BNVA) | payer MEDICARE, SELFPAY | PROVIDERS: PCP Nurse Practitioner; Visit Provider Internal Medicine | DX: I48.19 Other persistent atrial fibrillation (principal); I10 Essential (primary) hypertension; I25.810 Atherosclerosis of coronary artery bypass graft(s) without angina pectoris; E78.5 Hyperlipidemia, unspecified; M25.551 Pain in right hip; M79.604 Pain in right leg; I71.20 Thoracic aortic aneurysm, without rupture, unspecified; Z79.01 Long term (current) use of anticoagulants; Z87.891 Personal history of nicotine dependence | CPT/HCPCS: 99214 ==

== ENCOUNTER → 2022-11-18 14:49 | Outpatient (BNVA) | payer MEDICARE, SELFPAY | PROVIDERS: PCP Nurse Practitioner; Visit Provider Nurse Practitioner | DX: E61.1 Iron deficiency (principal); I10 Essential (primary) hypertension | CPT/HCPCS: 73502; 73523; 80053; 83550; 84443; 85025 ==

== ENCOUNTER → 2022-12-16 08:53 | Outpatient (BNVA) | payer MEDICARE, SELFPAY | PROVIDERS: PCP Nurse Practitioner; Visit Provider Nurse Practitioner | DX: L03.116 Cellulitis of left lower limb (principal); L02.416 Cutaneous abscess of left lower limb | CPT/HCPCS: 73590; 80053; 85025 ==

== ENCOUNTER → 2022-12-25 14:53 | Outpatient (BNVA) | payer MEDICARE, SELFPAY | PROVIDERS: PCP Nurse Practitioner; Visit Provider Nurse Practitioner | DX: E87.6 Hypokalemia (principal) | CPT/HCPCS: 80048 ==

== ENCOUNTER 2023-01-16 08:32 | Emergency (ER) | payer MEDICARE, SELFPAY ==
[2023-01-16 08:33] VITALS: BP 131/69; PULSE 83; RESP 15; O2SAT 98
--- NOTE | 2023-01-16 08:50 | W.ED.MALEGU ---
HPI - Male Genitourinary General: Chief complaint: Urogenital-Male Stated complaint: Padilla Issues Time Seen by Provider: 01/16/23 08:32 Source: patient Mode of arrival: EMS History of Present Illness: 87-year-old male presents emergency room with leaking around a chronic Padilla catheter. He has hypospadias his last changed about a month ago he notices it still does collect urine he is not having abdominal discomfort but there is leaking around it that is causing increased irritation. He is usually seen Dr. Ann in the past presents several months since he seen Dr. García. Associated symptoms: Reports urinary retention; Deny discharge, dysuria, fevers/chills, hematuria, nausea, rash, swelling, urinary incontinence, mass, vomiting or other Review of Systems Const: Denies: fever(s), chills, body aches, change in appetite, fatigue or malaise ENMT: Denies: throat pain, ear or mastoid pain, nasal discharge or nasal congestion Card: Denies: chest pain, edema, dyspnea on exertion or orthopnea Resp: Denies: dyspnea, productive cough or non-productive cough GI: Denies: nausea or vomiting : Denies: dysuria, urinary incontinence or hematuria Skin/Breast: Denies: rash or pruritus PFSH ED PFSH: Medical History Alcohol abuse, daily use Alcohol use disorder Ambulates with cane Atrial fibrillation Benign prostatic hyperplasia (BPH) with urinary urgency Bladder stone 3 large bladder stones treated with cystolitholapaxy 08/30/2020 BPH loc w urin obs/LUTS Chronic bladder outlet obstructive symptoms. Chronic constipation Elevated PSA Essential (primary) hypertension Generalized anxiety disorder History of coronary artery disease History of TB (tuberculosis) Insomnia Urge incontinence Urinary retention Urolithiasis Surgical History History of cataract left History of cervical spinal surgery History of heart bypass surgery x4 History of hernia repair Right Family History Mother , at age 84 Bleeding disorder Father , at age 94 Stroke Other Cancer Denies family history of Diabetes Dementia Hypertension Social History Smoking and tobacco status: former smoker Second hand smoke exposure: No Smoking risk assessment/counseling performed?: No Alcohol intake: current Alcohol intake frequency: 3 or more drinks per day Desire information about alcohol rehabilitation?: No Counseling given: Yes Substance/Drug Use: never Desire information about substance/drug rehabilitation?: No Counseling given: No Adopted: No Caregiver/support person: Yes Lives independently: No Household members: family Housing: House Marital status: / Number of children: 2 Current occupational status: retired Do you think of yourself as: Straight/Heterosexual Current gender identity: Male Physical Exam Const: COMMON NORMALS: no acute distress GENERAL APPEARANCE: cooperative and comfortable ORIENTATION/CONSCIOUSNESS: Yes awake, Yes oriented to person, Yes oriented to place and Yes oriented to time HENMT: COMMON NORMALS: normocephalic, atraumatic and hearing grossly normal bilaterally HEAD & SCALP: normocephalic and atraumatic Resp: COMMON NORMALS: normal respiratory effort, No retractions, No use of accessory muscles and clear to auscultation bilaterally AUSCULTATION: clear to auscultation bilaterally Cardio: COMMON NORMALS: regular rate, regular rhythm and No murmurs present (Cardio) RATE: regular rate RHYTHM: regular rhythm GI: COMMON NORMALS: Soft to palpation and No hepatosplenomegaly present AUSCULTATION: Yes normoactive bowel sounds PALPATION: Yes Soft to palpation, No Tenderness to palpation present (GI), No Guarding due to palpation present (GI) and Yes No hepatosplenomegaly present Extremity: COMMON NORMALS: normal to inspection, capillary refill normal, no clubbing, cyanosis or edema, no calf tenderness and no pedal edema Neuro: SENSORIUM/ORIENTATION: Yes oriented to person, Yes oriented to place and Yes oriented to time Skin: COMMON NORMALS: no rashes or lesions noted GENERAL SKIN EXAM: no rashes or lesions noted Course Vital Signs: Vital signs: Vital Signs Pulse Rate 87 01/16/23 09:07 Respiratory Rate 18 01/16/23 09:07 Blood Pressure 131/69 01/16/23 09:07 Pulse Oximetry 97 01/16/23 09:07 Oxygen Delivery Me thod Room Air 01/16/23 09:07 MDM - Male Medical Decision Making Padilla catheter replaced a larger diameter. Patient doing well no other complaints will be discharged home follow-up with urology Discharge Plan Discharge Patient Disposition: Home Clinical Impression: Complication of Padilla catheter, Urinary retention, Chronic indwelling Padilla catheter Condition: Stable Prescriptions: No Action aspirin [Adult Aspirin Regimen] 81 mg tablet,delayed release (DR/EC) 81 mg PO QAM docusate sodium [Stool Softener] 100 mg capsule 300 mg PO DAILY PRN (Reason: Constipation) ferrous sulfate [FeroSul] 325 mg (65 mg iron) tablet 325 mg PO BID cefuroxime axetil 500 mg tablet 500 mg PO BID Qty: 20 0RF MediHoney (honey) 100 % paste 1 applic topical BID Qty: 103 0RF (DME) DME: Walker Unit See Rx Instructions .ROUTE .MEDSUPPLY Qty: 1 0RF Rx Instructions: Code E0143 and E0156 walker 4 wheels and seat atorvastatin 10 mg tablet 10 mg PO QPM Qty: 90 1RF diltiazem HCl 240 mg capsule,extended release 24 hr 240 mg PO DAILY Qty: 90 1RF duloxetine 60 mg capsule,delayed release(DR/EC) 60 mg PO QAM Qty: 90 1RF metoprolol succinate 50 mg tablet extended release 24 hr 50 mg PO DAILY Qty: 90 1RF pantoprazole 40 mg tablet,delayed release (DR/EC) 40 mg PO DAILY Qty: 90 1RF trazodone 50 mg tablet 50 mg PO BEDTIME Qty: 90 1RF Eliquis 5 mg tablet 5 mg PO BID Qty: 180 3RF Lasix 40 mg tablet 40 mg PO DAILY Qty: 90 3RF methenamine hippurate 1 gram tablet See Rx Instructions .ROUTE .COMPLEX Qty: 180 3RF Dose Instruction: TAKE ONE TABLET BY MOUTH TWICE DAILY FOR RECURRENT UTI WITH 500 MG VITAMIN C EACH DOSE Rx Instructions: TAKE ONE TABLET BY MOUTH TWICE DAILY FOR RECURRENT UTI WITH 500 MG VITAMIN C EACH DOSE potassium chloride 10 mEq tablet,ER particles/crystals 10 meq PO DAILY Qty: 30 2RF ascorbic acid (vitamin C) [Vitamin C] 500 mg Tablet 500 mg PO BID Discharge Orders: Discharge ED (Routine); Ordered 01/16/23 Ordered By: Kelvin Campbell Referrals: Michelle Nguyen, HEAD CD REACTOR OPERATOR-C [Primary Care Provider] - Discharge Diet: Usual diet Discharge Activity: Resume usual activity Patient Instructions: Opioid Safety, Pain Management Activity Restrictions/Additional Instructions: You were seen today for leaking around the chronic Padilla catheter. After discussion with urology they recommended simply replacing the catheter with a larger diameter catheter. This was done without difficulty. Recommend that you follow-up with urology within the next week. Return if you have further problems. Coding Level of Care Code ED Certified [employer] for [place] [employer]
[2023-01-16 09:07] VITALS: BP 131/69; PULSE 87; RESP 18; O2SAT 97
[2023-01-16 10:32] VITALS: BP 131/69; PULSE 87; RESP 18; O2SAT 97
== END 2023-01-16 10:34 | disposition home or self-care (01) ==
PROVIDERS: Emergency Provider Family Medicine; PCP Nurse Practitioner
DX: R33.9 Retention of urine, unspecified (principal); T83.038A Leakage of other urinary catheter, initial encounter; Y84.6 Urinary catheterization as the cause of abnormal reaction of the patient, or of later complication, without mention of misadventure at the time of the procedure
CPT/HCPCS: 51702; 99283

== ENCOUNTER → 2023-02-17 10:20 | Outpatient (BNVA) | payer MEDICARE, SELFPAY | PROVIDERS: PCP Nurse Practitioner; Visit Provider Nurse Practitioner | DX: R19.5 Other fecal abnormalities (principal) | CPT/HCPCS: 80053; 82270; 85025 ==

== ENCOUNTER 2023-02-27 09:39 | Outpatient (CLI) | payer MEDICARE, SELFPAY ==
[2023-02-27] MEDS: iohexol 350 mg/mL 500 mL Btl (per mL) IV (10:05)
[2023-02-27] MEDS: iohexol 350 mg/mL 500 mL Btl (per mL) PO (10:05)
--- NOTE | 2023-02-27 11:00 | CT_ITS ---
WS: [id number] CT ABDOMEN PELVIS TECHNIQUE: Contrast-enhanced CT of the abdomen and pelvis with coronal and sagittal reformatted image s. CLINICAL INFORMATION: R19.5 - Other fecal abnormalities COMPARISON: None. DLP: 384.[address] scans at [facility] use at least one of these dose optimization techniques: automated e xposure control; mA and/or kV adjustment per patient size (includes targeted exams where dose is matc hed to clinical indication); or iterative reconstruction. FINDINGS: Mild diffuse fatty infiltration liver. Normal gallbladder. Normal portal vein and splenic vein. Lucia l pancreatic parenchymal enhancement with fatty atrophy. Small moderate esophageal hiatal hernia. Adr enal glands are normal. Normal renal parenchymal enhancement. Prominent RIGHT renal pelvis with nonob structing pelvic calculus measuring 1.9 CM. Distal RIGHT ureter is decompressed. No obstructing LEFT renal or ureteral calculi. Padilla catheter. Enlarged prostate with evidence bladder outlet obstruction. Prostate measures 5.3 CM. Bilateral renal cysts RIGHT greater than LEFT. Cyst measures 4.3 cm. Bibasilar atelectasis. Cardiomeg matt. Coronary calcification. Tortuous decompressed sigmoid colon in the LEFT lower quadrant. This transitions to dilated LEFT colo n. Recommend further evaluation with colonoscopy and/or barium enema to assess for stricture or obstr uction. This is difficult to further evaluate due to tortuosity. Suggestion of a transition point wit h focal soft tissue measuring 1.8 cm Constipation involving the hepatic flexure, transverse colon and splenic flexure extending into the d escending LEFT colon No evidence of acute appendicitis. Incidental fat-containing LEFT inguinal hernia. Slight anterolisth esis L3 on L4 and L4 on L5. Disc space narrowing worse at L3-L4 L4-L5 and L5-S1 with vacuum disc phen omenon. CT/CT abdomen pelvis w con* [id number] IMPRESSION: 1. Enlarged obvious enhancing prostate with evidence of bladder outlet obstruc tion. Prostate measures 5.3 CCM. Recommend correlation PSA. Prominent seminal v esicles bilaterally. 2. Padilla catheter. Bladder is decompressed. 3. Tortuous decompressed sigmoid colon in the LEFT lower quadrant. This transi tions to dilated LEFT colon. This can be further evaluated with colonoscopy and /or barium enema in further assessment. Suggestion of a focal soft tissue nodul e at the area of transition measuring 1.8 cm 4. Constipation involving the hepatic flexure transverse colon and splenic fle xure extending into the descending LEFT colon 5. Nonobstructing RIGHT pelvic calculus measuring 1.5 CM. Prominent RIGHT mac l pelvis. RIGHT ureter is decompressed. 6. Bilateral renal cysts RIGHT greater than LEFT. 7. Small esophageal hiatal hernia. 8. Slightly ectatic infrarenal abdominal aorta measuring 2.9 x 2.5 CCM. Dense aortic iliac calcification. 9. Bibasilar atelectasis. 10. Rectosigmoid constipation. Mild transverse and LEFT colon colon constipati on. 11. No other suspicious findings.
== END 2023-02-27 09:40 | disposition home or self-care (01) ==
LOC: RAD 09:41
PROVIDERS: PCP Nurse Practitioner; Visit Provider Nurse Practitioner
DX: R19.5 Other fecal abnormalities (principal); N40.1 Benign prostatic hyperplasia with lower urinary tract symptoms; N13.8 Other obstructive and reflux uropathy; Z96.0 Presence of urogenital implants; K63.89 Other specified diseases of intestine; K59.00 Constipation, unspecified; K80.50 Calculus of bile duct without cholangitis or cholecystitis without obstruction; Q61.02 Congenital multiple renal cysts; K44.9 Diaphragmatic hernia without obstruction or gangrene; I77.811 Abdominal aortic ectasia; I70.0 Atherosclerosis of aorta; J98.11 Atelectasis
CPT/HCPCS: 74177; 80053; 82270; 85025; Q9967

== ENCOUNTER 2023-04-01 10:32 | Emergency (ER) | payer MEDICARE, SELFPAY ==
[2023-04-01 10:47] VITALS: BMI 27.1
[2023-04-01 10:51] VITALS: BP 113/72; PULSE 80; RESP 16; TEMP 36.6; O2SAT 98
--- NOTE | 2023-04-01 11:39 | W.ED.MALEGU ---
HPI - Male Genitourinary General: Chief complaint: Urogenital-Male Stated complaint: pulled catheter out Time Seen by Provider: 04/01/23 10:33 Source: patient and family Mode of arrival: wheelchair Limitations: no limitations History of Present Illness: Patient is a nice 87-year-old male who presents to ED today with a complaint that his Padilla catheter fell out sometime in the middle of the night. He states balloon was not inflated when it fell out. He is not having any abdominal or penile discomfort. No meatal bleeding. Patient states he chronically has a catheter for urinary retention. Urologist is Dr. Lowe in [place]. Complaint: other (catheter came out) Onset (ago): hour(s) Relieving factors: none Exacerbating factors: none Associated symptoms: Reports no associated symptoms; Deny hematuria, nausea or vomiting Related Data: Sexually active: No Review of Systems Const: Denies: fever(s), chills, body aches, fatigue or malaise GI: Denies: abdominal pain, nausea or vomiting : Denies: flank pain, hematuria, genital pain, penile discharge or testicular pain Musc: Denies: back pain PFSH ED PFSH: Medical History Alcohol abuse, daily use Alcohol use disorder Ambulates with cane Atrial fibrillation Benign prostatic hyperplasia (BPH) with urinary urgency Bladder stone 3 large bladder stones treated with cystolitholapaxy 08/30/2020 BPH loc w urin obs/LUTS Chronic bladder outlet obstructive symptoms. Chronic constipation Elevated PSA Essential (primary) hypertension Generalized anxiety disorder History of coronary artery disease History of TB (tuberculosis) Insomnia Urge incontinence Urinary retention Urolithiasis Surgical History History of cataract left History of cervical spinal surgery History of heart bypass surgery x4 History of hernia repair Right Family History Mother , at age 84 Bleeding disorder Father , at age 94 Stroke Other Cancer Denies family history of Diabetes Dementia Hypertension Social History Smoking and tobacco status: former smoker Second hand smoke exposure: No Smoking risk assessment/counseling performed?: No Alcohol intake: current Alcohol intake frequency: 3 or more drinks per day Desire information about alcohol rehabilitation?: No Counseling given: Yes Substance/Drug Use: never Desire information about substance/drug rehabilitation?: No Counseling given: No Adopted: No Caregiver/support person: Yes Lives independently: No Household members: family Housing: House Marital status: / Number of children: 2 Current occupational status: retired Do you think of yourself as: Straight/Heterosexual Current gender identity: Male Physical Exam Const: COMMON NORMALS: no acute distress, average body habitus, patient oriented x3, no limitations, healthy appearing, alert and well nourished GI: COMMON NORMALS: non-tender : COMMON NORMALS: Yes no CVA tenderness BLADDER/KIDNEY EXAM: Yes no CVA tenderness PENIS: normal penis Back/Pelvis: COMMON NORMALS: no CVA tenderness Neuro: COMMON NORMALS: patient oriented x3 SENSORIUM/ORIENTATION: Yes alert Course Vital Signs: Vital signs: Vital Signs Temperature 97.9 F 04/01/23 10:51 Pulse Rate 80 04/01/23 10:51 Respiratory Rate 16 04/01/23 10:51 Blood Pressure 113/72 04/01/23 10:51 Pulse Oximetry 98 04/01/23 10:51 Oxygen Delivery Me thod Room Air 04/01/23 10:51 MDM - Male Medical Decision Making Padilla catheter inserted by RN without difficulty. Patient cleared for DC. Discharge Plan Discharge Patient Disposition: Home Clinical Impression: Dislodged Padilla catheter Qualifiers: Encounter type: initial encounter Qualified Code(s): T83.021A - Displacement of indwelling urethral catheter, initial encounter Condition: Stable Prescriptions: No Action aspirin [Adult Aspirin Regimen] 81 mg tablet,delayed release (DR/EC) 81 mg PO QAM Hold Instructions: Doctor's Order docusate sodium [Stool Softener] 100 mg capsule 300 mg PO DAILY PRN (Reason: Constipation) cefuroxime axetil 500 mg tablet 500 mg PO BID Qty: 20 0RF MediHoney (honey) 100 % paste 1 applic topical BID Qty: 103 0RF (DME) DME: Walker Unit See Rx Instructions .ROUTE .MEDSUPPLY Qty: 1 0RF Rx Instructions: Code E0143 and E0156 walker 4 wheels and seat atorvastatin 10 mg tablet 10 mg PO QPM Qty: 90 1RF diltiazem HCl 240 mg capsule,extended release 24 hr 240 mg PO DAILY Qty: 90 1RF pantoprazole 40 mg tablet,delayed release (DR/EC) 40 mg PO DAILY Qty: 90 1RF trazodone 50 mg tablet 50 mg PO BEDTIME Qty: 90 1RF Eliquis 5 mg tablet 5 mg PO DAILY Qty: 1 0RF Rx Instructions: No meds give dose decrease sucralfate [Carafate] 100 mg/mL suspension 10 ml PO QID Qty: 1200 0RF Rx Instructions: swish in mouth and swallow; use after food/drink Lasix 40 mg tablet 40 mg PO DAILY Qty: 90 3RF methenamine hippurate 1 gram tablet See Rx Instructions .ROUTE .COMPLEX Qty: 180 3RF Dose Instruction: TAKE ONE TABLET BY MOUTH TWICE DAILY FOR RECURRENT UTI WITH 500 MG VITAMIN C EACH DOSE Rx Instructions: TAKE ONE TABLET BY MOUTH TWICE DAILY FOR RECURRENT UTI WITH 500 MG VITAMIN C EACH DOSE potassium chloride 10 mEq tablet,ER particles/crystals 10 meq PO DAILY Qty: 30 2RF duloxetine 60 mg capsule,delayed release(DR/EC) 60 mg PO QAM Qty: 90 1RF metoprolol succinate 50 mg tablet extended release 24 hr 50 mg PO DAILY Qty: 90 0RF ascorbic acid (vitamin C) [Vitamin C] 500 mg Tablet 500 mg PO BID Discharge Orders: Discharge ED (Routine); Ordered 04/01/23 Ordered By: Bhakti Bowens Referrals: Michelle Nguyen FNP-C [Primary Care Provider] - Coding Level of Care Code 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
== END 2023-04-01 12:33 | disposition home or self-care (01) ==
PROVIDERS: Emergency Provider Physician Assistant; PCP Nurse Practitioner
DX: T83.021A Displacement of indwelling urethral catheter, initial encounter (principal); R33.9 Retention of urine, unspecified; I48.91 Unspecified atrial fibrillation; I10 Essential (primary) hypertension; I25.10 Atherosclerotic heart disease of native coronary artery without angina pectoris; Z87.891 Personal history of nicotine dependence; Z79.01 Long term (current) use of anticoagulants; Z79.82 Long term (current) use of aspirin; Z79.899 Other long term (current) drug therapy; Y83.8 Other surgical procedures as the cause of abnormal reaction of the patient, or of later complication, without mention of misadventure at the time of the procedure
CPT/HCPCS: 51702; 99203; 99283

== ENCOUNTER 2023-04-03 18:02 | Inpatient (IN) | payer MEDICARE, SELFPAY ==
[2023-04-03 18:03] VITALS: BP 147/91; PULSE 115; RESP 18; TEMP 38.8; O2SAT 92
[2023-04-03 18:13] VITALS: BP 147/91; PULSE 115; O2SAT 94
--- NOTE | 2023-04-03 18:22 | XRR_ITS ---
PROCEDURE INFORMATION: Exam: XR Chest Exam date and time: 04/03/2023 6:28 PM Age: 87 years old Clinical indication: Fever; Additional info: Fever, sepsis TECHNIQUE: Imaging protocol: Radiologic exam of the chest. Views: 1 view. COMPARISON: CR XR chest 1V portable [id number] 12/06/2021 10:16 PM FINDINGS: Tubes, catheters and devices: A pacemaker device is present, and its leads are in appropriate position. Lungs: There is vascular congestion with cephalization of flow, interstitial edema and ground-glass opacities compatible with CHF. There is increased density left lower lobe concerning for pneumonic infiltrate. There is shallow inspiration with diffuse volume loss and vascular crowding. Pleural spaces: Unremarkable. No pleural effusion. No pneumothorax. Heart/Mediastinum: The heart is enlarged. Bones/joints: Sternotomy wires and mediastinal surgical clips are present, consistent with previous coronary arterial bypass grafting. XR/XR chest 1V portable [id number] IMPRESSION: 1. There is vascular congestion with cephalization of flow, interstitial edema and ground-glass opacities compatible with CHF. 2. There is increased density left lower lobe concerning for pneumonic infiltrate.
--- NOTE | 2023-04-03 18:23 | ECG_ITS ---
[facility] Test Date: 2023-04-03 Pat Name: Raúl Centeno Department: Room: 255 Gender: Male Audio/Visual Operator: : 1935 Requested By: Braulio Cohen Order Number: [id number] Ayden MD: Iwona Garcia M.D. Measurements Intervals [place] Rate: 114 P: -88 AK: 123 QRS: -8 QRSD: 110 T: 119 QT: 279 QTc: 384 Interpretive Statements ATRIAL FLUTTER NONSPECIFIC ST & T-WAVE ABNORMALITY Compared to ECG 12/09/2021 12:43:13 T-wave abnormality now present ST (T wave) deviation no longer present Electronically Signed On 04-03-2023 23:26:10 CDT by Iwona Garcia M.D. [id number]
[2023-04-03 18:34] LABS: ABG PCO2 32.3 mmHg (35-45); ABG PH Result 7.49 (7.35-7.45); Arterial Blood Gas Hematocrit 39.8 % (42-52); Base Excess ABG 1.8 mmol/L (-2.0-2.0); Blood Gas Allen Test Pos; Blood Gas Operator Identificat WALCI; Blood Gas Sample Site Radial, right; Blood Gas Sample Type Arterial; Carboxyhemoglobin 1.8 %THgb (0.4-20.1); HCO3 ABG 24.6 mmol/L (22-26); HGB O2 Sat 93.8 % (95-100); Methemoglobin 0.6 % (0.4-1.5); Oxygen Device NC; PO2 ABG 71.7 mmHg (80.0-100.0)
[2023-04-03] MEDS: ketorolac 30 mg/mL INJ 15 MG IVP (18:35)
--- NOTE | 2023-04-03 18:43 | ED_ITS ---
HPI - Altered Mental Status General: Chief Complaint: Altered Mental Status Stated Complaint: AMS, possible sepsis Time Seen by Provider: 04/03/23 18:11 Source: patient History of Present Illness: 87yo gentleman with a chronic indwelling Padilla catheter. He presents with a temperature, altered mental status, and lethargy. Patient currently is not a very reliable historian. He was seen a couple of days ago with a dislodged Padilla, which was replaced successfully in the ER. Family had stated that he has not had much urine output in the last 24 hours. He has a temperature of 102. He answers some questions appropriately. MD complaint: altered mental status Onset (ago): unknown Timing confirmed by: family member Severity: moderate Context: other Associated symptoms: Reports other Treatments prior to arrival: IV fluid Review of Systems Const: Reports: fever(s) ENMT: Denies: throat pain Card: Denies: chest pain Resp: Denies: dyspnea GI: Reports: bloating; Denies: abdominal pain or vomiting [facility] ED PFSH: Medical History Alcohol abuse, daily use Alcohol use disorder Ambulates with cane Atrial fibrillation Benign prostatic hyperplasia (BPH) with urinary urgency Bladder stone 3 large bladder stones treated with cystolitholapaxy 08/30/2020 BPH loc w urin obs/LUTS Chronic bladder outlet obstructive symptoms. Chronic constipation Elevated PSA Essential (primary) hypertension Generalized anxiety disorder History of coronary artery disease History of TB (tuberculosis) Insomnia Urge incontinence Urinary retention Urolithiasis Surgical History History of cataract left History of cervical spinal surgery History of heart bypass surgery x4 History of hernia repair Right Family History Mother , at age 84 Bleeding disorder Father , at age 94 Stroke Other Cancer Denies family history of Diabetes Dementia Hypertension Social History Smoking and tobacco status: former smoker Second hand smoke exposure: No Smoking risk assessment/counseling performed?: No Alcohol intake: current Alcohol intake frequency: 3 or more drinks per day Desire information about alcohol rehabilitation?: No Counseling given: Yes Substance/Drug Use: never Desire information about substance/drug rehabilitation?: No Counseling given: No Adopted: No Caregiver/support person: Yes Lives independently: No Household members: family Housing: House Marital status: / Number of children: 2 Current occupational status: retired Do you think of yourself as: Straight/Heterosexual Current gender identity: Male Physical Exam Const: GENERAL APPEARANCE: cooperative, lethargic, ill appearing and frail appearing ORIENTATION/CONSCIOUSNESS: Yes lethargic HENMT: COMMON NORMALS: normocephalic, atraumatic and Normal external nose present HEAD & SCALP: normocephalic and atraumatic NOSE: Normal external nose present Eye: COMMON NORMALS: Equal, round and reactive pupils present and EOMs intact bilaterally PUPIL: Yes Equal, round and reactive pupils present Neck/C-Spine: GENERAL: Yes trachea midline Chest: CHEST: Yes Symmetrical chest wall rise Resp: COMMON NORMALS: normal respiratory effort AUSCULTATION: no rhonchi, no wheezes and diminished lung sounds Cardio: COMMON NORMALS: regular rhythm RATE: tachycardic RHYTHM: regular rhythm GI: INSPECTION: Yes abdominal distension PALPATION: No Tenderness to palpation present (GI) and No Guarding due to palpation present (GI) PERCUSSION: tympanic to percussion Extremity: GENERAL: Yes edema (Mild) Neuro: YASH COMA SCALE: document GCS findings Yahs coma scale eye opening: To sound [place] coma scale verbal response: Confused Yash coma scale motor response: Obey commands Yash coma scale total score: 13 SENSOR IUM/ORIENTATION: Yes lethargic Course Vital Signs: Vital signs: Vital Signs Temperature 102 F H 04/03/23 18:03 Pulse Rate 110 H 04/03/23 21:30 Respiratory Rate 18 04/03/23 18:03 Blood Pressure 128/83 04/03/23 21:30 Pulse Oximetry 94 04/03/23 21:30 Oxygen Delivery Me thod Nasal Cannula 04/03/23 22:14 MDM - Altered Mental Status Medical Decision Making Tachycardia is improved after 1 L fluid bolus. More fluid is not given, as the patient is showing signs of heart failure both by needing oxygen, and on chest x-ray. His BNP is elevated as well. His white blood cell count is 14. Creatinine is up to 1.4. Bicarbonate is 20. Lactic acid is normal at 1.8. The patient has infiltrate in the left lower lobe superimposed on some pulmonary edema changes as above. He also has a urinary tract infection with hematuria present. Spoke with hospitalist, will do renal stone CT to check for obstructing stone. The patient has received vancomycin and Zosyn following blood cultures here. He will be admitted. Hospitalist will see the patient. Lab Data 04/03/23 18:15 04/03/23 18:15 Radiology Impressions Chest X-Ray 04/03/23 18:22 IMPRESSION: 1. There is vascular congestion with cephalization of flow, interstitial edema and ground-glass opacities compatible with CHF. 2. There is increased density left lower lobe concerning for pneumonic infiltrate. Abdomen/Pelvis CT 04/03/23 20:49 IMPRESSION: 1. Urinary bladder is quite distended. Catheter terminates in the prostate and should be repositioned. 2. There is mild bilateral hydronephrosis without ureteral calculus, likely reflecting tension of the bladder. 3. Intrarenal stones are noted bilaterally. 4. Severe spinal stenosis at L4-L5. Correlate with any symptoms of neurogenic claudication. ADDENDUM: 04/03/232235 Findings were discussed with Dr. Beach at 04/03/2023 10:33 PM CDT. Laboratory Results WBC 14.2 10^3/uL (4.0-10.0) H 04/03/23 18:15 RBC 4.00 10^6/uL (4.1-5.3) L 04/03/23 18:15 Hgb 12.5 g/dL (11.7-16.6) 04/03/23 18:15 Hct 38.6 % (42.0-52.0) L 04/03/23 18:15 MCV 96.5 fl (80-94) H 04/03/23 18:15 MCH 31.3 pg (28.0-34.0) 04/03/23 18:15 MCHC 32.4 g/dL (30.0-36.0) 04/03/23 18:15 RDW 14.7 % (12.1-15.1) 04/03/23 18:15 Plt Count 203 10^3/cmm (130-400) 04/03/23 18:15 MPV 11.1 fL (7.4-10.4) H 04/03/23 18:15 Neut % (Auto) 92.6 % 04/03/23 18:15 Lymph % (Auto) 2.3 % 04/03/23 18:15 Archer % (Auto) 4.3 % 04/03/23 18:15 Eos % (Auto) 0.0 % 04/03/23 18:15 Baso % (Auto) 0.2 % 04/03/23 18:15 Neut # (Auto) 13.18 10^3/uL (1.8-7.7) H 04/03/23 18:15 Lymph # (Auto) 0.3 10^3/uL (0.8-4.8) L 04/03/23 18:15 Archer # (Auto) 0.6 10^3/uL (0.2-0.9) 04/03/23 18:15 Eos # (Auto) 0.0 10^3/uL (0.0-0.8) 04/03/23 18:15 Baso # (Auto) 0.0 10^3/uL (0.0-0.1) 04/03/23 18:15 Nucleated RBC % (auto) 0 % 04/03/23 18:15 Nucleated RBCs # 0.0 /100WBC 04/03/23 18:15 PT 17.50 SECONDS (12.1-14.9) H 04/03/23 18:15 INR 1.39 (0.8-1.2) H 04/03/23 18:15 APTT 28.3 SECONDS (23.9-36.7) 04/03/23 18:15 Specimen Type Arterial 04/03/23 18:23 Sample Site Radial, right 04/03/23 18:23 ABG pH 7.49 (7.35-7.45) H 04/03/23 18:23 ABG pCO2 32.3 mmHg (35-45) L 04/03/23 18:23 ABG pO2 71.7 mmHg (80.0-100.0) L 04/03/23 18:23 ABG HCO3 24.6 mmol/L (22-26) 04/03/23 18:23 ABG Base Excess 1.8 mmol/L (-2.0-2.0) 04/03/23 18:23 Matheus Test Pos 04/03/23 18:23 Hematocrit 39.8 % (42-52) L 04/03/23 18:23 Hgb O2 Saturation 93.8 % (95-100) L 04/03/23 18:23 Carboxyhemoglobin 1.8 %THgb (0.4-20.1) 04/03/23 18:23 Methemoglobin 0.6 % (0.4-1.5) 04/03/23 18:23 Total Hemoglobin 13.0 g/dL (14-18) L 04/03/23 18:23 O2 Delivery Device Nc 04/03/23 18:23 O2 Liters/Min 2.0 % 04/03/23 18:23 Physical Ther ID Jimmy 04/03/23 18:23 Sodium 138 mmol/L (136-145) 04/03/23 18:15 Potassium 3.4 mmol/L (3.5-5.1) L 04/03/23 18:15 Chloride 102 mmol/L (98-107) 04/03/23 18:15 Carbon Dioxide 20 mmol/L (22-29) L 04/03/23 18:15 Anion Gap 19.4 (5-19) H 04/03/23 18:15 BUN 30 mg/dL (8-23) H 04/03/23 18:15 Creatinine 1.4 mg/dL (0.7-1.2) H 04/03/23 18:15 GFR Calculation Not Reportable 04/03/23 18:15 Glucose 130 mg/dL (65-115) H 04/03/23 18:15 Calculated Osmolality 294 mOsm/kg (285-295) 04/03/23 18:15 Lactic Acid 1.8 mmol/L (0.5-2.2) 04/03/23 18:15 Calcium 9.0 mg/dL (8.5-10.5) 04/03/23 18:15 Total Bilirubin 1.4 mg/dL (0.15-1.2) H 04/03/23 18:15 AST 31 U/L (0-40) 04/03/23 18:15 ALT 15 U/L (0-41) 04/03/23 18:15 Alkaline Phosphatase 94 U/L (40-130) 04/03/23 18:15 C-Reactive Protein 27.7 mg/L (0.0-4.9) H 04/03/23 18:15 NT-Pro-B Natriuret Pep 9871 pg/mL (0-450) H 04/03/23 18:15 Total Protein 7.3 g/dL (6.6-8.7) 04/03/23 18:15 Albumin 3.8 g/dL (3.5-5.2) 04/03/23 18:15 Globulin 3.5 g/dL (1.3-4.6) 04/03/23 18:15 Urine Color Red (Yellow) 04/03/23 18:40 Urine Appearance Hazy (CLEAR) A 04/03/23 18:40 Urine pH 5 (5-7) 04/03/23 18:40 Ur Specific [place] 1.015 (1.005-1.030) 04/03/23 18:40 Urine Protein 3+ (Negative) H 04/03/23 18:40 Urine Glucose (UA) Norm (Normal) 04/03/23 18:40 Urine Ketones Negative (Negative) 04/03/23 18:40 Urine Blood 3+ (Negative) H 04/03/23 18:40 Urine Nitrate Negative (Negative) 04/03/23 18:40 Urine Bilirubin Neg (Negative) 04/03/23 18:40 Urine Urobilinogen Norm mg/dL (Negative) 04/03/23 18:40 Ur Leukocyte Esterase 2+ (Negative) H 04/03/23 18:40 Urine RBC >100 /hpf (0-2) H 04/03/23 18:40 Urine WBC 25-40 /hpf (0-5) H 04/03/23 18:40 Ur Squamous Epith Cells 0-4 /hpf (0-5) H 04/03/23 18:40 Amorphous Sediment Not Reportable 04/03/23 18:40 Urine Bacteria 3+ /hpf (NONE) H 04/03/23 18:40 Ethyl Alcohol < 10 mg/dL (0-10) 04/03/23 18:15 Discharge Plan Discharge Patient Disposition: Admitted As Inpatient Admit Provider: Lina Beach Clinical Impression: Altered mental status, Sepsis, Urinary tract infection, Pneumonia Condition: Fair Coding Level of Care Code 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
[2023-04-03 18:50] LABS: Basophils % 0.2 %; Hematocrit 38.6 % (42.0-52.0); Hemoglobin 12.5 g/dL (11.7-16.6); Lymphocytes # 0.3 10^3/uL (0.8-4.8); Lymphocytes % 2.3 %; Mean Corpuscular HGB Conc 32.4 g/dL (30.0-36.0); Mean Corpuscular Hemoglobin 31.3 pg (28.0-34.0); Mean Corpuscular Volume 96.5 fl (80-94); Mean Platelet Volume 11.1 fL (7.4-10.4); Monocytes # 0.6 10^3/uL (0.2-0.9); Monocytes % 4.3 %; Neutrophils # 13.18 10^3/uL (1.8-7.7); Neutrophils % 92.6 %; Nucleated Red Blood Cells % 0 %; Platelet Count 203 10^3/cmm (130-400); Red Cell Distribution Width 14.7 % (12.1-15.1); White Blood Count 14.2 10^3/uL (4.0-10.0)
[2023-04-03] MEDS: sodium chloride 0.9% 1,000 ML 999 ML IV ×2 (18:51→19:01)
[2023-04-03 18:53] LABS: Blood Urine 3+ (Negative); Glucose Urine UA Norm (Normal); Ketones Urine Negative (Negative); Protein Urine 3+ (Negative); Specific Gravity, Urine 1.015 (1.005-1.030); Urine Appearance Hazy (CLEAR); Urine Color Red (Yellow); pH Urine 5 (5-7)
[2023-04-03 18:54] LABS: Add Urine Microscopic? YES; Bilirubin Urine Neg (Negative); Leukocyte Esterase Urine 2+ (Negative); Nitrate Urine Negative (Negative); Urobilinogen Urine Norm (Negative)
[2023-04-03 18:59] LABS: INR 1.39 (0.8-1.2); Partial Thromboplastin Time 28.3 SECONDS (23.9-36.7)
[2023-04-03 19:05] LABS: Alanine Aminotransferase 15 U/L (0-41); Albumin Level 3.8 g/dL (3.5-5.2); Alkaline Phosphatase 94 U/L (40-130); Blood Urea Nitrogen 30 mg/dL (8-23); C Reactive Protein 27.7 mg/L (0.0-4.9); Carbon Dioxide 20 mmol/L (22-29); Chloride 102 mmol/L (98-107); Globulin 3.5 g/dL (1.3-4.6); Glucose 130 mg/dL (65-115); Osmolality Calculated 294 mOsm/kg (285-295); Sodium 138 mmol/L (136-145); Total Bilirubin 1.4 mg/dL (0.15-1.2); Total Protein 7.3 g/dL (6.6-8.7)
[2023-04-03 19:06] LABS: Lactic Sepsis W/Reflex 1.8 mmol/L (0.5-2.2)
[2023-04-03 19:15] LABS: Anion Gap 19.4 (5-19); Potassium 3.4 mmol/L (3.5-5.1)
[2023-04-03 19:16] LABS: Aspartate Amino Transferase 31 U/L (0-40)
[2023-04-03 19:17] LABS: RBC Urine >100 /hpf (0-2); WBC Urine 25-40 /hpf (0-5)
[2023-04-03 19:18] LABS: Add Urine Culture? Yes; Bacteria Urine 3+ /hpf; Squamous Epithelial Cell Urine 0-4 /hpf (0-5)
[2023-04-03 19:28] LABS: Alcohol Level < 10 mg/dL (0-10); NT Pro B Type Natriuretic Pept 9871 pg/mL (0-450)
[2023-04-03] MEDS: piperacillin-tazobactam 4.5 GM in sodium chloride 0.9% (plus) 50 ML IV (19:29)
[2023-04-03] MEDS: vancomycin 1,250 MG/250 ML PIGGYBACK 250 MG IV (20:27)
--- NOTE | 2023-04-03 20:49 | CTR_ITS ---
PROCEDURE INFORMATION: Exam: CT Abdomen And Pelvis Without Contrast Exam date and time: 04/03/2023 9:12 PM Age: 87 years old Clinical indication: Prior surgery; Surgery date: 6+ months; Surgery type: Cabg. Hernia repair; Patient HX: Fever with hematuria. Padilla in place. ; Additional info: Fever, hematuria, TECHNIQUE: Imaging protocol: Computed tomography of the abdomen and pelvis without contrast. Radiation optimization: All CT scans at this facility use at least one of these dose optimization techniques: automated exposure control; mA and/or kV adjustment per patient size (includes targeted exams where dose is matched to clinical indication); or iterative reconstruction. REPORTING DATA: Count of CT and Cardiac NM exams in prior 12 months: This patient has received [address] and 0 known cardiac nuclear medicine studies in the 12 months prior to the current study. COMPARISON: CT abdomen pelvis w con* [id number] 02/27/2023 10:53 AM RADIATION DOSE METRICS: Total DLP (mGy-cm): 1158.97 FINDINGS: Tubes, catheters and devices: Right ventricular pacemaker lead noted. Padilla catheter is in place with the balloon inflated in the prostate. Lungs: Minor dependent change at each lung base. Heart: Mild cardiomegaly. Diaphragm: Small sliding hiatal hernia. Liver: Several calcifications are noted in the otherwise normal liver. Gallbladder and bile ducts: No regional inflammation. No calcified stones. No ductal dilation. Pancreas: Normal. No ductal dilation. Spleen: Normal. No splenomegaly. Adrenal glands: Normal configuration. Kidneys and ureters: Bilateral intrarenal stones are noted. There is prominent bilateral perinephric stranding. No ureteral stones are seen but there is mild bilateral hydronephrosis, likely secondary to bladder distension. Several bilateral renal cysts are noted, unchanged from priors. Stomach and bowel: Large volume fecal debris noted in the rectum. Normal caliber small bowel with scattered air-fluid levels may reflect ileus. Appendix: Normal appendix is confirmed. Intraperitoneal space: No free air. No significant fluid collection. Vasculature: Distended pulmonary veins. Moderate aortoiliac calcific atherosclerosis. Mildly ectatic infrarenal abdominal aorta measures up to 2.9 cm in diameter. No portal venous gas. Lymph nodes: No enlarged lymph nodes. Urinary bladder: Urinary bladder is distended. Reproductive: Prostate is not significantly enlarged. Bones/joints: Healed median sternotomy. Moderate spinal degenerative change. Spinal canal stenosis is severe at L4-L5. No fracture or destructive bony lesion. Bilateral sacroiliac osteoarthritis, left greater than right. Mild bilateral hip arthropathy. Soft tissues: Fat containing indirect right inguinal hernia. CT/CT kidney stone [id number] IMPRESSION: 1. Urinary bladder is quite distended. Catheter terminates in the prostate and should be repositioned. 2. There is mild bilateral hydronephrosis without ureteral calculus, likely reflecting tension of the bladder. 3. Intrarenal stones are noted bilaterally. 4. Severe spinal stenosis at L4-L5. Correlate with any symptoms of neurogenic claudication.
[2023-04-03 21:30] VITALS: BP 128/83; PULSE 110; O2SAT 94
[2023-04-03 23:15] VITALS: BP 131/73; PULSE 126; RESP 22; TEMP 36.8; O2SAT 92
[2023-04-03 23:38] VITALS: PULSE 110
--- NOTE | 2023-04-03 23:42 | ECG_ITS ---
[facility] Test Date: 2023-04-04 Pat Name: Raúl Centeno Department: Room: 255 Gender: Male Circular Ripsaw Operator: : [id number] Requested By: Lina Beach Order Number: [id number] Ayden MD: Wilbert Doherty M.D. Measurements Intervals [place] Rate: 111 P: 230 IL: 156 QRS: 36 QRSD: 118 T: 0 QT: 291 QTc: 396 Interpretive Statements Possible atrial flutter with rapid ventricular rate MODERATE INTRAVENTRICULAR CONDUCTION DELAY [110+ ms QRS DURATION] NONSPECIFIC ST & T-WAVE ABNORMALITY ABNORMAL RHYTHM ECG Compared to ECG 04/04/2023 01:39:24 T-wave abnormality still present Electronically Signed On 04-04-2023 12:55:28 CDT by Wilbert Doherty M.D. [id number]
--- NOTE | 2023-04-03 23:47 | P.HP_ITS ---
Providers/Chief Complaint Admitting Physician: Lina Beach MD Primary Care Provider: AVA Jones-C Chief Complaint: AMS, possible sepsis History of Present Illness History is obtained by talking to ER physician and chart review as patient is currently encephalopathic and unable to provide any details regarding his symptoms. 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 He was brought to the emergency room today due to chief complaints of fever chills altered mental status, increasing confusion and lethargy. He was rece ntly seen in the emergency room on April 01, 2023 as his Padilla was displaced. He did not report any other symptoms at that point, Padilla catheter was replaced and he was discharged. On arrival today he had a fever of 102 Fahrenheit, WBC count of 14.2, NIDIA with creatinine at 1.4, on my assessment he was noted to have no urine drainage in the Padilla bag and had a palpable distended bladder. He is able to correctly tell me his name and date of , however does not know where he is or what brought him to the emergency room. He keeps talking about he had multiple pictures taken , I suspect he is referring to his recent CAT scan. Review of Systems General: Reports: ROS unobtainable due to mental status Medications/Allergies Home Medications Medication Instructions Recorded Confirmed Last Taken Type aspirin 81 mg tablet,delayed 81 mg PO QAM 08/01/21 04/01/23 06/16/22 History release (Adult Aspirin Regimen) docusate sodium 100 mg capsule 300 mg PO DAILY PRN Constipation 10/03/21 04/01/23 Unknown History (Stool Softener) ascorbic acid (vitamin C) 500 mg 500 mg PO BID 12/09/21 04/01/23 06/16/22 History tablet (Vitamin C) DME: Ezra #1 ea 05/06/22 04/01/23 Unknown Rx atorvastatin 10 mg tablet 10 mg PO QPM #90 tabs 08/26/22 04/01/23 Unknown Rx diltiazem HCl 240 mg capsule,24 240 mg PO DAILY #90 caps 08/26/22 04/01/23 Unknown Rx hr,extended release trazodone 50 mg tablet 50 mg PO BEDTIME #90 tabs 08/26/22 04/01/23 Unknown Rx furosemide 40 mg tablet (Lasix) 40 mg PO DAILY #90 tabs 08/27/22 04/01/23 Unknown Rx methenamine hippurate 1 gram tablet See Rx Instructions .Route 09/29/22 04/01/23 Unknown Rx .COMPLEX #180 tabs potassium chloride 10 mEq 10 meq PO DAILY #30 tabs 12/17/22 04/01/23 Unknown Rx tablet,extended release(part/cryst) apixaban 5 mg tablet (Eliquis) 5 mg PO DAILY #1 tab 02/17/23 04/01/23 Unknown Rx sucralfate 100 mg/mL oral 10 ml PO QID #1,200 mL 02/17/23 04/01/23 Unknown Rx suspension (Carafate) duloxetine 60 mg capsule,delayed 60 mg PO QAM #90 caps 02/23/23 04/01/23 Unknown Rx release metoprolol succinate 50 mg 50 mg PO DAILY #90 tabs 03/26/23 04/01/23 Unknown Rx tablet,extended release 24 hr ascorbate calcium (vitamin C) 500 500 mg PO DAILY 04/01/23 04/01/23 Unknown History mg tablet cholecalciferol (vitamin D3) 25 25 mcg PO DAILY 04/01/23 04/01/23 Unknown History mcg (1,000 unit) capsule ferrous sulfate 325 mg (65 mg 325 mg PO BID 04/01/23 04/01/23 Unknown History iron) tablet (Feosol) pantoprazole 40 mg tablet,delayed 40 mg PO BID 6 weeks #84 tabs 04/01/23 04/01/23 Unknown Rx release Allergies Allergy/AdvReac Type Severity Reaction Status Date / Time nystatin Allergy ALGY-Rash Verified 04/03/23 18:13 triamcinolone Allergy ALGY-Rash Verified 04/03/23 18:13 PFSH Acute PFSH: Medical History Alcohol abuse, daily use Alcohol use disorder Ambulates with cane Atrial fibrillation Benign prostatic hyperplasia (BPH) with urinary urgency Bladder stone 3 large bladder stones treated with cystolitholapaxy 08/30/2020 BPH loc w urin obs/LUTS Chronic bladder outlet obstructive symptoms. Chronic constipation Elevated PSA Essential (primary) hypertension Generalized anxiety disorder History of coronary artery disease History of TB (tuberculosis) Insomnia Urge incontinence Urinary retention Urolithiasis Surgical History History of cataract left History of cervical spinal surgery History of heart bypass surgery x4 History of hernia repair Right Family History Mother , at age 84 Bleeding disorder Father , at age 94 Stroke Other Cancer Denies family history of Diabetes Dementia Hypertension Social History Smoking and tobacco status: former smoker Second hand smoke exposure: No Smoking risk assessment/counseling performed?: No Alcohol intake: current Alcohol intake frequency: 3 or more drinks per day Desire information about alcohol rehabilitation?: No Counseling given: Yes Substance/Drug Use: never Desire information about substance/drug rehabilitation?: No Counseling given: No Adopted: No Caregiver/support person: Yes Lives independently: No Household members: family Housing: House Marital status: / Number of children: 2 Current occupational status: retired Do you think of yourself as: Straight/Heterosexual Current gender identity: Male Vitals/I&O/Wt Last Vital Signs Temp 98.3 F 04/03/23 23:15 Pulse 126 H 04/03/23 23:15 Resp 22 H 04/03/23 23:15 BP 131/73 04/03/23 23:15 Pulse Ox 92 04/03/23 23:15 O2 Del Method Nasal Cannula 04/03/23 23:15 04/03/23 04/03/23 04/04/23 14:59 22:59 06:59 Intake Total 1400 / 1400 Balance 1400 / 1400 Physical Exam Narrative: General: Disoriented, confused, ill-appearing elderly male HEENT: PERRLA, pupils bilaterally equal and reactive, pallors not present Chest: Normal vesicular breath sounds, no added sounds, equal good air entry bilaterally CVS: S1-S2 irregular, tachycardic Abdomen: Soft, distended bladder palpable in the suprapubic area extending up to umbilicus. Neuro: No focal deficits, confused and disoriented, able to only tell me his name and date of , speaking random words otherwise in reply to questions. Data 04/03/23 18:15 04/03/23 18:15 Micro: Microbiology 04/03/23 18:35 Blood Culture - Preliminary Blood SPECIMEN COLLECTED 04/03/23 18:35 Blood Culture - Preliminary Blood SPECIMEN COLLECTED Other data: Radiology Impressions Chest X-Ray 04/03/23 18:22 IMPRESSION: 1. There is vascular congestion with cephalization of flow, interstitial edema and ground-glass opacities compatible with CHF. 2. There is increased density left lower lobe concerning for pneumonic infiltrate. Abdomen/Pelvis CT 04/03/23 20:49 IMPRESSION: 1. Urinary bladder is quite distended. Catheter terminates in the prostate and should be repositioned. 2. There is mild bilateral hydronephrosis without ureteral calculus, likely reflecting tension of the bladder. 3. Intrarenal stones are noted bilaterally. 4. Severe spinal stenosis at L4-L5. Correlate with any symptoms of neurogenic claudication. ADDENDUM: 04/03/232235 Findings were discussed with Dr. Beach at 04/03/2023 10:33 PM CDT. Laboratory Results WBC 14.2 10^3/uL (4.0-10.0) H 04/03/23 18:15 RBC 4.00 10^6/uL (4.1-5.3) L 04/03/23 18:15 Hgb 12.5 g/dL (11.7-16.6) 04/03/23 18:15 Hct 38.6 % (42.0-52.0) L 04/03/23 18:15 MCV 96.5 fl (80-94) H 04/03/23 18:15 MCH 31.3 pg (28.0-34.0) 04/03/23 18:15 MCHC 32.4 g/dL (30.0-36.0) 04/03/23 18:15 RDW 14.7 % (12.1-15.1) 04/03/23 18:15 Plt Count 203 10^3/cmm (130-400) 04/03/23 18:15 MPV 11.1 fL (7.4-10.4) H 04/03/23 18:15 Neut % (Auto) 92.6 % 04/03/23 18:15 Lymph % (Auto) 2.3 % 04/03/23 18:15 Potter % (Auto) 4.3 % 04/03/23 18:15 Eos % (Auto) 0.0 % 04/03/23 18:15 Baso % (Auto) 0.2 % 04/03/23 18:15 Neut # (Auto) 13.18 10^3/uL (1.8-7.7) H 04/03/23 18:15 Lymph # (Auto) 0.3 10^3/uL (0.8-4.8) L 04/03/23 18:15 Potter # (Auto) 0.6 10^3/uL (0.2-0.9) 04/03/23 18:15 Eos # (Auto) 0.0 10^3/uL (0.0-0.8) 04/03/23 18:15 Baso # (Auto) 0.0 10^3/uL (0.0-0.1) 04/03/23 18:15 Nucleated RBC % (auto) 0 % 04/03/23 18:15 Nucleated RBCs # 0.0 /100WBC 04/03/23 18:15 PT 17.50 SECONDS (12.1-14.9) H 04/03/23 18:15 INR 1.39 (0.8-1.2) H 04/03/23 18:15 APTT 28.3 SECONDS (23.9-36.7) 04/03/23 18:15 Specimen Type Arterial 04/03/23 18:23 Sample Site Radial, right 04/03/23 18:23 ABG pH 7.49 (7.35-7.45) H 04/03/23 18:23 ABG pCO2 32.3 mmHg (35-45) L 04/03/23 18:23 ABG pO2 71.7 mmHg (80.0-100.0) L 04/03/23 18:23 ABG HCO3 24.6 mmol/L (22-26) 04/03/23 18: ABG Base Excess 1.8 mmol/L (-2.0-2.0) 04/03/23 18:23 Matheus Test Pos 04/03/23 18:23 Hematocrit 39.8 % (42-52) L 04/03/23 18:23 Hgb O2 Saturation 93.8 % (95-100) L 04/03/23 18:23 Carboxyhemoglobin 1.8 %THgb (0.4-20.1) 04/03/23 18:23 Methemoglobin 0.6 % (0.4-1.5) 04/03/23 18:23 Total Hemoglobin 13.0 g/dL (14-18) L 04/03/23 18:23 O2 Delivery Device Nc 04/03/23 18:23 O2 Liters/Min 2.0 % 04/03/23 18:23 Trim Die Maker ID Walamisha 04/03/23 18:23 Sodium 138 mmol/L (136-145) 04/03/23 18:15 Potassium 3.4 mmol/L (3.5-5.1) L 04/03/23 18:15 Chloride 102 mmol/L (98-107) 04/03/23 18:15 Carbon Dioxide 20 mmol/L (22-29) L 04/03/23 18:15 Anion Gap 19.4 (5-19) H 04/03/23 18:15 BUN 30 mg/dL (8-23) H 04/03/23 18:15 Creatinine 1.4 mg/dL (0.7-1.2) H 04/03/23 18:15 GFR Calculation Not Reportable 04/03/23 18:15 Glucose 130 mg/dL (65-115) H 04/03/23 18:15 Calculated Osmolality 294 mOsm/kg (285-295) 04/03/23 18:15 Lactic Acid 1.8 mmol/L (0.5-2.2) 04/03/23 18:15 Calcium 9.0 mg/dL (8.5-10.5) 04/03/23 18:15 Total Bilirubin 1.4 mg/dL (0.15-1.2) H 04/03/23 18:15 AST 31 U/L (0-40) 04/03/23 18:15 ALT 15 U/L (0-41) 04/03/23 18:15 Alkaline Phosphatase 94 U/L (40-130) 04/03/23 18:15 C-Reactive Protein 27.7 mg/L (0.0-4.9) H 04/03/23 18:15 NT-Pro-B Natriuret Pep 9871 pg/mL (0-450) H 04/03/23 18:15 Total Protein 7.3 g/dL (6.6-8.7) 04/03/23 18:15 Albumin 3.8 g/dL (3.5-5.2) 04/03/23 18:15 Globulin 3.5 g/dL (1.3-4.6) 04/03/23 18:15 Urine Color Red (Yellow) 04/03/23 18:40 Urine Appearance Hazy (CLEAR) A 04/03/23 18:40 Urine pH 5 (5-7) 04/03/23 18:40 Ur Specific [place] 1.015 (1.005-1.030) 04/03/23 18:40 Urine Protein 3+ (Negative) H 04/03/23 18:40 Urine Glucose (UA) Norm (Normal) 04/03/23 18:40 Urine Ketones Negative (Negative) 04/03/23 18:40 Urine Blood 3+ (Negative) H 04/03/23 18:40 Urine Nitrate Negative (Negative) 04/03/23 18:40 Urine Bilirubin Neg (Negative) 04/03/23 18:40 Urine Urobilinogen Norm mg/dL (Negative) 04/03/23 18:40 Ur Leukocyte Esterase 2+ (Negative) H 04/03/23 18:40 Urine RBC >100 /hpf (0-2) H 04/03/23 18:40 Urine WBC 25-40 /hpf (0-5) H 04/03/23 18:40 Ur Squamous Epith Cells 0-4 /hpf (0-5) H 04/03/23 18:40 Amorphous Sediment Not Reportable 04/03/23 18:40 Urine Bacteria 3+ /hpf (NONE) H 04/03/23 18:40 Ethyl Alcohol < 10 mg/dL (0-10) 04/03/23 18:15 A&P Assessment and plan (1) Urinary tract infection: 87-year-old male with multiple medical problems as outlined above presenting with altered mental status, urinary retention and fever. Overall suspect a urinary tract infection to be the cause of his symptoms. He has a palpable bladder distended up to the level of the umbilicus with no drainage in bag. CT abdomen confirms a misplaced catheter currently terminating in the prostate. Padilla catheter has been changed upon patient's arrival to [facility] floor. Over 1 L urine drained immediately upon replacing the Padilla catheter. Bilateral hydronephrosis noted on CT, likely in the setting of distended bladder and urinary retention. There are intrarenal stones but no evidence of ureteric obstruction currently. UA with 2+ leukocyte Estrace, 25-40 WBC, concerning for UTI. Start empiric antibiotic coverage with cefepime 2 g IV every 12 hours, dose will likely need to be adjusted with changes in creatinine. Currently patient has NIDIA, dosing based off of a creatinine clearance of 49. Blood and urine cultures have been collected in the ER, currently awaited. (2) Urinary retention: Likely as a result of misplaced Padilla catheter. Catheter replaced, now draining urine. (3) Acute kidney injury: Suspect this is related to urinary retention. Padilla has been repositioned. Recheck creatinine with a.m. labs Patient also has evidence of acute on chronic CHF exacerbation therefore he has not currently been placed on IV fluids. (4) Altered mental status: Suspect metabolic encephalopathy related to underlying infection and NIDIA. (5) Acute on chronic diastolic CHF (congestive heart failure): Bilateral Rales to auscultation, chest x-ray showing vascular congestion with cephalization of flow and interstitial edema and GGO's compatible with CHF, elevated BNP at 9800. last echocardiogram dates back to 2019, LVEF of 50% with moderate hypokinesia of the basal wall. Grade 3 diastolic dysfunction with severely elevated filling pressures. We will repeat echocardiogram to assess for any changes in the interim. EKG today shows A-fib with heart rate of [address] deviation in leads V4, V5, V6 Check EKG and troponin series. (6) Atrial flutter: Continue home dose of metoprolol 50 mg p.o. daily Plan DVT prophylaxis: Patient takes daily Eliquis which will suffice CODE STATUS: Needs to be ascertained unable to reach next of kin at this time Attestations Medical Necessity Statement*: Greater than 2 midnight admission will be needed for management of UTI, metabolic encephalopathy, acute on chronic CHF exacerbation needing IV diuresis.NIDIA Coding Level of Care Code Acute Code for [facility] Diagnoses Urinary tract infection N39.0 Urinary retention R33.9 Acute kidney injury N17.9 Altered mental status R41.82 Acute on chronic diastolic CHF (congestive heart failure) I50.33 Atrial flutter I48.92
[2023-04-04] VITALS (10 sets, daily range): BP systolic 107–126; BP diastolic 61–76; PULSE 82–115; RESP 16–19; TEMP 36.6–36.9; O2SAT 94–97
[2023-04-04] MEDS: metoprolol tartrate 1 mg/1 mL SDV 5 mL 2.5 MG IVP (00:04)
[2023-04-04] MEDS: FUROsemide 10 mg/mL SDV 4mL 40 MG IVP ×2 (00:06→16:57)
[2023-04-04 00:28] LABS: Troponin(5th) Baseline 54 ng/L (0-15)
--- NOTE | 2023-04-04 01:39 | ECG_ITS ---
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 Measurements Intervals [place] Rate: 111 P: 0 MS: 0 QRS: 35 QRSD: 117 T: 0 QT: 295 QTc: 402 Interpretive Statements ATRIAL FLUTTER/TACHYCARDIA WITH RAPID VENTRICULAR RESPONSE MODERATE INTRAVENTRICULAR CONDUCTION DELAY [110+ ms QRS DURATION] NONSPECIFIC ST & T-WAVE ABNORMALITY ABNORMAL RHYTHM ECG Compared to ECG 04/03/2023 18:35:14 Intraventricular conduction delay now present T-wave abnormality still present Electronically Signed On 04-04-2023 12:57:01 CDT by Wilbert Doherty M.D. [id number]
[2023-04-04 02:55] LABS: Troponin 5 2HR 52.77 ng/L (0-15)
[2023-04-04 03:04] LABS: Troponin 5 2HR Delta -1.23 ABS# (0-10)
[2023-04-04] MEDS: cefepime 2,000 MG in sodium chloride 0.9% (plus) 50 ML 100 MG IV (03:13)
[2023-04-04] MEDS: aspirin 81 mg EC Tablet PO (05:42)
[2023-04-04] MEDS: duloxetine 60 mg Capsule PO (05:42)
--- NOTE | 2023-04-04 05:42 | ECG_ITS ---
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 Measurements Intervals [place] Rate: 97 P: 0 ND: 0 QRS: 34 QRSD: 113 T: 60 QT: 368 QTc: 468 Interpretive Statements ATRIAL FIBRILLATION MODERATE INTRAVENTRICULAR CONDUCTION DELAY [105+ ms QRS DURATION, 80+ ms Q/S IN V1/V2, NO Q AND 60+ ms R IN I/aVL/V5/V6] ST DEVIATION AND MODERATE T-WAVE ABNORMALITY, CONSIDER LATERAL ISCHEMIA [-0.1+ mV T-WAVE IN I/aVL/V5/V6] Compared to ECG 04/04/2023 01:40:01 Possible ischemia now present Sinus tachycardia no longer present T-wave abnormality still present Electronically Signed On 04-04-2023 12:58:34 CDT by Wilbert Doherty M.D. [id number]
[2023-04-04 06:05] LABS: Basophils # 0.1 10^3/uL (0.0-0.1); Basophils % 0.4 %; Eosinophils % 0.1 %; Hematocrit 35.8 % (42.0-52.0); Hemoglobin 11.8 g/dL (11.7-16.6); Lymphocytes # 0.9 10^3/uL (0.8-4.8); Lymphocytes % 3.2 %; Mean Corpuscular Hemoglobin 32.2 pg (28.0-34.0); Mean Corpuscular Volume 97.5 fl (80-94); Mean Platelet Volume 11.1 fL (7.4-10.4); Monocytes # 1.4 10^3/uL (0.2-0.9); Monocytes % 5.1 %; Neutrophils # 24.23 10^3/uL (1.8-7.7); Neutrophils % 90.1 %; Nucleated Red Blood Cells % 0 %; Platelet Count 159 10^3/cmm (130-400); Red Blood Count 3.67 10^6/uL (4.1-5.3); Red Cell Distribution Width 15.2 % (12.1-15.1); White Blood Count 26.9 10^3/uL (4.0-10.0)
[2023-04-04 06:25] LABS: Troponin 5 6HR 50.42 ng/L (0-15)
[2023-04-04 06:28] LABS: Alanine Aminotransferase 13 U/L (0-41); Albumin Level 3.6 g/dL (3.5-5.2); Alkaline Phosphatase 88 U/L (40-130); Anion Gap 16.1 (5-19); Aspartate Amino Transferase 27 U/L (0-40); Blood Urea Nitrogen 34 mg/dL (8-23); Calcium 8.6 mg/dL (8.5-10.5); Carbon Dioxide 24 mmol/L (22-29); Chloride 106 mmol/L (98-107); Globulin 3.2 g/dL (1.3-4.6); Glucose 133 mg/dL (65-115); Magnesium 1.8 mg/dL (1.7-2.3); Osmolality Calculated 306 mOsm/kg (285-295); Potassium 3.1 mmol/L (3.5-5.1); Sodium 143 mmol/L (136-145); Total Bilirubin 0.9 mg/dL (0.15-1.2); Total Protein 6.8 g/dL (6.6-8.7)
[2023-04-04 06:33] LABS: Troponin 5 6HR Delta -3.58 ng/L (0-12)
--- NOTE | 2023-04-04 09:20 | PC.PHAR ---
PATIENT STATES HIS DAUGHTER IN LAW TAKES CARE OF HIS MEDS. SHE IS MOWING AND WILL CALL BACK.
[2023-04-04] MEDS: apixaban 5 mg Tablet PO (09:28)
[2023-04-04] MEDS: metoprolol succinate ER (24 HR) 50 mg Tablet PO (09:28)
[2023-04-04] MEDS: pantoprazole DR 40 mg Tablet PO (09:28)
--- NOTE | 2023-04-04 09:47 | PC.PHAR ---
PATIENT STATES HIS DAUGHTER IN LAW TAKES CARE OF ALL HIS MEDS. SHE STATES VIT C 500 IS TWICE DAILY, ASA HAS BEEN DC'D, ATORVASTATIN 10 MG IS DAILY IN PM, VITAMIN D3 IS 2000 UNITS DAILY, COLACE IS DC'D,ELIQUIS 5 MG IS ONCE DAILY DUE TO GI BLEED,POTASSIUM CHL 10 MEQ IS IN PM, SUCRALFATE 100 MG SUSP. IS QID, TRAZODONE 50 MG IS IN PM. SHE STATES PATIENT IS GREAT AT AM MEDICATIONS AND IS VERY NON COMPLIANT IN THE EVENING.
--- NOTE | 2023-04-04 13:01 | PM.PN ---
Subjective Subjective: - Patient was seen this morning he is alert x3, follows all commands, -He tells me that he feels significantly better -He surprised he had a UTI -Denies any nausea, no vomiting, no lightheadedness, no dizziness, -Denies any fevers, no chills Vitals/I&O/Wt Last Vital Signs Temp 98.5 F 04/04/23 11:39 Pulse 84 04/04/23 11:39 Resp 18 04/04/23 11:39 BP 107/69 04/04/23 11:39 Pulse Ox 97 04/04/23 11:39 O2 Del Method Nasal Cannula 04/04/23 11:39 O2 Flow Rate 2 04/04/23 08:00 04/03/23 04/04/23 04/04/23 22:59 06:59 14:59 Intake Total 1400 / 1400 50 / 1450 Output Total 2900 / 2900 Balance 1400 / 1400 -2850 / -1450 Physical Exam Const: COMMON NORMALS: no acute distress and patient oriented x3 Neck/C-Spine: COMMON NORMALS: no JVD Resp: COMMON NORMALS: normal respiratory effort, No retractions, No use of accessory muscles and clear to auscultation bilaterally AUSCULTATION: clear to auscultation bilaterally Cardio: COMMON NORMALS: no JVD, regular rate, regular rhythm, S1 normal heart sound present and S2 normal heart sound present RATE: regular rate RHYTHM: regular rhythm HEART SOUNDS: S1 normal heart sound present and S2 normal heart sound present GI: COMMON NORMALS: Normal to inspection, nondistended, normoactive bowel sounds present and non-tender Extremity: NARRATIVE EXTREMITY EXAM: 1+ pitting edema bilateral extremity Neuro: COMMON NORMALS: patient oriented x3 Psych: COMMON NORMALS: mental status grossly normal Data 04/04/23 05:42 04/04/23 05:42 Micro: Microbiology 04/03/23 18:35 Blood Culture - Preliminary Blood Escherichia coli 04/03/23 18:35 Blood Culture - Preliminary Blood SPECIMEN COLLECTED A&P Assessment and plan (1) Urinary tract infection: Bilateral hydronephrosis noted on CT, likely in the setting of distended bladder and urinary retention. There are intrarenal stones but no evidence of ureteric obstruction currently. Padilla catheter position change, so far 2900 urine output UA with 2+ leukocyte Estrace, 25-40 WBC, concerning for UTI. Continue empiric antibiotic coverage with cefepime 2 g IV every 12 hours, dose will likely need to be adjusted with changes in creatinine. Currently patient has NIDIA, dosing based off of a creatinine clearance of 49. Blood and urine cultures have been collected in the ER, currently awaited. (2) Urinary retention: Likely as a result of misplaced Padilla catheter. Catheter replaced, now draining urine. (3) Acute kidney injury: Suspect this is related to urinary retention. Padilla has been repositioned. Recheck creatinine with a.m. labs Patient also has evidence of acute on chronic CHF exacerbation therefore he has not currently been placed on IV fluids. (4) Altered mental status: Resolved Suspect metabolic encephalopathy related to underlying infection and NIDIA. (5) Acute on chronic diastolic CHF (congestive heart failure): Bilateral Rales to auscultation, chest x-ray showing vascular congestion with cephalization of flow and interstitial edema and GGO's compatible with CHF, elevated BNP at 9800. last echocardiogram dates back to 2019, LVEF of 50% with moderate hypokinesia of the basal wall. Grade 3 diastolic dysfunction with severely elevated filling pressures. 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 daily (7) Non-STEMI (non-ST elevated myocardial infarction): - Likely type II NSTEMI from sepsis as above -No chest pain complaints -However cannot rule out underlying cardiac etiology -Continue telemetry monitoring (8) Bilateral hydronephrosis: - Likely due to obstruction as above, will monitor (9) Pneumonia: - Seen on chest x-ray -Does have leukocytosis -Continue cefepime -Follow sputum cultures, respiratory viral panel (10) Sepsis: - Secondary to UTI, pneumonia (11) Hypokalemia: - Replace IV (12) Fluid overload: - 1 dose of Lasix today (13) BPH (benign prostatic hyperplasia): - Flomax Plan DVT prophylaxis: Patient takes daily Eliquis which will suffice CODE STATUS: Full code Attestations Medical Necessity Statement*: Patient requires hospitalization for sepsis secondary to UTI, pneumonia, fluid overload, CHF, Diagnoses Urinary tract infection N39.0 Urinary retention R33.9 Acute kidney injury N17.9 Altered mental status R41.82 Acute on chronic diastolic CHF (congestive heart failure) I50.33 Atrial flutter I48.92 Non-STEMI (non-ST elevated myocardial infarction) I21.4 Bilateral hydronephrosis N13.30 Pneumonia J18.9 Sepsis A41.9 Hypokalemia E87.6 Fluid overload E87.70 BPH (benign prostatic hyperplasia) N40.0
--- NOTE | 2023-04-04 13:27 | PC.NURSE ---
Another nurse brought Critical Blood cultures bottle X4 with E. Coli result to this nurse. This nurse notified Dr. Bhardwaj. Dr. Bhardwaj replied Thank You. No new orders at this time
[2023-04-04] MEDS: atorvastatin 40 mg Tablet 10 MG PO (18:13)
--- NOTE | 2023-04-04 23:44 | USCV_ITS ---
Raúl Centeno Age: 87 Gender: M : 1935 Exam Date: 04/04/2023 10:53 Ordering Phys: Lina Baech MD Technologist: AMBER [place] [facility] [place]: chf BP: / HR: 100 Rhythm: Sinus Technical Quality: Adequate MEASUREMENTS (Male / Female) Normal Values 2D ECHO LV Diastolic Diameter PLAX 4.6 cm 4.2 - 5.9 / 3.9 - 5.3 cm LV Systolic Diameter PLAX 3.9 cm IVS Diastolic Thickness 1.2 cm 0.6 - 1.0 / 0.6 - 0.9 cm IVS Systolic Thickness 1.4 cm LVPW Diastolic Thickness 0.9 cm 0.6 - 1.0 / 0.6 - 0.9 cm LVPW Systolic Thickness 1.3 cm LVOT Diameter 2.4 cm LV Ejection Fraction 2D Teich 32.1 % LV Ejection Fraction MOD 2C 53.1 % LV Ejection Fraction 2C AL 54.5 % LA Diameter 4.7 cm IVC Diameter 2.8 cm M-MODE Aortic Annulus Diameter 2.9 cm LA Ao Ratio MM 1.7 DOPPLER AV Peak Velocity 135.0 cm/s LVOT Peak Velocity 78.0 cm/s AV Area Cont Eq vti 3.3 cm squared AV Area Cont Eq pk 2.6 cm squared MV Area PHT 4.6 cm squared Mitral E to A Ratio 1.8 MV E' Velocity 59.0 cm/s Mitral E to MV E' Ratio 8.2 Mitral E to LV E' Lateral Ratio 6.1 Mitral E to LV E' Septal Ratio 12.3 TR Peak Velocity 226.7 cm/s TR Peak Gradient 20.6 mmHg TV Peak E Velocity 40.0 cm/s Right Atrial Pressure 6.0 mmHg Pulmonary Artery Systolic Pressu 26.6 mmHg PV Peak Velocity 90.0 cm/s FINDINGS Left Ventricle Normal left ventricular size and systolic function, EF 65 % (visual) no regional wall motion abnormalities. Right Ventricle The right ventricle is normal in size and function. Right Atrium Moderately increased right atrial size. Left Atrium Moderately increased left atrial size. Mitral Valve Thickened mitral valve. Moderate mitral annular calcification. Trace mitral valve regurgitation. Aortic Valve Thickened aortic valve. Moderate aortic valve calcification Tricuspid Valve Moderate tricuspid valve regurgitation. Pulmonic Valve Moderate pulmonary valve regurgitation. Pericardium Normal pericardium without effusion. Aorta Normal ascending aorta dimension. IVC Dilated IVC with normal respiratory variation. CONCLUSIONS Normal left ventricular size and systolic function, EF 65 % (visual) no regional wall motion abnormalities. Moderate mitral annular calcification. Trace mitral valve regurgitation. Thickened aortic valve. Mild aortic valve calcification. Thickened aortic valve. Moderate aortic valve calcification Moderate biatrial enlargementModerate tricuspid valve regurgitation. Moderate pulmonary valve regurgitation. Normal pericardium without effusion. No similar previous studies are available for comparison Dr Wilbert Doherty MD [facility] (Electronically Signed) Final Date: 04 April 2023 12:46 S
[2023-04-05] VITALS (9 sets, daily range): BP systolic 109–136; BP diastolic 64–99; PULSE 102–114; RESP 17–22; TEMP 36.2–36.9; O2SAT 92–97
[2023-04-05] MEDS: cefepime 2,000 MG in sodium chloride 0.9% (plus) 50 ML 100 MG IV (03:58)
[2023-04-05 05:05] LABS: Basophils # 0.1 10^3/uL (0.0-0.1); Basophils % 0.5 %; Eosinophils # 0.6 10^3/uL (0.0-0.8); Eosinophils % 3.8 %; Hematocrit 36.7 % (42.0-52.0); Hemoglobin 11.9 g/dL (11.7-16.6); Lymphocytes # 0.9 10^3/uL (0.8-4.8); Lymphocytes % 5.5 %; Mean Corpuscular HGB Conc 32.4 g/dL (30.0-36.0); Mean Corpuscular Hemoglobin 32.3 pg (28.0-34.0); Mean Corpuscular Volume 99.7 fl (80-94); Mean Platelet Volume 10.8 fL (7.4-10.4); Monocytes # 1.1 10^3/uL (0.2-0.9); Monocytes % 6.3 %; Neutrophils # 14.11 10^3/uL (1.8-7.7); Neutrophils % 83.3 %; Nucleated Red Blood Cells % 0 %; Platelet Count 160 10^3/cmm (130-400); Red Blood Count 3.68 10^6/uL (4.1-5.3); Red Cell Distribution Width 14.9 % (12.1-15.1); White Blood Count 16.9 10^3/uL (4.0-10.0)
[2023-04-05 05:27] LABS: Alanine Aminotransferase 14 U/L (0-41); Albumin Level 3.3 g/dL (3.5-5.2); Alkaline Phosphatase 92 U/L (40-130); Anion Gap 15.3 (5-19); Aspartate Amino Transferase 26 U/L (0-40); Blood Urea Nitrogen 34 mg/dL (8-23); Calcium 8.7 mg/dL (8.5-10.5); Carbon Dioxide 25 mmol/L (22-29); Chloride 101 mmol/L (98-107); Globulin 3.7 g/dL (1.3-4.6); Glucose 97 mg/dL (65-115); Magnesium 1.9 mg/dL (1.7-2.3); Osmolality Calculated 294 mOsm/kg (285-295); Phosphorus 3.1 mg/dL (2.5-4.5); Potassium 3.3 mmol/L (3.5-5.1); Sodium 138 mmol/L (136-145); Total Bilirubin 0.8 mg/dL (0.15-1.2)
[2023-04-05] MEDS: aspirin 81 mg EC Tablet PO (05:50)
[2023-04-05] MEDS: duloxetine 60 mg Capsule PO (05:50)
[2023-04-05 06:50] LABS: Adenovirus Not Detected (NOT DETECT); Chlamydia Pneumoniae Not Detected (NOT DETECT); Coronavirus 229E,HKU1,NL63,OC4 Not Detected (NOT DETECT); Human Metapneumovirus Not Detected (NOT DETECT); Human Rhinovirus/Enterovirus Not Detected (NOT DETECT); Influenza A Not Detected (NOT DETECT); Influenza A H1 Not Detected (NOT DETECT); Influenza A H1-2009 Not Detected (NOT DETECT); Influenza A H3 Not Detected (NOT DETECT); Influenza B Not Detected (NOT DETECT); Mycoplasma Pneumoniae Not Detected (NOT DETECT); Parainfluenza Virus Type 1 Not Detected (NOT DETECT); Parainfluenza Virus Type 2 Not Detected (NOT DETECT); Parainfluenza Virus Type 3 Not Detected (NOT DETECT); Parainfluenza Virus Type 4 Not Detected (NOT DETECT); Respiratory Syncytial Virus A Not Detected (NOT DETECT); Respiratory Syncytial Virus B Not Detected (NOT DETECT); SARS-COV-2 Not Detected (NOT DETECT)
[2023-04-05] MEDS: metoprolol succinate ER (24 HR) 50 mg Tablet PO (09:25)
[2023-04-05] MEDS: potassium chloride ER 20 mEq Tablet 40 MEQ PO (09:25)
[2023-04-05] MEDS: apixaban 5 mg Tablet PO (09:25)
[2023-04-05] MEDS: tamsulosin 0.4 mg Capsule PO (09:25)
[2023-04-05] MEDS: pantoprazole DR 40 mg Tablet PO (09:25)
--- NOTE | 2023-04-05 10:16 | XRR_ITS ---
PROCEDURE INFORMATION: Exam: XR Abdomen Exam date and time: 04/05/2023 11:41 AM Age: 87 years old Clinical indication: Abdominal pain; Generalized; Additional info: Distented abdomen TECHNIQUE: Imaging protocol: Radiologic exam of the abdomen. Views: Frontal supine view of the abdomen. 1 View. COMPARISON: CT kidney stone [id number] 04/03/2023 9:12 PM FINDINGS: Limitations: Study is technically limited to single AP view which did not include the hemidiaphragms. A Lungs: Visualized lung bases are clear. Gastrointestinal tract: There is mild-moderate generalized colonic distention with gas and retained stool that may reflect combination of colonic ileus and constipation but difficult to further assess. Bones/joints: Unremarkable. XR/XR KUB portable [id number] IMPRESSION: Nonspecific bowel gas pattern as discussed above.
[2023-04-05] MEDS: dilTIAZem ER (24HR) 240 mg Capsule PO (11:44)
[2023-04-05] MEDS: polyethylene glycol 3350 Pkt 17 gm PO (11:44)
[2023-04-05] MEDS: lactulose oral liq 20 gm/30 mL UDC PO (12:55)
--- NOTE | 2023-04-05 16:41 | P.PN_ITS ---
Subjective Subjective: - Overnight patient had episodes of confusion -4 blood cultures positive for E. coli -Afebrile overnight, normotensive -This morning is alert to person, to place, to time he follows commands -Denies any chest pain, palpitations, shortness of shortness of breath, does report having a bowel movement,, does report abdominal distention, no abdominal pain -I spoke to patient's sister, whom he lives with, she tells me that he has history of alcoholism, he is chronically fecal incontinent, he has a chronic Padilla catheter in place, he does not take care of himself, she has to help in his care, -She is concerned as patient has a history recently of a colonic mass, that is resulting in a bowel obstruction, for which he saw Dr. Shelton, Dr. Shelton recommended a colonoscopy, but the earliest they could be done in his in May, she is worried that he would not follow-up, and that his colon was perforated she is wondering if we could possibly do it while he is here -She is me that he does not take care of himself, -I had extensive discussion about patient's NIDIA, urinary retention secondary to large prostate, Padilla catheter repositioning, improved NIDIA, his UTI, likely has chronic UTI due to chronic indwelling catheter, -His sepsis, and his E. coli bacteremia -Overall his condition is improving, decision will be made or of IV versus p.o. antibiotics based upon culture sensitivities and repeat blood cultures -He does have a history of alcoholism, PT OT work with him, and do further testing -In terms of his colonic mass with bowel obstruction repeat CT scan did not not mention this -However I will go over the case with Dr. Shelton, -Spoke to Dr. Shelton, patient has had CAT scan in February which showed 3.? Tortuous decompressed sigmoid colon in the LEFT lower quadrant. This transitions to dilated LEFT colon. This can be further evaluated with colonoscopy and/or barium enema in further assessment. Suggestion of a focal soft tissue nodule at the area of transition measuring 1.8 cm 4.? Constipation involving the hepatic flexure transverse colon and splenic flexure extending into the descending LEFT colon -Discussed the possibility of a colonic mass resulting in obstruction and his severe constipation, malignant versus benign -Discussed concern of loss of follow-up, family is concerned for the urgency of this to be done during this hospitalization -Discussed possibility of inpatient colonoscopy when he is clinically improved from his sepsis and his UTI potentially Thursday, will consult, n.p.o. Thursday night, for possible colonoscopy on Thursday, will hold Felipe Vitals/I&O/Wt Last Vital Signs Temp 97.7 F 04/05/23 11:29 Pulse 114 H 04/05/23 14:00 Resp 20 H 04/05/23 11:29 BP 109/64 04/05/23 11:29 Pulse Ox 93 04/05/23 11:29 O2 Del Method Room Air 04/05/23 11:29 O2 Flow Rate 1.5 04/05/23 08:00 04/05/23 04/05/23 04/05/23 06:59 14:59 22:59 Intake Total 50 / 1095 960 / 960 Output Total 1850 / 2850 Balance -1800 / -1755 960 / 960 Weight last 48 hrs Weight 80.881 kg Physical Exam Const: COMMON NORMALS: no acute distress and patient oriented x3 Resp: COMMON NORMALS: normal respiratory effort, No retractions, No use of accessory muscles and clear to auscultation bilaterally AUSCULTATION: clear to auscultation bilaterally Cardio: COMMON NORMALS: regular rate, regular rhythm, S1 normal heart sound present and S2 normal heart sound present RATE: regular rate RHYTHM: regular rhythm HEART SOUNDS: S1 normal heart sound present and S2 normal heart sound present GI: OTHER: Abdomen soft, distended, good bowel sounds in all quadrants, no guarding, no rebound, no rigidity Extremity: COMMON NORMALS: no pedal edema Neuro: COMMON NORMALS: patient oriented x3 Psych: COMMON NORMALS: mental status grossly normal Data 04/05/23 04:08 04/05/23 04:08 Micro: Microbiology 04/03/23 18:40 Urine Culture - Preliminary Urine,Clean Catch Gram Negative Rods 04/05/23 04:12 Blood Culture - Preliminary Blood SPECIMEN COLLECTED 04/05/23 04:08 Blood Culture - Preliminary Blood SPECIMEN COLLECTED 04/03/23 18:35 Blood Culture - Preliminary Blood NEGATIVE TO DATE 04/03/23 18:35 Blood Culture - Preliminary Blood Escherichia coli A&P Assessment and plan (1) Acute encephalopathy: - Possible ing -Does have a history of alcoholism -Also secondary to sepsis, UTI, bacteremia -B12, folate, follow cultures, CT head (2) Protein calorie malnutrition: - Has moderate protein calorie malnutrition -Has temporal muscle wasting, peripheral muscle wasting, of bilateral arms, bilateral thighs (3) Physical deconditioning: - PT OT (4) Colonic mass: -His CT scan from February 2023 showed -3.? Tortuous decompressed sigmoid colon in the LEFT lower quadrant. This transitions to dilated LEFT colon. This can be further evaluated with colonoscopy and/or barium enema in further assessment. Suggestion of a focal soft tissue nodule at the area of transition measuring 1.8 cm 4.? Constipation involving the hepatic flexure transverse colon and splenic f lexure extending into the descending LEFT colon -Continues to be constipated -Continue clears -Continue MiraLAX, lactulose as needed -Hold Eliquis -General surgery consulted for consideration of colonoscopy -Serial abdominal exams -KUB (5) Stool incontinence: (6) Urinary tract infection: Bilateral hydronephrosis noted on CT, likely in the setting of distended bladder and urinary retention. There are intrarenal stones but no evidence of ureteric obstruction currently. Padilla catheter position change, so far 2900 urine output UA with 2+ leukocyte Estrace, 25-40 WBC, concerning for UTI. Continue empiric antibiotic coverage with cefepime 2 g IV every 12 hours, dose will likely need to be adjusted with changes in creatinine. Blood and urine cultures have been collected in the ER, 4 of 4 blood cultures positive for E. coli (7) Urinary retention: Likely as a result of misplaced Padilla catheter. Catheter replaced, now draining urine. (8) Acute kidney injury: Suspect this is related to urinary retention. Padilla has been repositioned. Monitor creatinine Patient also has evidence of acute on chronic CHF exacerbation therefore he has not currently been placed on IV fluids. (9) Altered mental status: - Monitor (10) Acute on chronic diastolic CHF (congestive heart failure): No significant wheezing today, no significant edema, monitor last echocardiogram dates back to 2019, LVEF of 50% with moderate hypokinesia of the basal wall. Grade 3 diastolic dysfunction with severely elevated filling pressures. Cardiac echo Normal left ventricular size and systolic function, EF 65 % ?(visual) no regional wall motion abnormalities. ?Moderate mitral annular calcification. Trace mitral valve ?regurgitation. ?Thickened aortic valve. Mild aortic valve calcification. ?Thickened aortic valve.? Moderate aortic valve calcification ?Moderate biatrial enlargementModerate tricuspid valve ?regurgitation. ?Moderate pulmonary valve regurgitation. ?Normal pericardium without effusion.? ?No similar previous studies are available for comparison EKG today shows A-fib with heart rate of [address] deviation in leads V4, V5, V6 Has received Lasix yesterday Hold Lasix for today Monitor urine output monitor creatinine with daily dose Lasix (11) Atrial flutter: Continue home dose of metoprolol 50 mg p.o. daily Continue home Cardizem (12) Non-STEMI (non-ST elevated myocardial infarction): - Likely type II NSTEMI from sepsis as above -No chest pain complaints -However cannot rule out underlying cardiac etiology -Continue telemetry monitoring (13) Bilateral hydronephrosis: - Likely due to obstruction as above, will monitor (14) Pneumonia: - Seen on chest x-ray -Does have leukocytosis -Continue cefepime -Follow sputum cultures, respiratory viral panel (15) Sepsis: - Secondary to UTI, pneumonia, E. coli bacteremia (16) Hypokalemia: - Replace IV (17) Fluid overload: - Hold off on Lasix today (18) BPH (benign prostatic hyperplasia): - Flomax (19) E. coli bacteremia: - Repeat blood cultures -Continue cefepime -Secondary to UTI Plan DVT prophylaxis: Patient takes daily Eliquis which will suffice CODE STATUS: Full code Plan for today, continue cefepime for E. coli bacteremia, follow blood cultures, follow urine cultures, hold off on Lasix therapy, spoke to general surgery, spoke to patient's family, spoke to patient spoke to nursing staff, serial abdominal exams, KUB Attestations Medical Necessity Statement*: Patient requires hospitalization for E. coli bacteremia, UTI, pneumonia, fluid overload, BPH, sepsis, colonic mass, Coding Level of Care Code 78281 High Time for a total of 60 minutes, includes reviewing past or interval history, examining/interviewing patient, placing orders, counseling patient/fa anette/other support, updating patient/family/other support, discussing plan of care with staff, communicating with other healthcare providers, documenting encounter and coordinating care Diagnoses Acute encephalopathy G93.40 Protein calorie malnutrition E46 Physical deconditioning R53.81 Colonic mass K63.89 Stool incontinence R15.9 Urinary tract infection N39.0 Urinary retention R33.9 Acute kidney injury N17.9 Altered mental status R41.82 Acute on chronic diastolic CHF (congestive heart failure) I50.33 Atrial flutter I48.92 Non-STEMI (non-ST elevated myocardial infarction) I21.4 Bilateral hydronephrosis N13.30 Pneumonia J18.9 Sepsis A41.9 Hypokalemia E87.6 Fluid overload E87.70 BPH (benign prostatic hyperplasia) N40.0 E. coli bacteremia R78.81; B96.20
--- NOTE | 2023-04-05 16:47 | CTR_ITS ---
PROCEDURE INFORMATION: Exam: CT Head Without Contrast Exam date and time: 04/05/2023 6:32 PM Age: 87 years old Clinical indication: Altered mental status/memory loss; Confusion or disorientation; Patient HX: Confusion with encephalopathy TECHNIQUE: Imaging protocol: Computed tomography of the head without contrast. Radiation optimization: All CT scans at this facility use at least one of these dose optimization techniques: automated exposure control; mA and/or kV adjustment per patient size (includes targeted exams where dose is matched to clinical indication); or iterative reconstruction. REPORTING DATA: Count of CT and Cardiac NM exams in prior 12 months: This patient has received 2 known CTs and 0 known cardiac nuclear medicine studies in the 12 months prior to the current study. COMPARISON: CT head wo con* [id number] 12/09/2021 1:29 PM RADIATION DOSE METRICS: Total DLP (mGy-cm): 1280.58 FINDINGS: Brain: No hemorrhage. No edema. Moderate diffuse cerebral atrophy and advanced sequela of chronic small vessel ischemic disease. No mass effect. Cerebral ventricles: No ventriculomegaly. Paranasal sinuses: Visualized sinuses are unremarkable. No fluid levels. Mastoid air cells: Visualized mastoid air cells are well aerated. Bones/joints: Unremarkable. No acute fracture. Soft tissues: Unremarkable. CT/CT head wo con* [id number] IMPRESSION: 1. No acute intracranial abnormality. 2. Moderate diffuse cerebral atrophy and advanced sequela of chronic small vessel ischemic disease.
[2023-04-05 17:13] LABS: INR 1.44 (0.8-1.2)
[2023-04-05 17:55] LABS: Alcohol Level < 10 mg/dL (0-10); Vitamin B12 295 pg/mL (232-1245)
--- NOTE | 2023-04-05 18:15 | XRR_ITS ---
PROCEDURE INFORMATION: Exam: XR Abdomen Exam date and time: 04/05/2023 6:52 PM Age: 87 years old Clinical indication: Abdominal pain; Generalized; Additional info: Distention TECHNIQUE: Imaging protocol: Radiologic exam of the abdomen. Views: Frontal supine view of the abdomen. 1 View. COMPARISON: CR (ABDOMEN, ) 04/05/2023 11:41 AM FINDINGS: Gastrointestinal tract: Worsened diffuse gaseous distension of the small and large bowel. No visible gas in the rectum. Intraperitoneal space: No visible pneumoperitoneum. Bones/joints: Unremarkable. XR/XR KUB portable [id number] IMPRESSION: Worsened gaseous distension of the small and large bowel most likely represents severe gaseous ileus.
[2023-04-05] MEDS: atorvastatin 40 mg Tablet 10 MG PO (20:56)
[2023-04-05 22:28] LABS: Folate Level 5.7 ng/mL (4.5-32.2)
[2023-04-06] VITALS (7 sets, daily range): BP systolic 106–120; BP diastolic 57–72; PULSE 63–91; RESP 16–19; TEMP 36.4–36.9; O2SAT 94–97
[2023-04-06] MEDS: cefepime 2,000 MG in sodium chloride 0.9% (plus) 50 ML 100 MG IV (04:30)
[2023-04-06] MEDS: aspirin 81 mg EC Tablet PO (05:05)
[2023-04-06] MEDS: duloxetine 60 mg Capsule PO (05:05)
[2023-04-06 05:11] LABS: Basophils % 0.2 %; Eosinophils # 0.3 10^3/uL (0.0-0.8); Eosinophils % 1.8 %; Hematocrit 34.3 % (42.0-52.0); Lymphocytes # 0.7 10^3/uL (0.8-4.8); Lymphocytes % 4.7 %; Mean Corpuscular HGB Conc 32.1 g/dL (30.0-36.0); Mean Corpuscular Hemoglobin 31.2 pg (28.0-34.0); Mean Corpuscular Volume 97.2 fl (80-94); Mean Platelet Volume 11.3 fL (7.4-10.4); Monocytes # 0.9 10^3/uL (0.2-0.9); Monocytes % 6.1 %; Neutrophils # 12.28 10^3/uL (1.8-7.7); Neutrophils % 86.6 %; Nucleated Red Blood Cells % 0 %; Platelet Count 151 10^3/cmm (130-400); Red Blood Count 3.53 10^6/uL (4.1-5.3); Red Cell Distribution Width 14.4 % (12.1-15.1); White Blood Count 14.2 10^3/uL (4.0-10.0)
[2023-04-06 05:32] LABS: Alanine Aminotransferase 15 U/L (0-41); Albumin Level 3.5 g/dL (3.5-5.2); Alkaline Phosphatase 84 U/L (40-130); Anion Gap 15.4 (5-19); Aspartate Amino Transferase 20 U/L (0-40); Blood Urea Nitrogen 24 mg/dL (8-23); Calcium 8.9 mg/dL (8.5-10.5); Carbon Dioxide 26 mmol/L (22-29); Chloride 98 mmol/L (98-107); Globulin 3.5 g/dL (1.3-4.6); Glucose 107 mg/dL (65-115); Magnesium 1.9 mg/dL (1.7-2.3); Osmolality Calculated 287 mOsm/kg (285-295); Phosphorus 2.4 mg/dL (2.5-4.5); Potassium 3.4 mmol/L (3.5-5.1); Sodium 136 mmol/L (136-145); Total Bilirubin 1.4 mg/dL (0.15-1.2)
--- NOTE | 2023-04-06 06:46 | PC.NURSE ---
pt has been increasingly confused over the course of the shift. pt continues to believe that he is at home and attempted to climb out of the bed, pt was informed that he was in the hospital repeatedly but the pt either forgot or refused to believe that that was indeed where he was located. pt repeatedly removed his oxygen nasal cannula and heart telemetry. oxygen was replaced and pt education reinforced on importance of wearing it as well as the telemetry monitoring. bed alarm has been maintained during the shift. rails up x3, call light within reach.
[2023-04-06 06:48] LABS: NT Pro B Type Natriuretic Pept 4454 pg/mL (0-450)
[2023-04-06] MEDS: dilTIAZem ER (24HR) 240 mg Capsule PO (08:05)
[2023-04-06] MEDS: pantoprazole DR 40 mg Tablet PO (08:05)
[2023-04-06] MEDS: tamsulosin 0.4 mg Capsule PO (08:05)
[2023-04-06] MEDS: metoprolol succinate ER (24 HR) 50 mg Tablet PO (08:05)
--- NOTE | 2023-04-06 08:47 | XR_ITS ---
WS: [id number] Exam: XR KUB portable [id number] Date/Time of Exam: 04/06/2023 8:51 AM Reason For Exam: abdominal distention Comparison 04/05/2023. Moderate gaseous distention of both large and small bowel loops showing little change. This probably represents adynamic ileus. No sign of organ enlargement. No free air. Degenerative change and levosco liosis of the L-spine. 3 mm metallic density superimposes the lateral right abdomen. This may represe nt debris within the bowel. This is unchanged. XR/XR KUB portable [id number] IMPRESSION: 1. Findings suggest adynamic ileus with little change.
--- NOTE | 2023-04-06 11:57 | PC.SOCIAL ---
IMM Update pg 2 of IMM provided to patient and had him sign. Copy provided and Copy dated, initialed and placed in chart.
[2023-04-06] MEDS: lidocaine 1% 5 ML in potassium chloride premix 100 ML 26.25 ML IV (11:58)
[2023-04-06] MEDS: peg /e-lyte soln 4,000 mL Btl 4000 ML PO (13:54)
[2023-04-06] MEDS: docusate sodium 100 mg Capsule 400 MG PO (14:23)
--- NOTE | 2023-04-06 16:07 | PM.PN ---
Subjective Subjective: - Patient was examined this morning -He was seen talking to himself, when he confronted about this he starts joking with me that he only speaks to people who have good intellect -He is alert to person, to place, not to time he can follow commands -He does report abdominal pain and flank pain, -Denies any fevers, no chills -I had a detailed discussion with him about his abdominal distention, concerns for ileus, he has a history of a colonic mass for which she saw Dr. Shelton for consideration of colonoscopy there is concerns for persistent abdominal distention, constipation, as an etiology, and that he needs to have a colonoscopy he is worried about colonic rupture and he is agreeable to proceed, -Does feel nauseous Vitals/I&O/Wt Last Vital Signs Temp 97.6 F 04/06/23 15:55 Pulse 82 04/06/23 15:55 Resp 16 04/06/23 15:55 BP 106/62 04/06/23 11:26 Pulse Ox 97 04/06/23 15:55 O2 Del Method Room Air 04/06/23 15:55 O2 Flow Rate 1.5 04/05/23 20:00 04/06/23 04/06/23 04/06/23 06:59 14:59 22:59 Intake Total 170 / 1730 120 / 120 Balance 170 / 755 120 / 120 Physical Exam Const: COMMON NORMALS: no acute distress ORIENTATION/CONSCIOUSNESS: Yes awake, Yes oriented to person, Yes oriented to place and Yes confused; not oriented to time Resp: COMMON NORMALS: normal respiratory effort, No retractions, No use of accessory muscles and clear to auscultation bilaterally AUSCULTATION: clear to auscultation bilaterally Cardio: COMMON NORMALS: regular rate, regular rhythm, S1 normal heart sound present and S2 normal heart sound present RATE: regular rate RHYTHM: regular rhythm HEART SOUNDS: S1 normal heart sound present and S2 normal heart sound present GI: OTHER: Abdomen soft, distended, has bowel sounds in all quadrants, no guarding, no rebound, no rigidity, does have diffuse tenderness although mild Extremity: COMMON NORMALS: no pedal edema Neuro: SENSORIUM/ORIENTATION: Yes oriented to person, Yes oriented to place and No oriented to time Psych: COMMON NORMALS: mental status grossly normal Data 04/06/23 04:43 04/06/23 04:43 Micro: Microbiology 04/03/23 18:40 Urine Culture - Final Urine,Clean Catch Escherichia coli 04/05/23 04:12 Blood Culture - Preliminary Blood NEGATIVE TO DATE 04/05/23 04:08 Blood Culture - Preliminary Blood NEGATIVE TO DATE A&P Assessment and plan (1) Acute encephalopathy: - Possible sundowning -Does have a history of alcoholism -Also secondary to sepsis, UTI, bacteremia -B12 within normal limits, folate within normal limits, follow cultures CT head 1. ? No acute intracranial abnormality. 2. ? Moderate diffuse cerebral atrophy and advanced sequela of chronic small vessel ischemic disease. (2) Protein calorie malnutrition: - Has moderate protein calorie malnutrition -Has temporal muscle wasting, peripheral muscle wasting, of bilateral arms, bilateral thighs (3) Physical deconditioning: - PT OT (4) Colonic mass: -His CT scan from February 2023 showed -3.? Tortuous decompressed sigmoid colon in the LEFT lower quadrant. This transitions to dilated LEFT colon. This can be further evaluated with colonoscopy and/or barium enema in further assessment. Suggestion of a focal soft tissue nodule at the area of transition measuring 1.8 cm 4.? Constipation involving the hepatic flexure transverse colon and splenic flexure extending into the descending LEFT colon -Continues to be constipated -Continue n.p.o. -Continue MiraLAX, lactulose as needed -Hold Eliquis -General surgery consulted for consideration of colonoscopy -Serial abdominal exams -KUB shows Moderate gaseous distention of both large and small bowel loops showing little change. (5) Stool incontinence: (6) Urinary tract infection: Bilateral hydronephrosis noted on CT, likely in the setting of distended bladder and urinary retention. There are intrarenal stones but no evidence of ureteric obstruction currently. Padilla catheter position change, so far 2900 urine output UA with 2+ leukocyte Estrace, 25-40 WBC, concerning for UTI. Continue empiric antibiotic coverage with cefepime 2 g IV every 12 hours, dose will likely need to be adjusted with changes in creatinine. Blood and urine cultures have been collected in the ER, 4 of 4 blood cultures positive for E. coli, pansensitive, switch to Rocephin If repeat blood cultures are negative, likely bacteremia as quickly cleared, can switch to p.o. Cipro on discharge for 14 days (7) Urinary retention: Likely as a result of misplaced Padilla catheter. Catheter replaced, now draining urine. (8) Acute kidney injury: Suspect this is related to urinary retention. Padilla has been repositioned. Monitor creatinine Patient also has evidence of acute on chronic CHF exacerbation therefore he has not currently been placed on IV fluids. (9) Altered mental status: - Monitor (10) Acute on chronic diastolic CHF (congestive heart failure): No significant wheezing today, no significant edema, monitor last echocardiogram dates back to 2019, LVEF of 50% with moderate hypokinesia of the basal wall. Grade 3 diastolic dysfunction with severely elevated filling pressures. Cardiac echo Normal left ventricular size and systolic function, EF 65 % ?(visual) no regional wall motion abnormalities. ?Moderate mitral annular calcification. Trace mitral valve ?regurgitation. ?Thickened aortic valve. Mild aortic valve calcification. ?Thickened aortic valve.? Moderate aortic valve calcification ?Moderate biatrial enlargementModerate tricuspid valve ?regurgitation. ?Moderate pulmonary valve regurgitation. ?Normal pericardium without effusion.? ?No similar previous studies are available for comparison EKG today shows A-fib with heart rate of [address] deviation in leads V4, V5, V6 Has received Lasix yesterday 1 dose of Lasix today Monitor urine output monitor creatinine with daily dose Lasix (11) Atrial flutter: Continue home dose of metoprolol 50 mg p.o. daily Continue home Cardizem (12) Non-STEMI (non-ST elevated myocardial infarction): - Likely type II NSTEMI from sepsis as above -No chest pain complaints -However cannot rule out underlying cardiac etiology -Continue telemetry monitoring (13) Bilateral hydronephrosis: - Likely due to obstruction as above, will monitor (14) Pneumonia: - Seen on chest x-ray -Does have leukocytosis -Switch to Rocephin -Follow sputum cultures, respiratory viral panel (15) Sepsis: - Secondary to UTI, pneumonia, E. coli bacteremia (16) Hypokalemia: - Replace IV (17) Fluid overload: - Hold off on Lasix today (18) BPH (benign prostatic hyperplasia): - Flomax (19) E. coli bacteremia: - Repeat blood cultures -Continue cefepime -Secondary to UTI (20) Ileus: (21) Colon distention: Plan DVT prophylaxis: SCDAparna bobqumargie on hold for surgical procedure CODE STATUS: Full code Plan for today, switch to Rocephin, serial abdominal exams, KUB, bowel prep, spoke to general surgery, spoke to patient, spoke to nursing staff Attestations Medical Necessity Statement*: Patient requires hospitalization for E. coli UTI, E. coli bacteremia, hydronephrosis, sepsis, now with colonic mass, abdominal distention, ileus Diagnoses Acute encephalopathy G93.40 Protein calorie malnutrition E46 Physical deconditioning R53.81 Colonic mass K63.89 Stool incontinence R15.9 Urinary tract infection N39.0 Urinary retention R33.9 Acute kidney injury N17.9 Altered mental status R41.82 Acute on chronic diastolic CHF (congestive heart failure) I50.33 Atrial flutter I48.92 Non-STEMI (non-ST elevated myocardial infarction) I21.4 Bilateral hydronephrosis N13.30 Pneumonia J18.9 Sepsis A41.9 Hypokalemia E87.6 Fluid overload E87.70 BPH (benign prostatic hyperplasia) N40.0 E. coli bacteremia R78.81; B96.20 Ileus K56.7 Colon distention K63.89
[2023-04-06] MEDS: FUROsemide 10 mg/mL SDV 4mL 40 MG IVP (16:35)
[2023-04-06] MEDS: atorvastatin 40 mg Tablet 10 MG PO (16:35)
--- NOTE | 2023-04-06 17:57 | PM.CONSULT ---
Providers/Reason For Consult Consulting Physician/Specialty*: Dr. Isaac Shelton, DO/General surgery Reason for Consult*: Abdominal pain and distension Attending Physician: Jordan Bhardwaj MD Primary Care Provider: EDD Jones History of Present Illness History of Present Illness Raúl Centeno is a 87 year old male who was admitted to the hospital with encephalopathy. He is only oriented to person. HPI and review of systems are limited secondary to this. I saw him in office recently and he has a circumscribed lesion in his left colon that appears to be partially obstructive. He is currently distended in the hospital and therefore general surgery was consulted. Review of Systems General: Reports: 10 or more systems reviewed and unremarkable except in HPI and below Medications/Allergies Home Medications Medication Instructions Recorded Confirmed Last Taken Type ascorbic acid (vitamin C) 500 mg 500 mg PO BID 12/09/21 04/04/23 06/16/22 History tablet (Vitamin C) DME: Ezra #1 ea 05/06/22 04/04/23 Unknown Rx atorvastatin 10 mg tablet 10 mg PO QPM #90 tabs 08/26/22 04/04/23 Unknown Rx diltiazem HCl 240 mg capsule,24 240 mg PO DAILY #90 caps 08/26/22 04/04/23 Unknown Rx hr,extended release trazodone 50 mg tablet 50 mg PO BEDTIME #90 tabs 08/26/22 04/04/23 Unknown Rx furosemide 40 mg tablet (Lasix) 40 mg PO DAILY #90 tabs 08/27/22 04/04/23 Unknown Rx potassium chloride 10 mEq 10 meq PO DAILY #30 tabs 12/17/22 04/04/23 Unknown Rx tablet,extended release(part/cryst) apixaban 5 mg tablet (Eliquis) 5 mg PO DAILY #1 tab 02/17/23 04/04/23 Unknown Rx sucralfate 100 mg/mL oral 10 ml PO QID #1,200 mL 02/17/23 04/04/23 Unknown Rx suspension (Carafate) duloxetine 60 mg capsule,delayed 60 mg PO QAM #90 caps 02/23/23 04/04/23 Unknown Rx release metoprolol succinate 50 mg 50 mg PO DAILY #90 tabs 03/26/23 04/04/23 Unknown Rx tablet,extended release 24 hr cholecalciferol (vitamin D3) 25 50 mcg PO DAILY 04/01/23 04/04/23 Unknown History mcg (1,000 unit) capsule ferrous sulfate 325 mg (65 mg 325 mg PO BID 04/01/23 04/04/23 Unknown History iron) tablet (Feosol) pantoprazole 40 mg tablet,delayed 40 mg PO BID 6 weeks #84 tabs 04/01/23 04/04/23 Unknown Rx release methenamine hippurate 1 gram tablet 1 g PO BID 04/04/23 04/04/23 Unknown History Allergies Allergy/AdvReac Type Severity Reaction Status Date / Time nystatin Allergy ALGY-Rash Verified 04/03/23 18:13 triamcinolone Allergy ALGY-Rash Verified 04/03/23 18:13 Current Medications Generic Name Dose Route Start Last Admin Trade Name Freq PRN Reason Stop Dose Admin Apixaban 5 mg 04/04/23 09:00 04/05/23 09:25 Apixaban 5 Mg Tablet PO 5 mg DAILY JOSE JUAN Administration Aspirin 81 mg 04/04/23 06:00 04/07/23 06:01 Aspirin 81 Mg Ec Tablet PO Not Given QAM [facility] Atorvastatin Calcium 10 mg 04/04/23 18:00 04/07/23 17:53 Atorvastatin 40 Mg Tablet PO 10 mg QPM JOSE JUAN Administration Diltiazem HCl 240 mg 04/05/23 10:30 04/07/23 10:59 Diltiazem Er (24hr) 240 Mg Capsule PO Not Given DAILY JOSE JUAN Duloxetine HCl 60 mg 04/04/23 06:00 04/07/23 06:01 Duloxetine 60 Mg Capsule PO Not Given QAM [facility] Ceftriaxone Sodium 1,000 mg/ 50 mls @ 100 mls/hr 04/07/23 07:00 04/07/23 06:22 Sodium Chloride IV Infused Q24H [facility] Infusion Protocol Metoprolol Succinate 50 mg 04/04/23 09:00 04/07/23 10:59 Metoprolol Succinate Er (24 Hr) 50 Mg Tablet PO Not Given DAILY JOSE JUAN Pantoprazole Sodium 40 mg 04/04/23 09:00 04/07/23 10:[address] 40 Mg Tablet PO 40 mg DAILY JOSE JUAN Administration Polyethylene Glycol 17 gm 04/05/23 10:17 04/07/23 11:00 Polyethylene Glycol 3350 Pkt 17 Gm PO 17 gm DAILY JOSE JUAN Administration Tamsulosin HCl 0.4 mg 04/05/23 09:00 04/07/23 11:03 Tamsulosin 0.4 Mg Capsule PO 0.4 mg DAILY JOSE JUAN Administration PFSH Acute PFSH: Medical History Alcohol abuse, daily use Alcohol use disorder Ambulates with cane Atrial fibrillation Benign prostatic hyperplasia (BPH) with urinary urgency Bladder stone 3 large bladder stones treated with cystolitholapaxy 08/30/2020 BPH loc w urin obs/LUTS Chronic bladder outlet obstructive symptoms. Chronic constipation Elevated PSA Essential (primary) hypertension Generalized anxiety disorder History of coronary artery disease History of TB (tuberculosis) Insomnia Urge incontinence Urinary retention Urolithiasis Surgical History History of cataract left History of cervical spinal surgery History of heart bypass surgery x4 History of hernia repair Right Family History Mother , at age 84 Bleeding disorder Father , at age 94 Stroke Other Cancer Denies family history of Diabetes Dementia Hypertension Social History Smoking and tobacco status: former smoker Second hand smoke exposure: No Smoking risk assessment/counseling performed?: No Alcohol intake: current Alcohol intake frequency: 3 or more drinks per day Desire information about alcohol rehabilitation?: No Counseling given: Yes Substance/Drug Use: never Desire information about substance/drug rehabilitation?: No Counseling given: No Adopted: No Caregiver/support person: Yes Lives independently: No Household members: family Housing: House Marital status: / Number of children: 2 Current occupational status: retired Do you think of yourself as: Straight/Heterosexual Current gender identity: Male Vitals/I&O/Wt Last Vital Signs Temp 98.3 F 04/07/23 15:39 Pulse 90 04/07/23 15:39 Resp 15 04/07/23 15:39 BP 110/81 04/07/23 15:39 Pulse Ox 97 04/07/23 15:39 O2 Del Method Room Air 04/07/23 15:39 O2 Flow Rate 1.5 04/05/23 20:00 04/07/23 04/07/23 04/07/23 06:59 14:59 22:59 Intake Total 50 / 170 345 / 345 Output Total 1100 / 2100 Balance -1050 / -1930 345 / 345 Physical Exam Narrative: General : Patient is well developed , no acute distress, oriented only to person Head : Normal cephalic, a-traumatic. Ears : Pinnae and external canal are normal. Hearing is normal. Eyes : PERRLA, Sclera and injection are normal. No conjunctival discharge. Nose : Mucous membranes are without erythema. Throat : buccal mucosa is normal, gums are without significant recession or hypertrophy. Lungs : Equal chest rise bilaterally, no use of accessory muscles, trachea is midline. Cor : Rate and rhythm are normal. Abdomen : Soft, distended, NT, no g/r/m Extremities : No edema, no cyanosis or clubbing, dorsalis pedis pulses are present bilaterally, non-tender to palpation of calves. Upper extremities are normal bilaterally. Back : non-tender to palpation, no CVA tenderness. Neuro : CN II - XII intact, Upper and lower extremities have equal and full strength Data 04/08/23 04:42 04/08/23 04:42 Micro: Microbiology 04/03/23 18:35 Blood Culture - Final Blood Escherichia coli 04/03/23 18:35 Blood Culture - Final Blood Escherichia coli 04/03/23 18:40 Urine Culture - Final Urine,Clean Catch Escherichia coli A&P Assessment and plan (1) Colon distention: (2) Colonic mass: Plan Bowel prep Colonoscopy The risks and benefits of the procedure, including bleeding, infection, intestinal perforation requiring surgery, missed lesion were explained to the patient. The patient is understanding of the risks and wishes to proceed. Medical management per hospitalist Coding Level of Care Code 73412 Diagnoses Colon distention K63.89 Colonic mass K63.89
--- NOTE | 2023-04-06 23:44 | ECG_ITS ---
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 Measurements Intervals [place] Rate: 83 P: 0 UT: 0 QRS: 36 QRSD: 118 T: 35 QT: 358 QTc: 423 Interpretive Statements ATRIAL FIBRILLATION MODERATE INTRAVENTRICULAR CONDUCTION DELAY [110+ ms QRS DURATION] NONSPECIFIC T-WAVE ABNORMALITY ABNORMAL RHYTHM ECG Compared to ECG 04/04/2023 06:04:02 Possible ischemia no longer present T-wave abnormality still present Electronically Signed On 04-07-2023 20:13:51 CDT by Iwona Garcia M.D. [id number]
[2023-04-07] VITALS (9 sets, daily range): BP systolic 102–141; BP diastolic 60–81; PULSE 0–112; RESP 15–18; TEMP 36–37.2; O2SAT 92–98
[2023-04-07 05:29] LABS: Basophils % 0.3 %; Eosinophils # 0.3 10^3/uL (0.0-0.8); Eosinophils % 2.8 %; Hematocrit 35.6 % (42.0-52.0); Hemoglobin 11.4 g/dL (11.7-16.6); Lymphocytes # 0.7 10^3/uL (0.8-4.8); Lymphocytes % 6.6 %; Mean Corpuscular Hemoglobin 30.7 pg (28.0-34.0); Monocytes % 9.2 %; Neutrophils # 8.79 10^3/uL (1.8-7.7); Neutrophils % 80.6 %; Nucleated Red Blood Cells % 0 %; Platelet Count 177 10^3/cmm (130-400); Red Blood Count 3.71 10^6/uL (4.1-5.3); Red Cell Distribution Width 14.1 % (12.1-15.1); White Blood Count 10.9 10^3/uL (4.0-10.0)
[2023-04-07] MEDS: cefTRIAXone 1,000 MG in sodium chloride 0.9% (plus) 50 ML 100 MG IV (05:52)
[2023-04-07 05:58] LABS: Alanine Aminotransferase 14 U/L (0-41); Albumin Level 3.8 g/dL (3.5-5.2); Alkaline Phosphatase 81 U/L (40-130); Anion Gap 18.2 (5-19); Aspartate Amino Transferase 15 U/L (0-40); Blood Urea Nitrogen 23 mg/dL (8-23); Calcium 8.7 mg/dL (8.5-10.5); Carbon Dioxide 26 mmol/L (22-29); Chloride 100 mmol/L (98-107); Globulin 2.9 g/dL (1.3-4.6); Glucose 100 mg/dL (65-115); Magnesium 1.8 mg/dL (1.7-2.3); Osmolality Calculated 296 mOsm/kg (285-295); Phosphorus 2.6 mg/dL (2.5-4.5); Potassium 3.2 mmol/L (3.5-5.1); Sodium 141 mmol/L (136-145); Total Bilirubin 1.1 mg/dL (0.15-1.2); Total Protein 6.7 g/dL (6.6-8.7)
[2023-04-07 06:01] LABS: NT Pro B Type Natriuretic Pept 3290 pg/mL (0-450)
--- NOTE | 2023-04-07 06:41 | PC.NURSE ---
Pt refused to drink bowel prep during this shift. Dr Shelton notified and order received to place NG tube. Multiple attempts made to place NG tube with pt refusing. Dr Shelton once again notified. Order received for 0.5mg PO xanax wait 1 hour and give 0.5mg dilaudid. Patient refused to take xanax. Patient requesting to go to sleep.
[2023-04-07] MEDS: pantoprazole DR 40 mg Tablet PO (10:59)
[2023-04-07] MEDS: polyethylene glycol 3350 Pkt 17 gm PO (11:00)
[2023-04-07] MEDS: tamsulosin 0.4 mg Capsule PO (11:03)
--- NOTE | 2023-04-07 11:16 | PM.PN ---
Subjective Subjective: Patient seen and examined. Reports no abdominal pain. He did not drink much of his prep overnight Vitals/I&O/Wt Last Vital Signs Temp 98.3 F 04/08/23 07:37 Pulse 91 04/08/23 07:37 Resp 18 04/08/23 07:37 BP 149/96 04/08/23 07:37 Pulse Ox 96 04/08/23 09:35 O2 Del Method Room Air 04/08/23 09:35 O2 Flow Rate 1.5 04/05/23 20:00 04/07/23 04/08/23 04/08/23 22:59 06:59 14:59 Intake Total 0 / 345 50 / 50 Output Total 200 / 200 Balance 0 / 345 -200 / 145 50 / 50 Physical Exam Narrative: General: No acute distress, oriented only to person Abdomen: Soft, nontender, nondistended Data 04/08/23 04:42 04/08/23 04:42 A&P Assessment and plan (1) Colon distention: (2) Colonic mass: Plan Bowel prep Colonoscopy The risks and benefits of the procedure, including bleeding, infection, intestinal perforation requiring surgery, missed lesion were explained to the patient. The patient is understanding of the risks and wishes to proceed. Medical management per hospitalist Attestations Medical Necessity Statement*: Per primary Coding Level of Care Code 17987 Diagnoses Colon distention K63.89 Colonic mass K63.89
[2023-04-07] MEDS: potassium chloride ER 20 mEq Tablet 40 MEQ PO (11:52)
--- NOTE | 2023-04-07 15:43 | PM.PN ---
Subjective Subjective: - Patient was seen this morning -He is alert to person, to place, not to time, he follows commands -But does have episodes of confusion, -He denies any abdominal pain, no nausea, no vomiting, -He tells me that he can drink all the bowel prep, -I discussed our concerns for abdominal distention and risk of colonic perforation, he tells me that he is going to do his best -He denies any fevers, no chills Vitals/I&O/Wt Last Vital Signs Temp 98.3 F 04/07/23 15:39 Pulse 90 04/07/23 15:39 Resp 15 04/07/23 15:39 BP 110/81 04/07/23 15:39 Pulse Ox 97 04/07/23 15:39 O2 Del Method Room Air 04/07/23 15:39 O2 Flow Rate 1.5 04/05/23 20:00 04/07/23 04/07/23 04/07/23 06:59 14:59 22:59 Intake Total 50 / 170 345 / 345 Output Total 1100 / 2100 Balance -1050 / -1930 345 / 345 Physical Exam Const: COMMON NORMALS: no acute distress ORIENTATION/CONSCIOUSNESS: Yes awake, Yes oriented to person, Yes oriented to place and Yes confused; not oriented to time Resp: COMMON NORMALS: normal respiratory effort, No retractions, No use of accessory muscles and clear to auscultation bilaterally AUSCULTATION: clear to auscultation bilaterally Cardio: COMMON NORMALS: regular rate, regular rhythm, S1 normal heart sound present and S2 normal heart sound present RATE: regular rate RHYTHM: regular rhythm HEART SOUNDS: S1 normal heart sound present and S2 normal heart sound present GI: OTHER: Abdomen soft, distended, but has bowel sounds in all 4 quadrants a bit diminished, no guarding, no rebound, no rigidity, no diffuse tenderness Extremity: COMMON NORMALS: no pedal edema Neuro: SENSORIUM/ORIENTATION: Yes oriented to person, Yes oriented to place and No oriented to time Psych: COMMON NORMALS: mental status grossly normal Data 04/07/23 04:37 04/07/23 04:37 Micro: Microbiology 04/03/23 18:35 Blood Culture - Final Blood Escherichia coli 04/03/23 18:35 Blood Culture - Final Blood Escherichia coli 04/03/23 18:40 Urine Culture - Final Urine,Clean Catch Escherichia coli A&P Assessment and plan (1) Acute encephalopathy: - Persistent episodes of confusion, 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 ? No acute intracranial abnormality. 2. ? Moderate diffuse cerebral atrophy and advanced sequela of chronic small vessel ischemic disease. -Folic acid, thiamine, multivitamin (2) Protein calorie malnutrition: - Has moderate protein calorie malnutrition -Has temporal muscle wasting, peripheral muscle wasting, of bilateral arms, bilateral thighs (3) Physical deconditioning: - PT OT (4) Colonic mass: -His CT scan from February 2023 showed -3.? Tortuous decompressed sigmoid colon in the LEFT lower quadrant. This transitions to dilated LEFT colon. This can be further evaluated with colonoscopy and/or barium enema in further assessment. Suggestion of a focal soft tissue nodule at the area of transition measuring 1.8 cm 4.? Constipation involving the hepatic flexure transverse colon and splenic flexure extending into the descending LEFT colon -Continues to be constipated -Continue clear liquid -Hold Eliquis -General surgery consulted, bowel prep, plan on colonoscopy tomorrow -Serial abdominal exams (5) Stool incontinence: (6) Urinary tract infection: Bilateral hydronephrosis noted on CT, likely in the setting of distended bladder and urinary retention. There are intrarenal stones but no evidence of ureteric obstruction currently. Padilla catheter position change, so far 2900 urine output UA with 2+ leukocyte Estrace, 25-40 WBC, concerning for UTI. Continue empiric antibiotic coverage with cefepime 2 g IV every 12 hours, dose will likely need to be adjusted with changes in creatinine. Blood and urine cultures have been collected in the ER, 4 of 4 blood cultures positive for E. coli, pansensitive, switch to Rocephin If repeat blood cultures are negative, likely bacteremia as quickly cleared, can switch to p.o. Cipro on discharge for 14 days (7) Urinary retention: Likely as a result of misplaced Padilla catheter. Catheter replaced, now draining urine. (8) Acute kidney injury: Suspect this is related to urinary retention. Padilla has been repositioned. Monitor creatinine Patient also has evidence of acute on chronic CHF exacerbation therefore he has not currently been placed on IV fluids. (9) Altered mental status: - Monitor (10) Acute on chronic diastolic CHF (congestive heart failure): No significant wheezing today, no significant edema, monitor last echocardiogram dates back to 2019, LVEF of 50% with moderate hypokinesia of the basal wall. Grade 3 diastolic dysfunction with severely elevated filling pressures. Cardiac echo Normal left ventricular size and systolic function, EF 65 % ?(visual) no regional wall motion abnormalities. ?Moderate mitral annular calcification. Trace mitral valve ?regurgitation. ?Thickened aortic valve. Mild aortic valve calcification. ?Thickened aortic valve.? Moderate aortic valve calcification ?Moderate biatrial enlargementModerate tricuspid valve ?regurgitation. ?Moderate pulmonary valve regurgitation. ?Normal pericardium without effusion.? ?No similar previous studies are available for comparison EKG today shows A-fib with heart rate of [address] deviation in leads V4, V5, V6 Has received Lasix yesterday Hold Lasix for today Monitor urine output monitor creatinine with daily dose Lasix (11) Atrial flutter: Continue home dose of metoprolol 50 mg p.o. daily Continue home Cardizem (12) Non-STEMI (non-ST elevated myocardial infarction): - Likely type II NSTEMI from sepsis as above -No chest pain complaints -However cannot rule out underlying cardiac etiology -Continue telemetry monitoring (13) Bilateral hydronephrosis: - Likely due to obstruction as above, will monitor (14) Pneumonia: - Seen on chest x-ray -Does have leukocytosis -Switch to Rocephin -Follow sputum cultures, respiratory viral panel (15) Sepsis: - Secondary to UTI, pneumonia, E. coli bacteremia (16) Hypokalemia: - Replace IV (17) Fluid overload: - Hold off on Lasix today (18) BPH (benign prostatic hyperplasia): - Flomax (19) E. 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 coli UTI, E. coli bacteremia, now with colonic distention, concerns for colonic mass versus lipoma needs to undergo colonoscopy, continues to have encephalopathy, likely Warnicke's course effect of syndrome possible alcohol withdrawal monitor JORGE, Diagnoses Acute encephalopathy G93.40 Protein calorie malnutrition E46 Physical deconditioning R53.81 Colonic mass K63.89 Stool incontinence R15.9 Urinary tract infection N39.0 Urinary retention R33.9 Acute kidney injury N17.9 Altered mental status R41.82 Acute on chronic diastolic CHF (congestive heart failure) I50.33 Atrial flutter I48.92 Non-STEMI (non-ST elevated myocardial infarction) I21.4 Bilateral hydronephrosis N13.30 Pneumonia J18.9 Sepsis A41.9 Hypokalemia E87.6 Fluid overload E87.70 BPH (benign prostatic hyperplasia) N40.0 E. 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
[2023-04-07] MEDS: atorvastatin 40 mg Tablet 10 MG PO (17:53)
[2023-04-07] MEDS: dexamethasone 10 mg/mL INJ 6 MG IVP (18:21)
[2023-04-08] VITALS (11 sets, daily range): BP systolic 99–163; BP diastolic 56–113; PULSE 18–113; RESP 15–19; TEMP 36.3–36.8; O2SAT 93–98
[2023-04-08 05:13] LABS: Basophils % 0.2 %; Hematocrit 34.7 % (42.0-52.0); Hemoglobin 11.2 g/dL (11.7-16.6); Lymphocytes # 0.5 10^3/uL (0.8-4.8); Lymphocytes % 7.3 %; Mean Corpuscular HGB Conc 32.3 g/dL (30.0-36.0); Mean Corpuscular Hemoglobin 30.8 pg (28.0-34.0); Mean Corpuscular Volume 95.3 fl (80-94); Mean Platelet Volume 11.2 fL (7.4-10.4); Monocytes # 0.3 10^3/uL (0.2-0.9); Monocytes % 4.2 %; Nucleated Red Blood Cells % 0 %; Platelet Count 217 10^3/cmm (130-400); Red Blood Count 3.64 10^6/uL (4.1-5.3); White Blood Count 6.1 10^3/uL (4.0-10.0)
[2023-04-08 05:56] LABS: NT Pro B Type Natriuretic Pept 3077 pg/mL (0-450)
[2023-04-08 05:57] LABS: Alanine Aminotransferase 12 U/L (0-41); Albumin Level 3.8 g/dL (3.5-5.2); Alkaline Phosphatase 79 U/L (40-130); Aspartate Amino Transferase 12 U/L (0-40); Blood Urea Nitrogen 21 mg/dL (8-23); Calcium 8.9 mg/dL (8.5-10.5); Carbon Dioxide 26 mmol/L (22-29); Chloride 104 mmol/L (98-107); Globulin 2.8 g/dL (1.3-4.6); Glucose 129 mg/dL (65-115); Osmolality Calculated 295 mOsm/kg (285-295); Phosphorus 3.1 mg/dL (2.5-4.5); Sodium 140 mmol/L (136-145); Total Bilirubin 0.6 mg/dL (0.15-1.2); Total Protein 6.6 g/dL (6.6-8.7)
[2023-04-08] MEDS: cefTRIAXone 1,000 MG in sodium chloride 0.9% (plus) 50 ML 100 MG IV (06:25)
[2023-04-08] MEDS: aspirin 81 mg EC Tablet PO (06:30)
[2023-04-08] MEDS: duloxetine 60 mg Capsule PO (06:30)
--- NOTE | 2023-04-08 09:39 | PC.NURSE ---
Call to GI Lab: Spoke with charge nurse (ELIAS Gramajo) Per Rox, hold folic acid, multivitamin, Miralax, and thiamine. Per Rox, can administer Cardizem, Metoprolol, Pantoprazole, and Flomax.
[2023-04-08] MEDS: dilTIAZem ER (24HR) 240 mg Capsule PO (09:44)
[2023-04-08] MEDS: pantoprazole DR 40 mg Tablet PO (09:44)
[2023-04-08] MEDS: tamsulosin 0.4 mg Capsule PO (09:44)
[2023-04-08] MEDS: metoprolol succinate ER (24 HR) 50 mg Tablet PO (09:44)
--- NOTE | 2023-04-08 11:17 | PM.PN ---
Vitals/I&O/Wt Last Vital Signs Temp 98.3 F 04/08/23 07:37 Pulse 91 04/08/23 07:37 Resp 18 04/08/23 07:37 BP 149/96 04/08/23 07:37 Pulse Ox 96 04/08/23 09:35 O2 Del Method Room Air 04/08/23 09:35 O2 Flow Rate 1.5 04/05/23 20:00 04/07/23 04/08/23 04/08/23 22:59 06:59 14:59 Intake Total 0 / 345 50 / 50 Output Total 200 / 200 Balance 0 / 345 -200 / 145 50 / 50 Data 04/08/23 04:42 04/08/23 04:42 A&P Assessment and plan (1) Colon distention: (2) Colonic mass: Plan Colonoscopy The risks and benefits of the procedure, including bleeding, infection, intestinal perforation requiring surgery, missed lesion were explained to the patient. The patient is understanding of the risks and wishes to proceed. Medical management per hospitalist Attestations Medical Necessity Statement*: Per primary Coding Level of Care Code Acute Code for Chg Fwd Diagnoses Colon distention K63.89 Colonic mass K63.89
--- NOTE | 2023-04-08 11:19 | PC.SOCIAL ---
IMM update IMM updated with patient. Verbalized an understanding. Copy pg 2 provided. Initialled, dated, timed, and placed in chart.
--- NOTE | 2023-04-08 11:45 | P.ANESASSM_ITS ---
Pre-Anesthetic Assessment Height/Weight: Height 1.83 m Weight 80.881 kg Temp Pulse Resp BP Pulse Ox O2 Del Method O2 Flow Rate 97.6 F 113 H 18 163/113 97 Room Air 1.5 04/08/23 11:38 04/08/23 11:38 04/08/23 11:38 04/08/23 11:38 04/08/23 11:38 04/08/23 11:38 04/05/23 20:00 Preop Diagnosis: colonic mass Operation Date: 04/08/23 12:00 Proposed Procedures p Colonoscopy(Not Applicable) - Isaac Shelton DO Familial anesthetic complications: none Social Alcohol (current/history ETOH abuse) and Tobacco (chewing tobacco last 3 days ago.) Exam confused encephalopathy noted patient oriented to self and year recognizes he is in the hospital unaware of the town he is in. Airway Submandibular: within normal limits Cervical ROM: within normal limits Mallampati: Class I Dentition: false Pulmonary None reported CV/HEM Anemia, Arrythmia, Coronary Artery Disease, Congestive Heart Failure, Hypertension and Myocardial Infarction 02/10 : ECHO ?Normal left ventricular size and systolic function, EF 65 % ?(visual) no regional wall motion abnormalities. ?Moderate mitral annular calcification. Trace mitral valve ?regurgitation. ?Thickened aortic valve. Mild aortic valve calcification. ?Thickened aortic valve.? Moderate aortic valve calcification ?Moderate biatrial enlargementModerate tricuspid valve ?regurgitation. ?Moderate pulmonary valve regurgitation. ?Normal pericardium without effusion.? 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 GI Gastroesophageal Reflux Disease Metabolic Hyperlipidemia [facility] [place] Weakness [facility] Protocol Neuropsych Deficit Anesthetic Plan ASA status: 4 Anesthesia: MAC Medications/Allergies Home Medications Medication Instructions Recorded Confirmed Last Taken Type ascorbic acid (vitamin C) 500 mg 500 mg PO BID 12/09/21 04/04/23 06/16/22 Histor y tablet (Vitamin C) DME: Ezra #1 ea 05/06/22 04/04/23 Unknown Rx atorvastatin 10 mg tablet 10 mg PO QPM #90 tabs 08/26/22 04/04/23 Unknown Rx diltiazem HCl 240 mg capsule,24 240 mg PO DAILY #90 caps 08/26/22 04/04/23 Unknown Rx hr,extended release trazodone 50 mg tablet 50 mg PO BEDTIME #90 tabs 08/26/22 04/04/23 Unknown Rx furosemide 40 mg tablet (Lasix) 40 mg PO DAILY #90 tabs 08/27/22 04/04/23 Unknown Rx potassium chloride 10 mEq 10 meq PO DAILY #30 tabs 12/17/22 04/04/23 Unknown Rx tablet,extended release(part/cryst) apixaban 5 mg tablet (Eliquis) 5 mg PO DAILY #1 tab 02/17/23 04/04/23 Unknown Rx sucralfate 100 mg/mL oral 10 ml PO QID #1,200 mL 02/17/23 04/04/23 Unknown Rx suspension (Carafate) duloxetine 60 mg capsule,delayed 60 mg PO QAM #90 caps 02/23/23 04/04/23 Unknown Rx release metoprolol succinate 50 mg 50 mg PO DAILY #90 tabs 03/26/23 04/04/23 Unknown Rx tablet,extended release 24 hr cholecalciferol (vitamin D3) 25 50 mcg PO DAILY 04/01/23 04/04/23 Unknown History mcg (1,000 unit) capsule ferrous sulfate 325 mg (65 mg 325 mg PO BID 04/01/23 04/04/23 Unknown History iron) tablet (Feosol) pantoprazole 40 mg tablet,delayed 40 mg PO BID 6 weeks #84 tabs 04/01/23 04/04/23 Unknown Rx release methenamine hippurate 1 gram tablet 1 g PO BID 04/04/23 04/04/23 Unknown History Allergies Allergy/AdvReac Type Severity Reaction Status Date / Time nystatin Allergy ALGY-Rash Verified 04/03/23 18:13 triamcinolone Allergy ALGY-Rash Verified 04/03/23 18:13 Current Medications Generic Name Dose Route Start Last Admin Trade Name Freq PRN Reason Stop Dose Admin Apixaban 5 mg 04/04/23 09:00 04/05/23 09:25 Apixaban 5 Mg Tablet PO 5 mg DAILY JOSE JUAN Administration Aspirin 81 mg 04/04/23 06:00 04/08/23 06:30 Aspirin 81 Mg Ec Tablet PO 81 mg QAM JOSE JUAN Administration Atorvastatin Calcium 10 mg 04/04/23 18:00 04/07/23 17:53 Atorvastatin 40 Mg Tablet PO 10 mg QPM JOSE JUAN Administration Dexamethasone 6 mg 04/07/23 18:15 04/07/23 18:21 Dexamethasone 10 Mg/Ml Inj IVP 6 mg Q24H JOSE JUAN Administration Diltiazem HCl 240 mg 04/05/23 10:30 04/08/23 09:44 Diltiazem Er (24hr) 240 Mg Capsule PO 240 mg DAILY JOSE JUAN Administration Duloxetine HCl 60 mg 04/04/23 06:00 04/08/23 06:30 Duloxetine 60 Mg Capsule PO 60 mg QAM JOSE JUAN Administration Folic Acid 1 mg 04/08/23 09:00 04/08/23 09:43 Folic Acid 1 Mg Tablet PO Not Given DAILY [facility] Ceftriaxone Sodium 1,000 mg/ 50 mls @ 100 mls/hr 04/07/23 07:00 04/08/23 09:45 Sodium Chloride IV Infused Q24H [facility] Infusion Protocol Metoprolol Succinate 50 mg 04/04/23 09:00 04/08/23 09:44 Metoprolol Succinate Er (24 Hr) 50 Mg Tablet PO 50 mg DAILY JOSE JUAN Administration Multivitamins Therapeutic 1 tab 04/08/23 09:00 04/08/23 09:43 Multivitamin Therapeutic Tablet PO Not Given DAILY JOSE JUAN Pantoprazole Sodium 40 mg 04/04/23 09:00 04/08/23 09:[address] 40 Mg Tablet PO 40 mg DAILY [facility] Administration Polyethylene Glycol 17 gm 04/05/23 10:17 04/08/23 09:43 Polyethylene Glycol 3350 Pkt 17 Gm PO Not Given DAILY JOSE JUAN Tamsulosin HCl 0.4 mg 04/05/23 09:00 04/08/23 09:44 Tamsulosin 0.4 Mg Capsule PO 0.4 mg DAILY [facility] Administration Thiamine Mononitrate 100 mg 04/08/23 09:00 04/08/23 09:43 Thiamine 100 Mg Tablet PO Not Given DAILY [facility] PFSH Anesthesia Medical History Alcohol abuse, daily use Alcohol use disorder Ambulates with cane Atrial fibrillation Benign prostatic hyperplasia (BPH) with urinary urgency Bladder stone 3 large bladder stones treated with cystolitholapaxy 08/30/2020 BPH loc w urin obs/LUTS Chronic bladder outlet obstructive symptoms. Chronic constipation Elevated PSA Essential (primary) hypertension Generalized anxiety disorder History of coronary artery disease History of TB (tuberculosis) Insomnia Urge incontinence Urinary retention Urolithiasis Surgical History History of cataract left History of cervical spinal surgery History of heart bypass surgery x4 History of hernia repair Right Family History Mother , at age 84 Bleeding disorder Father , at age 94 Stroke Other Cancer Denies family history of Diabetes Dementia Hypertension Social History Smoking and tobacco status: former smoker Second hand smoke exposure: No Smoking risk assessment/counseling performed?: No Alcohol intake: current Alcohol intake frequency: 3 or more drinks per day Desire information about alcohol rehabilitation?: No Counseling given: Yes Substance/Drug Use: never Desire information about substance/drug rehabilitation?: No Counseling given: No Adopted: No Caregiver/support person: Yes Lives independently: No Household members: family Housing: House Marital status: / Number of children: 2 Current occupational status: retired Do you think of yourself as: Straight/Heterosexual Current gender identity: Male Data Anesthesia 04/08/23 04:42 04/08/23 04:42 Short CBC 04/07/23 04/08/23 Range/Units 04:37 04:42 WBC 10.9 H 6.1 (4.0-10.0) 10^3/uL Hgb 11.4 L 11.2 L (11.7-16.6) g/dL Hct 35.6 L 34.7 L (42.0-52.0) % MCV 96.0 H 95.3 H (80-94) fl Plt Count 177 217 (130-400) 10^3/cmm Neut % (Auto) 80.6 88.0 % Neut # (Auto) 8.79 H 5.40 (1.8-7.7) 10^3/uL BMP 04/07/23 04/08/23 04:37 04:42 Sodium 141 140 Potassium 3.2 L 4.0 Chloride 100 104 Carbon Dioxide 26 26 BUN 23 21 Creatinine 0.9 0.7 Glucose 100 129 H Calcium 8.7 8.9 Cardiac Enzymes 04/07/23 04/08/23 Range/Units 04:37 04:42 NT-Pro-B Natriuret Pep 3290 H 3077 H (0-450) pg/mL Liver Function 07/18/23 07/19/23 Range/Units 04:37 04:42 Total Bilirubin 1.1 0.6 (0.15-1.2) mg/dL AST 15 12 (0-40) U/L ALT 14 12 (0-41) U/L Alkaline Phosphatase 81 79 (40-130) U/L Albumin 3.8 3.8 (3.5-5.2) g/dL Cardiac Studies: 2 Echocardiogram 04/04/23 Echocardiogram Ultrasound 07/07/20 Cardiac Event Monitor 01/08/21
--- NOTE | 2023-04-08 15:00 | ANE.PACU2 ---
Inpatient post-anesthesia follow up: Airway intact: Yes Vital signs: Temperature 97.6 F Pulse Rate 83 Respiratory Rate 16 Blood Pressure 151/91 Pulse Oximetry 98 Oxygen Delivery Me thod [ Room Air Current Rate & Del tiffanie] Oxygen Delivery Me thod Room Air Oxygen Flow Rate 1.5 Fraction of Inspir ed Oxygen Hydration adequate: Yes Nausea and vomiting: No Pain level: 2 Mental status: Baseline
[2023-04-08] MEDS: atorvastatin 40 mg Tablet 10 MG PO (17:11)
[2023-04-08] MEDS: dexamethasone 10 mg/mL INJ 6 MG IVP (17:13)
--- NOTE | 2023-04-08 17:50 | PM.PN ---
Subjective Subjective: - Patient was seen this morning -He is combing his hair -He is alert to person, to place, not to time -Denies any abdominal pain, no nausea, no vomiting, -No fevers, no chills -He is awaiting his colonoscopy Vitals/I&O/Wt Last Vital Signs Temp 97.4 F L 04/08/23 15:51 Pulse 70 04/08/23 15:51 Resp 18 04/08/23 15:51 BP 111/68 04/08/23 15:51 Pulse Ox 98 04/08/23 15:51 O2 Del Method Nasal Cannula 04/08/23 15:51 O2 Flow Rate 1.5 04/05/23 20:00 04/08/23 04/08/23 04/08/23 06:59 14:59 22:59 Intake Total 50 / 50 480 / 530 Output Total 200 / 200 500 / 500 Balance -200 / 145 50 / 50 -20 / 30 Physical Exam Const: COMMON NORMALS: no acute distress Resp: COMMON NORMALS: normal respiratory effort, No retractions, No use of accessory muscles and clear to auscultation bilaterally AUSCULTATION: clear to auscultation bilaterally Cardio: COMMON NORMALS: regular rate, regular rhythm, S1 normal heart sound present and S2 normal heart sound present RATE: regular rate RHYTHM: regular rhythm HEART SOUNDS: S1 normal heart sound present and S2 normal heart sound present GI: OTHER: Abdomen is soft, distended, good bowel sounds in all quadrants, nontender Extremity: COMMON NORMALS: no pedal edema Psych: COMMON NORMALS: mental status grossly normal Data 04/08/23 04:42 04/08/23 04:42 A&P Assessment and plan (1) Acute encephalopathy: - Mentation improved today, 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 ? No acute intracranial abnormality. 2. ? Moderate diffuse cerebral atrophy and advanced sequela of chronic small vessel ischemic disease. -Folic acid, thiamine, multivitamin (2) Protein calorie malnutrition: - Has moderate protein calorie malnutrition -Has temporal muscle wasting, peripheral muscle wasting, of bilateral arms, bilateral thighs (3) Physical deconditioning: - PT OT (4) Colonic mass: -His CT scan from February 2023 showed -3.? Tortuous decompressed sigmoid colon in the LEFT lower quadrant. This transitions to dilated LEFT colon. This can be further evaluated with colonoscopy and/or barium enema in further assessment. Suggestion of a focal soft tissue nodule at the area of transition measuring 1.8 cm 4.? Constipation involving the hepatic flexure transverse colon and splenic flexure extending into the descending LEFT colon -Continues to be constipated -Continue clear liquid -Hold Eliquis, will discuss with surgery about resuming -General surgery consulted, bowel prep, plan on colonoscopy today -Serial abdominal exams (5) Stool incontinence: (6) Urinary tract infection: Bilateral hydronephrosis noted on CT, likely in the setting of distended bladder and urinary retention. There are intrarenal stones but no evidence of ureteric obstruction currently. Padilla catheter position change, so far 2900 urine output UA with 2+ leukocyte Estrace, 25-40 WBC, concerning for UTI. Continue empiric antibiotic coverage with cefepime 2 g IV every 12 hours, dose will likely need to be adjusted with changes in creatinine. Blood and urine cultures have been collected in the ER, 4 of 4 blood cultures positive for E. coli, pansensitive, switch to Rocephin If repeat blood cultures are negative, likely bacteremia as quickly cleared, can switch to p.o. Cipro on discharge for 14 days (7) Urinary retention: Likely as a result of misplaced Padilla catheter. Catheter replaced, now draining urine. (8) Acute kidney injury: Suspect this is related to urinary retention. Padilla has been repositioned. Monitor creatinine Patient also has evidence of acute on chronic CHF exacerbation therefore he has not currently been placed on IV fluids. (9) Altered mental status: - Monitor (10) Acute on chronic diastolic CHF (congestive heart failure): No significant wheezing today, no significant edema, monitor last echocardiogram dates back to 2019, LVEF of 50% with moderate hypokinesia of the basal wall. Grade 3 diastolic dysfunction with severely elevated filling pressures. Cardiac echo Normal left ventricular size and systolic function, EF 65 % ?(visual) no regional wall motion abnormalities. ?Moderate mitral annular calcification. Trace mitral valve ?regurgitation. ?Thickened aortic valve. Mild aortic valve calcification. ?Thickened aortic valve.? Moderate aortic valve calcification ?Moderate biatrial enlargementModerate tricuspid valve ?regurgitation. ?Moderate pulmonary valve regurgitation. ?Normal pericardium without effusion.? ?No similar previous studies are available for comparison EKG today shows A-fib with heart rate of [address] deviation in leads V4, V5, V6 Has received Lasix yesterday Hold Lasix for today Monitor urine output monitor creatinine with daily dose Lasix (11) Atrial flutter: Continue home dose of metoprolol 50 mg p.o. daily Continue home Cardizem (12) Non-STEMI (non-ST elevated myocardial infarction): - Likely type II NSTEMI from sepsis as above -No chest pain complaints -However cannot rule out underlying cardiac etiology -Continue telemetry monitoring (13) Bilateral hydronephrosis: - Likely due to obstruction as above, will monitor (14) Pneumonia: - Seen on chest x-ray -Does have leukocytosis -Switch to Rocephin -Follow sputum cultures, respiratory viral panel (15) Sepsis: - Secondary to UTI, pneumonia, E. coli bacteremia (16) Hypokalemia: - Replace IV (17) Fluid overload: - Hold off on Lasix today (18) BPH (benign prostatic hyperplasia): - Flomax (19) E. 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 coli bacteremia, encephalopathy, Warnicke's Korsakoff syndrome,, physical deconditioning, protein calorie malnutrition Diagnoses Acute encephalopathy G93.40 Protein calorie malnutrition E46 Physical deconditioning R53.81 Colonic mass K63.89 Stool incontinence R15.9 Urinary tract infection N39.0 Urinary retention R33.9 Acute kidney injury N17.9 Altered mental status R41.82 Acute on chronic diastolic CHF (congestive heart failure) I50.33 Atrial flutter I48.92 Non-STEMI (non-ST elevated myocardial infarction) I21.4 Bilateral hydronephrosis N13.30 Pneumonia J18.9 Sepsis A41.9 Hypokalemia E87.6 Fluid overload E87.70 BPH (benign prostatic hyperplasia) N40.0 E. 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
[2023-04-09] VITALS (7 sets, daily range): BP systolic 116–135; BP diastolic 67–78; PULSE 70–92; RESP 15–16; TEMP 36.4–36.9; O2SAT 92–98
[2023-04-09 05:35] LABS: Basophils % 0.1 %; Hematocrit 35.5 % (42.0-52.0); Hemoglobin 11.2 g/dL (11.7-16.6); Lymphocytes # 0.6 10^3/uL (0.8-4.8); Lymphocytes % 5.5 %; Mean Corpuscular HGB Conc 31.5 g/dL (30.0-36.0); Mean Corpuscular Hemoglobin 30.8 pg (28.0-34.0); Mean Corpuscular Volume 97.5 fl (80-94); Mean Platelet Volume 11.3 fL (7.4-10.4); Monocytes # 0.3 10^3/uL (0.2-0.9); Monocytes % 2.5 %; Neutrophils # 9.81 10^3/uL (1.8-7.7); Neutrophils % 91.3 %; Nucleated Red Blood Cells % 0 %; Platelet Count 275 10^3/cmm (130-400); Red Blood Count 3.64 10^6/uL (4.1-5.3); Red Cell Distribution Width 14.1 % (12.1-15.1); White Blood Count 10.7 10^3/uL (4.0-10.0)
[2023-04-09 05:55] LABS: Alanine Aminotransferase 13 U/L (0-41); Albumin Level 3.9 g/dL (3.5-5.2); Alkaline Phosphatase 86 U/L (40-130); Anion Gap 15.8 (5-19); Aspartate Amino Transferase 14 U/L (0-40); Blood Urea Nitrogen 25 mg/dL (8-23); Carbon Dioxide 27 mmol/L (22-29); Chloride 100 mmol/L (98-107); Globulin 3.1 g/dL (1.3-4.6); Glucose 133 mg/dL (65-115); Osmolality Calculated 294 mOsm/kg (285-295); Phosphorus 3.1 mg/dL (2.5-4.5); Potassium 3.8 mmol/L (3.5-5.1); Sodium 139 mmol/L (136-145); Total Bilirubin 0.5 mg/dL (0.15-1.2)
[2023-04-09] MEDS: aspirin 81 mg EC Tablet PO (06:27)
[2023-04-09] MEDS: duloxetine 60 mg Capsule PO (06:27)
[2023-04-09] MEDS: cefTRIAXone 1,000 MG in sodium chloride 0.9% (plus) 50 ML 100 MG IV (06:27)
[2023-04-09] MEDS: multivitamin therapeutic Tablet 1 TAB PO (10:45)
[2023-04-09] MEDS: folic acid 1 mg Tablet PO (10:45)
[2023-04-09] MEDS: thiamine 100 mg Tablet PO (10:45)
[2023-04-09] MEDS: pantoprazole DR 40 mg Tablet PO (10:45)
[2023-04-09] MEDS: metoprolol succinate ER (24 HR) 50 mg Tablet PO (10:46)
[2023-04-09] MEDS: tamsulosin 0.4 mg Capsule PO (10:46)
[2023-04-09] MEDS: polyethylene glycol 3350 Pkt 17 gm PO (10:50)
[2023-04-09] MEDS: dilTIAZem ER (24HR) 240 mg Capsule PO (10:51)
[2023-04-09] MEDS: FUROsemide 40 mg Tablet PO (11:28)
[2023-04-09] MEDS: potassium chloride ER 20 mEq Tablet PO (11:28)
--- NOTE | 2023-04-09 14:41 | PM.PN ---
Subjective Subjective: Patient seen and examined. Abdomen nontender and he is tolerating a diet Vitals/I&O/Wt Last Vital Signs Temp 98.0 F 04/09/23 11:44 Pulse 71 04/09/23 11:44 Resp 16 04/09/23 11:44 BP 125/73 04/09/23 11:44 Pulse Ox 98 04/09/23 11:44 O2 Del Method Room Air 04/09/23 11:44 O2 Flow Rate 0 04/09/23 08:00 04/08/23 04/09/23 04/09/23 22:59 06:59 14:59 Intake Total 960 / 1010 290 / 290 Output Total 700 / 700 250 / 950 Balance 260 / 310 -250 / 60 290 / 290 Physical Exam Narrative: General: No acute distress Abdomen: Soft, mildly distended, nontender to palpation Urinary Catheter Management: Padilla: Cath Placed During This Visit: no Reason for Continuing Indwelling Catheter: Acute Urinary Retention or Obstruction Data 04/09/23 04:45 04/09/23 04:45 A&P Assessment and plan (1) Colonic mass: Plan He had a proximal descending colon mass that was suspicious for carcinoma. This was removed endoscopically and the base was fulgurated. He had a large polyp in the distal descending colon that was also a little concerning. I remove this entirely at the stalk. A referral to colorectal surgery in [place] has been put out. Surgically stable for discharge Medical management per hospitalist Attestations Medical Necessity Statement*: Per primary Coding Level of Care Code Acute Code for [facility] Fwd Diagnoses Colonic mass K63.89
--- NOTE | 2023-04-09 16:22 | PM.PN ---
Subjective Subjective: Patient was seen this morning, he is sitting outside near the nurses station, he is eating a piece of cake, he tells me he is feeling well, denies any fevers, no chills, no nausea, no vomiting he tells me that they found a polyp on my colonoscopy, he is happy that it was removed, he is alert to person, to place, not to time, he has no complaints he is happy that I would remove his Padilla catheter Vitals/I&O/Wt Last Vital Signs Temp 98.0 F 04/09/23 11:44 Pulse 71 04/09/23 11:44 Resp 16 04/09/23 11:44 BP 125/73 04/09/23 11:44 Pulse Ox 98 04/09/23 11:44 O2 Del Method Room Air 04/09/23 11:44 O2 Flow Rate 0 04/09/23 08:00 04/09/23 04/09/23 04/09/23 06:59 14:59 22:59 Intake Total 290 / 290 Output Total 250 / 950 Balance -250 / 60 290 / 290 Physical Exam Const: COMMON NORMALS: no acute distress ORIENTATION/CONSCIOUSNESS: Yes awake, Yes oriented to person and Yes oriented to place; not oriented to time Resp: COMMON NORMALS: normal respiratory effort, No retractions, No use of accessory muscles and clear to auscultation bilaterally AUSCULTATION: clear to auscultation bilaterally Cardio: COMMON NORMALS: regular rate, regular rhythm, S1 normal heart sound present and S2 normal heart sound present RATE: regular rate RHYTHM: regular rhythm HEART SOUNDS: S1 normal heart sound present and S2 normal heart sound present GI: COMMON NORMALS: Normal to inspection, nondistended, normoactive bowel sounds present and non-tender Extremity: COMMON NORMALS: no pedal edema Neuro: SENSORIUM/ORIENTATION: Yes oriented to person, Yes oriented to place and No oriented to time Psych: COMMON NORMALS: mental status grossly normal Urinary Catheter Management: Padilla: Cath Placed During This Visit: no Reason for Continuing Indwelling Catheter: Acute Urinary Retention or Obstruction Data 04/09/23 04:45 04/09/23 04:45 A&P Assessment and plan (1) Acute encephalopathy: - Mentation improved today, 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 ? No acute intracranial abnormality. 2. ? Moderate diffuse cerebral atrophy and advanced sequela of chronic small vessel ischemic disease. -Folic acid, thiamine, multivitamin (2) Protein calorie malnutrition: - Has moderate protein calorie malnutrition -Has temporal muscle wasting, peripheral muscle wasting, of bilateral arms, bilateral thighs (3) Physical deconditioning: - PT OT (4) Colonic mass: -His CT scan from February 2023 showed -3.? Tortuous decompressed sigmoid colon in the LEFT lower quadrant. This transitions to dilated LEFT colon. This can be further evaluated with colonoscopy and/or barium enema in further assessment. Suggestion of a focal soft tissue nodule at the area of transition measuring 1.8 cm 4.? Constipation involving the hepatic flexure transverse colon and splenic flexure extending into the descending LEFT colon -Continues to be constipated -Advance as tolerated -Hold Eliquis for 48 hours -General surgery consulted, bowel prep, colonoscopy showed a proximal descending colonic mass, suspicious for carcinoma, also large polyp in the distal descending colon, will be referred to colorectal surgeon in [place], follow-up biopsy results follow-up with Dr. Shelton -Serial abdominal exams (5) Stool incontinence: (6) Urinary tract infection: Bilateral hydronephrosis noted on CT, likely in the setting of distended bladder and urinary retention. There are intrarenal stones but no evidence of ureteric obstruction currently. Padilla catheter position change, so far 2900 urine output UA with 2+ leukocyte Estrace, 25-40 WBC, concerning for UTI. Continue empiric antibiotic coverage with cefepime 2 g IV every 12 hours, dose will likely need to be adjusted with changes in creatinine. Blood and urine cultures have been collected in the ER, 4 of 4 blood cultures positive for E. coli, pansensitive, switch to Rocephin If repeat blood cultures are negative, likely bacteremia as quickly cleared, can switch to p.o. Cipro on discharge for 14 days of total antibiotics (7) Urinary retention: Likely as a result of misplaced Padilla catheter. Catheter replaced, now draining urine. (8) Acute kidney injury: Suspect this is related to urinary retention. Padilla has been repositioned. Monitor creatinine Patient also has evidence of acute on chronic CHF exacerbation therefore he has not currently been placed on IV fluids. (9) Altered mental status: - Monitor (10) Acute on chronic diastolic CHF (congestive heart failure): No significant wheezing today, no significant edema, monitor last echocardiogram dates back to 2019, LVEF of 50% with moderate hypokinesia of the basal wall. Grade 3 diastolic dysfunction with severely elevated filling pressures. Cardiac echo Normal left ventricular size and systolic function, EF 65 % ?(visual) no regional wall motion abnormalities. ?Moderate mitral annular calcification. Trace mitral valve ?regurgitation. ?Thickened aortic valve. Mild aortic valve calcification. ?Thickened aortic valve.? Moderate aortic valve calcification ?Moderate biatrial enlargementModerate tricuspid valve ?regurgitation. ?Moderate pulmonary valve regurgitation. ?Normal pericardium without effusion.? ?No similar previous studies are available for comparison EKG today shows A-fib with heart rate of [address] deviation in leads V4, V5, V6 Has received Lasix yesterday Hold Lasix for today Monitor urine output monitor creatinine with daily dose Lasix (11) Atrial flutter: Continue home dose of metoprolol 50 mg p.o. daily Continue home Cardizem (12) Non-STEMI (non-ST elevated myocardial infarction): - Likely type II NSTEMI from sepsis as above -No chest pain complaints -However cannot rule out underlying cardiac etiology -Continue telemetry monitoring (13) Bilateral hydronephrosis: - Likely due to obstruction as above, will monitor (14) Pneumonia: - Seen on chest x-ray -Does have leukocytosis -Switch to Rocephin -Follow sputum cultures, respiratory viral panel (15) Sepsis: - Secondary to UTI, pneumonia, E. coli bacteremia (16) Hypokalemia: - Replace IV (17) Fluid overload: - Hold off on Lasix today (18) BPH (benign prostatic hyperplasia): - Flomax (19) E. 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 coli bacteremia with UTI, Diagnoses Acute encephalopathy G93.40 Protein calorie malnutrition E46 Physical deconditioning R53.81 Colonic mass K63.89 Stool incontinence R15.9 Urinary tract infection N39.0 Urinary retention R33.9 Acute kidney injury N17.9 Altered mental status R41.82 Acute on chronic diastolic CHF (congestive heart failure) I50.33 Atrial flutter I48.92 Non-STEMI (non-ST elevated myocardial infarction) I21.4 Bilateral hydronephrosis N13.30 Pneumonia J18.9 Sepsis A41.9 Hypokalemia E87.6 Fluid overload E87.70 BPH (benign prostatic hyperplasia) N40.0 E. 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
[2023-04-09] MEDS: atorvastatin 40 mg Tablet 10 MG PO (17:31)
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
[2023-04-09] MEDS: OLANZapine 10 mg VIAL 5 MG IM (22:01)
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
[2023-04-10] MEDS: cefTRIAXone 1,000 MG in sodium chloride 0.9% (plus) 50 ML 100 MG IV (07:14)
[2023-04-10 07:25] LABS: Basophils % 0.1 %; Eosinophils % 0.2 %; Hematocrit 34.5 % (42.0-52.0); Hemoglobin 11.2 g/dL (11.7-16.6); Lymphocytes # 1.2 10^3/uL (0.8-4.8); Lymphocytes % 11.5 %; Mean Corpuscular HGB Conc 32.5 g/dL (30.0-36.0); Mean Corpuscular Hemoglobin 31.5 pg (28.0-34.0); Mean Corpuscular Volume 97.2 fl (80-94); Mean Platelet Volume 10.6 fL (7.4-10.4); Monocytes % 9.5 %; Neutrophils # 7.85 10^3/uL (1.8-7.7); Neutrophils % 78.1 %; Nucleated Red Blood Cells % 0 %; Platelet Count 304 10^3/cmm (130-400); Red Blood Count 3.55 10^6/uL (4.1-5.3); White Blood Count 10.1 10^3/uL (4.0-10.0)
[2023-04-10 08:00] VITALS: PULSE 67; PULSE 95; RESP 15; TEMP 37; O2SAT 96; O2SAT 98
[2023-04-10 08:00] LABS: Anion Gap 13.1 (5-19); Blood Urea Nitrogen 27 mg/dL (8-23); Calcium 8.7 mg/dL (8.5-10.5); Carbon Dioxide 27 mmol/L (22-29); Chloride 104 mmol/L (98-107); Glucose 117 mg/dL (65-115); Osmolality Calculated 296 mOsm/kg (285-295); Potassium 4.1 mmol/L (3.5-5.1); Sodium 140 mmol/L (136-145)
[2023-04-10] MEDS: pantoprazole DR 40 mg Tablet PO (09:21)
[2023-04-10] MEDS: enoxaparin 40 mg/0.4 mL Syringe SUBCUT (09:21)
[2023-04-10] MEDS: tamsulosin 0.4 mg Capsule PO (09:21)
[2023-04-10] MEDS: polyethylene glycol 3350 Pkt 17 gm PO (09:22)
[2023-04-10] MEDS: duloxetine 60 mg Capsule PO (09:22)
[2023-04-10] MEDS: dilTIAZem ER (24HR) 240 mg Capsule PO (09:22)
[2023-04-10] MEDS: multivitamin therapeutic Tablet 1 TAB PO (09:22)
[2023-04-10] MEDS: metoprolol succinate ER (24 HR) 50 mg Tablet PO (09:22)
[2023-04-10] MEDS: potassium chloride ER 20 mEq Tablet PO (09:22)
[2023-04-10] MEDS: folic acid 1 mg Tablet PO (09:22)
[2023-04-10] MEDS: FUROsemide 40 mg Tablet PO (09:22)
[2023-04-10] MEDS: aspirin 81 mg EC Tablet PO (09:22)
[2023-04-10] MEDS: thiamine 100 mg Tablet PO (09:25)
[2023-04-10 12:00] VITALS: BP 120/75; PULSE 98; RESP 16; TEMP 36.7; O2SAT 96
[2023-04-10 15:16] VITALS: BP 133/68; PULSE 63; RESP 14; TEMP 37; O2SAT 95
--- NOTE | 2023-04-10 15:16 | P.PN_ITS ---
Subjective Subjective: - Overnight patient had episodes of agitation requiring Zyprexa, this morning is alert to person, to place, not to time, he follows commands, he tells me that he is not sure what happened last night, denies any headache, no blurry vision, no nausea, no vomiting, no flank pain Vitals/I&O/Wt Last Vital Signs Temp 98.0 F 04/10/23 12:00 Pulse 98 04/10/23 12:00 Resp 16 04/10/23 12:00 BP 120/75 04/10/23 12:00 Pulse Ox 96 04/10/23 12:00 O2 Del Method Room Air 04/10/23 12:00 O2 Flow Rate 0 04/10/23 08:00 04/10/23 04/10/23 04/10/23 06:59 14:59 22:59 Intake Total 290 / 290 Output Total 1500 / 1500 Balance -1210 / -1210 Physical Exam Const: COMMON NORMALS: no acute distress Resp: COMMON NORMALS: normal respiratory effort, No retractions, No use of accessory muscles and clear to auscultation bilaterally AUSCULTATION: clear to auscultation bilaterally Cardio: COMMON NORMALS: regular rate, regular rhythm, S1 normal heart sound present and S2 normal heart sound present RATE: regular rate RHYTHM: regular rhythm HEART SOUNDS: S1 normal heart sound present and S2 normal heart sound present GI: COMMON NORMALS: Normal to inspection, nondistended, normoactive bowel sounds present and non-tender Extremity: COMMON NORMALS: no pedal edema Urinary Catheter Management: Padilla: Cath Placed During This Visit: yes Reason for Continuing Indwelling Catheter: Other Urinary Catheter Date of Insertion: 04/09/23 Urinary Catheter Time of Insertion: 17:00 Data 04/10/23 07:05 04/10/23 07:05 Micro: Microbiology 04/05/23 04:12 Blood Culture - Final Blood NO GROWTH AFTER 5 DAYS 04/05/23 04:08 Blood Culture - Final Blood NO GROWTH AFTER 5 DAYS A&P Assessment and plan (1) Acute encephalopathy: - Mentation improved today, 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 ? No acute intracranial abnormality. 2. ? Moderate diffuse cerebral atrophy and advanced sequela of chronic small vessel ischemic disease. -Folic acid, thiamine, multivitamin (2) Protein calorie malnutrition: - Has moderate protein calorie malnutrition -Has temporal muscle wasting, peripheral muscle wasting, of bilateral arms, bilateral thighs (3) Physical deconditioning: - PT OT (4) Colonic mass: -His CT scan from February 2023 showed -3.? Tortuous decompressed sigmoid colon in the LEFT lower quadrant. This transitions to dilated LEFT colon. This can be further evaluated with colonoscopy and/or barium enema in further assessment. Suggestion of a focal soft tissue nodule at the area of transition measuring 1.8 cm 4.? Constipation involving the hepatic flexure transverse colon and splenic flexure extending into the descending LEFT colon -Advance as tolerated -Resume Eliquis tomorrow morning -General surgery consulted, bowel prep, colonoscopy showed a proximal descending colonic mass, suspicious for carcinoma, also large polyp in the distal descending colon, will be referred to colorectal surgeon in [place], follow- up biopsy results follow-up with Dr. Shelton -Serial abdominal exams (5) Stool incontinence: (6) Urinary tract infection: Bilateral hydronephrosis noted on CT, likely in the setting of distended bladder and urinary retention. There are intrarenal stones but no evidence of ureteric obstruction currently. Padilla catheter position change, so far 2900 urine output UA with 2+ leukocyte Estrace, 25-40 WBC, concerning for UTI. Continue empiric antibiotic coverage with cefepime 2 g IV every 12 hours, dose will likely need to be adjusted with changes in creatinine. Blood and urine cultures have been collected in the ER, 4 of 4 blood cultures positive for E. coli, pansensitive, repeat blood cultures negative for 5 days, continue Rocephin While he is here in the hospital we will continue Rocephin, can switch to p.o. ciprofloxacin on discharge, requires a total of 14 days of antibiotics since negative cultures (7) Urinary retention: Likely as a result of misplaced Padilla catheter. Catheter replaced, now draining urine. (8) Acute kidney injury: Resolved Suspect this is related to urinary retention. Padilla has been repositioned. Monitor creatinine Patient also has evidence of acute on chronic CHF exacerbation therefore he has not currently been placed on IV fluids. (9) Altered mental status: - Monitor (10) Acute on chronic diastolic CHF (congestive heart failure): No significant wheezing today, no significant edema, monitor last echocardiogram dates back to 2019, LVEF of 50% with moderate hypokinesia of the basal wall. Grade 3 diastolic dysfunction with severely elevated filling pressures. Cardiac echo Normal left ventricular size and systolic function, EF 65 % ?(visual) no regional wall motion abnormalities. ?Moderate mitral annular calcification. Trace mitral valve ?regurgitation. ?Thickened aortic valve. Mild aortic valve calcification. ?Thickened aortic valve.? Moderate aortic valve calcification ?Moderate biatrial enlargementModerate tricuspid valve ?regurgitation. ?Moderate pulmonary valve regurgitation. ?Normal pericardium without effusion.? ?No similar previous studies are available for comparison EKG today shows A-fib with heart rate of [address] deviation in leads V4, V5, V6 Has received Lasix yesterday Hold Lasix for today Monitor urine output monitor creatinine with daily dose Lasix (11) Atrial flutter: Continue home dose of metoprolol 50 mg p.o. daily Continue home Cardizem (12) Non-STEMI (non-ST elevated myocardial infarction): - Likely type II NSTEMI from sepsis as above -No chest pain complaints -However cannot rule out underlying cardiac etiology -Continue telemetry monitoring (13) Bilateral hydronephrosis: - Likely due to obstruction as above, will monitor (14) Pneumonia: - Seen on chest x-ray -Does have leukocytosis -Switch to Rocephin -Follow sputum cultures, respiratory viral panel (15) Sepsis: - Secondary to UTI, pneumonia, E. coli bacteremia (16) Hypokalemia: - Replace IV (17) Fluid overload: - Hold off on Lasix today (18) BPH (benign prostatic hyperplasia): - Flomax (19) E. 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 coli bacteremia, repeat blood cultures and IV Rocephin Diagnoses Acute encephalopathy G93.40 Protein calorie malnutrition E46 Physical deconditioning R53.81 Colonic mass K63.89 Stool incontinence R15.9 Urinary tract infection N39.0 Urinary retention R33.9 Acute kidney injury N17.9 Altered mental status R41.82 Acute on chronic diastolic CHF (congestive heart failure) I50.33 Atrial flutter I48.92 Non-STEMI (non-ST elevated myocardial infarction) I21.4 Bilateral hydronephrosis N13.30 Pneumonia J18.9 Sepsis A41.9 Hypokalemia E87.6 Fluid overload E87.70 BPH (benign prostatic hyperplasia) N40.0 E. 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
[2023-04-10 19:30] VITALS: BP 127/74; PULSE 64; RESP 16; TEMP 36.8; O2SAT 98
[2023-04-10] MEDS: atorvastatin 40 mg Tablet 10 MG PO (23:22)
[2023-04-11] VITALS: BP 128/74; PULSE 64; RESP 14; TEMP 36.9; O2SAT 98
[2023-04-11 04:00] VITALS: BP 119/70; PULSE 72; RESP 16; TEMP 36.5; O2SAT 94
[2023-04-11 05:51] LABS: Anion Gap 14.6 (5-19); Blood Urea Nitrogen 22 mg/dL (8-23); Calcium 8.9 mg/dL (8.5-10.5); Carbon Dioxide 30 mmol/L (22-29); Chloride 101 mmol/L (98-107); Glucose 94 mg/dL (65-115); Osmolality Calculated 295 mOsm/kg (285-295); Potassium 4.6 mmol/L (3.5-5.1); Sodium 141 mmol/L (136-145)
[2023-04-11] MEDS: aspirin 81 mg EC Tablet PO (06:08)
[2023-04-11] MEDS: duloxetine 60 mg Capsule PO (06:08)
[2023-04-11] MEDS: cefTRIAXone 1,000 MG in sodium chloride 0.9% (plus) 50 ML 100 MG IV (06:08)
[2023-04-11 08:00] VITALS: BP 125/70; PULSE 75; RESP 16; TEMP 36.8; O2SAT 93
[2023-04-11] MEDS: dilTIAZem ER (24HR) 240 mg Capsule PO (08:31)
[2023-04-11] MEDS: FUROsemide 40 mg Tablet PO (08:31)
[2023-04-11] MEDS: thiamine 100 mg Tablet PO (08:31)
[2023-04-11] MEDS: tamsulosin 0.4 mg Capsule PO (08:31)
[2023-04-11] MEDS: polyethylene glycol 3350 Pkt 17 gm PO (08:31)
[2023-04-11] MEDS: metoprolol succinate ER (24 HR) 50 mg Tablet PO (08:31)
[2023-04-11] MEDS: pantoprazole DR 40 mg Tablet PO (08:31)
[2023-04-11] MEDS: multivitamin therapeutic Tablet 1 TAB PO (08:31)
[2023-04-11] MEDS: enoxaparin 40 mg/0.4 mL Syringe SUBCUT (08:32)
[2023-04-11] MEDS: folic acid 1 mg Tablet PO (08:32)
[2023-04-11] MEDS: potassium chloride ER 20 mEq Tablet PO (08:32)
[2023-04-11 12:00] VITALS: BP 110/67; PULSE 83; RESP 16; TEMP 36.5; O2SAT 97
--- NOTE | 2023-04-11 12:33 | P.PN_ITS ---
Subjective Subjective: Patient was seen this morning, alert to person, to place, to time he has no complaints Vitals/I&O/Wt Last Vital Signs Temp 98.2 F 04/11/23 08:00 Pulse 75 04/11/23 08:00 Resp 16 04/11/23 08:00 BP 125/70 04/11/23 08:00 Pulse Ox 93 04/11/23 08:00 O2 Del Method Room Air 04/11/23 04:00 O2 Flow Rate 0 04/11/23 08:00 04/10/23 04/11/23 04/11/23 22:59 06:59 14:59 Intake Total 0 / 290 410 / 410 Output Total 700 / 2200 825 / 3025 Balance -700 / -1910 -825 / -2735 410 / 410 Physical Exam Const: COMMON NORMALS: no acute distress and patient oriented x3 Resp: COMMON NORMALS: normal respiratory effort, No retractions, No use of accessory muscles and clear to auscultation bilaterally AUSCULTATION: clear to auscultation bilaterally Cardio: COMMON NORMALS: regular rate, regular rhythm, S1 normal heart sound present and S2 normal heart sound present RATE: regular rate RHYTHM: regular rhythm HEART SOUNDS: S1 normal heart sound present and S2 normal heart sound present GI: COMMON NORMALS: Normal to inspection, nondistended, normoactive bowel sounds present and non-tender Extremity: COMMON NORMALS: no pedal edema Neuro: COMMON NORMALS: patient oriented x3 Psych: COMMON NORMALS: mental status grossly normal Urinary Catheter Management: Padilla: Cath Placed During This Visit: yes Reason for Continuing Indwelling Catheter: Chronic Indwelling Urinary Catheter on Admission Urinary Catheter Date of Insertion: 04/09/23 Urinary Catheter Time of Insertion: 17:00 Data 04/10/23 07:05 04/11/23 05:05 A&P Assessment and plan (1) Acute encephalopathy: - Mentation improved today, concerning for Warnicke's encephalopathy and Korsa koff syndrome -Does have a history of alcoholism, monitoring for withdrawals -Also secondary to sepsis, UTI, bacteremia, which has resolved -B12 within normal limits, folate within normal limits, follow cultures CT head 1. ? No acute intracranial abnormality. 2. ? Moderate diffuse cerebral atrophy and advanced sequela of chronic small vessel ischemic disease. -Folic acid, thiamine, multivitamin (2) Protein calorie malnutrition: - Has moderate protein calorie malnutrition -Has temporal muscle wasting, peripheral muscle wasting, of bilateral arms, bilateral thighs (3) Physical deconditioning: - PT OT (4) Colonic mass: -His CT scan from February 2023 showed -3.? Tortuous decompressed sigmoid colon in the LEFT lower quadrant. This transitions to dilated LEFT colon. This can be further evaluated with co lonoscopy and/or barium enema in further assessment. Suggestion of a focal soft tissue nodule at the area of transition measuring 1.8 cm 4.? Constipation involving the hepatic flexure transverse colon and splenic flexure extending into the descending LEFT colon -Advance as tolerated -Resume Eliquis tomorrow morning -General surgery consulted, bowel prep, colonoscopy showed a proximal descending colonic mass, suspicious for carcinoma, also large polyp in the distal descending colon, will be referred to colorectal surgeon in [place], follow- up biopsy results follow-up with Dr. Shelton -Serial abdominal exams (5) Stool incontinence: (6) Urinary tract infection: Bilateral hydronephrosis noted on CT, likely in the setting of distended bladder and urinary retention. There are intrarenal stones but no evidence of ureteric obstruction currently. Padilla catheter position change, so far 2900 urine output UA with 2+ leukocyte Estrace, 25-40 WBC, concerning for UTI. Continue empiric antibiotic coverage with cefepime 2 g IV every 12 hours, dose will likely need to be adjusted with changes in creatinine. Blood and urine cultures have been collected in the ER, 4 of 4 blood cultures positive for E. coli, pansensitive, repeat blood cultures negative for 5 days, continue Rocephin While he is here in the hospital we will continue Rocephin, can switch to p.o. ciprofloxacin on discharge, requires a total of 14 days of antibiotics since negative cultures (7) Urinary retention: Likely as a result of misplaced Padilla catheter. Catheter replaced, now draining urine. (8) Acute kidney injury: Resolved Suspect this is related to urinary retention. Padilla has been repositioned. Monitor creatinine Patient also has evidence of acute on chronic CHF exacerbation therefore he has not currently been placed on IV fluids. (9) Altered mental status: - Monitor (10) Acute on chronic diastolic CHF (congestive heart failure): No significant wheezing today, no significant edema, monitor last echocardiogram dates back to 2019, LVEF of 50% with moderate hypokinesia of the basal wall. Grade 3 diastolic dysfunction with severely elevated filling pressures. Cardiac echo Normal left ventricular size and systolic function, EF 65 % ?(visual) no regional wall motion abnormalities. ?Moderate mitral annular calcification. Trace mitral valve ?regurgitation. ?Thickened aortic valve. Mild aortic valve calcification. ?Thickened aortic valve.? Moderate aortic valve calcification ?Moderate biatrial enlargementModerate tricuspid valve ?regurgitation. ?Moderate pulmonary valve regurgitation. ?Normal pericardium without effusion.? ?No similar previous studies are available for comparison EKG today shows A-fib with heart rate of [address] deviation in leads V4, V5, V6 Has received Lasix yesterday Hold Lasix for today Monitor urine output monitor creatinine with daily dose Lasix (11) Atrial flutter: Continue home dose of metoprolol 50 mg p.o. daily Continue home Cardizem (12) Non-STEMI (non-ST elevated myocardial infarction): - Likely type II NSTEMI from sepsis as above -No chest pain complaints -However cannot rule out underlying cardiac etiology -Continue telemetry monitoring (13) Bilateral hydronephrosis: - Likely due to obstruction as above, will monitor (14) Pneumonia: - Seen on chest x-ray -Does have leukocytosis -Switch to Rocephin -Follow sputum cultures, respiratory viral panel (15) Sepsis: - Secondary to UTI, pneumonia, E. coli bacteremia (16) Hypokalemia: - Replace IV (17) Fluid overload: - Hold off on Lasix today (18) BPH (benign prostatic hyperplasia): - Flomax (19) E. 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 coli bacteremia, UTI, deconditioning, Diagnoses Acute encephalopathy G93.40 Protein calorie malnutrition E46 Physical deconditioning R53.81 Colonic mass K63.89 Stool incontinence R15.9 Urinary tract infection N39.0 Urinary retention R33.9 Acute kidney injury N17.9 Altered mental status R41.82 Acute on chronic diastolic CHF (congestive heart failure) I50.33 Atrial flutter I48.92 Non-STEMI (non-ST elevated myocardial infarction) I21.4 Bilateral hydronephrosis N13.30 Pneumonia J18.9 Sepsis A41.9 Hypokalemia E87.6 Fluid overload E87.70 BPH (benign prostatic hyperplasia) N40.0 E. 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
[2023-04-11 16:00] VITALS: BP 91/62; PULSE 81; RESP 16; TEMP 36.4; O2SAT 97
[2023-04-11] MEDS: apixaban 5 mg Tablet PO (17:07)
[2023-04-11] MEDS: atorvastatin 40 mg Tablet 10 MG PO (17:07)
[2023-04-11 20:00] VITALS: BP 101/61; PULSE 77; RESP 18; TEMP 36.7; O2SAT 99
[2023-04-12] VITALS: BP 136/83; PULSE 75; RESP 16; TEMP 36.6; O2SAT 96
[2023-04-12 04:00] VITALS: BP 147/89; PULSE 75; RESP 16; TEMP 36.7; O2SAT 97
[2023-04-12 04:39] LABS: Anion Gap 14.5 (5-19); Blood Urea Nitrogen 26 mg/dL (8-23); Carbon Dioxide 28 mmol/L (22-29); Chloride 102 mmol/L (98-107); Glucose 110 mg/dL (65-115); Osmolality Calculated 295 mOsm/kg (285-295); Potassium 4.5 mmol/L (3.5-5.1); Sodium 140 mmol/L (136-145)
[2023-04-12] MEDS: cefTRIAXone 1,000 MG in sodium chloride 0.9% (plus) 50 ML 100 MG IV (06:17)
[2023-04-12] MEDS: apixaban 5 mg Tablet PO ×2 (06:18→17:30)
[2023-04-12] MEDS: duloxetine 60 mg Capsule PO (06:18)
[2023-04-12] MEDS: aspirin 81 mg EC Tablet PO (06:18)
[2023-04-12 08:00] VITALS: BP 141/77; PULSE 84; RESP 17; TEMP 36.1; O2SAT 98
[2023-04-12] MEDS: multivitamin therapeutic Tablet 1 TAB PO (09:02)
[2023-04-12] MEDS: polyethylene glycol 3350 Pkt 17 gm PO (09:02)
[2023-04-12] MEDS: tamsulosin 0.4 mg Capsule PO (09:02)
[2023-04-12] MEDS: folic acid 1 mg Tablet PO (09:02)
[2023-04-12] MEDS: potassium chloride ER 20 mEq Tablet PO (09:03)
[2023-04-12] MEDS: dilTIAZem ER (24HR) 240 mg Capsule PO (09:03)
[2023-04-12] MEDS: pantoprazole DR 40 mg Tablet PO (09:03)
[2023-04-12] MEDS: FUROsemide 40 mg Tablet PO (09:03)
[2023-04-12] MEDS: thiamine 100 mg Tablet PO (09:03)
[2023-04-12] MEDS: metoprolol succinate ER (24 HR) 50 mg Tablet PO (09:03)
--- NOTE | 2023-04-12 10:33 | PC.SOCIAL ---
Imm update Imm updated with patient at bedside. Copy of page 2 provided. Patient verbalized understanding. Copy in chart initialed, dated and timed.
[2023-04-12 12:00] VITALS: BP 103/65; PULSE 83; RESP 19; TEMP 36.3; O2SAT 100
[2023-04-12 16:00] VITALS: BP 107/66; PULSE 77; RESP 19; TEMP 36.3; O2SAT 99
--- NOTE | 2023-04-12 16:09 | P.PN_ITS ---
Subjective Subjective: Patient was seen this morning he is alert to person, to place, not to time, he can follow commands, he has no complaints, no headache, no blurry vision, no nausea, no vomiting, no fevers, no chills Vitals/I&O/Wt Last Vital Signs Temp 97.3 F L 04/12/23 12:00 Pulse 83 04/12/23 12:00 Resp 19 H 04/12/23 12:00 BP 103/65 04/12/23 12:00 Pulse Ox 100 04/12/23 12:00 O2 Del Method Nasal Cannula 04/12/23 12:00 O2 Flow Rate 2 04/11/23 20:00 04/12/23 04/12/23 04/12/23 06:59 14:59 22:59 Intake Total 530 / 530 Output Total 900 / 900 1000 / 1000 Balance -900 / 470 530 / 530 -1000 / -470 Physical Exam Const: COMMON NORMALS: no acute distress ORIENTATION/CONSCIOUSNESS: Yes awake, Yes oriented to person and Yes oriented to place; not oriented to time Resp: COMMON NORMALS: normal respiratory effort, No retractions, No use of accessory muscles and clear to auscultation bilaterally AUSCULTATION: clear to auscultation bilaterally Cardio: COMMON NORMALS: regular rate, regular rhythm, S1 normal heart sound present and S2 normal heart sound present RATE: regular rate RHYTHM: regular rhythm HEART SOUNDS: S1 normal heart sound present and S2 normal heart sound present GI: COMMON NORMALS: Normal to inspection, nondistended, normoactive bowel s ounds present and non-tender Extremity: COMMON NORMALS: no pedal edema Neuro: SENSORIUM/ORIENTATION: Yes oriented to person, Yes oriented to place and No oriented to time Urinary Catheter Management: Padilla: Cath Placed During This Visit: yes Reason for Continuing Indwelling Catheter: Chronic Indwelling Urinary Catheter on Admission Urinary Catheter Date of Insertion: 04/09/23 Urinary Catheter Time of Insertion: 17:00 Data 04/10/23 07:05 04/12/23 03:25 A&P Assessment and plan (1) Acute encephalopathy: - Mentation improved today, 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 ? No acute intracranial abnormality. 2. ? Moderate diffuse cerebral atrophy and advanced sequela of chronic small vessel ischemic disease. -Folic acid, thiamine, multivitamin (2) Protein calorie malnutrition: - Has moderate protein calorie malnutrition -Has temporal muscle wasting, peripheral muscle wasting, of bilateral arms, bilateral thighs (3) Physical deconditioning: - PT OT (4) Colonic mass: -His CT scan from February 2023 showed -3.? Tortuous decompressed sigmoid colon in the LEFT lower quadrant. This transitions to dilated LEFT colon. This can be further evaluated with colonoscopy and/or barium enema in further assessment. Suggestion of a focal soft tissue nodule at the area of transition measuring 1.8 cm 4.? Constipation involving the hepatic flexure transverse colon and splenic flexure extending into the descending LEFT colon -Advance as tolerated -Resume Eliquis tomorrow morning -General surgery consulted, bowel prep, colonoscopy showed a proximal descending colonic mass, suspicious for carcinoma, also large polyp in the distal descending colon, will be referred to colorectal surgeon in [place], follow- up biopsy results follow-up with Dr. Shelton -Serial abdominal exams (5) Stool incontinence: (6) Urinary tract infection: Bilateral hydronephrosis noted on CT, likely in the setting of distended bladder and urinary retention. There are intrarenal stones but no evidence of ureteric obstruction currently. Padilla catheter position change, so far 2900 urine output UA with 2+ leukocyte Estrace, 25-40 WBC, concerning for UTI. Continue empiric antibiotic coverage with cefepime 2 g IV every 12 hours, dose will likely need to be adjusted with changes in creatinine. Blood and urine cultures have been collected in the ER, 4 of 4 blood cultures positive for E. coli, pansensitive, repeat blood cultures negative for 5 days, continue Rocephin While he is here in the hospital we will continue Rocephin, can switch to p.o. ciprofloxacin on discharge, requires a total of 14 days of antibiotics since negative cultures (7) Urinary retention: Likely as a result of misplaced Padilla catheter. Catheter replaced, now draining urine. (8) Acute kidney injury: Resolved Suspect this is related to urinary retention. Padilla has been repositioned. Monitor creatinine Patient also has evidence of acute on chronic CHF exacerbation therefore he has not currently been placed on IV fluids. (9) Altered mental status: - Monitor (10) Acute on chronic diastolic CHF (congestive heart failure): No significant wheezing today, no significant edema, monitor last echocardiogram dates back to 2019, LVEF of 50% with moderate hypokinesia of the basal wall. Grade 3 diastolic dysfunction with severely elevated filling pressures. Cardiac echo Normal left ventricular size and systolic function, EF 65 % ?(visual) no regional wall motion abnormalities. ?Moderate mitral annular calcification. Trace mitral valve ?regurgitation. ?Thickened aortic valve. Mild aortic valve calcification. ?Thickened aortic valve.? Moderate aortic valve calcification ?Moderate biatrial enlargementModerate tricuspid valve ?regurgitation. ?Moderate pulmonary valve regurgitation. ?Normal pericardium without effusion.? ?No similar previous studies are available for comparison EKG today shows A-fib with heart rate of [address] deviation in leads V4, V5, V6 Has received Lasix yesterday Hold Lasix for today Monitor urine output monitor creatinine with daily dose Lasix (11) Atrial flutter: Continue home dose of metoprolol 50 mg p.o. daily Continue home Cardizem (12) Non-STEMI (non-ST elevated myocardial infarction): - Likely type II NSTEMI from sepsis as above -No chest pain complaints -However cannot rule out underlying cardiac etiology -Continue telemetry monitoring (13) Bilateral hydronephrosis: - Likely due to obstruction as above, will monitor (14) Pneumonia: - Seen on chest x-ray -Does have leukocytosis -Switch to Rocephin -Follow sputum cultures, respiratory viral panel (15) Sepsis: - Secondary to UTI, pneumonia, E. coli bacteremia (16) Hypokalemia: - Replace IV (17) Fluid overload: - On p.o. Lasix (18) BPH (benign prostatic hyperplasia): - Flomax (19) E. 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): - We will need to monitor closely thiamine, folic acid, multivitamin -CIWA protocol Plan DVT prophylaxis: SCDs, Lovenox for now, CODE STATUS: Full code Plan for today, continue Rocephin, Attestations Medical Necessity Statement*: patient requires hospitalization for ecoli uti with bacteremia, requiring rocephin Diagnoses Acute encephalopathy G93.40 Protein calorie malnutrition E46 Physical deconditioning R53.81 Colonic mass K63.89 Stool incontinence R15.9 Urinary tract infection N39.0 Urinary retention R33.9 Acute kidney injury N17.9 Altered mental status R41.82 Acute on chronic diastolic CHF (congestive heart failure) I50.33 Atrial flutter I48.92 Non-STEMI (non-ST elevated myocardial infarction) I21.4 Bilateral hydronephrosis N13.30 Pneumonia J18.9 Sepsis A41.9 Hypokalemia E87.6 Fluid overload E87.70 BPH (benign prostatic hyperplasia) N40.0 E. 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
[2023-04-12] MEDS: atorvastatin 40 mg Tablet 10 MG PO (17:31)
[2023-04-12 19:30] VITALS: BP 103/63; PULSE 74; RESP 17; TEMP 36.4; O2SAT 98
[2023-04-13] VITALS (8 sets, daily range): BP systolic 94–114; BP diastolic 62–72; PULSE 76–116; RESP 17–20; TEMP 36.2–36.7; O2SAT 90–100
[2023-04-13] MEDS: apixaban 5 mg Tablet PO ×2 (06:06→17:41)
[2023-04-13] MEDS: aspirin 81 mg EC Tablet PO (06:06)
[2023-04-13] MEDS: duloxetine 60 mg Capsule PO (06:07)
[2023-04-13] MEDS: cefTRIAXone 1,000 MG in sodium chloride 0.9% (plus) 50 ML 100 MG IV (06:07)
[2023-04-13] MEDS: multivitamin therapeutic Tablet 1 TAB PO (08:35)
[2023-04-13] MEDS: thiamine 100 mg Tablet PO (08:35)
[2023-04-13] MEDS: FUROsemide 40 mg Tablet PO (08:35)
[2023-04-13] MEDS: pantoprazole DR 40 mg Tablet PO (08:35)
[2023-04-13] MEDS: potassium chloride ER 20 mEq Tablet PO (08:35)
[2023-04-13] MEDS: polyethylene glycol 3350 Pkt 17 gm PO (08:35)
[2023-04-13] MEDS: tamsulosin 0.4 mg Capsule PO (08:35)
[2023-04-13] MEDS: folic acid 1 mg Tablet PO (09:57)
[2023-04-13 12:50] LABS: Basophils # 0.1 10^3/uL (0.0-0.1); Basophils % 0.4 %; Eosinophils # 0.3 10^3/uL (0.0-0.8); Eosinophils % 2.7 %; Hematocrit 40.3 % (42.0-52.0); Hemoglobin 12.9 g/dL (11.7-16.6); Lymphocytes # 1.1 10^3/uL (0.8-4.8); Lymphocytes % 9.7 %; Mean Corpuscular Hemoglobin 31.3 pg (28.0-34.0); Mean Corpuscular Volume 97.8 fl (80-94); Mean Platelet Volume 10.5 fL (7.4-10.4); Monocytes # 0.9 10^3/uL (0.2-0.9); Monocytes % 8.2 %; Neutrophils # 8.75 10^3/uL (1.8-7.7); Neutrophils % 78.2 %; Nucleated Red Blood Cells % 0 %; Platelet Count 381 10^3/cmm (130-400); Red Blood Count 4.12 10^6/uL (4.1-5.3); Red Cell Distribution Width 14.1 % (12.1-15.1); White Blood Count 11.2 10^3/uL (4.0-10.0)
--- NOTE | 2023-04-13 16:09 | P.PN_ITS ---
Subjective Subjective: Patient was seen this morning, he is alert to person, to place, not to time, he has no complaints, he is a bit more confused today, does follow commands, denies any headaches, no blurry vision, no nausea, no vomiting, Vitals/I&O/Wt Last Vital Signs Temp 97.1 F L 04/13/23 16:00 Pulse 99 04/13/23 16:00 Resp 20 H 04/13/23 16:00 BP 112/72 04/13/23 16:00 Pulse Ox 97 04/13/23 16:00 O2 Del Method Nasal Cannula 04/13/23 16:00 O2 Flow Rate 2 04/12/23 20:00 04/13/23 04/13/23 04/13/23 06:59 14:59 22:59 Intake Total 530 / 530 Output Total 300 / 2150 Balance -300 / -1380 530 / 530 Physical Exam Const: COMMON NORMALS: no acute distress and patient oriented x3 Neck/C-Spine: COMMON NORMALS: no JVD Resp: COMMON NORMALS: normal respiratory effort, No retractions, No use of accessory muscles and clear to auscultation bilaterally AUSCULTATION: clear to auscultation bilaterally Cardio: COMMON NORMALS: no JVD, regular rate, regular rhythm, S1 normal heart sound present and S2 normal heart sound present RATE: regular rate RHYTHM: regular rhythm HEART SOUNDS: S1 normal heart sound present and S2 normal heart sound present GI: COMMON NORMALS: Normal to inspection, nondistended, normoactive bowel sounds present and non-tender Extremity: COMMON NORMALS: no pedal edema Neuro: COMMON NORMALS: patient oriented x3 Psych: COMMON NORMALS: mental status grossly normal Urinary Catheter Management: Padilla: Cath Placed During This Visit: yes Reason for Continuing Indwelling Catheter: Chronic Indwelling Urinary Catheter on Admission Urinary Catheter Date of Insertion: 04/09/23 Urinary Catheter Time of Insertion: 17:00 Data 04/13/23 12:35 04/12/23 03:25 A&P Assessment and plan (1) Acute encephalopathy: - Mentation improved today, 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 ? No acute intracranial abnormality. 2. ? Moderate diffuse cerebral atrophy and advanced sequela of chronic small vessel ischemic disease. -Folic acid, thiamine, multivitamin (2) Protein calorie malnutrition: - Has moderate protein calorie malnutrition -Has temporal muscle wasting, peripheral muscle wasting, of bilateral arms, bilateral thighs (3) Physical deconditioning: - PT OT (4) Colonic mass: -His CT scan from February 2023 showed -3.? Tortuous decompressed sigmoid colon in the LEFT lower quadrant. This transitions to dilated LEFT colon. This can be further evaluated with colonoscopy and/or barium enema in further assessment. Suggestion of a focal soft tissue nodule at the area of transition measuring 1.8 cm 4.? Constipation involving the hepatic flexure transverse colon and splenic flexure extending into the descending LEFT colon -Advance as tolerated -Resume Eliquis tomorrow morning -General surgery consulted, bowel prep, colonoscopy showed a proximal descending colonic mass, suspicious for carcinoma, also large polyp in the distal descending colon, will be referred to colorectal surgeon in [place], follow- up biopsy results follow-up with Dr. Shelton -Serial abdominal exams (5) Stool incontinence: (6) Urinary tract infection: Bilateral hydronephrosis noted on CT, likely in the setting of distended bladder and urinary retention. There are intrarenal stones but no evidence of ureteric obstruction currently. Padilla catheter position change, so far 2900 urine output UA with 2+ leukocyte Estrace, 25-40 WBC, concerning for UTI. Continue empiric antibiotic coverage with cefepime 2 g IV every 12 hours, dose will likely need to be adjusted with changes in creatinine. Blood and urine cultures have been collected in the ER, 4 of 4 blood cultures positive for E. coli, pansensitive, repeat blood cultures negative for 5 days, continue Rocephin While he is here in the hospital we will continue Rocephin, can switch to p.o. ciprofloxacin on discharge, requires a total of 14 days of antibiotics since negative cultures (7) Urinary retention: Likely as a result of misplaced Padilla catheter. Catheter replaced, now draining urine. (8) Acute kidney injury: Resolved Suspect this is related to urinary retention. Padilla has been repositioned. Monitor creatinine Patient also has evidence of acute on chronic CHF exacerbation therefore he has not currently been placed on IV fluids. (9) Altered mental status: - Monitor (10) Acute on chronic diastolic CHF (congestive heart failure): No significant wheezing today, no significant edema, monitor last echocardiogram dates back to 2019, LVEF of 50% with moderate hypokinesia of the basal wall. Grade 3 diastolic dysfunction with severely elevated filling pressures. Cardiac echo Normal left ventricular size and systolic function, EF 65 % ?(visual) no regional wall motion abnormalities. ?Moderate mitral annular calcification. Trace mitral valve ?regurgitation. ?Thickened aortic valve. Mild aortic valve calcification. ?Thickened aortic valve.? Moderate aortic valve calcification ?Moderate biatrial enlargementModerate tricuspid valve ?regurgitation. ?Moderate pulmonary valve regurgitation. ?Normal pericardium without effusion.? ?No similar previous studies are available for comparison EKG today shows A-fib with heart rate of [address] deviation in leads V4, V5, V6 Has received Lasix yesterday Hold Lasix for today Monitor urine output monitor creatinine with daily dose Lasix (11) Atrial flutter: Continue home dose of metoprolol 50 mg p.o. daily Continue home Cardizem (12) Non-STEMI (non-ST elevated myocardial infarction): - Likely type II NSTEMI from sepsis as above -No chest pain complaints -However cannot rule out underlying cardiac etiology -Continue telemetry monitoring (13) Bilateral hydronephrosis: - Likely due to obstruction as above, will monitor (14) Pneumonia: - Seen on chest x-ray -Does have leukocytosis -Switch to Rocephin -Follow sputum cultures, respiratory viral panel (15) Sepsis: - Secondary to UTI, pneumonia, E. coli bacteremia (16) Hypokalemia: - Replace IV (17) Fluid overload: - On p.o. Lasix (18) BPH (benign prostatic hyperplasia): - Flomax (19) E. 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 coli UTI, bacteremia repeat CBC Diagnoses Acute encephalopathy G93.40 Protein calorie malnutrition E46 Physical deconditioning R53.81 Colonic mass K63.89 Stool incontinence R15.9 Urinary tract infection N39.0 Urinary retention R33.9 Acute kidney injury N17.9 Altered mental status R41.82 Acute on chronic diastolic CHF (congestive heart failure) I50.33 Atrial flutter I48.92 Non-STEMI (non-ST elevated myocardial infarction) I21.4 Bilateral hydronephrosis N13.30 Pneumonia J18.9 Sepsis A41.9 Hypokalemia E87.6 Fluid overload E87.70 BPH (benign prostatic hyperplasia) N40.0 E. 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
[2023-04-13] MEDS: atorvastatin 40 mg Tablet 10 MG PO (17:41)
[2023-04-14] VITALS (9 sets, daily range): BP systolic 97–130; BP diastolic 63–89; PULSE 72–112; RESP 17–18; TEMP 36.4–36.9; O2SAT 93–99
[2023-04-14] MEDS: apixaban 5 mg Tablet PO ×2 (05:59→17:58)
[2023-04-14] MEDS: duloxetine 60 mg Capsule PO (05:59)
[2023-04-14] MEDS: aspirin 81 mg EC Tablet PO (05:59)
[2023-04-14] MEDS: cefTRIAXone 1,000 MG in sodium chloride 0.9% (plus) 50 ML 100 MG IV (05:59)
[2023-04-14 06:41] LABS: Basophils # 0.1 10^3/uL (0.0-0.1); Basophils % 0.5 %; Eosinophils # 0.4 10^3/uL (0.0-0.8); Eosinophils % 3.5 %; Hemoglobin 13.4 g/dL (11.7-16.6); Lymphocytes # 1.5 10^3/uL (0.8-4.8); Lymphocytes % 13.9 %; Mean Corpuscular HGB Conc 32.7 g/dL (30.0-36.0); Mean Corpuscular Hemoglobin 31.2 pg (28.0-34.0); Mean Corpuscular Volume 95.6 fl (80-94); Mean Platelet Volume 10.8 fL (7.4-10.4); Monocytes # 0.9 10^3/uL (0.2-0.9); Monocytes % 8.6 %; Neutrophils # 7.92 10^3/uL (1.8-7.7); Neutrophils % 72.7 %; Nucleated Red Blood Cells % 0 %; Platelet Count 420 10^3/cmm (130-400); Red Blood Count 4.29 10^6/uL (4.1-5.3); White Blood Count 10.9 10^3/uL (4.0-10.0)
[2023-04-14 07:03] LABS: Anion Gap 15.9 (5-19); Blood Urea Nitrogen 31 mg/dL (8-23); Carbon Dioxide 27 mmol/L (22-29); Chloride 98 mmol/L (98-107); Glucose 103 mg/dL (65-115); Osmolality Calculated 289 mOsm/kg (285-295); Potassium 4.9 mmol/L (3.5-5.1); Sodium 136 mmol/L (136-145)
[2023-04-14] MEDS: metoprolol succinate ER (24 HR) 50 mg Tablet PO (08:47)
[2023-04-14] MEDS: potassium chloride ER 20 mEq Tablet PO (08:47)
[2023-04-14] MEDS: FUROsemide 40 mg Tablet PO (08:47)
[2023-04-14] MEDS: multivitamin therapeutic Tablet 1 TAB PO (08:47)
[2023-04-14] MEDS: folic acid 1 mg Tablet PO (08:47)
[2023-04-14] MEDS: tamsulosin 0.4 mg Capsule PO (08:47)
[2023-04-14] MEDS: pantoprazole DR 40 mg Tablet PO (08:47)
[2023-04-14] MEDS: thiamine 100 mg Tablet PO (08:47)
[2023-04-14] MEDS: dilTIAZem ER (24HR) 240 mg Capsule PO (08:47)
[2023-04-14] MEDS: polyethylene glycol 3350 Pkt 17 gm PO (08:47)
--- NOTE | 2023-04-14 13:50 | PC.SOCIAL ---
IMM Updated Updated pt's daughter on IMM. No questions voiced. Provided pt a copy. Initialed, dated, & timed copy in chart.
--- NOTE | 2023-04-14 16:36 | P.PN_ITS ---
Subjective Subjective: Patient was seen this morning, he is alert to person, to place, not to time, he tells me he did not get any sleep last night Vitals/I&O/Wt Last Vital Signs Temp 97.8 F 04/14/23 16:18 Pulse 105 H 04/14/23 16:18 Resp 18 04/14/23 16:18 BP 114/71 04/14/23 16:18 Pulse Ox 93 04/14/23 16:18 O2 Del Method Room Air 04/14/23 16:18 O2 Flow Rate 2 04/14/23 08:00 04/14/23 04/14/23 04/14/23 06:59 14:59 22:59 Intake Total 1010 / 1010 Output Total 300 / 2000 Balance -300 / -870 1010 / 1010 Physical Exam Const: COMMON NORMALS: no acute distress Resp: COMMON NORMALS: normal respiratory effort, No retractions, No use of accessory muscles and clear to auscultation bilaterally AUSCULTATION: clear to auscultation bilaterally Cardio: COMMON NORMALS: regular rate, regular rhythm, S1 normal heart sound present and S2 normal heart sound present RATE: regular rate RHYTHM: regular rhythm HEART SOUNDS: S1 normal heart sound present and S2 normal heart sound present GI: COMMON NORMALS: Normal to inspection, nondistended, normoactive bowel sounds present and non-tender Extremity: COMMON NORMALS: no pedal edema Psych: COMMON NORMALS: mental status grossly normal Urinary Catheter Management: Padilla: Cath Placed During This Visit: yes Reason for Continuing Indwelling Catheter: Chronic Indwelling Urinary Catheter on Admission Urinary Catheter Date of Insertion: 04/09/23 Urinary Catheter Time of Insertion: 17:00 Data 04/14/23 05:30 04/14/23 05:30 A&P Assessment and plan (1) Acute encephalopathy: - Mentation improved today, 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 ? No acute intracranial abnormality. 2. ? Moderate diffuse cerebral atrophy and advanced sequela of chronic small vessel ischemic disease. -Folic acid, thiamine, multivitamin (2) Protein calorie malnutrition: - Has moderate protein calorie malnutrition -Has temporal muscle wasting, peripheral muscle wasting, of bilateral arms, bilateral thighs (3) Physical deconditioning: - PT OT (4) Colonic mass: -His CT scan from February 2023 showed -3.? Tortuous decompressed sigmoid colon in the LEFT lower quadrant. This transitions to dilated LEFT colon. This can be further evaluated with colonosco py and/or barium enema in further assessment. Suggestion of a focal soft tissue nodule at the area of transition measuring 1.8 cm 4.? Constipation involving the hepatic flexure transverse colon and splenic flexure extending into the descending LEFT colon -Advance as tolerated -Resume Eliquis tomorrow morning -General surgery consulted, bowel prep, colonoscopy showed a proximal descending colonic mass, suspicious for carcinoma, also large polyp in the distal descending colon, will be referred to colorectal surgeon in [place], follow- up biopsy results follow-up with Dr. Shelton -Serial abdominal exams (5) Stool incontinence: (6) Urinary tract infection: Bilateral hydronephrosis noted on CT, likely in the setting of distended bladder and urinary retention. There are intrarenal stones but no evidence of ureteric obstruction currently. Padilla catheter position change, so far 2900 urine output UA with 2+ leukocyte Estrace, 25-40 WBC, concerning for UTI. Continue empiric antibiotic coverage with cefepime 2 g IV every 12 hours, dose will likely need to be adjusted with changes in creatinine. Blood and urine cultures have been collected in the ER, 4 of 4 blood cultures positive for E. coli, pansensitive, repeat blood cultures negative for 5 days, continue Rocephin While he is here in the hospital we will continue Rocephin, can switch to p.o. ciprofloxacin on discharge, requires a total of 14 days of antibiotics since negative cultures (7) Urinary retention: Likely as a result of misplaced Padilla catheter. Catheter replaced, now draining urine. (8) Acute kidney injury: Resolved Suspect this is related to urinary retention. Padilla has been repositioned. Monitor creatinine Patient also has evidence of acute on chronic CHF exacerbation therefore he has not currently been placed on IV fluids. (9) Altered mental status: - Monitor (10) Acute on chronic diastolic CHF (congestive heart failure): No significant wheezing today, no significant edema, monitor last echocardiogram dates back to 2019, LVEF of 50% with moderate hypokinesia of the basal wall. Grade 3 diastolic dysfunction with severely elevated filling pressures. Cardiac echo Normal left ventricular size and systolic function, EF 65 % ?(visual) no regional wall motion abnormalities. ?Moderate mitral annular calcification. Trace mitral valve ?regurgitation. ?Thickened aortic valve. Mild aortic valve calcification. ?Thickened aortic valve.? Moderate aortic valve calcification ?Moderate biatrial enlargementModerate tricuspid valve ?regurgitation. ?Moderate pulmonary valve regurgitation. ?Normal pericardium without effusion.? ?No similar previous studies are available for comparison EKG today shows A-fib with heart rate of [address] deviation in leads V4, V5, V6 Has received Lasix yesterday Hold Lasix for today Monitor urine output monitor creatinine with daily dose Lasix (11) Atrial flutter: Continue home dose of metoprolol 50 mg p.o. daily Continue home Cardizem (12) Non-STEMI (non-ST elevated myocardial infarction): - Likely type II NSTEMI from sepsis as above -No chest pain complaints -However cannot rule out underlying cardiac etiology -Continue telemetry monitoring (13) Bilateral hydronephrosis: - Likely due to obstruction as above, will monitor (14) Pneumonia: - Seen on chest x-ray -Does have leukocytosis -Switch to Rocephin -Follow sputum cultures, respiratory viral panel (15) Sepsis: - Secondary to UTI, pneumonia, E. coli bacteremia (16) Hypokalemia: - Replace IV (17) Fluid overload: - On p.o. Lasix (18) BPH (benign prostatic hyperplasia): - Flomax (19) E. 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 coli bacteremia E. coli UTI on Rocephin, elevated heart rate increase, A-fib metoprolol and High MDM includes number and complexity of problems actively addressed during encounter, amount and/or complexity of data reviewed/ordered and described risk of complication, morbidity or mortality of management as documented Diagnoses Acute encephalopathy G93.40 Protein calorie malnutrition E46 Physical deconditioning R53.81 Colonic mass K63.89 Stool incontinence R15.9 Urinary tract infection N39.0 Urinary retention R33.9 Acute kidney injury N17.9 Altered mental status R41.82 Acute on chronic diastolic CHF (congestive heart failure) I50.33 Atrial flutter I48.92 Non-STEMI (non-ST elevated myocardial infarction) I21.4 Bilateral hydronephrosis N13.30 Pneumonia J18.9 Sepsis A41.9 Hypokalemia E87.6 Fluid overload E87.70 BPH (benign prostatic hyperplasia) N40.0 E. 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
[2023-04-14] MEDS: atorvastatin 40 mg Tablet 10 MG PO (17:56)
[2023-04-14] MEDS: metoprolol tartrate 25 mg Tablet 37.5 MG PO (20:10)
[2023-04-15 03:46] VITALS: BP 106/68; PULSE 76; RESP 17; TEMP 36.8; O2SAT 97
[2023-04-15] MEDS: apixaban 5 mg Tablet PO ×2 (05:29→18:13)
[2023-04-15] MEDS: aspirin 81 mg EC Tablet PO (05:29)
[2023-04-15] MEDS: duloxetine 60 mg Capsule PO (05:29)
[2023-04-15] MEDS: cefTRIAXone 1,000 MG in sodium chloride 0.9% (plus) 50 ML 100 MG IV (05:58)
[2023-04-15 06:33] LABS: Basophils # 0.1 10^3/uL (0.0-0.1); Basophils % 0.6 %; Eosinophils # 0.5 10^3/uL (0.0-0.8); Eosinophils % 4.4 %; Hematocrit 43.3 % (42.0-52.0); Hemoglobin 13.9 g/dL (11.7-16.6); Lymphocytes # 1.8 10^3/uL (0.8-4.8); Lymphocytes % 15.4 %; Mean Corpuscular HGB Conc 32.1 g/dL (30.0-36.0); Mean Corpuscular Hemoglobin 31.1 pg (28.0-34.0); Mean Corpuscular Volume 96.9 fl (80-94); Mean Platelet Volume 10.6 fL (7.4-10.4); Monocytes # 0.9 10^3/uL (0.2-0.9); Monocytes % 7.6 %; Neutrophils # 8.34 10^3/uL (1.8-7.7); Neutrophils % 71.1 %; Nucleated Red Blood Cells % 0 %; Platelet Count 440 10^3/cmm (130-400); Red Blood Count 4.47 10^6/uL (4.1-5.3); White Blood Count 11.7 10^3/uL (4.0-10.0)
[2023-04-15 06:52] LABS: Blood Urea Nitrogen 30 mg/dL (8-23); Calcium 9.6 mg/dL (8.5-10.5); Carbon Dioxide 30 mmol/L (22-29); Chloride 97 mmol/L (98-107); Glucose 136 mg/dL (65-115); Osmolality Calculated 294 mOsm/kg (285-295); Sodium 138 mmol/L (136-145)
[2023-04-15 07:15] VITALS: BP 127/71; PULSE 87; RESP 15; TEMP 36.5; O2SAT 91
[2023-04-15] MEDS: tamsulosin 0.4 mg Capsule PO (08:45)
[2023-04-15] MEDS: folic acid 1 mg Tablet PO (08:45)
[2023-04-15] MEDS: dilTIAZem ER (24HR) 240 mg Capsule PO (08:46)
[2023-04-15] MEDS: polyethylene glycol 3350 Pkt 17 gm PO (08:46)
[2023-04-15] MEDS: multivitamin therapeutic Tablet 1 TAB PO (08:46)
[2023-04-15] MEDS: metoprolol tartrate 25 mg Tablet 37.5 MG PO (08:46)
[2023-04-15] MEDS: thiamine 100 mg Tablet PO (08:46)
[2023-04-15] MEDS: pantoprazole DR 40 mg Tablet PO (08:46)
--- NOTE | 2023-04-15 11:03 | P.DS_ITS ---
Discharge Providers Date of Admission: 04/03/23 21:00 Date of Discharge: April 15, 2023 Attending Provider at Admission: Lina Beach MD Attending Provider at Discharge: Jordan Bhardwaj MD Primary Care Provider: EDD Jones Diagnoses at Discharge Discharge Diagnosis (1) Acute encephalopathy: Status: Acute (2) Protein calorie malnutrition: Status: Acute (3) Physical deconditioning: Status: Acute (4) Colonic mass: Status: Acute (5) Stool incontinence: Status: Acute (6) Urinary tract infection: Status: Acute (7) Urinary retention: Status: Acute (8) Acute kidney injury: Status: Acute (9) Altered mental status: Status: Acute (10) Acute on chronic diastolic CHF (congestive heart failure): Status: Acute (11) Atrial flutter: Status: Acute (12) Non-STEMI (non-ST elevated myocardial infarction): Status: Acute (13) Bilateral hydronephrosis: Status: Acute (14) Pneumonia: Status: Acute (15) Sepsis: Status: Acute (16) Hypokalemia: Status: Acute (17) Fluid overload: Status: Acute (18) BPH (benign prostatic hyperplasia): Status: Acute (19) E. coli bacteremia: Status: Acute (20) Ileus: Status: Acute (21) Colon distention: Status: Acute (22) Wernicke-Korsakoff syndrome (alcoholic): Status: Acute Reason for Visit Reason for Visit: AMS, possible sepsis Hospital Course Hospital Course History is obtained by talking to ER physician and chart review as patient is currently encephalopathic and unable to provide any details regarding his symptoms.? 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 He was brought to the emergency room today due to chief complaints of fever chills altered mental status, increasing confusion and lethargy.? He was recently seen in the emergency room on April 01, 2023 as his Padilla was displaced.? He did not report any other symptoms at that point, Padilla catheter was replaced and he was discharged. On arrival today he had a fever of 102 Fahrenheit, WBC count of 14.2, NIDIA with creatinine at 1.4, on my assessment he was noted to have no urine drainage in the Padilla bag and had a palpable distended bladder.? He is able to correctly tell me his name and date of , however does not know where he is or what brought him to the emergency room.? He keeps talking about he had multiple pictures taken , I suspect he is referring to his recent CAT scan. Patient was admitted to [facility], had a long and complicated hospital stay, please look at my last progress note for details Patient had acute encephalopathy during his hospitalization, likely multi factorial from UTI, E. coli bacteremia, Warnicke's encephalopathy and Korsakoff syndrome, secondary to alcoholism, For his E. coli bacteremia, his UTI, repeat blood cultures so far have been negative, he has received 12 days of IV antibiotics since negative blood cultures, will be discharged on 2 more days of p.o. ciprofloxacin For his chronic Padilla catheter, follow-up with urology, for consideration of interventions on his enlarged prostate has urinary retention Had NIDIA during his hospitalization secondary to NIDIA, postobstructive secondary to misplaced Padilla catheter which was corrected, resolved. Patient on discharge is alert to person, to place, not to time, does have confabulation, episodes of confusion, likely underlying Warnicke's encephalopathy Korsakoff syndrome secondary to alcoholism, discharged on B12, folate, thiamine, discharged to senior care facility. During his hospitalization he underwent colonoscopy for evaluation of colonic mass, seen on prior CT scan, status post polypectomy by general surgery, follow- up with Dr. Shelton as outpatient for biopsy results. For CHF exacerbation during his hospitalization received diuresis. He had sepsis secondary to UTI, E. coli bacteremia, resolved. 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 His diuresis was held, beta-sangita dose was weaned and stopped he received IV fluids, on discharge his orthostatic hypotension has improved, he remains sym ptoms free, but his blood pressures are on the lower end. I have stopped his beta-sangita for now. Stopped his diuresis for now. More liberal fluid intake for the next 3 days. I would say about Thursday I have asked [facility] to recheck his orthostats, if his orthostats are reasonable and he is asymptomatic then can resume Lasix 40 mg once daily with potassium. And can resume metoprolol 12.5 mg twice daily. There is a risk of him going back into A-fib without being on a beta-sangita but will have to monitor [facility]. Physical Exam Const: COMMON NORMALS: no acute distress ORIENTATION/CONSCIOUSNESS: Yes awake, Yes oriented to person and Yes oriented to place; not oriented to time Resp: COMMON NORMALS: normal respiratory effort, No retractions, No use of accessory muscles and clear to auscultation bilaterally AUSCULTATION: clear to auscultation bilaterally Cardio: COMMON NORMALS: regular rate, regular rhythm, S1 normal heart sound present and S2 normal heart sound present RATE: regular rate RHYTHM: regular rhythm HEART SOUNDS: S1 normal heart sound present and S2 normal heart sound present GI: COMMON NORMALS: Normal to inspection, nondistended, normoactive bowel sounds present and non-tender Extremity: COMMON NORMALS: no pedal edema Neuro: SENSORIUM/ORIENTATION: Yes oriented to person, Yes oriented to place and No oriented to time Psych: COMMON NORMALS: mental status grossly normal Urinary Catheter Management: Padilla: Cath Placed During This Visit: yes Reason for Continuing Indwelling Catheter: Chronic Indwelling Urinary Catheter on Admission Urinary Catheter Date of Insertion: 04/09/23 Urinary Catheter Time of Insertion: 17:00 Discharge Data Studies Completed and Pending Completed Studies During Hospitalization Category Date Time Status CT head wo con* [id number] Routine Cat Scan 04/05/23 16:[address] kidney stone [id number] Stat Cat Scan 04/03/23 20:49 Completed XR KUB portable [id number] Routine Exams 04/05/23 10:16 Completed XR KUB portable [id number] Routine Exams 04/05/23 18:15 Completed XR KUB portable [id number] Routine Exams 04/06/23 08:47 Completed XR chest 1V portable [id number] Stat Exams 04/03/23 18:22 Completed Pathology: Surgical [PTH] Routine Pth 04/08/23 14:28 Completed CV. echo complete* [id number] Routine Ultrasound 04/04/23 23:44 Completed Pending at discharge Category Date Time Status Basic Metabolic Panel AM LABS Lab 04/16/23 04:00 Ordered Complete Blood Count w/Auto AM LABS Lab 04/16/23 04:00 Ordered SARS Covid-2 Antigen Stat Lab 04/15/23 11:01 Uncollected Sputum Culture and Gram Stain Stat Lab 04/04/23 13:06 Uncollected Radiology Impressions Chest X-Ray 04/03/23 18:22 IMPRESSION: 1. There is vascular congestion with cephalization of flow, interstitial edema and ground-glass opacities compatible with CHF. 2. There is increased density left lower lobe concerning for pneumonic infiltrate. Abdomen/Pelvis CT 04/03/23 20:49 IMPRESSION: 1. Urinary bladder is quite distended. Catheter terminates in the prostate and should be repositioned. 2. There is mild bilateral hydronephrosis without ureteral calculus, likely reflecting tension of the bladder. 3. Intrarenal stones are noted bilaterally. 4. Severe spinal stenosis at L4-L5. Correlate with any symptoms of neurogenic claudication. ADDENDUM: 04/03/232235 Findings were discussed with Dr. Beach at 04/03/2023 10:[address] 04/05/23 16:47 IMPRESSION: 1. No acute intracranial abnormality. 2. Moderate diffuse cerebral atrophy and advanced sequela of chronic small vessel ischemic disease. KUB X-Ray 04/06/23 08:47 IMPRESSION: 1. Findings suggest adynamic ileus with little change. Laboratory Results WBC 11.7 10^3/uL (4.0-10.0) H 04/15/23 05:40 RBC 4.47 10^6/uL (4.1-5.3) 04/15/23 05:40 Hgb 13.9 g/dL (11.7-16.6) 04/15/23 05:40 Hct 43.3 % (42.0-52.0) 04/15/23 05:40 MCV 96.9 fl (80-94) H 04/15/23 05:40 MCH 31.1 pg (28.0-34.0) 04/15/23 05:40 MCHC 32.1 g/dL (30.0-36.0) 04/15/23 05:40 RDW 14.0 % (12.1-15.1) 04/15/23 05:40 Plt Count 440 10^3/cmm (130-400) H 04/15/23 05:40 MPV 10.6 fL (7.4-10.4) H 04/15/23 05:40 Neut % (Auto) 71.1 % 04/15/23 05:40 Lymph % (Auto) 15.4 % 04/15/23 05:40 [place] % (Auto) 7.6 % 04/15/23 05:40 Eos % (Auto) 4.4 % 04/15/23 05:40 Baso % (Auto) 0.6 % 04/15/23 05:40 Neut # (Auto) 8.34 10^3/uL (1.8-7.7) H 04/15/23 05:40 Lymph # (Auto) 1.8 10^3/uL (0.8-4.8) 04/15/23 05:40 [place] # (Auto) 0.9 10^3/uL (0.2-0.9) 04/15/23 05:40 Eos # (Auto) 0.5 10^3/uL (0.0-0.8) 04/15/23 05:40 Baso # (Auto) 0.1 10^3/uL (0.0-0.1) 04/15/23 05:40 Nucleated RBC % (auto) 0 % 04/15/23 05:40 Nucleated RBCs # 0.0 /100WBC 04/15/23 05:40 PT 18.00 SECONDS (12.1-14.9) H 04/05/23 16:37 INR 1.44 (0.8-1.2) H 04/05/23 16:37 APTT 28.3 SECONDS (23.9-36.7) 04/03/23 18:15 Specimen Type Arterial 04/03/23 18:23 Sample Site Radial, right 04/03/23 18:23 ABG pH 7.49 (7.35-7.45) H 04/03/23 18:23 ABG pCO2 32.3 mmHg (35-45) L 04/03/23 18:23 ABG pO2 71.7 mmHg (80.0-100.0) L 04/03/23 18:23 ABG HCO3 24.6 mmol/L (22-26) 04/03/23 18:23 ABG Base Excess 1.8 mmol/L (-2.0-2.0) 04/03/23 18:23 Matheus Test Pos 04/03/23 18:23 Hematocrit 39.8 % (42-52) L 04/03/23 18:23 Hgb O2 Saturation 93.8 % (95-100) L 04/03/23 18:23 Carboxyhemoglobin 1.8 %THgb (0.4-20.1) 04/03/23 18:23 Methemoglobin 0.6 % (0.4-1.5) 04/03/23 18:23 Total Hemoglobin 13.0 g/dL (14-18) L 04/03/23 18:23 O2 Delivery Device Nc 04/03/23 18:23 O2 Liters/Min 2.0 % 04/03/23 18:23 Ground Control Approach Technician ID Walamisha 04/03/23 18:23 Sodium 138 mmol/L (136-145) 04/15/23 05:40 Potassium 5.0 mmol/L (3.5-5.1) 04/15/23 05:40 Chloride 97 mmol/L (98-107) L 04/15/23 05:40 Carbon Dioxide 30 mmol/L (22-29) H 04/15/23 05:40 Anion Gap 16.0 (5-19) 04/15/23 05:40 BUN 30 mg/dL (8-23) H 04/15/23 05:40 Creatinine 1.3 mg/dL (0.7-1.2) H 04/15/23 05:40 GFR Calculation Not Reportable 04/15/23 05:40 Glucose 136 mg/dL (65-115) H 04/15/23 05:40 Calculated Osmolality 294 mOsm/kg (285-295) 04/15/23 05:40 Lactic Acid 1.8 mmol/L (0.5-2.2) 04/03/23 18:15 Calcium 9.6 mg/dL (8.5-10.5) 04/15/23 05:40 Phosphorus 3.1 mg/dL (2.5-4.5) 04/09/23 04:45 Magnesium 2.0 mg/dL (1.7-2.3) 04/09/23 04:45 Total Bilirubin 0.5 mg/dL (0.15-1.2) 04/09/23 04:45 AST 14 U/L (0-40) 04/09/23 04:45 ALT 13 U/L (0-41) 04/09/23 04:45 Alkaline Phosphatase 86 U/L (40-130) 04/09/23 04:45 Troponin T Baseline 54 ng/L (0-15) H 04/03/23 23:53 Troponin T 120 Minute 52.77 ng/L (0-15) H 04/04/23 02:36 Delta Troponin T -1.23 ABS# (0-10) L 04/04/23 02:36 Troponin T Hi Sens 6Hr 50.42 ng/L (0-15) H 04/04/23 05:42 Troponin T Hi Sens 6Hr Delta -3.58 ng/L (0-12) L 04/04/23 05:42 C-Reactive Protein 27.7 mg/L (0.0-4.9) H 04/03/23 18:15 NT-Pro-B Natriuret Pep 3077 pg/mL (0-450) H 04/08/23 04:42 Total Protein 7.0 g/dL (6.6-8.7) 04/09/23 04:45 Albumin 3.9 g/dL (3.5-5.2) 04/09/23 04:45 Globulin 3.1 g/dL (1.3-4.6) 04/09/23 04:45 Vitamin B12 295 pg/mL (232-1245) 04/05/23 16:37 Folate 5.7 ng/mL (4.5-32.2) 04/05/23 19:34 Urine Color Red (Yellow) 04/03/23 18:40 Urine Appearance Hazy (CLEAR) A 04/03/23 18:40 Urine pH 5 (5-7) 04/03/23 18:40 Ur Specific [place] 1.015 (1.005-1.030) 04/03/23 18:40 Urine Protein 3+ (Negative) H 04/03/23 18:40 Urine Glucose (UA) Norm (Normal) 04/03/23 18:40 Urine Ketones Negative (Negative) 04/03/23 18:40 Urine Blood 3+ (Negative) H 04/03/23 18:40 Urine Nitrate Negative (Negative) 04/03/23 18:40 Urine Bilirubin Neg (Negative) 04/03/23 18:40 Urine Urobilinogen Norm mg/dL (Negative) 04/03/23 18:40 Ur Leukocyte Esterase 2+ (Negative) H 04/03/23 18:40 Urine RBC >100 /hpf (0-2) H 04/03/23 18:40 Urine WBC 25-40 /hpf (0-5) H 04/03/23 18:40 Ur Squamous Epith Cells 0-4 /hpf (0-5) H 04/03/23 18:40 Amorphous Sediment Not Reportable 04/03/23 18:40 Urine Bacteria 3+ /hpf (NONE) H 04/03/23 18:40 Nasal Influ A H1 2009 PCR Not detected (NOT DETECT) 04/04/23 18:17 Ethyl Alcohol < 10 mg/dL (0-10) 04/05/23 16:37 Adenovirus (PCR) Not detected (NOT DETECT) 04/04/23 18:17 C. pneumoniae DNA (PCR) Not detected (NOT DETECT) 04/04/23 18:17 Coronavirus 229E (PCR) Not detected (NOT DETECT) 04/04/23 18:17 Human Metapneumovir PCR Not detected (NOT DETECT) 04/04/23 18:17 Influenza A (H1) PCR Not detected (NOT DETECT) 04/04/23 18:17 Influenza A (H3) PCR Not detected (NOT DETECT) 04/04/23 18:17 Influenza Type A (PCR) Not detected (NOT DETECT) 04/04/23 18:17 Influenza Type B (PCR) Not detected (NOT DETECT) 04/04/23 18:17 M. pneumoniae (PCR) Not detected (NOT DETECT) 04/04/23 18:17 Parainfluenza 1 (PCR) Not detected (NOT DETECT) 04/04/23 18:17 Parainfluenza 2 (PCR) Not detected (NOT DETECT) 04/04/23 18:17 Parainfluenza 3 (PCR) Not detected (NOT DETECT) 04/04/23 18:17 Parainfluenza 4 (PCR) Not detected (NOT DETECT) 04/04/23 18:17 RSV Type A (PCR) Not detected (NOT DETECT) 04/04/23 18:17 RSV Type B (PCR) Not detected (NOT DETECT) 04/04/23 18:17 Entero/Rhino (PCR) Not detected (NOT DETECT) 04/04/23 18:17 SARS-CoV-2 (PCR) Not detected (NOT DETECT) 04/04/23 18:17 Vitals Last Vital Signs Temp 97.7 F 04/15/23 07:15 Pulse 87 04/15/23 07:15 Resp 15 04/15/23 07:15 BP 127/71 04/15/23 07:15 Pulse Ox 91 04/15/23 07:15 O2 Del Method Room Air 04/15/23 07:15 O2 Flow Rate 2 04/14/23 20:00 Discharge Plan Discharge Patient Disposition: Xfer SNF Condition: Stable Prescriptions: New aspirin 81 mg Tablet,Delayed Release (Dr/Ec) 81 mg PO QAM 30 Days Qty: 30 0RF folic acid 1 mg Tablet 1 mg PO DAILY 30 Days Qty: 30 0RF polyethylene glycol 3350 17 gram Powder In Packet 17 g PO DAILY PRN (Reason: constipation) 30 Days Qty: 30 0RF Thera 400 mcg Tablet 1 tab PO DAILY 30 Days Qty: 30 0RF tamsulosin 0.4 mg Capsule 0.4 mg PO DAILY 30 Days Qty: 30 0RF Vitamin B-1 (mononitrate) 100 mg Tablet 100 mg PO DAILY 30 Days Qty: 30 0RF ciprofloxacin HCl 500 mg tablet 500 mg PO BID 2 Days Qty: 4 0RF Continued (DME) DME: Walker Unit See Rx Instructions .ROUTE .MEDSUPPLY Qty: 1 0RF Rx Instructions: Code E0143 and E0156 walker 4 wheels and seat atorvastatin 10 mg tablet 10 mg PO QPM Qty: 90 1RF diltiazem HCl 240 mg capsule,extended release 24 hr 240 mg PO DAILY Qty: 90 1RF trazodone 50 mg tablet 50 mg PO BEDTIME Qty: 90 1RF sucralfate [Carafate] 100 mg/mL suspension 10 ml PO QID Qty: 1200 0RF Rx Instructions: swish in mouth and swallow; use after food/drink ferrous sulfate [Feosol] 325 mg (65 mg iron) tablet 325 mg PO BID cholecalciferol (vitamin D3) 25 mcg (1,000 unit) capsule 50 mcg PO DAILY pantoprazole 40 mg tablet,delayed release (DR/EC) 40 mg PO BID 42 Days Qty: 84 1RF duloxetine 60 mg capsule,delayed release(DR/EC) 60 mg PO QAM Qty: 90 1RF ascorbic acid (vitamin C) [Vitamin C] 500 mg Tablet 500 mg PO BID methenamine hippurate 1 gram tablet 1 g PO BID Rx Instructions: FOR RECURRENT UTI WITH 500 MG VITAMIN C EACH DOSE Changed Eliquis 5 mg tablet 5 mg PO Q12H 30 Days Qty: 60 0RF Lasix 40 mg tablet 20 mg PO DAILY Qty: 90 3RF Hold Instructions: Resume on 04/20/23. HOLD UNITL 04/20/2023 Held potassium chloride 10 mEq tablet,ER particles/crystals 10 meq PO DAILY Qty: 30 2RF Hold Instructions: Resume on 04/20/23. Discontinued metoprolol succinate 50 mg tablet extended release 24 hr 50 mg PO DAILY Qty: 90 0RF Discharge Orders: Discharge Order (Routine); Ordered 04/17/23 Ordered By: Jordan Bhardwaj Referrals: [facility] [Outside] Isaac Shelton DO [Physician] - 05/05/23 8:15 am Rahat Valentin MD [Referring] - 1-3 days Michelle Nguyen, [employer] [Primary Care Provider] - Iwona Garcia MD [Physician] - 05/13/23 11:15 am () Discharge Diet: Cardiac Discharge Activity: Resume usual activity Patient Instructions: Opioid Safety Activity Restrictions/Additional Instructions: - Please take antibiotics as prescribed -Please follow-up with Dr. Shelton for biopsy results, -Continue to monitor mentation closely -Monitor his orthostats closely, -I have held his metoprolol 12.5 mg twice daily -Continue to hold, hold until 04/20/2023, if his orthostats are reasonable can resume 12.5 mg twice daily -Please hold Lasix until 04/20/2023, hold potassium until 04/20/2023, if orthostats are reasonable can resume -Please see urology -Discharged with Padilla catheter, monitor for recurrent signs of infection -Needs 2 more days of antibiotic therapy Discharge Attestations Time Spent in Discharge Care*: greater than 30 min Quality Metrics Clinical Quality Measures [ No reported AMI, CVA or VTE this stay] Coding Level of Care Code 62203 Total time (in minutes) for Discharge: 45 Diagnoses Acute encephalopathy G93.40 Protein calorie malnutrition E46 Physical deconditioning R53.81 Colonic mass K63.89 Stool incontinence R15.9 Urinary tract infection N39.0 Urinary retention R33.9 Acute kidney injury N17.9 Altered mental status R41.82 Acute on chronic diastolic CHF (congestive heart failure) I50.33 Atrial flutter I48.92 Non-STEMI (non-ST elevated myocardial infarction) I21.4 Bilateral hydronephrosis N13.30 Pneumonia J18.9 Sepsis A41.9 Hypokalemia E87.6 Fluid overload E87.70 BPH (benign prostatic hyperplasia) N40.0 E. 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
[2023-04-15 11:31] VITALS: BP 101/63; PULSE 78; RESP 17; TEMP 37; O2SAT 94
[2023-04-15 12:16] LABS: SARS Covid-2 Antigen negative (Negative)
[2023-04-15] MEDS: sodium chloride 0.9% 500 ML 999 ML IV (13:19)
--- NOTE | 2023-04-15 13:40 | P.PN_ITS ---
Subjective Subjective: - Patient was seen this morning, he remains alert to person, to place, not to time he can follow commands continues to have episodes of confusion, confabulation, likely persistent Warnicke's encephalopathy, afebrile overnight, normotensive, -Plans on discharging however when patient was gone up he became hypotensive blood pressures dropped to 60s over 40s felt cool, clammy -Patient was back into bed, placed in Trendelenburg, systolics improved to the 110s over 80s, -I reexamined patient remains alert to person, place, not to time he can follow commands no facial droop no slurring of his words, denies any chest pain, no shortness of breath -Likely patient had a orthostatic hypotension, admitted given 250 cc bolus, hold Lasix decrease his metoprolol down to 25 twice daily, monitor him for the next 24 hours, repeat orthostats every 8 hours Vitals/I&O/Wt Last Vital Signs Temp 98.6 F 04/15/23 11:31 Pulse 78 04/15/23 11:31 Resp 17 04/15/23 11:31 BP 101/63 04/15/23 11:31 Pulse Ox 94 04/15/23 11:31 O2 Del Method Room Air 04/15/23 11:31 O2 Flow Rate 2 04/15/23 08:00 04/14/23 04/15/23 04/15/23 22:59 06:59 14:59 Intake Total 480 / 1490 290 / 290 Output Total 700 / 700 1400 / 2100 Balance -220 / 790 -1400 / -610 290 / 290 Physical Exam Const: COMMON NORMALS: no acute distress ORIENTATION/CONSCIOUSNESS: Yes awake, Yes oriented to person and Yes oriented to place; not oriented to time Resp: COMMON NORMALS: normal respiratory effort, No retractions, No use of accessory muscles and clear to auscultation bilaterally AUSCULTATION: clear to auscultation bilaterally Cardio: COMMON NORMALS: regular rate, regular rhythm, S1 normal heart sound present and S2 normal heart sound present RATE: regular rate RHYTHM: regular rhythm HEART SOUNDS: S1 normal heart sound present and S2 normal heart sound present GI: COMMON NORMALS: Normal to inspection, nondistended, normoactive bowel sounds present and non-tender Extremity: COMMON NORMALS: no pedal edema Neuro: SENSORIUM/ORIENTATION: Yes oriented to person, Yes oriented to place and No oriented to time Psych: COMMON NORMALS: mental status grossly normal Urinary Catheter Management: Padilla: Cath Placed During This Visit: yes Reason for Continuing Indwelling Catheter: Chronic Indwelling Urinary Catheter on Admission Urinary Catheter Date of Insertion: 04/09/23 Urinary Catheter Time of Insertion: 17:00 Data 04/15/23 05:40 04/15/23 05:40 A&P Assessment and plan (1) Acute encephalopathy: - Mentation at baseline alert to person, to place, at times to time, has confabulation, -has wernickie encephalopathy -Does have a history of alcoholism, monitoring for withdrawals -Also secondary to sepsis, UTI, bacteremia, which has resolved -B12 within normal limits, folate within normal limits, follow cultures CT head 1. ? No acute intracranial abnormality. 2. ? Moderate diffuse cerebral atrophy and advanced sequela of chronic small vessel ischemic disease. -Folic acid, thiamine, multivitamin (2) Protein calorie malnutrition: - Has moderate protein calorie malnutrition -Has temporal muscle wasting, peripheral muscle wasting, of bilateral arms, bilateral thighs (3) Physical deconditioning: - PT OT (4) Colonic mass: -His CT scan from February 2023 showed -3.? Tortuous decompressed sigmoid colon in the LEFT lower quadrant. This transitions to dilated LEFT colon. This can be further evaluated with colonoscopy and/or barium enema in further assessment. Suggestion of a focal soft tissue nodule at the area of transition measuring 1.8 cm 4.? Constipation involving the hepatic flexure transverse colon and splenic flexure extending into the descending LEFT colon -Advance as tolerated -Resume Eliquis tomorrow morning -General surgery consulted, bowel prep, colonoscopy showed a proximal descending colonic mass, suspicious for carcinoma, also large polyp in the distal descending colon, will be referred to colorectal surgeon in [place], follow- up biopsy results follow-up with Dr. Shelton -Serial abdominal exams (5) Stool incontinence: (6) Urinary tract infection: Bilateral hydronephrosis noted on CT, likely in the setting of distended bladder and urinary retention. There are intrarenal stones but no evidence of ureteric obstruction currently. Padilla catheter position change, so far 2900 urine output UA with 2+ leukocyte Estrace, 25-40 WBC, concerning for UTI. Continue empiric antibiotic coverage with cefepime 2 g IV every 12 hours, dose will likely need to be adjusted with changes in creatinine. Blood and urine cultures have been collected in the ER, 4 of 4 blood cultures positive for E. coli, pansensitive, repeat blood cultures negative for 5 days, continue Rocephin While he is here in the hospital we will continue Rocephin, can switch to p.o. ciprofloxacin on discharge, requires a total of 14 days of antibiotics since negative cultures (7) Urinary retention: Likely as a result of misplaced Padilla catheter. Catheter replaced, now draining urine. (8) Acute kidney injury: Resolved Suspect this is related to urinary retention. Padilla has been repositioned. Monitor creatinine Patient also has evidence of acute on chronic CHF exacerbation therefore he has not currently been placed on IV fluids. (9) Altered mental status: - Monitor (10) Acute on chronic diastolic CHF (congestive heart failure): No significant wheezing today, no significant edema, monitor last echocardiogram dates back to 2019, LVEF of 50% with moderate hypokinesia of the basal wall. Grade 3 diastolic dysfunction with severely elevated filling pressures. Cardiac echo Normal left ventricular size and systolic function, EF 65 % ?(visual) no regional wall motion abnormalities. ?Moderate mitral annular calcification. Trace mitral valve ?regurgitation. ?Thickened aortic valve. Mild aortic valve calcification. ?Thickened aortic valve.? Moderate aortic valve calcification ?Moderate biatrial enlargementModerate tricuspid valve ?regurgitation. ?Moderate pulmonary valve regurgitation. ?Normal pericardium without effusion.? ?No similar previous studies are available for comparison EKG today shows A-fib with heart rate of [address] deviation in leads V4, V5, V6 Has received Lasix yesterday Hold Lasix for today Monitor urine output monitor creatinine with daily dose Lasix (11) Atrial flutter: Continue home dose of metoprolol 50 mg p.o. daily Continue home Cardizem (12) Non-STEMI (non-ST elevated myocardial infarction): - Likely type II NSTEMI from sepsis as above -No chest pain complaints -However cannot rule out underlying cardiac etiology -Continue telemetry monitoring (13) Bilateral hydronephrosis: - Likely due to obstruction as above, will monitor (14) Pneumonia: - Seen on chest x-ray -Does have leukocytosis -Switch to Rocephin -Follow sputum cultures, respiratory viral panel (15) Sepsis: - Secondary to UTI, pneumonia, E. coli bacteremia (16) Hypokalemia: - Replace IV (17) Fluid overload: - On p.o. Lasix (18) BPH (benign prostatic hyperplasia): - Flomax (19) E. 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): - We will need to monitor closely thiamine, folic acid, multivitamin -CIWA protocol (23) Orthostatic hypotension: - Became cool, clammy, when he was gone up before discharge, blood pressures down to 60s over 40s -Placed in Trendelenburg systolics improved to 110s diastolic to 80s he is alert oriented To person, to place, not to time, he follows commands Plan DVT prophylaxis: SCDs, Lovenox for now, CODE STATUS: Full code Plan for today, continue Rocephin, up out of bed, heart rates are a bit elevated, decrease metoprolol 25mg BID, hold lasix, will give 250cc fluids, repeat orthstat vitals, tel monitoing Attestations Medical Necessity Statement*: patient requires hospitalization for orthostatic hypotension Diagnoses Acute encephalopathy G93.40 Protein calorie malnutrition E46 Physical deconditioning R53.81 Colonic mass K63.89 Stool incontinence R15.9 Urinary tract infection N39.0 Urinary retention R33.9 Acute kidney injury N17.9 Altered mental status R41.82 Acute on chronic diastolic CHF (congestive heart failure) I50.33 Atrial flutter I48.92 Non-STEMI (non-ST elevated myocardial infarction) I21.4 Bilateral hydronephrosis N13.30 Pneumonia J18.9 Sepsis A41.9 Hypokalemia E87.6 Fluid overload E87.70 BPH (benign prostatic hyperplasia) N40.0 E. coli bacteremia R78.81; B96.20 Ileus K56.7 Colon distention K63.89 Wernicke-Korsakoff syndrome (alcoholic) F10.96 Orthostatic hypotension I95.1
--- NOTE | 2023-04-15 14:28 | PC.OT ---
PHYSICAL THERAPY AND NURSING REPORT SOFT BPs AND PT IN [place]. HOLDING OT TREATMENT AT THIS TIME. WILL ATTEMPT AGAIN TOMORROW.
[2023-04-15 15:34] VITALS: BP 113/73; PULSE 84; RESP 15; TEMP 36.8; O2SAT 97
[2023-04-15] MEDS: atorvastatin 40 mg Tablet 10 MG PO (18:13)
[2023-04-15 20:00] VITALS: BP 100/62; PULSE 88; RESP 17; TEMP 36.8; O2SAT 96
[2023-04-15] MEDS: metoprolol tartrate 25 mg Tablet PO (21:13)
[2023-04-16] VITALS (8 sets, daily range): BP systolic 55–122; BP diastolic 32–83; PULSE 65–96; RESP 16–18; TEMP 36.3–37; O2SAT 91–100
[2023-04-16 05:39] LABS: Basophils # 0.1 10^3/uL (0.0-0.1); Basophils % 0.7 %; Eosinophils # 0.4 10^3/uL (0.0-0.8); Eosinophils % 4.4 %; Hematocrit 40.8 % (42.0-52.0); Hemoglobin 12.9 g/dL (11.7-16.6); Lymphocytes # 1.7 10^3/uL (0.8-4.8); Lymphocytes % 18.9 %; Mean Corpuscular HGB Conc 31.6 g/dL (30.0-36.0); Mean Corpuscular Hemoglobin 30.3 pg (28.0-34.0); Mean Corpuscular Volume 95.8 fl (80-94); Mean Platelet Volume 10.5 fL (7.4-10.4); Monocytes # 0.9 10^3/uL (0.2-0.9); Monocytes % 10.5 %; Neutrophils # 5.75 10^3/uL (1.8-7.7); Neutrophils % 64.9 %; Nucleated Red Blood Cells % 0 %; Platelet Count 386 10^3/cmm (130-400); Red Blood Count 4.26 10^6/uL (4.1-5.3); Red Cell Distribution Width 13.8 % (12.1-15.1); White Blood Count 8.9 10^3/uL (4.0-10.0)
[2023-04-16 06:00] LABS: Anion Gap 16.4 (5-19); Blood Urea Nitrogen 28 mg/dL (8-23); Calcium 9.3 mg/dL (8.5-10.5); Carbon Dioxide 26 mmol/L (22-29); Chloride 100 mmol/L (98-107); Glucose 111 mg/dL (65-115); Osmolality Calculated 292 mOsm/kg (285-295); Potassium 4.4 mmol/L (3.5-5.1); Sodium 138 mmol/L (136-145)
[2023-04-16] MEDS: aspirin 81 mg EC Tablet PO (06:09)
[2023-04-16] MEDS: cefTRIAXone 1,000 MG in sodium chloride 0.9% (plus) 50 ML 100 MG IV (06:09)
[2023-04-16] MEDS: duloxetine 60 mg Capsule PO (06:09)
[2023-04-16] MEDS: apixaban 5 mg Tablet PO ×2 (06:09→17:38)
[2023-04-16] MEDS: dilTIAZem ER (24HR) 240 mg Capsule PO (08:36)
[2023-04-16] MEDS: multivitamin therapeutic Tablet 1 TAB PO (08:36)
[2023-04-16] MEDS: metoprolol tartrate 25 mg Tablet PO (08:36)
[2023-04-16] MEDS: thiamine 100 mg Tablet PO (08:36)
[2023-04-16] MEDS: tamsulosin 0.4 mg Capsule PO (08:38)
[2023-04-16] MEDS: polyethylene glycol 3350 Pkt 17 gm PO (08:38)
[2023-04-16] MEDS: pantoprazole DR 40 mg Tablet PO (08:38)
[2023-04-16] MEDS: folic acid 1 mg Tablet PO (08:38)
[2023-04-16] MEDS: sodium chloride 0.9% 500 ML 999 ML IV (11:46)
--- NOTE | 2023-04-16 13:28 | PC.SOCIAL ---
IMM Updated pt & family on IMM. No questions voiced. Provided pt a copy. Initialed, dated, & timed copy in chart.
[2023-04-16] MEDS: sodium chloride 0.9% 1,000 ML 75 ML IV (15:56)
--- NOTE | 2023-04-16 17:08 | PM.PN ---
Subjective Subjective: - Patient was seen this morning, he is alert to person, to place, not to time he has no complaints -Repeat orthostatic vitals show that he is profoundly orthostatic, -Potentially it could be overdiuresis, he is -9 L, he was given a 500 cc bolus, -Also component to be from the metoprolol, I held his metoprolol -In addition it could be from 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, -Patient was monitored, in the afternoon he still remains orthostatic to some degree we will start him on 75 cc of normal saline watch for another 24 hours of his orthostats improve over the next 24 hours he can discharge to half-way facility will have to try a very low-dose of metoprolol, my worry is is that he goes back into A-fib with RVR, will have to monitor him closely Vitals/I&O/Wt Last Vital Signs Temp 97.5 F L 04/16/23 16:00 Pulse 69 04/16/23 16:00 Resp 17 04/16/23 16:00 BP 104/67 04/16/23 16:00 Pulse Ox 94 04/16/23 16:00 O2 Del Method Room Air 04/16/23 04:00 O2 Flow Rate 2 04/16/23 00:00 04/16/23 04/16/23 04/16/23 06:59 14:59 22:59 Intake Total 1030 / 1030 Output Total 1200 / 1200 Balance -1200 / -170 1030 / 1030 Physical Exam Const: COMMON NORMALS: no acute distress Resp: COMMON NORMALS: normal respiratory effort, No retractions, No use of accessory muscles and clear to auscultation bilaterally AUSCULTATION: clear to auscultation bilaterally Cardio: COMMON NORMALS: regular rate, regular rhythm, S1 normal heart sound present and S2 normal heart sound present RATE: regular rate RHYTHM: regular rhythm HEART SOUNDS: S1 normal heart sound present and S2 normal heart sound present GI: COMMON NORMALS: Normal to inspection, nondistended, normoactive bowel sounds present and non-tender Extremity: COMMON NORMALS: no clubbing, cyanosis or edema and no pedal edema Psych: COMMON NORMALS: mental status grossly normal Urinary Catheter Management: Padilla: Cath Placed During This Visit: yes Reason for Continuing Indwelling Catheter: Chronic Indwelling Urinary Catheter on Admission Urinary Catheter Date of Insertion: 04/09/23 Urinary Catheter Time of Insertion: 17:00 Data 04/16/23 05:09 04/16/23 05:09 A&P Assessment and plan (1) Acute encephalopathy: - Mentation at baseline alert to person, to place, at times to time, has confabulation, -has wernickie encephalopathy -Does have a history of alcoholism, monitoring for withdrawals -Also secondary to sepsis, UTI, bacteremia, which has resolved -B12 within normal limits, folate within normal limits, follow cultures CT head 1. ? No acute intracranial abnormality. 2. ? Moderate diffuse cerebral atrophy and advanced sequela of chronic small vessel ischemic disease. -Folic acid, thiamine, multivitamin (2) Protein calorie malnutrition: - Has moderate protein calorie malnutrition -Has temporal muscle wasting, peripheral muscle wasting, of bilateral arms, bilateral thighs (3) Physical deconditioning: - PT OT (4) Colonic mass: -His CT scan from February 2023 showed -3.? Tortuous decompressed sigmoid colon in the LEFT lower quadrant. This transitions to dilated LEFT colon. This can be further evaluated with colonoscopy and/or barium enema in further assessment. Suggestion of a focal soft tissue nodule at the area of transition measuring 1.8 cm 4.? Constipation involving the hepatic flexure transverse colon and splenic flexure extending into the descending LEFT colon -Advance as tolerated -Resume Eliquis tomorrow morning -General surgery consulted, bowel prep, colonoscopy showed a proximal descending colonic mass, suspicious for carcinoma, also large polyp in the distal descending colon, will be referred to colorectal surgeon in [place], follow-up biopsy results follow-up with Dr. Shelton -Serial abdominal exams (5) Stool incontinence: (6) Urinary tract infection: Bilateral hydronephrosis noted on CT, likely in the setting of distended bladder and urinary retention. There are intrarenal stones but no evidence of ureteric obstruction currently. Padilla catheter position change, so far 2900 urine output UA with 2+ leukocyte Estrace, 25-40 WBC, concerning for UTI. Continue empiric antibiotic coverage with cefepime 2 g IV every 12 hours, dose will likely need to be adjusted with changes in creatinine. Blood and urine cultures have been collected in the ER, 4 of 4 blood cultures positive for E. coli, pansensitive, repeat blood cultures negative for 5 days, continue Rocephin While he is here in the hospital we will continue Rocephin, can switch to p.o. ciprofloxacin on discharge, requires a total of 14 days of antibiotics since negative cultures (7) Urinary retention: Likely as a result of misplaced Padilla catheter. Catheter replaced, now draining urine. (8) Acute kidney injury: Resolved Suspect this is related to urinary retention. Padilla has been repositioned. Monitor creatinine Patient also has evidence of acute on chronic CHF exacerbation therefore he has not currently been placed on IV fluids. (9) Altered mental status: - Monitor (10) Acute on chronic diastolic CHF (congestive heart failure): No significant wheezing today, no significant edema, monitor last echocardiogram dates back to 2019, LVEF of 50% with moderate hypokinesia of the basal wall. Grade 3 diastolic dysfunction with severely elevated filling pressures. Cardiac echo Normal left ventricular size and systolic function, EF 65 % ?(visual) no regional wall motion abnormalities. ?Moderate mitral annular calcification. Trace mitral valve ?regurgitation. ?Thickened aortic valve. Mild aortic valve calcification. ?Thickened aortic valve.? Moderate aortic valve calcification ?Moderate biatrial enlargementModerate tricuspid valve ?regurgitation. ?Moderate pulmonary valve regurgitation. ?Normal pericardium without effusion.? ?No similar previous studies are available for comparison EKG today shows A-fib with heart rate of [address] deviation in leads V4, V5, V6 Has received Lasix yesterday Hold Lasix for today Monitor urine output monitor creatinine with daily dose Lasix (11) Atrial flutter: Continue home dose of metoprolol 50 mg p.o. daily Continue home Cardizem (12) Non-STEMI (non-ST elevated myocardial infarction): - Likely type II NSTEMI from sepsis as above -No chest pain complaints -However cannot rule out underlying cardiac etiology -Continue telemetry monitoring (13) Bilateral hydronephrosis: - Likely due to obstruction as above, will monitor (14) Pneumonia: - Seen on chest x-ray -Does have leukocytosis -Switch to Rocephin -Follow sputum cultures, respiratory viral panel (15) Sepsis: - Secondary to UTI, pneumonia, E. coli bacteremia (16) Hypokalemia: - Replace IV (17) Fluid overload: - On p.o. Lasix (18) BPH (benign prostatic hyperplasia): - Flomax (19) E. 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): - We will need to monitor closely thiamine, folic acid, multivitamin -CIWA protocol (23) Orthostatic hypotension: - Patient was seen this morning, he is alert to person, to place, not to time he has no complaints -Repeat orthostatic vitals show that he is profoundly orthostatic, -Potentially it could be overdiuresis, he is -9 L, he was given a 500 cc bolus, -Also component to be from the metoprolol, I held his metoprolol -In addition it could be from 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, -Patient was monitored, in the afternoon he still remains orthostatic to some degree we will start him on 75 cc of normal saline watch for another 24 hours of his orthostats improve over the next 24 hours he can discharge to half-way facility will have to try a very low-dose of metoprolol, my worry is is that he goes back into A-fib with RVR, will have to monitor him closely Plan DVT prophylaxis: SCDs, Lovenox for now, CODE STATUS: Full code - Patient was seen this morning, he is alert to person, to place, not to time he has no complaints -Repeat orthostatic vitals show that he is profoundly orthostatic, -Potentially it could be overdiuresis, he is -9 L, he was given a 500 cc bolus, -Also component to be from the metoprolol, I held his metoprolol -In addition it could be from 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, -Patient was monitored, in the afternoon he still remains orthostatic to some degree we will start him on 75 cc of normal saline watch for another 24 hours of his orthostats improve over the next 24 hours he can discharge to half-way facility will have to try a very low-dose of metoprolol, my worry is is that he goes back into A-fib with RVR, will have to monitor him closely Attestations Medical Necessity Statement*: Patient requires hospitalization for persistent orthostatic hypotension Coding Level of Care Code Acute Code for Chg Fwd Diagnoses Acute encephalopathy G93.40 Protein calorie malnutrition E46 Physical deconditioning R53.81 Colonic mass K63.89 Stool incontinence R15.9 Urinary tract infection N39.0 Urinary retention R33.9 Acute kidney injury N17.9 Altered mental status R41.82 Acute on chronic diastolic CHF (congestive heart failure) I50.33 Atrial flutter I48.92 Non-STEMI (non-ST elevated myocardial infarction) I21.4 Bilateral hydronephrosis N13.30 Pneumonia J18.9 Sepsis A41.9 Hypokalemia E87.6 Fluid overload E87.70 BPH (benign prostatic hyperplasia) N40.0 E. coli bacteremia R78.81; B96.20 Ileus K56.7 Colon distention K63.89 Wernicke-Korsakoff syndrome (alcoholic) F10.96 Orthostatic hypotension I95.1
[2023-04-16] MEDS: atorvastatin 40 mg Tablet 10 MG PO (17:38)
[2023-04-17 00:06] VITALS: BP 113/69; PULSE 85; RESP 19; TEMP 36.6; O2SAT 96
[2023-04-17 03:38] VITALS: BP 99/62; PULSE 102; RESP 17; TEMP 36.6; O2SAT 94
[2023-04-17 05:53] LABS: Basophils # 0.1 10^3/uL (0.0-0.1); Basophils % 0.7 %; Eosinophils # 0.4 10^3/uL (0.0-0.8); Eosinophils % 4.7 %; Hematocrit 39.1 % (42.0-52.0); Hemoglobin 12.4 g/dL (11.7-16.6); Lymphocytes # 1.7 10^3/uL (0.8-4.8); Mean Corpuscular HGB Conc 31.7 g/dL (30.0-36.0); Mean Corpuscular Hemoglobin 30.8 pg (28.0-34.0); Mean Corpuscular Volume 97.3 fl (80-94); Mean Platelet Volume 10.6 fL (7.4-10.4); Monocytes % 12.2 %; Neutrophils # 4.97 10^3/uL (1.8-7.7); Nucleated Red Blood Cells % 0 %; Platelet Count 337 10^3/cmm (130-400); Red Blood Count 4.02 10^6/uL (4.1-5.3); Red Cell Distribution Width 13.7 % (12.1-15.1); White Blood Count 8.1 10^3/uL (4.0-10.0)
[2023-04-17 06:00] VITALS: BP 90/57; BP 90/59; BP 93/56; PULSE 87; PULSE 91; PULSE 96
[2023-04-17] MEDS: apixaban 5 mg Tablet PO (06:00)
[2023-04-17] MEDS: sodium chloride 0.9% 1,000 ML 75 ML IV (06:00)
[2023-04-17] MEDS: duloxetine 60 mg Capsule PO (06:00)
[2023-04-17] MEDS: aspirin 81 mg EC Tablet PO (06:00)
[2023-04-17] MEDS: cefTRIAXone 1,000 MG in sodium chloride 0.9% (plus) 50 ML 100 MG IV (06:01)
[2023-04-17 06:22] LABS: Blood Urea Nitrogen 24 mg/dL (8-23); Calcium 9.1 mg/dL (8.5-10.5); Carbon Dioxide 26 mmol/L (22-29); Chloride 103 mmol/L (98-107); Glucose 104 mg/dL (65-115); Osmolality Calculated 294 mOsm/kg (285-295); Sodium 140 mmol/L (136-145)
[2023-04-17 06:24] LABS: Anion Gap 15.2 (5-19); Potassium 4.2 mmol/L (3.5-5.1)
[2023-04-17 07:24] VITALS: BP 121/72; PULSE 78; RESP 16; TEMP 36.4; O2SAT 95
[2023-04-17] MEDS: thiamine 100 mg Tablet PO (10:43)
[2023-04-17] MEDS: pantoprazole DR 40 mg Tablet PO (10:44)
[2023-04-17] MEDS: folic acid 1 mg Tablet PO (10:44)
[2023-04-17] MEDS: multivitamin therapeutic Tablet 1 TAB PO (10:44)
[2023-04-17] MEDS: dilTIAZem ER (24HR) 240 mg Capsule PO (10:44)
[2023-04-17] MEDS: tamsulosin 0.4 mg Capsule PO (10:44)
== END 2023-04-17 16:24 | disposition skilled nursing facility (03) | DRG 698 ==
LOC: ER 18:46 → MEDSURG 21:07
PROVIDERS: Surgery; Admitting Provider Student in an Organized Health Care Education/Training Program; Emergency Provider Emergency Medicine; PCP Nurse Practitioner; Visit Provider Family Medicine
PROC: 0DJD8ZZ Inspection of Lower Intestinal Tract, Via Natural or Artificial Opening Endoscopic (ICD-10-PCS; CPT 45378; principal; 2023-04-08 12:00)
DX: T83.511A Infection and inflammatory reaction due to indwelling urethral catheter, initial encounter (principal); A41.51 Sepsis due to Escherichia coli [E. coli]; J18.9 Pneumonia, unspecified organism; I50.33 Acute on chronic diastolic (congestive) heart failure; I21.A1 Myocardial infarction type 2; F10.288 Alcohol dependence with other alcohol-induced disorder; E51.2 Wernicke's encephalopathy; E44.0 Moderate protein-calorie malnutrition; N13.30 Unspecified hydronephrosis; N13.8 Other obstructive and reflux uropathy; N17.9 Acute kidney failure, unspecified; I48.92 Unspecified atrial flutter; Y73.8 Miscellaneous gastroenterology and urology devices associated with adverse incidents, not elsewhere classified; T83.021A Displacement of indwelling urethral catheter, initial encounter; I95.1 Orthostatic hypotension; G62.1 Alcoholic polyneuropathy; I48.91 Unspecified atrial fibrillation; Z68.24 Body mass index [BMI] 24.0-24.9, adult; K63.9 Disease of intestine, unspecified; K63.5 Polyp of colon; R15.9 Full incontinence of feces; N40.1 Benign prostatic hyperplasia with lower urinary tract symptoms; R33.8 Other retention of urine; R39.15 Urgency of urination; N20.0 Calculus of kidney; I11.0 Hypertensive heart disease with heart failure; I08.1 Rheumatic disorders of both mitral and tricuspid valves; E87.6 Hypokalemia; I25.10 Atherosclerotic heart disease of native coronary artery without angina pectoris; Z95.1 Presence of aortocoronary bypass graft; Z79.891 Long term (current) use of opiate analgesic; E78.5 Hyperlipidemia, unspecified; I49.5 Sick sinus syndrome; Z95.0 Presence of cardiac pacemaker; F41.1 Generalized anxiety disorder; Z87.891 Personal history of nicotine dependence
CPT/HCPCS: 36415; 36600; 45381; 45385; 45388; 51702; 70450; 71045; 74018; 74176; 80048; 80053; 80307; 81001; 82607; 82746; 82805; 83605; 83735; 83880; 84100; 84484; 85025; 85610; 85730; 86140; 87040; 87077; 87086; 87150; 87186; 87205; 87426; 87486; 87581; 87633; 88305; 92507; 92523; 92526; 92610; 93005; 93306; 96365; 96367; 96372; 96375; 97110; 97116; 97161; 97167; 97530; 97535; 99203; 99283; 99285; J0692; J0696; J1100; J1650; J1885; J1940; J2543; J2704; J3370; J3411; J3480; J3490; J7030; J7040